=== PATIENT | female | born 1935 | race Caucasian/White ===

== ENCOUNTER 2018-12-09 12:14 | Inpatient (IN) | payer MEDICARE, MEDICAID ==
[2018-12-09] VITALS (7 sets, daily range): BP systolic 116–148; BP diastolic 60–70; PULSE 88–93; RESP 15–24; Ht 137.2 cm; Wt 68.0 kg
[~2018-12-09] VITALS: Ht 137.2 cm; Wt 68.0 kg
[~2018-12-09 12:14] MED LIST: ATEN50TA PO; ATOR20TA38 PO; BACTDS PO; DONE5TAB53 PO; MEMA5TAB PO; METF500T24 PO; TRAZ-111 PO; VALS160T20 PO
[2018-12-09] MEDS ORDERED: SOD CHLORIDE 0.9% 500 ML IV STA (12:45)
--- NOTE | 2018-12-09 13:09 | ERD ---
ER Documentation Chief Complaint Chief Complaint pt bib family with c/o not eating, dark stools, not herself HPI This is an 83-year-old female with a past medical history of hypertension, hyperlipidemia, diabetes, blindness, previous stroke with residual left-sided deficits, nonambulatory, lower extremity atrophy and contractures, significant dementia who is now presenting with 3 days of progressive abdominal discomfort, dark black soft stooling and a decreased appetite. The patient has not had any vomiting. The patient is chronically incontinent of urine and stool and wears a depends diaper. The family does not report any foul-smelling urine. History and physical is otherwise limited secondary to patient's dementia. ROS Limited secondary to patient's dementia. Medications Home Meds Reported Medications Docusate Sodium (Silace) 50 Mg/5 Ml Liquid, 10 ML PO DAILY PRN for PRN 12/09/18 Glipizide* (Glipizide*) 5 Mg Tablet, 5 MG PO AC BREAKFAST, TAB 12/09/18 Amlodipine Besylate* (Norvasc*) 5 Mg Tablet, 5 MG PO BID, TAB 12/09/18 Trazodone Hcl* (Trazodone Hcl*) 50 Mg Tablet, 50 MG PO Q6H, #30 TAB 12/09/18 Metformin Hcl* (Metformin Hcl*) 500 Mg Tablet, 500 MG PO WITH BREAKFAST, #30 TAB 12/09/18 Atenolol* (Atenolol*) 50 Mg Tablet, 50 MG PO DAILY, #30 TAB HOLD FOR SBP<100 12/09/18 Discontinued Reported Medications Valsartan* (Diovan*) 160 Mg Tablet, 160 MG PO DAILY, TAB 07/04/14 Atenolol* (Atenolol*) 50 Mg Tablet, 50 MG PO DAILY, TAB HOLD PER DR. TIWARI 07/04/14 Atorvastatin Calcium* (Atorvastatin Calcium*) 20 Mg Tablet, 20 MG PO HS, TAB 07/04/14 Donepezil* (Aricept*) 5 Mg Tablet, 5 MG PO DAILY, TAB 07/04/14 Metformin Hcl* (Metformin Hcl*) 500 Mg Tablet, 500 MG PO BID, TAB 07/04/14 Trazodone Hcl* (Trazodone Hcl*) 50 Mg Tablet, 50 MG PO DAILY PRN for SLEEP, TAB 07/04/14 Memantine* (Namenda*) 5 Mg Tablet, 5 MG PO DAILY, TAB 07/04/14 Discontinued Scripts Valsartan* (Diovan*) 160 Mg Tablet, 160 MG PO DAILY, #10 TAB Prov:GREER EVERETT 03/01/16 Sulfamethoxazole-Trimethoprim* (Bactrim* DS) 800-160 Mg Tab, 1 TAB PO BID for 10 Days, TAB Prov:SLAVA JACOBS MD 03/01/16 Allergies Allergies: Coded Allergies: Penicillins (Verified Allergy, Unknown, 12/09/18) PMhx/Soc History of Surgery: No Anesthesia Reaction: No Hx Neurological Disorder: Yes (DEMENTIA, CVA) Hx Respiratory Disorders: No Hx Cardiac Disorders: Yes (Hypertension, hyperlipidemia, diabetes) Hx Psychiatric Problems: No Hx Miscellaneous Medical Probl: Yes (Blindness) Hx Alcohol Use: No Hx Substance Use: No Hx Tobacco Use: No FmHx Family History: diabetes Physical Exam Vitals Vital Signs Date Temp Pulse Resp B/P (MAP) Pulse Ox O2 O2 Flow FiO2 Time Delivery Rate 12/09/18 96.7 95 18 113/57 100 Room Air 14:35 (75) 12/09/18 94 18 111/54 100 Room Air 13:43 (73) 12/09/18 97.3 64 20 138/63 84 12:18 (88) Physical Exam Const: No apparent distress, well-developed Head: Normocephalic, Atraumatic Eyes: Blindness ENT: Normal External Ears, Nose. Dry mucous membranes Neck: No meningismus. Resp: Clear to auscultation bilaterally, No wheezes, rales or rhonchi Cardio: Regular rate and rhythm. No murmurs, rubs or gallops Abd: Soft, non tender, non distended. Normal bowel sounds Rectal: Appraiser present. Nonbleeding hemorrhoids. Soft dark stool. Skin: No petechiae or rashes Back: No midline tenderness. No CVA tenderness Ext: No cyanosis, or edema. Lower extremity contractures Neur: Awake and alert. Confused but speaks clearly. Able to move all extremities. Psych: Agitated Result Diagram: 12/09/18 1256 12/09/18 1256 Results 24 hrs Laboratory Tests Test 12/09/18 12:45 12/09/18 12:56 Stool Occult Blood POSITIVE White Blood Count 10.9 10^3/ul Red Blood Count 2.35 10^6/ul Hemoglobin 6.8 g/dl Hematocrit 21.2 % Mean Corpuscular Volume 90.2 fl Mean Corpuscular Hemoglobin 28.9 pg Mean Corpuscular Hemoglobin Concent 32.1 g/dl Red Cell Distribution Width 13.0 % Platelet Count 272 10^3/UL Mean Platelet Volume 10.8 fl Immature Granulocytes % 0.500 % Neutrophils % 84.4 % Lymphocytes % 10.8 % Monocytes % 4.0 % Eosinophils % 0.1 % Basophils % 0.2 % Nucleated Red Blood Cells % 0.0 /100WBC Immature Granulocytes # 0.050 10^3/ul Neutrophils # 9.2 10^3/ul Lymphocytes # 1.2 10^3/ul Monocytes # 0.4 10^3/ul Eosinophils # 0.0 10^3/ul Basophils # 0.0 10^3/ul Nucleated Red Blood Cells # 0.0 10^3/ul Prothrombin Time 13.5 Sec Prothrombin Time Ratio 1.1 INR International Normalized Ratio 1.02 Activated Partial Thromboplast Time 29.3 Sec Sodium Level 148 mmol/L Potassium Level 3.6 mmol/L Chloride Level 112 mmol/L Carbon Dioxide Level 21 mmol/L Anion Gap 15 Blood Urea Nitrogen 82 mg/dl Creatinine 2.43 mg/dl Est Glomerular Filtrat Rate mL/min mL/min Glucose Level 263 mg/dl Calcium Level 9.1 mg/dl Total Bilirubin 0.1 mg/dl Direct Bilirubin 0.00 mg/dl Indirect Bilirubin 0.1 mg/dl Aspartate Amino Transf (AST/SGOT) 38 IU/L Alanine Aminotransferase (ALT/SGPT) 7 IU/L Alkaline Phosphatase 90 IU/L Troponin I 2.640 ng/ml Total Protein 7.3 g/dl Albumin 4.0 g/dl Globulin 3.30 g/dl Albumin/Globulin Ratio 1.21 Lipase 143 U/L Current Medications Medications Dose Sig/Salvatore Start Time Status Last (Trade) Ordered Route PRN Stop Time Admin Dose Reason Admin Sodium 500 ml @ Q1H STAT 12/09/18 DC 12/09/18 Chloride 500 mls/hr IV 12:45 13:17 12/09/18 13:44 Sodium 0 ml @ 0 Q0M ONCE 12/09/18 DC Chloride mls/hr IV 13:31 12/09/18 13:32 80 mg ONCE ONCE 12/09/18 DC 12/09/18 Pantoprazole IV 14:00 13:41 (Protonix 12/09/18 14:01 Iv) Ondansetron 4 mg ONCE STAT 12/09/18 DC 12/09/18 HCl (Zofran IV 13:34 13:40 Inj) 12/09/18 13:35 Ondansetron 4 mg ER BRIDGE 12/09/18 HCl (Zofran PRN IV 14:00 Inj) NAUSEA/VOMITI 12/10/18 13:59 NG 650 mg ER BRIDGE 12/09/18 Acetaminophen PRN PO 14:00 (Tylenol .MILD PAIN 12/10/18 13:59 Tab) 1-3 OR TEMP Procedures/MDM MDM The patient's presentation warrants further investigation. Previous medical records, if available, were reviewed. LABS The patient's laboratory testing was obtained and reviewed. No emergent treatment was required unless described below. CBC: No E/o systemic infection or thrombocytopenia. Significant normocytic anemia requiring transfusion. Chemistry: Hypernatremia. Elevated BUN and creatinine. Acute on chronic kidney disease evident. The elevated BUN could also be related to an upper GI bleed. Hyperglycemia without DKA. No E/o severe acidosis or alkalosis or liver disease PT/INR: No E/o significant coagulopathy Troponin: No E/o acute ischemia Urine: No E/o acute infection or hematuria FOBT: Positive EKG EKG read by me: Rate/Rhythm: Regular rate and rhythm, without clear P waves, likely accelerated junctional rhythm at 95 bpm Intervals: Normal QRS [place]: Normal Impression: ST depressions in V3 through V6 with biphasic T waves, concerning for an NSTEMI IMAGING Imaging and Radiology interpretation reviewed. CXR FINDINGS: The heart is normal in size. Thoracic aorta is calcified. There are mild increased interstitial changes. There are mild bibasilar atelectatic changes. The lungs are otherwise clear. There is no pleural effusion or pneumo thorax. IMPRESSION: Mild bibasilar atelectatic changes. Mild increased interstitial changes throughout the lungs, suspicious for mild pulmonary vascular congestion. Electronically viewed and signed by Marky Valdez MD on 12/09/2018 13:41 TREATMENT/DISPOSITION The patient presents for a GI bleed and failure to thrive. She has not been eating over the last several days. I do suspect that this is related to her abdominal discomfort. The patient's fecal occult blood test is positive. The patient is significantly anemic, which will require transfusion. The risks and benefits were discussed with the patient's son and the son consented to the procedure. The dispatch clerk, Dr. Thomas, was consulted to evaluate the patient. There is no evidence of viscus perforation. The patient does not have any evidence of peritonitis. The patient does not have clinical symptoms concerning for mesenteric ischemia or ischemic colitis. I have low suspicion for gallstones, cholecystitis or biliary colic. Gastritis versus GERD versus PUD could be the etiology of her dark tarry stools. The patient's lipase is normal. I have low suspicion for pancreatitis. The patient does not have any right lower quadrant tenderness, or periumbilical tenderness. I have low suspicion for appendicitis. The patient's urinalysis is unremarkable. I have decreased suspicion for cystitis. Diverticulosis could be a possible etiology. I do not suspect diverticulitis. The patient does not have gross hematuria. I have decreased suspicion for nephrolithiasis or renal colic. The patient does not have any palpable pulsatile mass or severe abdominal pain radiating to the back. I have low suspicion for aortic aneurysm, dissection or rupture. There is evidence of acute on chronic kidney disease, which is suspicious for possible dehydration. The patient's BUN is quite elevated, which could be suspi cious for an upper GI bleed as well. The patient's sodium and chloride are also quite elevated, which could also be related to hemoconcentration from dehydration. There is also evidence of cardiac ischemia on the EKG. There are ST depressions in the anterolateral leads. The patient's troponin is elevated. I am concerned about an NSTEMI. The edi programmer analyst, Dr. oBwman was consulted. I did not immediately give the patient aspirin or any anticoagulation due to her significant GI bleed. This could be related to demand ischemia due to significant anemia. Her cardiac status will hopefully improve with transfusion. CRITICAL CARE NOTE Time: 36 minutes excluding all billable procedures. Treatments/Evaluations: The patient was at risk of hemodynamic compromise. Timing of critical care involved close serial monitoring, evaluation of the patient's medical record including previous records & current laboratory/imaging studies, potential interventions for prevention of hemodynamic/ cardiopulmonary/ neurologic compromise, maintaining tight fluid balance, and any discussions with the family and/or consultants regarding the patient's status and prognosis. ADMISSION At this time, I feel that the patient requires admission for further evaluation and management. The patient will be admitted to Dr. Ramos in accordance with the patient's insurance. The patient was accepted to the ICU at 1430PM on 12/09/2018. Dr. Bowman was consulted to evaluated the patient's cardiac status. Dr. Thomas was consulted to evaluate the patient's GI bleed. Disclaimer: Inadvertent spelling and grammatical errors are likely due to EHR/dictation software use and do not reflect on the overall quality of patient care. Note that the electronic time recorded on this note does not necessarily reflect the actual time of the patient encounter. Departure Diagnosis: Primary Impression: GI bleed GI bleed type/associated pathology: unspecified gastrointestinal hemorrhage type Qualified Codes: K92.2 - Gastrointestinal hemorrhage, unspecified Additional Impressions: Poor appetite Failure to thrive Failure to thrive age range: in adult Qualified Codes: R62.7 - Adult failure to thrive Symptomatic anemia Normocytic anemia Hypernatremia Acute kidney injury superimposed on chronic kidney disease Hyperglycemia NSTEMI (non-ST elevated myocardial infarction) Demand ischemia Elevated troponin ST segment depression Condition: Critical FLORENTIN PATINO MD December 09, 2018 13:09
[2018-12-09] MEDS ORDERED: SOD CHLORIDE 0.9% 0 ML IV ONE (13:31)
[2018-12-09] MEDS ORDERED: ONDANSETRON 4 MG INJ IV STA (13:34)
[2018-12-09] MEDS ORDERED: ONDANSETRON 4 MG INJ IV PRN (14:00)
[2018-12-09] MEDS ORDERED: PANTOPRAZOLE 40 MG INJ IV ONE (14:00)
[2018-12-09] MEDS ORDERED: ACETAMINOPHEN 325 MG TAB PO PRN (14:00)
[2018-12-09] MEDS ORDERED: METF500T24 PO (14:34)
[2018-12-09] MEDS ORDERED: ATEN50TA PO (14:34)
[2018-12-09] MEDS ORDERED: GLIP5TAB13 PO (14:35)
[2018-12-09] MEDS ORDERED: TRAZ-111 PO (14:35)
[2018-12-09] MEDS ORDERED: AMLO5TAB4 PO (14:35)
[2018-12-09] MEDS ORDERED: DOCU50LI13 PO (14:36)
--- NOTE | 2018-12-09 15:22 | CONS ---
Assessment/Plan Assessment/Plan Hospital Course (Demo Recall) INPATIENT CONSULTATION REQUESTING PHYSICIAN: Dr. Ramos REASON FOR CONSULT: GI bleed, non-ST elevation myocardial infarction. HISTORY OF PRESENT ILLNESS: 83-year-old female with 1. Multi-infarct dementia prior CVAs. 2. History of traumatic subdural hematoma and subarachnoid hemorrhage 2013. 3. History of non-ST elevation myocardial infarction 2008 treated conservatively. 4. Hypertension. 5. Hyperlipidemia. 6. Type 2 diabetes. 7. Recurrent UTIs. Patient admitted with abdominal pain and GI bleed found to have an abnormal troponin. Cardiac consultation was called. Patient cannot give any real history but denies any chest pains or dyspnea. History obtained from electronic medical records. In 2008 had a mild troponin elevation and was found to have a normal left ventricle but a calcified mass on the mitral valve and aortic sclerosis and was treated conservatively at that time. RISK FACTORS age, hypertension, diabetes, hyperlipidemia, there is no gout smoking or family history available of premature coronary disease. PAST MEDICAL HISTORY: 1. As above. PAST SURGICAL HISTORY: No surgical history available from chart. MEDICATIONS: Please see emergency room note. ALLERGIES: Penicillin SOCIAL HISTORY: Patient with significant dementia, contractures lives with her family. FAMILY HISTORY: Family history not available. REVIEW OF SYSTEMS: Review of systems not obtainable patient not communicative. PHYSICAL EXAMINATION: Vital signs please see chart. Cachectic appearing contracted elderly female in no acute distress. HEENT; no JVD, no HJR, carotids 2 over 4+ without bruits. Chest: Clear to auscultation and percussion, no rales, wheezes or rhonchi. Difficult exam Cardiac: S4, S1, S2 with normal physiologic splitting, 2/6 early to mid peaking systolic ejection murmur, no rub click or diastolic murmur noted. Abdominal: Bowel sounds positive, soft nontender, no abdominal bruit noted, no hepatosplenomegaly. Extremities: No cyanosis, clubbing, or edema. Negative Homans sign or palpable cords. Pulses: 2/4 pulses diffusely no bruits noted. ADDITIONAL DATA: Hemoglobin 6.8 hematocrit 21.2 white count 10.9 normal platelets, normal electrolytes, BUN 82 creatinine 2.43, normal coagulation parameters, troponin2.64 Chest x-ray cardiomegaly, no heart failure. EKG reveals sinus rhythm at 95 left ventricular hypertrophy with secondary repolarization changes no acute ST elevation noted. ASSESSMENT: 1. Acute GI bleed with severe anemia. 2. Troponin elevation probably type II myocardial infarction from supply demand mismatch. 3. Hypertension. 4. Hyperlipidemia. 5. Multi-infarct dementia long-standing. 6. History of subarachnoid hemorrhage and subdural hematoma following a fall 2013. 7. Type 2 diabetes. 8. Prior history of non-ST elevation myocardial infarction 2009 conservative treatment back then. 9. Renal insufficiency. At this time patient probably has had a supply demand mismatch with troponin elevation with severe anemia in the setting of a GI bleed. Little to offer the patient at this point with severe anemia and GI bleed cannot use aspirin even or any anticoagulants. Recommend transfusion to hematocrit of over 27-30 with Lasix given every 2 units to prevent high output heart failure. Will recheck 2D echocardiogram and continue statin at present. CODE STATUS to be addressed by Dr. Ramos. PLAN: 1. Transfused hematocrit over 27 give Lasix 20 mg IV every 2 units prevent volume overload. 2. Continue conservative management from cardiac standpoint and significantly demented patient now with GI bleed little to offer except for continued statin therapy will use nitrates and beta-jany once patient's hematocrit stabilized to prevent any possible hypotension. 3. CODE STATUS per Dr. Ramos. IZABELLA MAGUIRE MD December 09, 2018 15:21
[2018-12-09] MEDS ORDERED: ACETAMINOPHEN 650 MG SUPP PR PRN (18:30)
[2018-12-09] MEDS: D5W-0.45 NACL + KCL 20 MEQ 1,000 ML IV SCH (18:46)
[2018-12-09] MEDS ORDERED: DEXTROSE 50% 50 ML SYRINGE IV PRN ×2 (19:00)
[2018-12-09] MEDS ORDERED: GLUCOSE GEL 15 GRAM TUBE BUCCAL PRN (19:00)
[2018-12-09] MEDS ORDERED: GLUCAGON 1 MG INJ IM PRN (19:00)
[2018-12-09] MEDS ORDERED: GLUCOSE GEL 15 GRAM TUBE PO PRN ×2 (19:00)
[2018-12-09] MEDS: INSULIN ASPART [NOVOLOG] 3 ML PEN SC SCH (20:56)
[2018-12-09] MEDS ORDERED: FUROSEMIDE 20 MG INJ IV ONE (22:00)
--- NOTE | 2018-12-09 22:59 | CONS ---
DATE OF ADMISSION: 12/09/2018 DATE OF CONSULTATION: HISTORY OF PRESENT ILLNESS: An 83-year-old female who was brought to the Emergency Room for abdomina l pain and GI bleeding. In the ER, she was found to have a low hemoglobin and high troponin level. GI consult was called in for the GI bleeding. No history could be obtained from the patient. As per the electronic medical record, she is known to have dementia and diabetes mellitus and hypertension and hyperlipidemia. She also has a history of CVA in the past. 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 PAST MEDICAL HISTORY: As described. MEDICATIONS: As per reconciliation list. ALLERGIES: ALLERGIC TO PENICILLIN. SOCIAL HISTORY: The patient is demented and ____ lives her family. REVIEW OF SYSTEMS: Unable to do it. PHYSICAL EXAMINATION VITAL SIGNS: Stable. GENERAL: Contracted. Not in distress. She is cachectic. CARDIOVASCULAR: No murmur, gallop or click. LUNGS: Clear. ABDOMEN: Benign. EXTREMITIES: No edema. CENTRAL NERVOUS SYSTEM: Does not communicate. LABORATORY DATA: The patient's hemoglobin was 6.8, hematocrit was just 21.2, WBC 10.9, platelet coun t was normal. BUN was elevated at 82, creatinine was 2.43. Troponin also was high at 2.6. INR was 1.1. Stool for occult blood was positive. IMPRESSION: 1. Upper gastrointestinal bleeding. 2. Diabetes mellitus. 3. Hypertension. 4. Dementia. 5. Cerebrovascular accident. 6. Severe anemia. 7. Elevated troponin. 8. ALLERGIC TO PENICILLIN. PLAN: At this point is to transfuse 2 units of packed cell RBC, keep the hemoglobin greater than 8. Once patient is stable and cleared by the harness rigger, we will proceed with EGD. In the interim, m onitor H and H and continue PPI. Dictated By: JACLYN ROQUE/EDWAR Conf#: [id number] DID#: [id number]
--- NOTE | 2018-12-09 23:15 | HP ---
DATE OF ADMISSION: 12/09/2018 CHIEF COMPLAINT: Decreased appetite and black stools for 3 days. HISTORY OF PRESENT ILLNESS: History is obtained from the patient's son who is a caregiver. The sophia ent is an 83-year-old female with a history of CVA, advanced dementia, diabetes, hypertensio n, chronic kidney disease, who generally is bedbound and nonambulatory, who was noted over the last 3 days have decreased appetite and black stools. The patient has limited communication, but did not c omplain of any pain. Stools are multiple, soft, black. She had been ill recently. Does not take an y blood thinners or anti-inflammatory medications. The patient's diabetes control is typically about 140 to 150 and denied any chest pain, shortness of breath, abdominal pain, fever, chills, or night s weats. PAST MEDICAL HISTORY: CVA with contractures. Patient bedbound, advanced dementia, felt to be multi- infarct, diabetes, hypertension, hyperlipidemia, chronic kidney disease, history of subarachnoid hemo rrhage, history of subdural hematoma, anemia, history of non-STEMI. MEDICATIONS: 1. Trazodone 50 mg q.6h. p.r.n. 2. Atenolol 50 mg daily. 3. Glipizide 2.5 mg daily. 4. Norvasc 5 mg b.i.d. ALLERGIES: PENICILLIN. SOCIAL HISTORY: Patient is a nonsmoker, nondrinker. FAMILY HISTORY: Not obtainable. REVIEW OF SYSTEMS: Not obtainable. PHYSICAL EXAMINATION: VITAL SIGNS: Temperature 97.8, pulse 89, blood pressure 135/64, pulse ox 97% on room air. GENERAL: This is a thin female, limited , does open her eyes to verbal stimuli, can follow simple commands. HEENT: Normocephalic, atraumatic. Sclerae anicteric. Oropharynx: Mucosa is dry, otherwise clear. NECK: Supple, no adenopathy, no bruits. LUNGS: Clear to auscultation. CARDIAC: Regular rate and rhythm. ABDOMEN: Bowel sounds are present. Abdomen is soft, nontender, nondistended. EXTREMITIES: Without cyanosis, clubbing, or edema. NEUROLOGIC: The patient with limited responsiveness, which is her baseline. The patient does move a ll 4 extremities, but has multiple contractures, possibly some slight weakness on the right lower ext remity which apparently is chronic. DATA: White count 10.9, hemoglobin 6.8, hematocrit of 21.2, platelets 272. Sodium 148, potassium 3. 6, chloride 112, bicarbonate 21, BUN 82, creatinine 2.43, glucose 263. Bilirubin 0.1, AST 35, ALT 7, albumin 4, lipase 143. Troponin 2.64. INR 1.02, PTT 29.3. Stool OB positive. EKG pending. Chest x-ray: Mild basilar atelectasis, mild increased interstitial markings, questionable mild pulmonary congestion. IMPRESSION: 1. Gastrointestinal bleed with melena, most likely upper gastrointestinal bleed. 2. Elevated troponin. 3. Hypertension. 4. Hyperlipidemia. 5. Diabetes. 6. Advanced dementia, status post cerebrovascular accident with residual. PLAN: Admit to the ICU. Cardiology consult. GI consult. Serial H and H. Transfuse to keep hemato crit 27 as per cardiology. Careful hydration. N.p.o. except meds. Monitor troponin. IV Protonix. Plan for a GI workup, when the patient is cleared from a cardiac standpoint, to have procedure. Ins ulin sliding scale. Will continue beta jany hold. Not a candidate for aspirin or any anticoagula nts ____ of NovoLog. Monitor labs. Dictated By: EFRAÍN VILLAREAL/EDWAR Conf#: [id number] DID#: [id number]
[2018-12-10] VITALS (23 sets, daily range): BP systolic 100–141; BP diastolic 46–70; PULSE 66–91; RESP 0–29
[2018-12-10] MEDS: INSULIN ASPART [NOVOLOG] 3 ML PEN SC SCH ×4 (00:07→18:05)
[2018-12-10] MEDS: morphine 2 MG INJ IV PRN (00:19)
[2018-12-10] MEDS ORDERED: ACCU-CHEK XX SCH (02:00)
[2018-12-10] MEDS: PANTOPRAZOLE 40 MG INJ IV SCH (05:59)
[2018-12-10] MEDS: D5W-0.45 NACL + KCL 20 MEQ 1,000 ML IV SCH (07:39)
[2018-12-10] MEDS: ATENOLOL 50 MG TAB PO SCH (09:17)
--- NOTE | 2018-12-10 12:04 | RADRPT ---
Echocardiogram Report Patient Name: Lazara FLEMINGtient ID: [id number] : 1935 (83y 2m)Study Date: 12/10/2018 8:37:06 AM Gender: FAccession #: [id number] [place]: [facility] [place] Location: Ref.Physician: IZABELLA MAGUIRE Height(Cm): 157 BSA: 1.72Weight(Kg): 67.6 Quality: Technically Difficult StudyAccount #: Procedures: Echocardiographic Report: Transthoracic echocardiogram examination. Indications: AL. Measurements: 2D/M Mode Doppler Measurement Value Normal Range Measurement Value Normal Range LA Volume 75.3 [ 22.0 - 52.0 ] ml AV Peak Paul 1.0 [ 100.0 - 170.0 ] cm/sec LA Volume Index 45 [ 16 - 34 ] ml/m2 AV Peak PG 4.0 [ 2.0 - 9.0 ] mmHg IVSd 2D 1.4 [ 0.6 - 0.9 ] cm AI Peak PG 41.0 mmHg AI Peak Paul 3.2 cm/sec LVOT Peak Paul 0.5 [ 70.0 - 110.0 ] cm/sec LVOT Peak PG 1.0 [ 2.0 - 6.0 ] mmHg MV E Peak Paul 1.9 [ 60.0 - 130.0 ] cm/sec MV A Peak Palu 0.8 [ 100.0 - 120.0 ] cm/sec MV E/A 2.5 [ 0.8 - 1.5 ] ratio MV PHT 50.0 [ 20.0 - 100.0 ] msec MV Decel Time 172 [ 104 - 258 ] msec MV Decel [place] 11 Lat E` Paul 0.1 [ 10.0 - 15.0 ] cm/sec Lateral E/E` 23.6 [ 1.0 - 2.0 ] ratio Med E` Paul 0.0 cm/sec MV E/A 2.5 [ 0.8 - 1.5 ] ratio MV PHT 50.0 [ 20.0 - 100.0 ] msec MVA PHT 4.4 [ 2.0 - 4.0 ] cm2 TR Peak Paul 4.1 [ 100.0 - 280.0 ] cm/sec TR Peak PG 68.0 mmHg PV Peak Paul 0.6 [ 40.0 - 80.0 ] cm/sec PV Peak PG 2.0 mmHg RVSP 83.0 [ 10.0 - 36.0 ] mmHg RA Pressure 15.0 mmHg Findings: Left Ventricle: Normal left ventricular cavity size. There is probably mild left ventricular systolic dysfunction although not all wall segments are seen clearly. Tissue Doppler/Mitral Doppler indices are consistent with restrictive physiology with markedly elevated left atrial pressure (Stage III-IV diastolic dysfunction). Mild concentric left ventricular hypertrophy. The left ventricular ejection fraction is visually estimated at 55 %. No left ventricular outflow tract gradient at rest. Normal LV chamber size with preserved contractility EF low normal at 55%.Technically difficult imaging pt refused parasternal images. Grade 3 diastolic dysfunction with restrictive pattern c/w elevated LA pressure. Right Ventricle: Normal right ventricular systolic function. Mild enlargement of right ventricle, basal 4C RV = 3.5 cm in RV focused view. Left Atrium: There is severe enlargement of left atrium ARLIN is 45 ml/m2. Right Atrium: The right atrium is normal in size and appearance. Atrial Septum: Normal atrial septum. Mitral Valve: Anterior mitral valve leaflet appear mildly thickened, there also appears to be mild chordal calcification. Posterior mitral valve leaflet appear mildly thickened. Severe mitral annular calcification. Severe mitral regurgitation. 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 Aortic Valve: Normal appearance and function of the aortic valve, seen only from apicals and subcostal images. Aortic cusps appear moderately calcified. Trileaflet aortic valve. Mild aortic regurgitation. Poorly visualized calcified probanly trileaflet AV with mild AI t1/5=345dgpm,no significant stenosis c/w Aortic Sclerosis. Tricuspid Valve: The estimated Peak RVSP is 75 mmHg. There is moderate to severe tricuspid regurgitation. Moderate to severe TR with severe pulmonary HTN.Peak Pressures estimated 75-80mmHg. Pulmonic Valve: Normal pulmonic valve appearance and function with no regurgitation, PV imaged from subcostal views. Pericardium: Normal pericardium with no significant pericardial effusion. Aorta: Normal aortic root. IVC: Dilated inferior vena cava with normal respiratory collapse. Dilated IVC with poor respiratory variation c/w elevated RA pressure. Pulmonary Artery: Normal pulmonary artery size. Conclusions: Normal left ventricular cavity size. There is probably mild left ventricular systolic dysfunction although not all wall segments are seen clearly. Tissue Doppler/Mitral Doppler indices are consistent with restrictive physiology with markedly elevated left atrial pressure (Stage III-IV diastolic dysfunction). Mild concentric left ventricular hypertrophy. The left ventricular ejection fraction is visually estimated at 55 %. No left ventricular outflow tract gradient at rest. Normal LV chamber size with preserved contractility EF low normal at 55%.Technically difficult imaging pt refused parasternal images. Grade 3 diastolic dysfunction with restrictive pattern c/w elevated LA pressure. e. There is severe enlargement of left atrium ARLIN is 45 ml/m2. Anterior mitral valve leaflet appear mildly thickened, there also appears to be mild chordal calcification. Posterior mitral valve leaflet appear mildly thickened. Severe mitral annular calcification. Severe mitral regurgitation. 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 Normal appearance and function of the aortic valve, seen only from apicals and subcostal images. Aortic cusps appear moderately calcified. Trileaflet aortic valve. Mild aortic regurgitation. Poorly visualized calcified probanly trileaflet AV with mild AI t1/1=[id number],no significant stenosis c/w Aortic Sclerosis. The estimated Peak RVSP is 75 mmHg. There is moderate to severe tricuspid regurgitation. Moderate to severe TR with severe pulmonary HTN.Peak Pressures estimated 75-80mmHg. Normal pericardium with no significant pericardial effusion. Dilated inferior vena cava with normal respiratory collapse. Dilated IVC with poor respiratory variation c/w elevated RA pressure. Technically difficult study. No Intracardiac Thrombus or masses seen. Electronically Signed By: Izabella Maguire 2018-12-10 12:03:20 PDT
--- NOTE | 2018-12-10 12:51 | PN ---
Date/Time of Note Date/Time of Note DATE: 12/10/18 TIME: 12:40 SUBJECTIVE: Patient awake without any complaints but limited communication. Patient's family present. Chart, medications and laboratory studies reviewed. Patient transfused 2 units of packed cells yesterday and received 1 unit of Lasix 20 mg IV. Review of systems Not obtainable patient not communicative. OBJECTIVE: Vital signs please see chart. HEENT; no JVD, no HJR, carotids 2 over 4+ without bruits. Chest: Clear to auscultation and percussion, no rales, wheezes or rhonchi. Cardiac: S4, S1, S2 with normal physiologic splitting, 2/6 early to mid peaking systolic ejection murmur, no rub click or diastolic murmur noted. Abdominal: Bowel sounds positive, soft nontender, no abdominal bruit noted, no hepatosplenomegaly. Extremities: No cyanosis, clubbing, or edema. Negative Homans sign or palpable cords. Pulses: 2/4 pulses diffusely no bruits noted. LABORATORY STUDIES; Hemoglobin this morning 8.2 hematocrit 25.2 white count 9.1 platelets 188, electrolytes normal bun 77 creatinine 2.27, total cholesterol 173, triglycerides 163, LDL 77, HDL 33, normal TSH, troponin over 19. Chest x-ray revealed cardiomegaly, calcified aortic knob, interstitial edema new from prior x-ray. EKG revealed sinus rhythm at 88 beats a minute nonspecific ST abnormality inferolaterally resolution of left ventricular hypertrophy. Telemetry sinus rhythm no significant ectopy 1 short run of accelerated idioventricular rhythm. 2D echocardiogram reviewed by myself revealed normal left ventricle chamber size wall thickness overall ejection fraction low normal at 55%, poorly visualized aortic valve sclerotic probably trileaflet with mild aortic regurgitation, marked mitral annular calcification with moderate to severe mitral regurgitation, moderate to severe tricuspid regurgitation with severe pulmonary hypertension pulmonary pressure 75 to 80 mmHg, no masses or pericardial effusion, moderate to significantly dilated left atrium. ASSESSMENT: 1. Acute GI bleed possibly upper. 2. Non-ST elevation myocardial infarction with markedly elevated troponin. 3. Hypertension. 4. Hyperlipidemia. 5. Type 2 diabetes. 6. Multi-infarct dementia prior CVAs. 7. History of subdural hematoma subarachnoid hemorrhage in 2013. 8. Recurrent UTIs. 9. Aortic regurgitation on echocardiogram. 10. Severe pulmonary hypertension possibly due to volume overload currently with acute diastolic heart failure. 11. Renal insufficiency At this time the patient has evidence of heart failure from volume overload from transfusion. May also have acute diastolic heart failure we will diurese with 40 IV of Lasix watching carefully to make sure no hypotension ensues. Cannot give aspirin nor any anticoagulation with recent GI bleed and patient clearly not a candidate for any aggressive interventions such as angiography. Discussed case with Dr. Ramos. PLAN: 1. Hematocrit being followed keep over 27 if possible. 2. IV Lasix 40 mg with potassium supplementation. 3. Follow EKG, troponins. 4. Restart statin agent. 5. Would wait for patient to stabilize prior to any anticipated endoscopy. IZABELLA MAGUIRE MD December 10, 2018 12:50
[2018-12-10] MEDS ORDERED: POTASSIUM CHLORIDE 100 ML IVPB ONE (13:00)
[2018-12-10] MEDS ORDERED: FUROSEMIDE 40 MG INJ IV ONE (13:00)
--- NOTE | 2018-12-10 13:26 | PN ---
Date/Time of Note Date/Time of Note DATE: 12/10/18 TIME: 13:17 Assessment/Plan VTE Prophylaxis Risk score (from Ns)>0 risk: 5 SCD applied (from [facility] [place]): Yes Pharmacological prophylaxis: NA/contraindicated Pharm contraindication: bleeding Lines/Catheters IV Catheter Type (from Nrs): Mid Line Urinary Cath still in place: No Assessment/Plan Assessment/Plan A: GIB probably upper, Hb improved after transfusion non STEMI volume overload ARF DM advanced dementia HTN hyperlipidemia P: cont current rx diurese as per cardiology, IVF held code status being discussed by family monitor H&H, labs cont ICU monitoring Result Diagram: 12/10/18 1212 12/10/18 0319 Results 24hrs Laboratory Tests Test 12/09/18 20:01 12/09/18 20:53 12/10/18 00:06 12/10/18 03:19 Bedside Glucose 261 H 259 H 242 H White Blood Count 9.1 Red Blood Count 2.83 #L Hemoglobin 8.2 #L Hematocrit 25.2 L Mean Corpuscular 89.0 Volume Mean Corpuscular 29.0 Hemoglobin Mean Corpuscular 32.5 Hemoglobin Concent Red Cell 13.9 Distribution Width Platelet Count 188 # Mean Platelet Volume 11.2 H Immature 0.300 Granulocytes % Neutrophils % 73.1 Lymphocytes % 16.7 Monocytes % 9.1 Eosinophils % 0.1 Basophils % 0.7 Nucleated Red Blood 0.0 Cells % Immature 0.030 Granulocytes # Neutrophils # 6.7 Lymphocytes # 1.5 Monocytes # 0.8 Eosinophils # 0.0 Basophils # 0.1 Nucleated Red Blood 0.0 Cells # Sodium Level 147 H Potassium Level 3.8 Chloride Level 116 H Carbon Dioxide Level 22 Anion Gap 9 # Blood Urea Nitrogen 77 H Creatinine 2.27 H Est Glomerular Filtrat Rate mL/min Glucose Level 203 Calcium Level 8.3 L Phosphorus Level 4.2 Magnesium Level 2.5 Total Bilirubin 0.3 Direct Bilirubin 0.00 Indirect Bilirubin 0.3 Aspartate Amino 79 H Transf (AST/SGOT) Alanine 14 Aminotransferase (AL T/SGPT) Alkaline Phosphatase 65 Troponin I 19.400 *H B-Type Natriuretic 66235 H Peptide Total Protein 5.8 #L Albumin 3.2 L Triglycerides Level 163 H Cholesterol Level 143 LDL Cholesterol, 77 Calculated HDL Cholesterol 33 Cholesterol/HDL 4.3 Ratio Lipase 123 Thyroid Stimulating 1.960 Hormone (TSH) Test 5/12/19 06:03 12/10/18 11:19 12/10/18 12:12 Bedside Glucose 212 228 H Hemoglobin 8.7 L Hematocrit 26.7 L Subjective 24 Hr Interval Summary Free Text/Dictation Cardiology and GI consults appreciated. Discussed with Dr. Bowman. Troponin increased more, some pulm edema, but otherwise stable for the moment. Had transfusion of 2u prbcs and Hb elevated and stable. 3 children at bedside discussed condition and answered all questions. Exam/Review of Systems Exam Vitals Vital Signs Date Temp Pulse Resp B/P (MAP) Pulse Ox O2 O2 Flow FiO2 Time Delivery Rate 12/10/18 83 7 132/56 96 Room Air 09:00 (81) 12/10/18 97.7 08:00 Intake and Output 12/09/18 12/09/18 12/10/18 1515:00 23:00 07:00 IntakeIntake Total 350 ml 327.5 ml 950 ml BalanceBalance 350 ml 327.5 ml 950 ml Exam gen- answers some questions, follows simple commands lungs- few basilar crackles heart- RRR abd- +BS, soft, nontender ext- no edema Results Results 24hrs Laboratory Tests Test 12/09/18 20:01 12/09/18 20:53 12/10/18 00:06 12/10/18 03:19 Bedside Glucose 261 H 259 H 242 H White Blood Count 9.1 Red Blood Count 2.83 #L Hemoglobin 8.2 #L Hematocrit 25.2 L Mean Corpuscular 89.0 Volume Mean Corpuscular 29.0 Hemoglobin Mean Corpuscular 32.5 Hemoglobin Concent Red Cell 13.9 Distribution Width Platelet Count 188 # Mean Platelet Volume 11.2 H Immature 0.300 Granulocytes % Neutrophils % 73.1 Lymphocytes % 16.7 Monocytes % 9.1 Eosinophils % 0.1 Basophils % 0.7 Nucleated Red Blood 0.0 Cells % Immature 0.030 Granulocytes # Neutrophils # 6.7 Lymphocytes # 1.5 Monocytes # 0.8 Eosinophils # 0.0 Basophils # 0.1 Nucleated Red Blood 0.0 Cells # Sodium Level 147 H Potassium Level 3.8 Chloride Level 116 H Carbon Dioxide Level 22 Anion Gap 9 # Blood Urea Nitrogen 77 H Creatinine 2.27 H Est Glomerular Filtrat Rate mL/min Glucose Level 203 Calcium Level 8.3 L Phosphorus Level 4.2 Magnesium Level 2.5 Total Bilirubin 0.3 Direct Bilirubin 0.00 Indirect Bilirubin 0.3 Aspartate Amino 79 H Transf (AST/SGOT) Alanine 14 Aminotransferase (AL T/SGPT) Alkaline Phosphatase 65 Troponin I 19.400 *H B-Type Natriuretic 90040 H Peptide Total Protein 5.8 #L Albumin 3.2 L Triglycerides Level 163 H Cholesterol Level 143 LDL Cholesterol, 77 Calculated HDL Cholesterol 33 Cholesterol/HDL 4.3 Ratio Lipase 123 Thyroid Stimulating 1.960 Hormone (TSH) Test 12/10/18 06:03 12/10/18 11:19 12/10/18 12:12 Bedside Glucose 212 228 H Hemoglobin 8.7 L Hematocrit 26.7 L Medications Medication Current Medications Potassium Chloride/Dextrose/ Sod Cl 1,000 ml @ 20 mls/hr Q24H IV Last administered on 12/10/18at 07:39; Admin Dose 75 MLS/HR; Start 12/09/18 at 18:45 Ondansetron HCl (Zofran Inj) 4 mg Q6H PRN IV NAUSEA AND/OR VOMITING; Start 12/09/18 at 18:30 Acetaminophen (Tylenol Supp) 650 mg Q4H PRN [place] PAIN LEVEL 1-3 OR FEVER; Start 12/09/18 at 18:30 Pantoprazole (Protonix Iv) 40 mg DAILY@06 IV ; Start 12/10/18 at 06:00 Atenolol (Tenormin) 50 mg DAILY PO Last administered on 12/10/18at 09:17; Admin Dose 50 MG; Start 12/10/18 at 09:00 Insulin Aspart (Novolog Insulin Pen) NOVOLOG *MILD* ALGORI... Q6 SC Last administered on 12/10/18at 11:30; Admin Dose 3 UNIT; Start 12/09/18 at 19:00 Miscellaneous Information 1 ea NOTE XX ; Start 12/09/18 at 19:00 Glucose (Glutose) 15 gm Q15M PRN PO DECREASED GLUCOSE; Start 12/09/18 at 19:00 Glucose (Glutose) 22.5 gm Q15M PRN PO DECREASED GLUCOSE; Start 12/09/18 at 19:00 Dextrose (D50w Syringe) 25 ml Q15M PRN IV DECREASED GLUCOSE; Start 12/09/18 at 19:00 Dextrose (D50w Syringe) 50 ml Q15M PRN IV DECREASED GLUCOSE; Start 12/09/18 at 19:00 Glucagon (Glucagen) 1 mg Q15M PRN IM DECREASED GLUCOSE; Start 12/09/18 at 19:00 Glucose (Glutose) 15 gm Q15M PRN BUCCAL DECREASED GLUCOSE; Start 12/09/18 at 19:00 Morphine Sulfate (morphine) 1 mg Q4H PRN IV SEVERE PAIN LEVEL 7-10 Last administered on 12/10/18at 00:19; Admin Dose 1 MG; Start 12/09/18 at 22:00 Potassium Chloride 100 ml @ 50 mls/hr ONCE ONCE IVPB Last administered on 12/10/18at 12:51; Admin Dose 50 MLS/HR; Start 12/10/18 at 13:00; Stop 12/10/18 at 14:59 Atorvastatin Calcium (Lipitor) 10 mg HS PO ; Start 12/10/18 at 21:00 EFRAÍN SOLOMON MD December 10, 2018 13:26
[2018-12-10] MEDS: ATORVASTATIN 10 MG TAB PO SCH (21:00)
--- NOTE | 2018-12-10 21:21 | CONS ---
Assessment/Plan Assessment/Plan Assessment/Plan (Daily) IMPRESSION: 1. Upper gastrointestinal bleeding. Hematocrit is 28 which is stable no further bleeding noted 2. Diabetes mellitus. 3. Hypertension. 4. Dementia. 5. Cerebrovascular accident. 6. Severe anemia. 7. Elevated troponin. 8. ALLERGIC TO PENICILLIN. Plan 9 non-ST myocardial infarction with elevated troponin 10. CHF 11. Pulmonary hypertension PLAN: At this point is to transfuse 2 units of packed cell RBC, keep the hemoglobin greater than 8. Once patient is stable and cleared by the fund controller, we will proceed with EGD. In the interim, monitor H and H and continue PPI. Consultation Date/Type/Reason Admit Date/Time December 09, 2018 at 14:38 Initial Consult Date Date/Time of Note DATE: 12/10/18 TIME: 21:20 24 HR Interval Summary Constitutional: no complaints Exam/Review of Systems Exam Vitals Vital Signs Date Temp Pulse Resp B/P (MAP) Pulse Ox O2 O2 Flow FiO2 Time Delivery Rate 12/10/18 67 24 122/62 98 Room Air 21:00 (82) 12/10/18 97.6 20:00 Intake and Output 12/09/18 12/09/18 12/10/18 1515:00 23:00 07:00 IntakeIntake Total 350 ml 327.5 ml 950 ml BalanceBalance 350 ml 327.5 ml 950 ml Constitutional: alert, oriented, well developed Psych: no complaints, nl mood/affect Head: normocephalic, atraumatic Eyes: nl conjunctiva, EOMI, nl lids, nl sclera, PERRL ENMT: nl external ears & nose, nl lips & teeth, nl nasal mucosa & septum Neck: supple, non-tender Respiratory: clear to auscultation, normal air movement Cardiovascular: regular rate and rhythm, nl pulses Gastrointestinal: soft, nl liver, spleen, non-tender Musculoskeletal: nl extremities to inspection, nl gait and stance Extremities: normal pulses Neurological: RN INTERVENTIONAL II-XII intact, nl mental status, nl speech, nl strength Skin: nl turgor; No rash or lesions Lymph: nl lymph nodes Results Result Diagram: 12/10/18 1814 12/10/18 0319 Results 24hrs Laboratory Tests Test 12/10/18 00:06 12/10/18 03:19 12/10/18 06:03 12/10/18 11:19 Bedside Glucose 242 H 212 228 H White Blood Count 9.1 Red Blood Count 2.83 #L Hemoglobin 8.2 #L Hematocrit 25.2 L Mean Corpuscular 89.0 Volume Mean Corpuscular 29.0 Hemoglobin Mean Corpuscular 32.5 Hemoglobin Concent Red Cell 13.9 Distribution Width Platelet Count 188 # Mean Platelet Volume 11.2 H Immature 0.300 Granulocytes % Neutrophils % 73.1 Lymphocytes % 16.7 Monocytes % 9.1 Eosinophils % 0.1 Basophils % 0.7 Nucleated Red Blood 0.0 Cells % Immature 0.030 Granulocytes # Neutrophils # 6.7 Lymphocytes # 1.5 Monocytes # 0.8 Eosinophils # 0.0 Basophils # 0.1 Nucleated Red Blood 0.0 Cells # Sodium Level 147 H Potassium Level 3.8 Chloride Level 116 H Carbon Dioxide Level 22 Anion Gap 9 # Blood Urea Nitrogen 77 H Creatinine 2.27 H Est Glomerular Filtrat Rate mL/min Glucose Level 203 Calcium Level 8.3 L Phosphorus Level 4.2 Magnesium Level 2.5 Total Bilirubin 0.3 Direct Bilirubin 0.00 Indirect Bilirubin 0.3 Aspartate Amino 79 H Transf (AST/SGOT) Alanine 14 Aminotransferase (AL T/SGPT) Alkaline Phosphatase 65 Troponin I 19.400 *H B-Type Natriuretic 03410 H Peptide Total Protein 5.8 #L Albumin 3.2 L Triglycerides Level 163 H Cholesterol Level 143 LDL Cholesterol, 77 Calculated HDL Cholesterol 33 Cholesterol/HDL 4.3 Ratio Lipase 123 Thyroid Stimulating 1.960 Hormone (TSH) Test 12/10/18 12:12 12/10/18 17:52 12/10/18 18:14 Hemoglobin 8.7 L 9.2 L Hematocrit 26.7 L 28.8 L Bedside Glucose 181 Medications Medication Current Medications Potassium Chloride/Dextrose/ Sod Cl 1,000 ml @ 20 mls/hr Q24H IV Last administered on 12/10/18at 07:39; Admin Dose 75 MLS/HR; Start 12/09/18 at 18:45 Ondansetron HCl (Zofran Inj) 4 mg Q6H PRN IV NAUSEA AND/OR VOMITING; Start 12/09/18 at 18:30 Acetaminophen (Tylenol Supp) 650 mg Q4H PRN [place] PAIN LEVEL 1-3 OR FEVER; Start 12/09/18 at 18:30 Pantoprazole (Protonix Iv) 40 mg DAILY@06 IV ; Start 12/10/18 at 06:00 Atenolol (Tenormin) 50 mg DAILY PO Last administered on 12/10/18at 09:17; Admin Dose 50 MG; Start 12/10/18 at 09:00 Insulin Aspart (Novolog Insulin Pen) NOVOLOG *MILD* ALGORI... Q6 SC Last administered on 12/10/18at 18:05; Admin Dose 2 UNIT; Start 12/09/18 at 19:00 Miscellaneous Information 1 ea NOTE XX ; Start 12/09/18 at 19:00 Glucose (Glutose) 15 gm Q15M PRN PO DECREASED GLUCOSE; Start 12/09/18 at 19:00 Glucose (Glutose) 22.5 gm Q15M PRN PO DECREASED GLUCOSE; Start 12/09/18 at 19:00 Dextrose (D50w Syringe) 25 ml Q15M PRN IV DECREASED GLUCOSE; Start 12/09/18 at 19:00 Dextrose (D50w Syringe) 50 ml Q15M PRN IV DECREASED GLUCOSE; Start 12/09/18 at 19:00 Glucagon (Glucagen) 1 mg Q15M PRN IM DECREASED GLUCOSE; Start 12/09/18 at 19:00 Glucose (Glutose) 15 gm Q15M PRN BUCCAL DECREASED GLUCOSE; Start 12/09/18 at 19:00 Morphine Sulfate (morphine) 1 mg Q4H PRN IV SEVERE PAIN LEVEL 7-10 Last administered on 12/10/18at 00:19; Admin Dose 1 MG; Start 12/09/18 at 22:00 Atorvastatin Calcium (Lipitor) 10 mg HS PO ; Start 12/10/18 at 21:00 JACLYN GUZMAN MD December 10, 2018 21:21
[2018-12-11] VITALS (24 sets, daily range): BP systolic 110–153; BP diastolic 48–67; PULSE 59–69; RESP 0–30
[2018-12-11] MEDS: INSULIN ASPART [NOVOLOG] 3 ML PEN SC SCH ×5 (00:06→21:02)
[2018-12-11] MEDS: PANTOPRAZOLE 40 MG INJ IV SCH ×3 (05:13→20:54)
--- NOTE | 2018-12-11 07:24 | CONS ---
Assessment/Plan Assessment/Plan Hospital Course (Demo Recall) 83 yo female with severe anemia Interval hx: hgb 8.2 this am. No bm overnight. No vomiting. Alert but confused and uncooperative. 1. Upper gastrointestinal bleeding. Hematocrit is 28 which is stable no further bleeding noted 2. Diabetes mellitus. 3. Hypertension. 4. Dementia. 5. Cerebrovascular accident. 6. Severe anemia. 7. Elevated troponin. 8. ALLERGIC TO PENICILLIN. 9. Non-ST myocardial infarction with elevated troponin 10. CHF 11. Pulmonary hypertension PLAN: PPI BID Per cardiology notes, stabilize pt prior to EGD NO anti coagulants. Monitor HH, replace for active bleeding or Hgb less than 7.4 Continue HH q 6 hours Pt examined and plan of care discussed with Dr. Thomas Consultation Date/Type/Reason Admit Date/Time December 09, 2018 at 14:38 Initial Consult Date Date/Time of Note DATE: 12/11/18 TIME: 07:14 Exam/Review of Systems Exam Vitals Vital Signs Date Temp Pulse Resp B/P (MAP) Pulse Ox O2 O2 Flow FiO2 Time Delivery Rate 12/11/18 63 28 111/55 100 Room Air 06:00 (73) 12/11/18 97.5 04:00 Intake and Output 12/10/18 12/10/18 12/11/18 1515:00 23:00 07:00 IntakeIntake Total 395 ml 160 ml 140 ml BalanceBalance 395 ml 160 ml 140 ml Constitutional: alert Psych: no complaints Head: normocephalic Eyes: PERRL Respiratory: clear to auscultation, normal air movement Cardiovascular: regular rate and rhythm Gastrointestinal: soft, non-tender Musculoskeletal: nl extremities to inspection Extremities: other (weak pulses bilateral upper and lower extremities) Neurological: confused Results Result Diagram: 12/11/18 0430 12/11/18 0430 Results 24hrs Laboratory Tests Test 12/10/18 11:19 12/10/18 12:12 12/10/18 17:52 12/10/18 18:14 Bedside Glucose 228 H 181 Hemoglobin 8.7 L 9.2 L Hematocrit 26.7 L 28.8 L Test 12/10/18 23:58 12/11/18 04:30 Bedside Glucose 185 White Blood Count 8.1 Red Blood Count 2.86 L Hemoglobin 8.2 L Hematocrit 25.7 L Mean Corpuscular 89.9 Volume Mean Corpuscular 28.7 L Hemoglobin Mean Corpuscular 31.9 L Hemoglobin Concent Red Cell 14.6 H Distribution Width Platelet Count 186 Mean Platelet Volume 11.4 H Immature 0.700 H Granulocytes % Neutrophils % 72.4 Lymphocytes % 19.1 Monocytes % 6.5 Eosinophils % 0.7 Basophils % 0.6 Nucleated Red Blood 0.9 H Cells % Immature 0.060 H Granulocytes # Neutrophils # 5.9 Lymphocytes # 1.6 Monocytes # 0.5 Eosinophils # 0.1 Basophils # 0.1 Nucleated Red Blood 0.1 H Cells # Sodium Level 147 H Potassium Level 4.6 Chloride Level 117 H Carbon Dioxide Level 22 Anion Gap 8 Blood Urea Nitrogen 78 H Creatinine 2.81 H Est Glomerular Filtrat Rate mL/min Glucose Level 136 # Calcium Level 8.6 Troponin I 17.900 *H Medications Medication Current Medications Potassium Chloride/Dextrose/ Sod Cl 1,000 ml @ 20 mls/hr Q24H IV Last administered on 12/10/18at 07:39; Admin Dose 75 MLS/HR; Start 12/09/18 at 18:45 Ondansetron HCl (Zofran Inj) 4 mg Q6H PRN IV NAUSEA AND/OR VOMITING; Start 12/09/18 at 18:30 Acetaminophen (Tylenol Supp) 650 mg Q4H PRN [place] PAIN LEVEL 1-3 OR FEVER; Start 12/09/18 at 18:30 Pantoprazole (Protonix Iv) 40 mg DAILY@06 IV ; Start 12/10/18 at 06:00 Atenolol (Tenormin) 50 mg DAILY PO Last administered on 12/10/18at 09:17; Admin Dose 50 MG; Start 12/10/18 at 09:00 Insulin Aspart (Novolog Insulin Pen) NOVOLOG *MILD* ALGORI... Q6 SC Last administered on 12/11/18at 00:06; Admin Dose 2 UNIT; Start 12/09/18 at 19:00 Miscellaneous Information 1 ea NOTE XX ; Start 12/09/18 at 19:00 Glucose (Glutose) 15 gm Q15M PRN PO DECREASED GLUCOSE; Start 12/09/18 at 19:00 Glucose (Glutose) 22.5 gm Q15M PRN PO DECREASED GLUCOSE; Start 12/09/18 at 19:00 Dextrose (D50w Syringe) 25 ml Q15M PRN IV DECREASED GLUCOSE; Start 12/09/18 at 19:00 Dextrose (D50w Syringe) 50 ml Q15M PRN IV DECREASED GLUCOSE; Start 12/09/18 at 19:00 Glucagon (Glucagen) 1 mg Q15M PRN IM DECREASED GLUCOSE; Start 12/09/18 at 19:00 Glucose (Glutose) 15 gm Q15M PRN BUCCAL DECREASED GLUCOSE; Start 12/09/18 at 19:00 Morphine Sulfate (morphine) 1 mg Q4H PRN IV SEVERE PAIN LEVEL 7-10 Last administered on 12/10/18at 00:19; Admin Dose 1 MG; Start 12/09/18 at 22:00 Atorvastatin Calcium (Lipitor) 10 mg HS PO ; Start 12/10/18 at 21:00 TAMEKA JULIO December 11, 2018 07:24
[2018-12-11] MEDS: ATENOLOL 50 MG TAB PO SCH (09:00)
[2018-12-11] MEDS: D5W-0.45 NACL + KCL 20 MEQ 1,000 ML IV SCH (09:15)
--- NOTE | 2018-12-11 09:20 | CONS ---
Assessment/Plan Assessment/Plan Hospital Course (Demo Recall) ASSESSMENT: 1. Acute GI bleed possibly upper - stable 2. Non-ST elevation myocardial infarction - type II likely from GIB + underlying CAD. not candidate for invasive options given recent gib, renal failure, and limited benefit in setting of overall medical conditions/non- functional status. 3. Hypertension. 4. Hyperlipidemia. 5. Type 2 diabetes. 6. Multi-infarct dementia prior CVAs. 7. History of subdural hematoma subarachnoid hemorrhage in 2013. 8. Aortic + mitral regurgitation on echocardiogram. 9. Severe pulmonary hypertension possibly due to volume overload currently with acute diastolic heart failure. 10. Renal insufficiency PLAN: 1. Patient is intermediate to high cardiac risk for low risk endoscopy procedure. overall lv fxn is preserved despite recent nstemi and she is hemodynamically stable. Given overall low risk of procedure, ok to proceed without further cardiac evaluation. 2. hold diuretics given elevated creatinine 3. cont statin 4. can add bb post procedure if bp remains stable 5. no antiplt medications given gib Consultation Date/Type/Reason Admit Date/Time December 09, 2018 at 14:38 Initial Consult Date Date/Time of Note DATE: 12/11/18 TIME: 09:12 24 HR Interval Summary Free Text/Dictation pt seen this am. history obtained from family and nursing at bedside. no events. no bm/bleeding noted. pt comfortable, no reported cp/difficulty breathing. bp stable. no events on tele. pt spitting out pills per nursing tele reviewed; NSR no events Constitutional: disoriented, other (unable to obtain given dementia ) Exam/Review of Systems Exam Vitals Vital Signs Date Temp Pulse Resp B/P (MAP) Pulse Ox O2 O2 Flow FiO2 Time Delivery Rate 12/11/18 98.2 61 19 127/57 99 Room Air 07:00 (80) Intake and Output 12/10/18 12/10/18 12/11/18 1515:00 23:00 07:00 IntakeIntake Total 395 ml 160 ml 140 ml BalanceBalance 395 ml 160 ml 140 ml Exam HEENT; no JVD, no HJR, carotids 2 over 4+ without bruits. Chest: Clear to auscultation and percussion, no rales, wheezes or rhonchi. Cardiac: S4, S1, S2 with normal physiologic splitting, 2/6 early to mid peaking systolic ejection murmur, no rub click or diastolic murmur noted. Abdominal: Bowel sounds positive, soft nontender, no abdominal bruit noted, no hepatosplenomegaly. Extremities: No cyanosis, clubbing, or edema. Pulses: 2/4 pulses diffusely no bruits noted. Neuro: contracted, not responding to questions Results Result Diagram: 12/11/18 0755 12/11/18 0430 Results 24hrs Laboratory Tests Test 12/10/18 11:19 12/10/18 12:12 12/10/18 17:52 12/10/18 18:14 Bedside Glucose 228 H 181 Hemoglobin 8.7 L 9.2 L Hematocrit 26.7 L 28.8 L Test 12/10/18 23:58 12/11/18 04:30 12/11/18 07:55 Bedside Glucose 185 White Blood Count 8.1 Red Blood Count 2.86 L Hemoglobin 8.2 L 8.4 L Hematocrit 25.7 L 26.7 L Mean Corpuscular 89.9 Volume Mean Corpuscular 28.7 L Hemoglobin Mean Corpuscular 31.9 L Hemoglobin Concent Red Cell 14.6 H Distribution Width Platelet Count 186 Mean Platelet Volume 11.4 H Immature 0.700 H Granulocytes % Neutrophils % 72.4 Lymphocytes % 19.1 Monocytes % 6.5 Eosinophils % 0.7 Basophils % 0.6 Nucleated Red Blood 0.9 H Cells % Immature 0.060 H Granulocytes # Neutrophils # 5.9 Lymphocytes # 1.6 Monocytes # 0.5 Eosinophils # 0.1 Basophils # 0.1 Nucleated Red Blood 0.1 H Cells # Sodium Level 147 H Potassium Level 4.6 Chloride Level 117 H Carbon Dioxide Level 22 Anion Gap 8 Blood Urea Nitrogen 78 H Creatinine 2.81 H Est Glomerular Filtrat Rate mL/min Glucose Level 136 # Calcium Level 8.6 Troponin I 17.900 *H Magnesium Level 2.3 Imaging Imaging cxr report reviewed Medications Medication Current Medications Potassium Chloride/Dextrose/ Sod Cl 1,000 ml @ 20 mls/hr Q24H IV Last administered on 12/10/18at 07:39; Admin Dose 75 MLS/HR; Start 12/09/18 at 18:45 Ondansetron HCl (Zofran Inj) 4 mg Q6H PRN IV NAUSEA AND/OR VOMITING; Start 12/09/18 at 18:30 Acetaminophen (Tylenol Supp) 650 mg Q4H PRN [place] PAIN LEVEL 1-3 OR FEVER; Start 12/09/18 at 18:30 Atenolol (Tenormin) 50 mg DAILY PO Last administered on 12/10/18at 09:17; Admin Dose 50 MG; Start 12/10/18 at 09:00 Insulin Aspart (Novolog Insulin Pen) NOVOLOG *MILD* ALGORI... Q6 SC Last administered on 12/11/18at 00:06; Admin Dose 2 UNIT; Start 12/09/18 at 19:00 Miscellaneous Information 1 ea NOTE XX ; Start 12/09/18 at 19:00 Glucose (Glutose) 15 gm Q15M PRN PO DECREASED GLUCOSE; Start 12/09/18 at 19:00 Glucose (Glutose) 22.5 gm Q15M PRN PO DECREASED GLUCOSE; Start 12/09/18 at 19:00 Dextrose (D50w Syringe) 25 ml Q15M PRN IV DECREASED GLUCOSE; Start 12/09/18 at 19:00 Dextrose (D50w Syringe) 50 ml Q15M PRN IV DECREASED GLUCOSE; Start 12/09/18 at 19:00 Glucagon (Glucagen) 1 mg Q15M PRN IM DECREASED GLUCOSE; Start 12/09/18 at 19:00 Glucose (Glutose) 15 gm Q15M PRN BUCCAL DECREASED GLUCOSE; Start 12/09/18 at 19:00 Morphine Sulfate (morphine) 1 mg Q4H PRN IV SEVERE PAIN LEVEL 7-10 Last administered on 12/10/18at 00:19; Admin Dose 1 MG; Start 12/09/18 at 22:00 Atorvastatin Calcium (Lipitor) 10 mg HS PO ; Start 12/10/18 at 21:00 Pantoprazole (Protonix Iv) 40 mg BID IV ; Start 12/11/18 at 09:00 PREM GALAN December 11, 2018 09:20
--- NOTE | 2018-12-11 10:52 | RADRPT ---
Vent Rate: 65 bpm RR Interval: 924 msec NE Interval: 179 msec QRS Duration: 96 msec QT Interval: 422 msec QTC Interval: 439 msec P-R-T [place]: 60 - 68 - -70 degrees Sinus rhythm...normal P axis, V-rate 50- 99 Probable LVH with secondary repol abnrm...multiple LVH criteria Electronically Signed By: Darryl Evans
--- NOTE | 2018-12-11 10:54 | RADRPT ---
Vent Rate: 84 bpm RR Interval: 712 msec AR Interval: 186 msec QRS Duration: 97 msec QT Interval: 439 msec QTC Interval: 520 msec P-R-T [place]: 66 - 71 - -71 degrees Sinus rhythm...normal P axis, V-rate 50- 99 Probable LVH with secondary repol abnrm...multiple LVH criteria ST depression, consider ischemia, diffuse lds...ST <-0.10mV, ant/lat/inf Prolonged QT interval...QTc >500mS Electronically Signed By: Darryl Evans
--- NOTE | 2018-12-11 11:36 | RADRPT ---
Vent Rate: 88 bpm RR Interval: 0 msec SC Interval: 162 msec QRS Duration: 88 msec QT Interval: 390 msec QTC Interval: 471 msec P-R-T [place]: 68 - 69 - -48 degrees Normal sinus rhythm ST & T wave abnormality, consider lateral ischemia Prolonged QT Abnormal ECG Electronically Signed By: Darryl Evans
--- NOTE | 2018-12-11 13:32 | PN ---
Date/Time of Note Date/Time of Note DATE: 12/11/18 TIME: 13:22 Assessment/Plan VTE [place] [facility] [place]: 7 [place] [facility] [place] Pharmacological prophylaxis: NA/contraindicated Pharm contraindication: bleeding Lines/Catheters [facility] Mid Line Urinary Cath still in place: No Assessment/Plan Assessment/Plan A: GIB s/p transfusions NSTEMI volume overload ARF DM advanced dementia HTN P: GI w/u pending renal consult cont current supportive care monitor labs Result Diagram: 12/11/18 0755 12/11/18 0430 Results 24hrs Laboratory Tests Test 12/10/18 17:52 12/10/18 18:14 12/10/18 23:58 12/11/18 04:30 Bedside Glucose 181 185 Hemoglobin 9.2 L 8.2 L Hematocrit 28.8 L 25.7 L White Blood Count 8.1 Red Blood Count 2.86 L Mean Corpuscular 89.9 Volume Mean Corpuscular 28.7 L Hemoglobin Mean Corpuscular 31.9 L Hemoglobin Concent Red Cell 14.6 H Distribution Width Platelet Count 186 Mean Platelet Volume 11.4 H Immature 0.700 H Granulocytes % Neutrophils % 72.4 Lymphocytes % 19.1 Monocytes % 6.5 Eosinophils % 0.7 Basophils % 0.6 Nucleated Red Blood 0.9 H Cells % Immature 0.060 H Granulocytes # Neutrophils # 5.9 Lymphocytes # 1.6 Monocytes # 0.5 Eosinophils # 0.1 Basophils # 0.1 Nucleated Red Blood 0.1 H Cells # Sodium Level 147 H Potassium Level 4.6 Chloride Level 117 H Carbon Dioxide Level 22 Anion Gap 8 Blood Urea Nitrogen 78 H Creatinine 2.81 H Est Glomerular Filtrat Rate mL/min Glucose Level 136 # Calcium Level 8.6 Troponin I 17.900 *H Test 12/11/18 07:55 12/11/18 11:57 Hemoglobin 8.4 L Hematocrit 26.7 L Magnesium Level 2.3 Bedside Glucose 180 Subjective 24 Hr Interval Summary Free Text/Dictation Pt doing about the same. No new events noted. No obvious bleeding per nursing, no recent bm. Exam/Review of Systems Exam Vitals Vital Signs Date Temp Pulse Resp B/P (MAP) Pulse Ox O2 O2 Flow FiO2 Time Delivery Rate 12/11/18 97.8 63 16 145/58 96 Room Air 12:00 (87) Intake and Output 12/10/18 12/10/18 12/11/18 1515:00 23:00 07:00 IntakeIntake Total 395 ml 160 ml 160 ml BalanceBalance 395 ml 160 ml 160 ml Exam gen- able to follow simple commands. lungs- few basilar crackles heart- RRR abd- +BS, soft, nontender ext- no edema Results Results 24hrs Laboratory Tests Test 12/10/18 17:52 12/10/18 18:14 12/10/18 23:58 12/11/18 04:30 Bedside Glucose 181 185 Hemoglobin 9.2 L 8.2 L Hematocrit 28.8 L 25.7 L White Blood Count 8.1 Red Blood Count 2.86 L Mean Corpuscular 89.9 Volume Mean Corpuscular 28.7 L Hemoglobin Mean Corpuscular 31.9 L Hemoglobin Concent Red Cell 14.6 H Distribution Width Platelet Count 186 Mean Platelet Volume 11.4 H Immature 0.700 H Granulocytes % Neutrophils % 72.4 Lymphocytes % 19.1 Monocytes % 6.5 Eosinophils % 0.7 Basophils % 0.6 Nucleated Red Blood 0.9 H Cells % Immature 0.060 H Granulocytes # Neutrophils # 5.9 Lymphocytes # 1.6 Monocytes # 0.5 Eosinophils # 0.1 Basophils # 0.1 Nucleated Red Blood 0.1 H Cells # Sodium Level 147 H Potassium Level 4.6 Chloride Level 117 H Carbon Dioxide Level 22 Anion Gap 8 Blood Urea Nitrogen 78 H Creatinine 2.81 H Est Glomerular Filtrat Rate mL/min Glucose Level 136 # Calcium Level 8.6 Troponin I 17.900 *H Test 12/11/18 07:55 12/11/18 11:57 Hemoglobin 8.4 L Hematocrit 26.7 L Magnesium Level 2.3 Bedside Glucose 180 Medications Medication Current Medications Potassium Chloride/Dextrose/ Sod Cl 1,000 ml @ 20 mls/hr Q24H IV Last administered on 12/11/18at 09:15; Admin Dose 20 MLS/HR; Start 12/09/18 at 18:45 Ondansetron HCl (Zofran Inj) 4 mg Q6H PRN IV NAUSEA AND/OR VOMITING; Start 12/09/18 at 18:30 Acetaminophen (Tylenol Supp) 650 mg Q4H PRN [place] PAIN LEVEL 1-3 OR FEVER; Start 12/09/18 at 18:30 Atenolol (Tenormin) 50 mg DAILY PO Last administered on 12/10/18at 09:17; Admin Dose 50 MG; Start 12/10/18 at 09:00 Insulin Aspart (Novolog Insulin Pen) NOVOLOG *MILD* ALGORI... Q6 SC Last administered on 12/11/18at 12:13; Admin Dose 1 UNIT; Start 12/09/18 at 19:00 Miscellaneous Information 1 ea NOTE XX ; Start 12/09/18 at 19:00 Glucose (Glutose) 15 gm Q15M PRN PO DECREASED GLUCOSE; Start 12/09/18 at 19:00 Glucose (Glutose) 22.5 gm Q15M PRN PO DECREASED GLUCOSE; Start 12/09/18 at 19:00 Dextrose (D50w Syringe) 25 ml Q15M PRN IV DECREASED GLUCOSE; Start 12/09/18 at 19:00 Dextrose (D50w Syringe) 50 ml Q15M PRN IV DECREASED GLUCOSE; Start 12/09/18 at 19:00 Glucagon (Glucagen) 1 mg Q15M PRN IM DECREASED GLUCOSE; Start 12/09/18 at 19:00 Glucose (Glutose) 15 gm Q15M PRN BUCCAL DECREASED GLUCOSE; Start 12/09/18 at 19:00 Morphine Sulfate (morphine) 1 mg Q4H PRN IV SEVERE PAIN LEVEL 7-10 Last administered on 12/10/18at 00:19; Admin Dose 1 MG; Start 12/09/18 at 22:00 Atorvastatin Calcium (Lipitor) 10 mg HS PO ; Start 12/10/18 at 21:00 Pantoprazole (Protonix Iv) 40 mg BID IV Last administered on 12/11/18at 09:11; Admin Dose 40 MG; Start 12/11/18 at 09:00 EFRAÍN SOLOMON MD December 11, 2018 13:32
--- NOTE | 2018-12-11 14:37 | CONS ---
DATE OF ADMISSION: 12/09/2018 DATE OF CONSULTATION: TYPE OF CONSULTATION: Renal. Thank you, Dr. Solomon, for asking me to participate in medical management of this patient. REASON FOR CONSULTATION: Chronic kidney disease. HISTORY OF PRESENT ILLNESS: This 83-year-old female was admitted on 12/09/2018 because of poor appet ite, black stools and some change in mental status. This 83-year-old female has a history of chronic kidney disease, although her serum creatinine has usually been around 2.0. She has a longstanding h istory of type 2 diabetes mellitus with several other sequelae of that disease. The patient is demen rick and unable to give much of a history. The patient's daughter is in the room and is able to speak to the patient. The patient is frail and really does not want to be examined, although after some e xplanation she allowed me to examine her. The patient apparently came in with a GI bleed and her hem oglobin was low. The patient is chronically incontinent of urine and stool and wears a diaper. The patient has had an elevated troponin level and is thought to have had a non-ST elevation [place]. PAST MEDICAL HISTORY: Remarkable for dementia, chronic kidney disease, hypertension, hyperlipidemia, CVA in the past, history of subarachnoid hemorrhage, history of subdural hematoma, anemia. MEDICATIONS: Include: 1. Pantoprazole 40 mg IV twice a day. 2. Atorvastatin 10 mg at bedtime. 3. Atenolol 50 mg daily. 4. Morphine for pain. 5. Sliding scale insulin. 6. Zofran. 7. Acetaminophen. ALLERGIES: PENICILLIN. SOCIAL HISTORY: She does not smoke, is a nondrinker. PHYSICAL EXAMINATION: GENERAL: At this time reveals an elderly, ill-appearing female in no apparent distress. She is lyin g on her side in a position. HEENT: Head is normocephalic. Nose and mouth are normal. NECK: Supple. LUNGS: Diminished breath sounds, poor inspiratory effort with a few rales at the bases. HEART: Regular rhythm. No murmurs, gallops or rubs. ABDOMEN: Soft, nontender. EXTREMITIES: No peripheral edema. She is in a position. NEUROLOGIC: Difficult to evaluate. LABORATORY TESTS: Done today, sodium 147, potassium 4.6, chloride 117, CO2 of 22, BUN 78, creatinine 2.81, glucose of 136. Troponin of 17.9. BNP of 45,200. Hemoglobin 8.2, hematocrit 25.7. Urinalys is was not done. We will try to collect the urine. IMPRESSION: 1. Acute renal failure superimposed on chronic kidney disease. The patient looks volume depleted on physical exam, although her chest x-ray does show some pulmonary vascular congestion and she does henry ve a high BNP. Apparently, her serum creatinine is higher than baseline which is around 2.0. I susp ect she has underlying diabetic nephropathy as she has had proteinuria on past admissions. It is dif ficult to collect the urine because of her frailty and inability to place a Aranda catheter. 2. Gastrointestinal bleeding. 3. Non-ST elevation myocardial infarction. 4. Dementia. 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 6. Previous cerebrovascular accident. PLAN: 1. Cautious IV fluids. 2. Continue insulin sliding scale. 3. Renal ultrasound. 4. Try to obtain a urinalysis and a urine protein creatinine ratio. 5. I will continue to follow the patient along with you. Dictated By: MELISSA LA MD ND/NTS Conf#: [id number] DID#: [id number] CC: EFRAÍN SOLOMON MD; JACLYN GUZMAN MD;*End*
[2018-12-11] MEDS: DEXTROSE 5%-0.45% NACL 1,000 ML IV SCH (15:48)
[2018-12-11] MEDS: ATORVASTATIN 10 MG TAB PO SCH (20:54)
[2018-12-12] VITALS (25 sets, daily range): BP systolic 130–168; BP diastolic 50–88; PULSE 54–66; RESP 7–26
[2018-12-12] MEDS ORDERED: PROPOFOL 200 MG INJ ONE (07:00)
[2018-12-12] MEDS ORDERED: LIDOCAINE 2% (SDV) 5 ML INJ ONE (07:00)
--- NOTE | 2018-12-12 07:08 | CONS ---
Assessment/Plan Assessment/Plan Hospital Course (Demo Recall) 83 yo female with severe anemia Interval hx: hgb 8.7 this am. No bm overnight. No vomiting. 1. Upper gastrointestinal bleeding. 2. Diabetes mellitus. 3. Hypertension. 4. Dementia. 5. Cerebrovascular accident. 6. Severe anemia. 7. Elevated troponin. 8. ALLERGIC TO PENICILLIN. 9. Non-ST myocardial infarction with elevated troponin likely due to blood loss 10. CHF 11. Pulmonary hypertension PLAN: PPI BID Per cardiology note: Pt is hemodynamically stable. Given overall low risk of procedure, ok to proceed without further cardiac evaluation. We will schedule EGD for today or tomorrow. Keep NPO. NO anti coagulants. Monitor HH, replace for active bleeding or Hgb less than 7.4 DC serial HH Pt examined and plan of care discussed with Dr. Thomas Consultation Date/Type/Reason Admit Date/Time December 09, 2018 at 14:38 Initial Consult Date Date/Time of Note DATE: 12/12/18 TIME: 07:03 24 HR Interval Summary Free Text/Dictation No signs of active GI bleeding. NO stools, no emesis. HH stable. Pt is hemodynamically stable. NPO. Exam/Review of Systems Exam Vitals Vital Signs Date Temp Pulse Resp B/P (MAP) Pulse Ox O2 O2 Flow FiO2 Time Delivery Rate 12/12/18 57 26 136/63 98 Room Air 06:00 (87) 12/12/18 97.9 04:00 Intake and Output 12/11/18 12/11/18 12/12/18 1414:59 22:59 06:59 IntakeIntake Total 120 ml 350 ml 300 ml OutputOutput Total 0 ml BalanceBalance 120 ml 350 ml 300 ml Constitutional: alert Head: normocephalic Eyes: PERRL Respiratory: normal air movement Cardiovascular: regular rate and rhythm (low 60s and high 50s) Gastrointestinal: soft, non-tender Musculoskeletal: nl extremities to inspection Extremities: other (weak pulses) Neurological: other (pt is alert but does not respond to my questions) Results Result Diagram: 12/12/18 0515 12/12/18 0514 Results 24hrs Laboratory Tests Test 12/11/18 07:55 12/11/18 11:57 12/11/18 18:54 12/11/18 19:13 Hemoglobin 8.4 L 8.2 L Hematocrit 26.7 L 25.6 L Magnesium Level 2.3 Bedside Glucose 180 190 Test 12/11/18 20:51 12/12/18 00:24 12/12/18 04:39 12/12/18 05:14 Bedside Glucose 166 Hemoglobin 8.8 L Hematocrit 27.4 L Lab Scanned BLOOD TRANSFUSIO Report N Sodium Level 147 H Potassium Level 4.6 Chloride Level 119 H Carbon Dioxide 18 L Level Anion Gap 10 Blood Urea 77 H Nitrogen Creatinine 2.80 H Est Glomerular Filtrat Rate mL/min Glucose Level 134 Calcium Level 8.6 Total Bilirubin 0.5 Direct Bilirubin 0.00 Indirect 0.5 Bilirubin Aspartate Amino 43 Transf (AST/SGOT) Alanine 18 Aminotransferase (ALT/SGPT) Alkaline 65 Phosphatase Total Protein 6.2 Albumin 3.3 Globulin 2.90 Albumin/Globulin 1.13 Ratio Test 12/12/18 05:15 White Blood Count 10.8 # Red Blood Count 2.96 L Hemoglobin 8.7 L Hematocrit 27.9 L Mean Corpuscular 94.3 Volume Mean Corpuscular 29.4 Hemoglobin Mean Corpuscular 31.2 L Hemoglobin Concen t Red Cell 14.5 Distribution Width Platelet Count 183 Mean Platelet 11.7 H Volume Immature 0.500 H Granulocytes % Neutrophils % 59.2 Lymphocytes % 30.4 Monocytes % 7.6 Eosinophils % 1.6 Basophils % 0.7 Nucleated Red 1.2 H Blood Cells % Immature 0.050 H Granulocytes # Neutrophils # 6.4 Lymphocytes # 3.3 H Monocytes # 0.8 Eosinophils # 0.2 Basophils # 0.1 Nucleated Red 0.1 H Blood Cells # Medications Medication Current Medications Ondansetron HCl (Zofran Inj) 4 mg Q6H PRN IV NAUSEA AND/OR VOMITING; Start 12/09/18 at 18:30 Acetaminophen (Tylenol Supp) 650 mg Q4H PRN [place] PAIN LEVEL 1-3 OR FEVER; Start 12/09/18 at 18:30 Atenolol (Tenormin) 50 mg DAILY PO Last administered on 12/10/18at 09:17; Admin Dose 50 MG; Start 12/10/18 at 09:00 Miscellaneous Information 1 ea NOTE XX ; Start 12/09/18 at 19:00 Glucose (Glutose) 15 gm Q15M PRN PO DECREASED GLUCOSE; Start 12/09/18 at 19:00 Glucose (Glutose) 22.5 gm Q15M PRN PO DECREASED GLUCOSE; Start 12/09/18 at 19:00 Dextrose (D50w Syringe) 25 ml Q15M PRN IV DECREASED GLUCOSE; Start 12/09/18 at 19:00 Dextrose (D50w Syringe) 50 ml Q15M PRN IV DECREASED GLUCOSE; Start 12/09/18 at 19:00 Glucagon (Glucagen) 1 mg Q15M PRN IM DECREASED GLUCOSE; Start 12/09/18 at 19:00 Glucose (Glutose) 15 gm Q15M PRN BUCCAL DECREASED GLUCOSE; Start 12/09/18 at 19:00 Morphine Sulfate (morphine) 1 mg Q4H PRN IV SEVERE PAIN LEVEL 7-10 Last administered on 12/10/18at 00:19; Admin Dose 1 MG; Start 12/09/18 at 22:00 Atorvastatin Calcium (Lipitor) 10 mg HS PO Last administered on 12/11/18at 20:54; Admin Dose 10 MG; Start 12/10/18 at 21:00 Pantoprazole (Protonix Iv) 40 mg BID IV Last administered on 12/11/18at 20:54; Admin Dose 40 MG; Start 12/11/18 at 09:00 Dextrose/Sodium Chloride 1,000 ml @ 50 mls/hr Q20H IV Last administered on 12/11/18at 15:48; Admin Dose 50 MLS/HR; Start 12/11/18 at 14:00 Insulin Aspart (Novolog Insulin Pen) NOVOLOG *MODERATE* ALGORITHM WITH MEALS BEDTIME SC Last administered on 12/11/18 21:02; Admin Dose 2 UNIT; Start 12/11/18 at 17:35 TAMEKA JLUIO December 12, 2018 07:08
--- NOTE | 2018-12-12 08:08 | CONS ---
Assessment/Plan Assessment/Plan Hospital Course (Demo Recall) 1. Acute renal failure superimposed on chronic kidney disease. She had a renal ultrasound yesterday which showed some increased echogenicity and cortical atrophy. This is consistent with chronic kidney disease. Her renal function today is about the same as yesterday. Unfortunately it is difficult to monitor her urine output. I spoke to the nurse about trying to place a Aranda catheter w hen the patient is being sedated for a UGD that is scheduled for today. 2. Gastrointestinal bleeding. Her hemoglobin and hematocrit have been stable. She does not seem to be actively bleeding. 3. Non-ST elevation myocardial infarction. 4. Dementia. 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 6. Previous cerebrovascular accident. Consultation Date/Type/Reason Admit Date/Time December 09, 2018 at 14:38 Initial Consult Date Type of Consult Nephrology Date/Time of Note DATE: 12/12/18 TIME: 08:02 24 HR Interval Summary Free Text/Dictation This patient is being seen in the intensive care unit. The patient is lethargic but does rouse to verbal stimuli but is unresponsive. Subjective hx not possible: pt non-verbal Exam/Review of Systems Exam Vitals Vital Signs Date Temp Pulse Resp B/P (MAP) Pulse Ox O2 O2 Flow FiO2 Time Delivery Rate 12/12/18 57 26 136/63 98 Room Air 06:00 (87) 12/12/18 97.9 04:00 Intake and Output 12/11/18 12/11/18 12/12/18 1515:00 23:00 07:00 IntakeIntake Total 100 ml 400 ml 250 ml OutputOutput Total 0 ml BalanceBalance 100 ml 400 ml 250 ml Exam She has some contractures of her lower extremities. Constitutional: non-verbal, frail Neck: supple, non-tender Respiratory: clear to auscultation, diminished breath sounds Cardiovascular: regular rate and rhythm Gastrointestinal: soft, non-tender Results Result Diagram: 12/12/18 0515 12/12/18 0514 Results 24hrs Laboratory Tests Test 12/11/18 11:57 12/11/18 18:54 12/11/18 19:13 12/11/18 20:51 Bedside Glucose 180 190 166 Hemoglobin 8.2 L Hematocrit 25.6 L Test 12/12/18 00:24 12/12/18 04:39 12/12/18 05:14 12/12/18 05:15 Hemoglobin 8.8 L 8.7 L Hematocrit 27.4 L 27.9 L Lab Scanned BLOOD TRANSFUSIO Report N Sodium Level 147 H Potassium Level 4.6 Chloride Level 119 H Carbon Dioxide 18 L Level Anion Gap 10 Blood Urea 77 H Nitrogen Creatinine 2.80 H Est Glomerular Filtrat Rate mL/min Glucose Level 134 Calcium Level 8.6 Total Bilirubin 0.5 Direct Bilirubin 0.00 Indirect 0.5 Bilirubin Aspartate Amino 43 Transf (AST/SGOT) Alanine 18 Aminotransferase (ALT/SGPT) Alkaline 65 Phosphatase Total Protein 6.2 Albumin 3.3 Globulin 2.90 Albumin/Globulin 1.13 Ratio White Blood Count 10.8 # Red Blood Count 2.96 L Mean Corpuscular 94.3 Volume Mean Corpuscular 29.4 Hemoglobin Mean Corpuscular 31.2 L Hemoglobin Concen t Red Cell 14.5 Distribution Width Platelet Count 183 Mean Platelet 11.7 H Volume Immature 0.500 H Granulocytes % Neutrophils % 59.2 Lymphocytes % 30.4 Monocytes % 7.6 Eosinophils % 1.6 Basophils % 0.7 Nucleated Red 1.2 H Blood Cells % Immature 0.050 H Granulocytes # Neutrophils # 6.4 Lymphocytes # 3.3 H Monocytes # 0.8 Eosinophils # 0.2 Basophils # 0.1 Nucleated Red 0.1 H Blood Cells # Medications Medication Current Medications Ondansetron HCl (Zofran Inj) 4 mg Q6H PRN IV NAUSEA AND/OR VOMITING; Start 12/09/18 at 18:30 Acetaminophen (Tylenol Supp) 650 mg Q4H PRN [place] PAIN LEVEL 1-3 OR FEVER; Start 12/09/18 at 18:30 Atenolol (Tenormin) 50 mg DAILY PO Last administered on 12/10/18at 09:17; Admin Dose 50 MG; Start 12/10/18 at 09:00 Miscellaneous Information 1 ea NOTE XX ; Start 12/09/18 at 19:00 Glucose (Glutose) 15 gm Q15M PRN PO DECREASED GLUCOSE; Start 12/09/18 at 19:00 Glucose (Glutose) 22.5 gm Q15M PRN PO DECREASED GLUCOSE; Start 12/09/18 at 19:00 Dextrose (D50w Syringe) 25 ml Q15M PRN IV DECREASED GLUCOSE; Start 12/09/18 at 19:00 Dextrose (D50w Syringe) 50 ml Q15M PRN IV DECREASED GLUCOSE; Start 12/09/18 at 19:00 Glucagon (Glucagen) 1 mg Q15M PRN IM DECREASED GLUCOSE; Start 12/09/18 at 19:00 Glucose (Glutose) 15 gm Q15M PRN BUCCAL DECREASED GLUCOSE; Start 12/09/18 at 19:00 Morphine Sulfate (morphine) 1 mg Q4H PRN IV SEVERE PAIN LEVEL 7-10 Last admini stered on 12/10/18at 00:19; Admin Dose 1 MG; Start 12/09/18 at 22:00 Atorvastatin Calcium (Lipitor) 10 mg HS PO Last administered on 12/11/18at 20:54; Admin Dose 10 MG; Start 12/10/18 at 21:00 Pantoprazole (Protonix Iv) 40 mg BID IV Last administered on 12/11/18at 20:54; Admin Dose 40 MG; Start 12/11/18 at 09:00 Dextrose/Sodium Chloride 1,000 ml @ 50 mls/hr Q20H IV Last administered on 12/11/18at 15:48; Admin Dose 50 MLS/HR; Start 12/11/18 at 14:00 Insulin Aspart (Novolog Insulin Pen) NOVOLOG *MODERATE* ALGORITHM WITH MEALS BEDTIME SC Last administered on 12/11/18 21:02; Admin Dose 2 UNIT; Start 12/11/18 at 17:35 MELISSA LA MD December 12, 2018 08:08
[2018-12-12] MEDS: ATENOLOL 50 MG TAB PO SCH (08:12)
[2018-12-12] MEDS: INSULIN ASPART [NOVOLOG] 3 ML PEN SC SCH ×4 (08:33→21:00)
[2018-12-12] MEDS: PANTOPRAZOLE 40 MG INJ IV SCH ×2 (10:38→20:57)
[2018-12-12] MEDS: DEXTROSE 5%-0.45% NACL 1,000 ML IV SCH (10:39)
--- NOTE | 2018-12-12 10:52 | PREAC ---
Date/Time of Note Date/Time of Note DATE: 12/12/18 TIME: 10:47 Anesthesia Eval and Record Evaluation Time Pre-Procedure Interview DATE: 12/12/18 TIME: 10:47 Age 83 Sex female NPO: 8 hrs Preoperative diagnosis GI Bleed Planned procedure EGD Past Medical History Past Medical History: Includes Cardio: HTN, Dyslipidemia, SC (presumed secondary to gi bleed, increased troponin, cleared by caridology for anesthesia), CAD Endo: Diabetes Pulm: Other (severe pulmonary hypertension) Neuro: CVA Renal: CKD Heme: Anemia Surgery & Anesthesia Issues No known issue Meds Anticoagulation: No Beta Valentin within 24 hr: Yes Reported Medications Docusate Sodium (Silace) 50 Mg/5 Ml Liquid, 10 ML PO DAILY PRN for PRN 12/09/18 Glipizide* (Glipizide*) 5 Mg Tablet, 5 MG PO AC BREAKFAST, TAB 12/09/18 Amlodipine Besylate* (Norvasc*) 5 Mg Tablet, 5 MG PO BID, TAB 12/09/18 Trazodone Hcl* (Trazodone Hcl*) 50 Mg Tablet, 50 MG PO Q6H, #30 TAB 12/09/18 Metformin Hcl* (Metformin Hcl*) 500 Mg Tablet, 500 MG PO WITH BREAKFAST, #30 TAB 12/09/18 Atenolol* (Atenolol*) 50 Mg Tablet, 50 MG PO DAILY, #30 TAB HOLD FOR SBP<100 12/09/18 Discontinued Reported Medications Valsartan* (Diovan*) 160 Mg Tablet, 160 MG PO DAILY, TAB 07/04/14 Atenolol* (Atenolol*) 50 Mg Tablet, 50 MG PO DAILY, TAB HOLD PER DR. TIWARI 07/04/14 Atorvastatin Calcium* (Atorvastatin Calcium*) 20 Mg Tablet, 20 MG PO HS, TAB 07/04/14 Donepezil* (Aricept*) 5 Mg Tablet, 5 MG PO DAILY, TAB 07/04/14 Metformin Hcl* (Metformin Hcl*) 500 Mg Tablet, 500 MG PO BID, TAB 07/04/14 Trazodone Hcl* (Trazodone Hcl*) 50 Mg Tablet, 50 MG PO DAILY PRN for SLEEP, TAB 07/04/14 Memantine* (Namenda*) 5 Mg Tablet, 5 MG PO DAILY, TAB 07/04/14 Discontinued Scripts Valsartan* (Diovan*) 160 Mg Tablet, 160 MG PO DAILY, #10 TAB Prov:GREER EVERETT DO 03/01/16 Sulfamethoxazole-Trimethoprim* (Bactrim* DS) 800-160 Mg Tab, 1 TAB PO BID for 10 Days, TAB Prov:SLAVA JACOBS MD 03/01/16 Current Medications Ondansetron HCl (Zofran Inj) 4 mg Q6H PRN IV NAUSEA AND/OR VOMITING; Start 12/09/18 at 18:30 Acetaminophen (Tylenol Supp) 650 mg Q4H PRN [place] PAIN LEVEL 1-3 OR FEVER; Start 12/09/18 at 18:30 Atenolol (Tenormin) 50 mg DAILY PO Last administered on 12/10/18at 09:17; Admin Dose 50 MG; Start 12/10/18 at 09:00 Miscellaneous Information 1 ea NOTE XX ; Start 12/09/18 at 19:00 Glucose (Glutose) 15 gm Q15M PRN PO DECREASED GLUCOSE; Start 12/09/18 at 19:00 Glucose (Glutose) 22.5 gm Q15M PRN PO DECREASED GLUCOSE; Start 12/09/18 at 19:00 Dextrose (D50w Syringe) 25 ml Q15M PRN IV DECREASED GLUCOSE; Start 12/09/18 at 19:00 Dextrose (D50w Syringe) 50 ml Q15M PRN IV DECREASED GLUCOSE; Start 12/09/18 at 19:00 Glucagon (Glucagen) 1 mg Q15M PRN IM DECREASED GLUCOSE; Start 12/09/18 at 19:00 Glucose (Glutose) 15 gm Q15M PRN BUCCAL DECREASED GLUCOSE; Start 12/09/18 at 19:00 Morphine Sulfate (morphine) 1 mg Q4H PRN IV SEVERE PAIN LEVEL 7-10 Last administered on 12/10/18at 00:19; Admin Dose 1 MG; Start 12/09/18 at 22:00 Atorvastatin Calcium (Lipitor) 10 mg HS PO Last administered on 12/11/18at 20:54; Admin Dose 10 MG; Start 12/10/18 at 21:00 Pantoprazole (Protonix Iv) 40 mg BID IV Last administered on 12/12/18at 10:38; Admin Dose 40 MG; Start 12/11/18 at 09:00 Dextrose/Sodium Chloride 1,000 ml @ 50 mls/hr Q20H IV Last administered on 12/12/18at 10:39; Admin Dose 50 MLS/HR; Start 12/11/18 at 14:00 Insulin Aspart (Novolog Insulin Pen) NOVOLOG *MODERATE* ALGORITHM WITH MEALS BEDTIME SC Last administered on 12/12/18at 08:33; Admin Dose 2 UNIT; Start 12/11/18 at 17:35 Meds reviewed: Yes Allergies Coded Allergies: Penicillins (Verified Allergy, Unknown, 12/09/18) Allergies Reviewed: Yes Labs/Studies Labs Reviewed: Reviewed by anesthesiologist Result Diagram: 12/12/18 0515 12/12/18 0514 Laboratory Tests 12/12/18 05:14 12/12/18 05:15 test: N/A Studies: ECG (SR, LVH), 2D Echo (Stage 3 diastolic dysfunction, RVSP 75, Severe TR 75, Severe MR) Pre-procedure Exam Last vitals Vital Signs Date Temp Pulse Resp B/P (MAP) Pulse Ox O2 O2 Flow FiO2 Time Delivery Rate 12/12/18 56 08:00 12/12/18 26 136/63 98 Room Air 06:00 (87) 12/12/18 97.9 04:00 Airway: Adequate mouth opening, Adequate thyromental dist Mallampati: Mallampati III Teeth: Abnormal (multiple missing and cracked) Lung: Abnormal (decreased) Heart: Abnormal (2/6 systolic murmur) ASA Physical Status ASA physical status: 4 Emergency: E Planned Anesthetic General/MAC: MAC Pre-operative Attestations Prior to commencing anesthesia and surgery, the patient was re-evaluated, there was verification of: *The patient's identity *The results of appropriate recent lab work and preoperative vital signs *The above evaluation not changing prior to induction *Anesthetic plan, risk benefits, alternative and complications discussed with patient/family; questions answered; patient/family understands, accepts and wishes to proceed. MARIBETH UNGER CRNA December 12, 2018 10:52
[2018-12-12] MEDS ORDERED: FENTAnyl 50 MCG/ML VIAL ONE (10:59)
--- NOTE | 2018-12-12 11:35 | PAC ---
Date/Time of Note Date/Time of Note DATE: 12/12/18 TIME: 11:35 Post-Anesthesia Notes Post-Anesthesia Note Last documented vital signs Vital Signs Date Temp Pulse Resp B/P (MAP) Pulse Ox O2 O2 Flow FiO2 Time Delivery Rate 12/12/18 56 08:00 12/12/18 26 136/63 98 Room Air 06:00 (87) 12/12/18 97.9 04:00 Activity: WNL Respiratory function: WNL Cardiovascular function: WNL Mental status: Baseline Pain reasonably controlled: Yes Hydration appropriate: Yes Nausea/Vomiting absent: Yes Toro Horton M.D. December 12, 2018 11:35
--- NOTE | 2018-12-12 13:51 | PN ---
Date/Time of Note Date/Time of Note DATE: 12/12/18 TIME: 13:41 Assessment/Plan VTE Prophylaxis Risk score (from [facility])>0 risk: 8 SCD applied (from [facility]): Yes Pharmacological prophylaxis: NA/contraindicated Pharm contraindication: bleeding Lines/Catheters IV C[facility]ter Type [facility]from [facility] Mid Line Urinary Cath still in place: No Assessment/Plan Assessment/Plan A: GIB nonSTEMI ARF advanced dementia DM P: trial feeding cont current rx careful hydration monitor labs Result Diagram: 12/12/18 0515 12/12/18 0514 Results 24hrs Laboratory Tests Test 12/11/18 18:54 12/11/18 19:13 12/11/18 20:51 12/12/18 00:24 Bedside Glucose 190 166 Hemoglobin 8.2 L 8.8 L Hematocrit 25.6 L 27.4 L Test 12/12/18 04:39 12/12/18 05:14 12/12/18 05:15 12/12/18 08:17 Lab Scanned BLOOD TRANSFUSIO Report N Sodium Level 147 H Potassium Level 4.6 Chloride Level 119 H Carbon Dioxide 18 L Level Anion Gap 10 Blood Urea 77 H Nitrogen Creatinine 2.80 H Est Glomerular Filtrat Rate mL/min Glucose Level 134 Calcium Level 8.6 Total Bilirubin 0.5 Direct Bilirubin 0.00 Indirect 0.5 Bilirubin Aspartate Amino 43 Transf (AST/SGOT) Alanine 18 Aminotransferase (ALT/SGPT) Alkaline 65 Phosphatase Total Protein 6.2 Albumin 3.3 Globulin 2.90 Albumin/Globulin 1.13 Ratio White Blood Count 10.8 # Red Blood Count 2.96 L Hemoglobin 8.7 L Hematocrit 27.9 L Mean Corpuscular 94.3 Volume Mean Corpuscular 29.4 Hemoglobin Mean Corpuscular 31.2 L Hemoglobin Concen t Red Cell 14.5 Distribution Width Platelet Count 183 Mean Platelet 11.7 H Volume Immature 0.500 H Granulocytes % Neutrophils % 59.2 Lymphocytes % 30.4 Monocytes % 7.6 Eosinophils % 1.6 Basophils % 0.7 Nucleated Red 1.2 H Blood Cells % Immature 0.050 H Granulocytes # Neutrophils # 6.4 Lymphocytes # 3.3 H Monocytes # 0.8 Eosinophils # 0.2 Basophils # 0.1 Nucleated Red 0.1 H Blood Cells # Bedside Glucose 170 Test 12/12/18 11:52 Bedside Glucose 188 Subjective 24 Hr Interval Summary Free Text/Dictation Renal consult appreciated. Pt had EGD this am. Clinically stable. Exam/Review of Systems Exam Vitals Vital Signs Date Temp Pulse Resp B/P (MAP) Pulse Ox O2 O2 Flow FiO2 Time Delivery Rate 12/12/18 63 14 145/63 96 Room Air 13:00 (90) 12/12/18 97.9 12:00 Intake and Output 12/11/18 12/11/18 12/12/18 1414:59 22:59 06:59 IntakeIntake Total 120 ml 350 ml 300 ml OutputOutput Total 0 ml BalanceBalance 120 ml 350 ml 300 ml Exam gen- responds to verbal stimuli, able to follow simple commands lungs- CTA heart- RRR abd- +BS, soft ext- no edema Results Results 24hrs Laboratory Tests Test 12/11/18 18:54 12/11/18 19:13 12/11/18 20:51 12/12/18 00:24 Bedside Glucose 190 166 Hemoglobin 8.2 L 8.8 L Hematocrit 25.6 L 27.4 L Test 12/12/18 04:39 12/12/18 05:14 12/12/18 05:15 12/12/18 08:17 Lab Scanned BLOOD TRANSFUSIO Report N Sodium Level 147 H Potassium Level 4.6 Chloride Level 119 H Carbon Dioxide 18 L Level Anion Gap 10 Blood Urea 77 H Nitrogen Creatinine 2.80 H Est Glomerular Filtrat Rate mL/min Glucose Level 134 Calcium Level 8.6 Total Bilirubin 0.5 Direct Bilirubin 0.00 Indirect 0.5 Bilirubin Aspartate Amino 43 Transf (AST/SGOT) Alanine 18 Aminotransferase (ALT/SGPT) Alkaline 65 Phosphatase Total Protein 6.2 Albumin 3.3 Globulin 2.90 Albumin/Globulin 1.13 Ratio White Blood Count 10.8 # Red Blood Count 2.96 L Hemoglobin 8.7 L Hematocrit 27.9 L Mean Corpuscular 94.3 Volume Mean Corpuscular 29.4 Hemoglobin Mean Corpuscular 31.2 L Hemoglobin Concen t Red Cell 14.5 Distribution Width Platelet Count 183 Mean Platelet 11.7 H Volume Immature 0.500 H Granulocytes % Neutrophils % 59.2 Lymphocytes % 30.4 Monocytes % 7.6 Eosinophils % 1.6 Basophils % 0.7 Nucleated Red 1.2 H Blood Cells % Immature 0.050 H Granulocytes # Neutrophils # 6.4 Lymphocytes # 3.3 H Monocytes # 0.8 Eosinophils # 0.2 Basophils # 0.1 Nucleated Red 0.1 H Blood Cells # Bedside Glucose 170 Test 12/12/18 11:52 Bedside Glucose 188 Medications Medication Current Medications Ondansetron HCl (Zofran Inj) 4 mg Q6H PRN IV NAUSEA AND/OR VOMITING; Start 12/09/18 at 18:30 Acetaminophen (Tylenol Supp) 650 mg Q4H PRN [place] PAIN LEVEL 1-3 OR FEVER; Start 12/09/18 at 18:30 Atenolol (Tenormin) 50 mg DAILY PO Last administered on 12/10/18at 09:17; Admin Dose 50 MG; Start 12/10/18 at 09:00 Miscellaneous Information 1 ea NOTE XX ; Start 12/09/18 at 19:00 Glucose (Glutose) 15 gm Q15M PRN PO DECREASED GLUCOSE; Start 12/09/18 at 19:00 Glucose (Glutose) 22.5 gm Q15M PRN PO DECREASED GLUCOSE; Start 12/09/18 at 19:00 Dextrose (D50w Syringe) 25 ml Q15M PRN IV DECREASED GLUCOSE; Start 12/09/18 at 19:00 Dextrose (D50w Syringe) 50 ml Q15M PRN IV DECREASED GLUCOSE; Start 12/09/18 at 19:00 Glucagon (Glucagen) 1 mg Q15M PRN IM DECREASED GLUCOSE; Start 12/09/18 at 19:00 Glucose (Glutose) 15 gm Q15M PRN BUCCAL DECREASED GLUCOSE; Start 12/09/18 at 19:00 Morphine Sulfate (morphine) 1 mg Q4H PRN IV SEVERE PAIN LEVEL 7-10 Last administered on 12/10/18at 00:19; Admin Dose 1 MG; Start 12/09/18 at 22:00 Atorvastatin Calcium (Lipitor) 10 mg HS PO Last administered on 12/11/18at 20:54; Admin Dose 10 MG; Start 12/10/18 at 21:00 Pantoprazole (Protonix Iv) 40 mg BID IV Last administered on 12/12/18at 10:38; Admin Dose 40 MG; Start 12/11/18 at 09:00 Dextrose/Sodium Chloride 1,000 ml @ 50 mls/hr Q20H IV Last administered on 12/12/18at 10:39; Admin Dose 50 MLS/HR; Start 12/11/18 at 14:00 Insulin Aspart (Novolog Insulin Pen) NOVOLOG *MODERATE* ALGORITHM WITH MEALS BEDTIME SC Last administered on 12/12/18at 12:03; Admin Dose 4 UNIT; Start 12/11/18 at 17:35 EFRAÍN SOLOMON MD December 12, 2018 13:51
[2018-12-12] MEDS ORDERED: NITROGLYCERIN 2% 1 GM OINT PKT TD PRN (19:00)
[2018-12-12] MEDS: METOPROLOL 5 MG INJ IV SCH (20:00)
[2018-12-12] MEDS: ATORVASTATIN 10 MG TAB PO SCH (20:56)
[2018-12-13] VITALS (21 sets, daily range): BP systolic 131–168; BP diastolic 39–109; PULSE 55–73; RESP 10–28
[2018-12-13] MEDS: DEXTROSE 5%-0.45% NACL 1,000 ML IV SCH (04:05)
[2018-12-13] MEDS: METOPROLOL 5 MG INJ IV SCH ×4 (06:21→17:38)
[2018-12-13] MEDS: PANTOPRAZOLE 40 MG INJ IV SCH ×2 (08:19→20:48)
[2018-12-13] MEDS: INSULIN ASPART [NOVOLOG] 3 ML PEN SC SCH ×4 (08:23→20:49)
--- NOTE | 2018-12-13 08:39 | PN ---
Date/Time of Note Date/Time of Note DATE: 12/13/18 TIME: 08:31 SUBJECTIVE: Patient awake without any complaints but limited communication. Patient's family present. Chart, medications and laboratory studies reviewed. Patient underwent endoscopy without any cardiac complications revealing gastritis and Rosibel-Cisse tear. Review of systems Not obtainable patient not communicative. OBJECTIVE: Vital signs please see chart. HEENT; no JVD, no HJR, carotids 2 over 4+ without bruits. Chest: Clear to auscultation and percussion, no rales, wheezes or rhonchi. Cardiac: S4, S1, S2 with normal physiologic splitting, 2/6 early to mid peaking systolic ejection murmur, 3/6 holosystolic murmur at the apex but no no rub click or diastolic murmur noted. Abdominal: Bowel sounds positive, soft nontender, no abdominal bruit noted, no hepatosplenomegaly. Extremities: No cyanosis, clubbing, or edema. Negative Homans sign or palpable cords. Pulses: 2/4 pulses diffusely no bruits noted. LABORATORY STUDIES; Hemoglobin this morning 8.7 hematocrit 27.7 white count 9.2 platelets 180, sodium 149 potassium 4.8 chloride 121 bicarbonate 19 BUN 69 creatinine 2.69 normal liver test. EKG from the 13th sinus rhythm at [address] abnormality diffusely. Telemetry sinus rhythm no ectopy. 2D echocardiogram reviewed by myself revealed normal left ventricle chamber size wall thickness overall ejection fraction low normal at 55%, poorly visualized aortic valve sclerotic probably trileaflet with mild aortic regurgitation, marked mitral annular calcification with moderate to severe mitral regurgitation, moderate to severe tricuspid regurgitation with severe pulmonary hypertension pulmonary pressure 75 to 80 mmHg, no masses or pericardial effusion, moderate to significantly dilated left atrium. ASSESSMENT: 1. Acute GI bleed secondary to gastritis and Rosibel-Cisse tear on endoscopy . 2. Non-ST elevation myocardial infarction with markedly elevated troponin. 3. Hypertension. 4. Hyperlipidemia. 5. Type 2 diabetes. 6. Multi-infarct dementia prior CVAs. 7. History of subdural hematoma subarachnoid hemorrhage in 2013. 8. Recurrent UTIs. 9. Aortic regurgitation on echocardiogram. Severe mitral regurgitation due to calcific valvular disease. 10. Severe pulmonary hypertension possibly due to volume overload currently with acute diastolic heart failure. 11. Renal insufficiency 12. Anemia secondary to #1. At this time the patient has evidence of heart failure from volume overload from transfusion. At this time patient not taking oral medications possibly due to aspiration swallow study pending change to IV beta-jany and Nitropaste. Would recommend diuresis if possible watching renal function carefully. Discussed case with Dr. Silva. When taking oral medications restart atenolol, change to oral nitrates, start aspirin when stable from GI standpoint and continue statin. Patient not a candidate for anticoagulation or even aspirin at this time with recent GI bleed and Rosibel-Cisse tear. PLAN: 1. Aggressive diuresis discussed with Dr. Silva who will regulate diuretics. 2. Nitropaste 1 inch q. 8 changed to oral Imdur when taking oral medication. Also continue IV low-dose metoprolol changed to atenolol when taking oral medications. 3. Restart statin when taking oral medications and restart aspirin 81 mg daily once stable from GI standpoint. 4. Will be available as needed for any further cardiac issues but patient not a candidate for aggressive cardiac testing or angiography. IZABELLA MAGUIRE MD December 13, 2018 08:39
--- NOTE | 2018-12-13 09:06 | CONS ---
Assessment/Plan Assessment/Plan Hospital Course (Demo Recall) 1. Acute renal failure superimposed on chronic kidney disease. She had a renal ultrasound which showed some increased echogenicity and cortical atrophy. This is consistent with chronic kidney disease. Her renal function today is about the same as yesterday. She has a Aranda catheter in now and her urine output has been low. Cardiology is concerned about her pulmonary congestion and high pulmonary artery pressures. I am going to start her on diuretics to see if we can improve her pulmonary status. 2. Gastrointestinal bleeding. Her hemoglobin and hematocrit have been stable. She does not seem to be actively bleeding now . She did have a EGD yesterday which showed gastritis and a Rosibel-Cisse tear that was not actively bleeding. 3. Non-ST elevation myocardial infarction. 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 6. Previous cerebrovascular accident. 7. Dysphagia and unable to swallow. He is being seen by the speech therapist. 8. Hypernatremia, will switch IV to D5W Consultation Date/Type/Reason Admit Date/Time December 09, 2018 at 14:38 Initial Consult Date Type of Consult Nephrology Date/Time of Note DATE: 12/13/18 TIME: 08:50 24 HR Interval Summary Free Text/Dictation Patient is being seen in the ICU. The patient is awake but confused. Her family is in the room with her. Each therapy is evaluating the patient. Constitutional: disoriented Exam/Review of Systems Exam Vitals Vital Signs Date Temp Pulse Resp B/P (MAP) Pulse Ox O2 O2 Flow FiO2 Time Delivery Rate 12/13/18 59 16 165/67 100 Room Air 06:00 (99) 12/13/18 98.1 04:00 Intake and Output 12/12/18 12/12/18 12/13/18 1414:59 22:59 06:59 IntakeIntake Total 400 ml 460 ml 400 ml OutputOutput Total 90 ml 145 ml 110 ml BalanceBalance 310 ml 315 ml 290 ml Exam Her legs have some contraction. Constitutional: alert Psych: confusion Respiratory: clear to auscultation, diminished breath sounds Cardiovascular: regular rate and rhythm Gastrointestinal: soft, non-tender Results Result Diagram: 12/13/18 0456 12/13/18 0456 Results 24hrs Laboratory Tests Test 12/12/18 11:52 5/14/19 12:00 12/12/18 17:22 12/12/18 20:59 Bedside Glucose 188 196 173 Urine Color LAILA Urine Clarity CLOUDY A Urine pH 7.0 Urine Specific 1.016 Era Urine Ketones TRACE A Urine Nitrite NEGATIVE Urine Bilirubin NEGATIVE Urine Urobilinogen NEGATIVE Urine Leukocyte 2+ H Esterase Urine Microscopic 13 H RBC Urine Microscopic 116 H WBC Urine Amorphous MODERATE Crystals Urine Bacteria MODERATE Urine Hemoglobin 1+ H Urine Random 71.50 Creatinine Urine 2.16 Protein/Creatinine Ratio Urine Glucose NEGATIVE Urine Total Protein 155.0 H Test 12/13/18 04:56 12/13/18 08:21 White Blood Count 9.2 Red Blood Count 2.99 L Hemoglobin 8.7 L Hematocrit 27.7 L Mean Corpuscular 92.6 Volume Mean Corpuscular 29.1 Hemoglobin Mean Corpuscular 31.4 L Hemoglobin Concent Red Cell 14.4 Distribution Width Platelet Count 180 Mean Platelet Volume 11.4 H Immature 0.500 H Granulocytes % Neutrophils % 71.0 Lymphocytes % 20.1 Monocytes % 6.7 Eosinophils % 1.3 Basophils % 0.4 Nucleated Red Blood 2.1 H Cells % Immature 0.050 H Granulocytes # Neutrophils # 6.5 Lymphocytes # 1.9 Monocytes # 0.6 Eosinophils # 0.1 Basophils # 0.0 Nucleated Red Blood 0.2 H Cells # Prothrombin Time 14.8 Prothrombin Time 1.2 Ratio INR International 1.15 Normalized Ratio Activated 31.3 Partial Thromboplast Time Sodium Level 149 H Potassium Level 4.8 Chloride Level 121 H Carbon Dioxide Level 19 L Anion Gap 9 Blood Urea Nitrogen 69 H Creatinine 2.69 H Est Glomerular Filtrat Rate mL/min Glucose Level 202 Calcium Level 8.6 Total Bilirubin 0.6 Direct Bilirubin 0.00 Indirect Bilirubin 0.6 Aspartate Amino 31 Transf (AST/SGOT) Alanine 14 Aminotransferase (AL T/SGPT) Alkaline Phosphatase 80 Total Protein 6.4 Albumin 3.2 L Globulin 3.20 Albumin/Globulin 1.00 Ratio Bedside Glucose 223 H Medications Medication Current Medications Ondansetron HCl (Zofran Inj) 4 mg Q6H PRN IV NAUSEA AND/OR VOMITING; Start 12/09/18 at 18:30 Acetaminophen (Tylenol Supp) 650 mg Q4H PRN [place] PAIN LEVEL 1-3 OR FEVER; Start 12/09/18 at 18:30 Atenolol (Tenormin) 50 mg DAILY PO Last administered on 12/10/18at 09:17; Admin Dose 50 MG; Start 12/10/18 at 09:00; Status Hold Miscellaneous Information 1 ea NOTE XX ; Start 12/09/18 at 19:00 Glucose (Glutose) 15 gm Q15M PRN PO DECREASED GLUCOSE; Start 12/09/18 at 19:00 Glucose (Glutose) 22.5 gm Q15M PRN PO DECREASED GLUCOSE; Start 12/09/18 at 19:00 Dextrose (D50w Syringe) 25 ml Q15M PRN IV DECREASED GLUCOSE; Start 12/09/18 at 19:00 Dextrose (D50w Syringe) 50 ml Q15M PRN IV DECREASED GLUCOSE; Start 12/09/18 at 19:00 Glucagon (Glucagen) 1 mg Q15M PRN IM DECREASED GLUCOSE; Start 12/09/18 at 19:00 Glucose (Glutose) 15 gm Q15M PRN BUCCAL DECREASED GLUCOSE; Start 12/09/18 at 19:00 Morphine Sulfate (morphine) 1 mg Q4H PRN IV SEVERE PAIN LEVEL 7-10 Last administered on 12/10/18at 00:19; Admin Dose 1 MG; Start 12/09/18 at 22:00 Atorvastatin Calcium (Lipitor) 10 mg HS PO Last administered on 12/11/18at 20:54; Admin Dose 10 MG; Start 12/10/18 at 21:00 Pantoprazole (Protonix Iv) 40 mg BID IV Last administered on 12/13/18at 08:19; Admin Dose 40 MG; Start 12/11/18 at 09:00 Dextrose/Sodium Chloride 1,000 ml @ 50 mls/hr Q20H IV Last administered on 12/13/18at 04:05; Admin Dose 50 MLS/HR; Start 12/11/18 at 14:00 Insulin Aspart (Novolog Insulin Pen) NOVOLOG *MODERATE* ALGORITHM WITH MEALS BEDTIME SC Last administered on 12/13/18at 08:23; Admin Dose 6 UNIT; Start 12/11/18 at 17:35 Metoprolol Tartrate (Lopressor) 2.5 mg Q6 IV Last administered on 12/13/18at 06:21; Admin Dose 2.5 MG; Start 12/12/18 at 20:00 Nitroglycerin (Nitroglycerin 2% Oint) 0.5 inch Q8 PRN TD SBP > 170; Start 12/12/18 at 19:00 MELISSA LA MD December 13, 2018 09:01
[2018-12-13] MEDS: DEXTROSE 5% 1,000 ML IV SCH ×2 (10:17→18:48)
[2018-12-13] MEDS: BUMETANIDE 1 MG INJ IV SCH ×2 (10:17→17:38)
--- NOTE | 2018-12-13 10:45 | PN ---
Date/Time of Note Date/Time of Note DATE: 12/13/18 TIME: 10:32 Assessment/Plan VTE Prophylaxis Risk score (from [facility])>0 risk: 6 SCD applied (from [facility]): Yes Pharmacological prophylaxis: NA/contraindicated Pharm contraindication: bleeding Lines/Catheters IV Catheter Type (from [facility]): Mid Line Urinary Cath still in place: Yes Reason Cath still needed: other (indicate) Assessment/Plan Assessment/Plan A: GIB NSTEMI acute renal failure dysphagia- failed swallowing study pyuria advanced dementia hx CVA with residual HTN P: cont npo speech therapy ?ng feeding, defer to GI cont current rx fluids/diuresis per renal bp control per cards- change to imdur, atenolol, start statin when taking oral. Start asa when okay with gi. monitor labs, urine cx Result Diagram: 12/13/18 0456 12/13/18 0456 Results 24hrs Laboratory Tests Test 12/12/18 11:52 12/12/18 12:00 12/12/18 17:22 12/12/18 20:59 Bedside Glucose 188 196 173 Urine Color LAILA Urine Clarity CLOUDY A Urine pH 7.0 Urine Specific 1.016 [place] Urine Ketones TRACE A Urine Nitrite NEGATIVE Urine Bilirubin NEGATIVE Urine Urobilinogen NEGATIVE Urine Leukocyte 2+ H Esterase Urine Microscopic 13 H RBC Urine Microscopic 116 H WBC Urine Amorphous MODERATE Crystals Urine Bacteria MODERATE Urine Hemoglobin 1+ H Urine Random 71.50 Creatinine Urine 2.16 Protein/Creatinine Ratio Urine Glucose NEGATIVE Urine Total Protein 155.0 H Test 12/13/18 04:52 12/13/18 04:56 12/13/18 08:21 Parathyroid Hormone 220.1 H White Blood Count 9.2 Red Blood Count 2.99 L Hemoglobin 8.7 L Hematocrit 27.7 L Mean Corpuscular 92.6 Volume Mean Corpuscular 29.1 Hemoglobin Mean Corpuscular 31.4 L Hemoglobin Concent Red Cell 14.4 Distribution Width Platelet Count 180 Mean Platelet Volume 11.4 H Immature 0.500 H Granulocytes % Neutrophils % 71.0 Lymphocytes % 20.1 Monocytes % 6.7 Eosinophils % 1.3 Basophils % 0.4 Nucleated Red Blood 2.1 H Cells % Immature 0.050 H Granulocytes # Neutrophils # 6.5 Lymphocytes # 1.9 Monocytes # 0.6 Eosinophils # 0.1 Basophils # 0.0 Nucleated Red Blood 0.2 H Cells # Prothrombin Time 14.8 Prothrombin Time 1.2 Ratio INR International 1.15 Normalized Ratio Activated 31.3 Partial Thromboplast Time Sodium Level 149 H Potassium Level 4.8 Chloride Level 121 H Carbon Dioxide Level 19 L Anion Gap 9 Blood Urea Nitrogen 69 H Creatinine 2.69 H Est Glomerular Filtrat Rate mL/min Glucose Level 202 Calcium Level 8.6 Total Bilirubin 0.6 Direct Bilirubin 0.00 Indirect Bilirubin 0.6 Aspartate Amino 31 Transf (AST/SGOT) Alanine 14 Aminotransferase (AL T/SGPT) Alkaline Phosphatase 80 Total Protein 6.4 Albumin 3.2 L Globulin 3.20 Albumin/Globulin 1.00 Ratio Bedside Glucose 223 H Subjective 24 Hr Interval Summary Free Text/Dictation Pt s/p egd yesterday showing MW tear and gastritis without active bleeding. Pt failed swallowing eval and switched to iv beta jany. Pt hemodynamically stable no evidence of bleeding. Exam/Review of Systems Exam Vitals Vital Signs Date Temp Pulse Resp B/P (MAP) Pulse Ox O2 O2 Flow FiO2 Time Delivery Rate 12/13/18 58 08:00 12/13/18 16 165/67 100 Room Air 06:00 (99) 12/13/18 98.1 04:00 Intake and Output 12/12/18 12/12/18 12/13/18 1515:00 23:00 07:00 IntakeIntake Total 460 ml 400 ml 350 ml OutputOutput Total 105 ml 145 ml 95 ml BalanceBalance 355 ml 255 ml 255 ml Exam gen- nad, responds to verbal stimuli, able to follow simple commands. lungs- CTA heart- RRR abd- +BS, soft. ext- no edema. Results Results 24hrs Laboratory Tests Test 12/12/18 11:52 12/12/18 12:00 12/12/18 17:22 12/12/18 20:59 Bedside Glucose 188 196 173 Urine Color LAILA Urine Clarity CLOUDY A Urine pH 7.0 Urine Specific 1.016 [place] Urine Ketones TRACE A Urine Nitrite NEGATIVE Urine Bilirubin NEGATIVE Urine Urobilinogen NEGATIVE Urine Leukocyte 2+ H Esterase Urine Microscopic 13 H RBC Urine Microscopic 116 H WBC Urine Amorphous MODERATE Crystals Urine Bacteria MODERATE Urine Hemoglobin 1+ H Urine Random 71.50 Creatinine Urine 2.16 Protein/Creatinine Ratio Urine Glucose NEGATIVE Urine Total Protein 155.0 H Test 12/13/18 04:52 12/13/18 04:56 12/13/18 08:21 Parathyroid Hormone 220.1 H White Blood Count 9.2 Red Blood Count 2.99 L Hemoglobin 8.7 L Hematocrit 27.7 L Mean Corpuscular 92.6 Volume Mean Corpuscular 29.1 Hemoglobin Mean Corpuscular 31.4 L Hemoglobin Concent Red Cell 14.4 Distribution Width Platelet Count 180 Mean Platelet Volume 11.4 H Immature 0.500 H Granulocytes % Neutrophils % 71.0 Lymphocytes % 20.1 Monocytes % 6.7 Eosinophils % 1.3 Basophils % 0.4 Nucleated Red Blood 2.1 H Cells % Immature 0.050 H Granulocytes # Neutrophils # 6.5 Lymphocytes # 1.9 Monocytes # 0.6 Eosinophils # 0.1 Basophils # 0.0 Nucleated Red Blood 0.2 H Cells # Prothrombin Time 14.8 Prothrombin Time 1.2 Ratio INR International 1.15 Normalized Ratio Activated 31.3 Partial Thromboplast Time Sodium Level 149 H Potassium Level 4.8 Chloride Level 121 H Carbon Dioxide Level 19 L Anion Gap 9 Blood Urea Nitrogen 69 H Creatinine 2.69 H Est Glomerular Filtrat Rate mL/min Glucose Level 202 Calcium Level 8.6 Total Bilirubin 0.6 Direct Bilirubin 0.00 Indirect Bilirubin 0.6 Aspartate Amino 31 Transf (AST/SGOT) Alanine 14 Aminotransferase (AL T/SGPT) Alkaline Phosphatase 80 Total Protein 6.4 Albumin 3.2 L Globulin 3.20 Albumin/Globulin 1.00 Ratio Bedside Glucose 223 H Medications Medication Current Medications Ondansetron HCl (Zofran Inj) 4 mg Q6H PRN IV NAUSEA AND/OR VOMITING; Start 12/09/18 at 18:30 Acetaminophen (Tylenol Supp) 650 mg Q4H PRN [place] PAIN LEVEL 1-3 OR FEVER; Start 12/09/18 at 18:30 Atenolol (Tenormin) 50 mg DAILY PO Last administered on 12/10/18at 09:17; Admin Dose 50 MG; Start 12/10/18 at 09:00; Status Hold Miscellaneous Information 1 ea NOTE XX ; Start 12/09/18 at 19:00 Glucose (Glutose) 15 gm Q15M PRN PO DECREASED GLUCOSE; Start 12/09/18 at 19:00 Glucose (Glutose) 22.5 gm Q15M PRN PO DECREASED GLUCOSE; Start 12/09/18 at 19:00 Dextrose (D50w Syringe) 25 ml Q15M PRN IV DECREASED GLUCOSE; Start 12/09/18 at 19:00 Dextrose (D50w Syringe) 50 ml Q15M PRN IV DECREASED GLUCOSE; Start 12/09/18 at 19:00 Glucagon (Glucagen) 1 mg Q15M PRN IM DECREASED GLUCOSE; Start 12/09/18 at 19:00 Glucose (Glutose) 15 gm Q15M PRN BUCCAL DECREASED GLUCOSE; Start 12/09/18 at 19:00 Morphine Sulfate (morphine) 1 mg Q4H PRN IV SEVERE PAIN LEVEL 7-10 Last administered on 12/10/18at 00:19; Admin Dose 1 MG; Start 12/09/18 at 22:00 Atorvastatin Calcium (Lipitor) 10 mg HS PO Last administered on 12/11/18at 20:54; Admin Dose 10 MG; Start 12/10/18 at 21:00 Pantoprazole (Protonix Iv) 40 mg BID IV Last administered on 12/13/18at 08:19; Admin Dose 40 MG; Start 12/11/18 at 09:00 Insulin Aspart (Novolog Insulin Pen) NOVOLOG *MODERATE* ALGORITHM WITH MEALS BEDTIME SC Last administered on 12/13/18at 08:23; Admin Dose 6 UNIT; Start 12/11/18 at 17:35 Metoprolol Tartrate (Lopressor) 2.5 mg Q6 IV Last administered on 12/13/18at 06:21; Admin Dose 2.5 MG; Start 12/12/18 at 20:00 Nitroglycerin (Nitroglycerin 2% Oint) 0.5 inch Q8 PRN TD SBP > 170; Start 12/12/18 at 19:00 Nitroglycerin (Nitroglycerin 2% Oint) 1 inch Q8 TD ; Start 12/13/18 at 14:00 Bumetanide (Bumex) 1 mg BID DIURETICS IV Last administered on 12/13/18at 10:17; Admin Dose 1 MG; Start 12/13/18 at 09:00 Dextrose 1,000 ml @ 50 mls/hr Q20H IV Last administered on 12/13/18at 10:17; Admin Dose 50 MLS/HR; Start 12/13/18 at 09:00 Insulin Glargine (Lantus) 10 units DAILY@0800 SC ; Start 12/13/18 at 11:30 EFRAÍN SOLOMON MD December 13, 2018 10:42
[2018-12-13] MEDS: INSULIN GLARGINE [LANTus] (100 UNITS/ML) SYG SC SCH (11:55)
[2018-12-13] MEDS: NITROGLYCERIN 2% 1 GM OINT PKT TD SCH ×2 (13:08→22:00)
[2018-12-13] MEDS: morphine 2 MG INJ IV PRN (15:32)
--- NOTE | 2018-12-13 17:18 | CONS ---
Assessment/Plan Assessment/Plan Assessment/Plan (Daily) Assessment/Plan Hospital Course (Demo Recall) 83 yo female with severe anemia Interval hx: hgb 8.7 this am. No bm overnight. No vomiting. 1. Upper gastrointestinal bleeding. 2. Diabetes mellitus. 3. Hypertension. 4. Dementia. 5. Cerebrovascular accident. 6. Severe anemia. 7. Elevated troponin. 8. ALLERGIC TO PENICILLIN. 9. Non-ST myocardial infarction with elevated troponin likely due to blood loss 10. CHF 11. Pulmonary hypertension 12. Dysphagia, patient failed swallow study PLAN: PPI BID Per cardiology note: Pt is hemodynamically stable. Given overall low risk of procedure, ok to proceed without further cardiac evaluation. We will schedule EGD for today or tomorrow. Keep NPO. NO anti coagulants. Monitor HH, replace for active bleeding or Hgb less than 7.4 DC serial HH Since patient failed a swallow study she will need alternate mode of feeding either through NG tube or G-tube. Staff could not pass the NG tube multiple attempts were made Daughter was in the room and after discussing with the rest of the family member see preferred G-tube and has agreed for the placement of G-tube. Consultation Date/Type/Reason Admit Date/Time December 09, 2018 at 14:38 Initial Consult Date Date/Time of Note DATE: 12/13/18 TIME: 17:16 24 HR Interval Summary Free Text/Dictation Patient failed a swallow study Multiple attempts were being made by the staff to pass the NG tube but failed No further GI bleeding Constitutional: no complaints Exam/Review of Systems Exam Vitals Vital Signs Date Temp Pulse Resp B/P (MAP) Pulse Ox O2 O2 Flow FiO2 Time Delivery Rate 12/13/18 73 16:00 12/13/18 19 147/53 99 Room Air 15:00 (84) 12/13/18 98.0 12:00 Intake and Output 12/12/18 12/12/18 12/13/18 1515:00 23:00 07:00 IntakeIntake Total 460 ml 400 ml 400 ml OutputOutput Total 105 ml 145 ml 105 ml BalanceBalance 355 ml 255 ml 295 ml Constitutional: frail Psych: confusion Eyes: nl conjunctiva, EOMI, nl lids, nl sclera, PERRL ENMT: nl external ears & nose, nl lips & teeth, nl nasal mucosa & septum Gastrointestinal: soft, nl liver, spleen, non-tender Extremities: normal pulses Results Result Diagram: 12/13/18 0456 12/13/18 0456 Results 24hrs Laboratory Tests Test 12/12/18 17:22 12/12/18 20:59 12/13/18 04:52 12/13/18 04:56 Bedside Glucose 196 173 Parathyroid Hormone 220.1 H White Blood Count 9.2 Red Blood Count 2.99 L Hemoglobin 8.7 L Hematocrit 27.7 L Mean Corpuscular 92.6 Volume Mean Corpuscular 29.1 Hemoglobin Mean Corpuscular 31.4 L Hemoglobin Concent Red Cell 14.4 Distribution Width Platelet Count 180 Mean Platelet Volume 11.4 H Immature 0.500 H Granulocytes % Neutrophils % 71.0 Lymphocytes % 20.1 Monocytes % 6.7 Eosinophils % 1.3 Basophils % 0.4 Nucleated Red Blood 2.1 H Cells % Immature 0.050 H Granulocytes # Neutrophils # 6.5 Lymphocytes # 1.9 Monocytes # 0.6 Eosinophils # 0.1 Basophils # 0.0 Nucleated Red Blood 0.2 H Cells # Prothrombin Time 14.8 Prothrombin Time 1.2 Ratio INR International 1.15 Normalized Ratio Activated 31.3 Partial Thromboplast Time Sodium Level 149 H Potassium Level 4.8 Chloride Level 121 H Carbon Dioxide Level 19 L Anion Gap 9 Blood Urea Nitrogen 69 H Creatinine 2.69 H Est Glomerular Filtrat Rate mL/min Glucose Level 202 Calcium Level 8.6 Total Bilirubin 0.6 Direct Bilirubin 0.00 Indirect Bilirubin 0.6 Aspartate Amino 31 Transf (AST/SGOT) Alanine 14 Aminotransferase (AL T/SGPT) Alkaline Phosphatase 80 Total Protein 6.4 Albumin 3.2 L Globulin 3.20 Albumin/Globulin 1.00 Ratio Test 12/13/18 08:21 12/13/18 11:00 12/13/18 11:53 Bedside Glucose 223 H 167 Urine Random 84.85 Creatinine Urine Random Sodium 22 L Medications Medication Current Medications Ondansetron HCl (Zofran Inj) 4 mg Q6H PRN IV NAUSEA AND/OR VOMITING; Start 06/19 at 18:30 Acetaminophen (Tylenol Supp) 650 mg Q4H PRN [place] PAIN LEVEL 1-3 OR FEVER; Start 12/09/18 at 18:30 Atenolol (Tenormin) 50 mg DAILY PO Last administered on 12/10/18at 09:17; Admin Dose 50 MG; Start 12/10/18 at 09:00; Status Hold Miscellaneous Information 1 ea NOTE XX ; Start 12/09/18 at 19:00 Glucose (Glutose) 15 gm Q15M PRN PO DECREASED GLUCOSE; Start 12/09/18 at 19:00 Glucose (Glutose) 22.5 gm Q15M PRN PO DECREASED GLUCOSE; Start 12/09/18 at 19:00 Dextrose (D50w Syringe) 25 ml Q15M PRN IV DECREASED GLUCOSE; Start 12/09/18 at 19:00 Dextrose (D50w Syringe) 50 ml Q15M PRN IV DECREASED GLUCOSE; Start 12/09/18 at 19:00 Glucagon (Glucagen) 1 mg Q15M PRN IM DECREASED GLUCOSE; Start 12/09/18 at 19:00 Glucose (Glutose) 15 gm Q15M PRN BUCCAL DECREASED GLUCOSE; Start 12/09/18 at 19:00 Morphine Sulfate (morphine) 1 mg Q4H PRN IV SEVERE PAIN LEVEL 7-10 Last administered on 12/13/18at 15:32; Admin Dose 1 MG; Start 12/09/18 at 22:00 Atorvastatin Calcium (Lipitor) 10 mg HS PO Last administered on 12/11/18at 20:54; Admin Dose 10 MG; Start 12/10/18 at 21:00 Pantoprazole (Protonix Iv) 40 mg BID IV Last administered on 12/13/18at 08:19; Admin Dose 40 MG; Start 12/11/18 at 09:00 Insulin Aspart (Novolog Insulin Pen) NOVOLOG *MODERATE* ALGORITHM WITH MEALS BEDTIME SC Last administered on 12/13/18at 11:55; Admin Dose 2 UNIT; Start 12/11/18 at 17:35 Metoprolol Tartrate (Lopressor) 2.5 mg Q6 IV Last administered on 12/13/18at 06:21; Admin Dose 2.5 MG; Start 12/12/18 at 20:00 Nitroglycerin (Nitroglycerin 2% Oint) 0.5 inch Q8 PRN TD SBP > 170; Start 12/12/18 at 19:00 Nitroglycerin (Nitroglycerin 2% Oint) 1 inch Q8 TD Last administered on 12/13/18at 13:08; Admin Dose 1 INCH; Start 12/13/18 at 14:00 Bumetanide (Bumex) 1 mg BID DIURETICS IV Last administered on 12/13/18at 10:17; Admin Dose 1 MG; Start 12/13/18 at 09:00 Dextrose 1,000 ml @ 50 mls/hr Q20H IV Last administered on 12/13/18 10:17; Admin Dose 50 MLS/HR; Start 12/13/18 at 09:00 Insulin Glargine (Lantus) 10 units DAILY@0800 SC Last administered on 12/13/18at 11:55; Admin Dose 10 UNITS; Start 12/13/18 at 11:30 JACLYN GUZMAN MD December 13, 2018 17:18
[2018-12-13] MEDS: ATORVASTATIN 10 MG TAB PO SCH (20:48)
[2018-12-14] VITALS (20 sets, daily range): BP systolic 125–161; BP diastolic 50–74; PULSE 48–62; RESP 9–28
[2018-12-14] MEDS: DEXTROSE 5% 1,000 ML IV SCH (05:47)
[2018-12-14] MEDS: morphine 2 MG INJ IV PRN (05:50)
[2018-12-14] MEDS: METOPROLOL 5 MG INJ IV SCH ×5 (05:51→22:20)
[2018-12-14] MEDS: NITROGLYCERIN 2% 1 GM OINT PKT TD SCH ×3 (05:52→22:21)
[2018-12-14] MEDS: BUMETANIDE 1 MG INJ IV SCH (05:52)
[2018-12-14] MEDS ORDERED: CIPRO 400 MG/200 ML D5W IVPB ONE (07:00)
[2018-12-14] MEDS: INSULIN GLARGINE [LANTus] (100 UNITS/ML) SYG SC SCH (08:00)
[2018-12-14] MEDS: INSULIN ASPART [NOVOLOG] 3 ML PEN SC SCH ×4 (08:00→21:00)
[2018-12-14] MEDS ORDERED: INSULIN GLARGINE [LANTus] (100 UNITS/ML) SYG SC SCH (08:00)
[2018-12-14] MEDS: PANTOPRAZOLE 40 MG INJ IV SCH ×2 (08:34→22:22)
--- NOTE | 2018-12-14 09:38 | CONS ---
Assessment/Plan Assessment/Plan Hospital Course (Demo Recall) 1. Acute renal failure superimposed on chronic kidney disease. She had a renal ultrasound which showed some increased echogenicity and cortical atrophy. This is consistent with chronic kidney disease. Her renal function today is about the same as yesterday. She has a Aranda catheter in now and her urine output has increased since starting her on IV Bumex . Her potassium is low and she will need potassium supplement. I will hold Bumex for now until serum potassium is back to normal. 2. Gastrointestinal bleeding. Her hemoglobin and hematocrit have been stable. She does not seem to be actively bleeding now . She did have a EGD yesterday which showed gastritis and a Rosibel-Cisse tear that was not actively bleeding. She is going to have a PEG placement today. 3. Non-ST elevation myocardial infarction. 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 6. Previous cerebrovascular accident. 7. Dysphagia and unable to swallow. He is being seen by the speech therapist. 8. Hypernatremia, will switch IV to D5W . Her serum sodium is correcting. Consultation Date/Type/Reason Admit Date/Time December 09, 2018 at 14:38 Initial Consult Date Type of Consult Nephrology Date/Time of Note DATE: 12/14/18 TIME: 09:34 24 HR Interval Summary Free Text/Dictation Patient is awake but she is nonverbal. She was transferred to the telemetry floor yesterday. Subjective hx not possible: pt non-verbal Exam/Review of Systems Exam Vitals Vital Signs Date Temp Pulse Resp B/P (MAP) Pulse Ox O2 O2 Flow FiO2 Time Delivery Rate 12/14/18 52 08:00 12/14/18 98.6 20 125/58 95 07:33 (80) 12/13/18 Room Air 17:00 Intake and Output 12/13/18 12/13/18 12/14/18 1515:00 23:00 07:00 IntakeIntake Total 400 ml 100 ml OutputOutput Total 415 ml 190 ml 1400 ml BalanceBalance -15 ml -90 ml -1400 ml Constitutional: alert, frail Psych: confusion Respiratory: clear to auscultation, diminished breath sounds Cardiovascular: regular rate and rhythm Gastrointestinal: soft, non-tender Musculoskeletal: nl extremities to inspection Results Result Diagram: 12/14/18 0508 12/14/18 0508 Results 24hrs Laboratory Tests Test 12/13/18 11:00 12/13/18 11:53 12/13/18 17:38 12/13/18 20:39 Urine Random 84.85 Creatinine Urine Random Sodium 22 L Bedside Glucose 167 155 86 Test 12/14/18 03:04 12/14/18 05:08 12/14/18 07:57 Bedside Glucose 98 103 White Blood Count 10.7 Red Blood Count 3.06 L Hemoglobin 9.0 L Hematocrit 27.9 L Mean Corpuscular 91.2 Volume Mean Corpuscular 29.4 Hemoglobin Mean Corpuscular 32.3 Hemoglobin Concent Red Cell 14.5 Distribution Width Platelet Count 181 Mean Platelet Volume 11.3 H Immature 0.500 H Granulocytes % Neutrophils % 67.8 Lymphocytes % 19.7 Monocytes % 7.9 Eosinophils % 3.6 Basophils % 0.5 Nucleated Red Blood 1.5 H Cells % Immature 0.050 H Granulocytes # Neutrophils # 7.2 Lymphocytes # 2.1 Monocytes # 0.8 Eosinophils # 0.4 Basophils # 0.1 Nucleated Red Blood 0.2 H Cells # Sodium Level 144 Potassium Level 3.2 L Chloride Level 116 H Carbon Dioxide Level 19 L Anion Gap 9 Blood Urea Nitrogen 61 H Creatinine 2.62 H Est Glomerular Filtrat Rate mL/min Glucose Level 88 Calcium Level 8.6 Phosphorus Level 3.4 Magnesium Level 2.2 Total Bilirubin 0.6 Direct Bilirubin 0.00 Indirect Bilirubin 0.6 Aspartate Amino 19 Transf (AST/SGOT) Alanine 20 Aminotransferase (AL T/SGPT) Alkaline Phosphatase 70 Troponin I 3.860 *H B-Type Natriuretic 67810 H Peptide Total Protein 5.7 L Albumin 3.0 L Globulin 2.70 Albumin/Globulin 1.11 Ratio Medications Medication Current Medications Ondansetron HCl (Zofran Inj) 4 mg Q6H PRN IV NAUSEA AND/OR VOMITING; Start 12/09/18 at 18:30 Acetaminophen (Tylenol Supp) 650 mg Q4H PRN [place] PAIN LEVEL 1-3 OR FEVER; Start 12/09/18 at 18:30 Atenolol (Tenormin) 50 mg DAILY PO Last administered on 12/10/18at 09:17; Admin Dose 50 MG; Start 12/10/18 at 09:00; Status Hold Miscellaneous Information 1 ea NOTE XX ; Start 12/09/18 at 19:00 Glucose (Glutose) 15 gm Q15M PRN PO DECREASED GLUCOSE; Start 12/09/18 at 19:00 Glucose (Glutose) 22.5 gm Q15M PRN PO DECREASED GLUCOSE; Start 12/09/18 at 19:00 Dextrose (D50w Syringe) 25 ml Q15M PRN IV DECREASED GLUCOSE; Start 12/09/18 at 19:00 Dextrose (D50w Syringe) 50 ml Q15M PRN IV DECREASED GLUCOSE; Start 12/09/18 at 19:00 Glucagon (Glucagen) 1 mg Q15M PRN IM DECREASED GLUCOSE; Start 12/09/18 at 19:00 Glucose (Glutose) 15 gm Q15M PRN BUCCAL DECREASED GLUCOSE; Start 12/09/18 at 19:00 Morphine Sulfate (morphine) 1 mg Q4H PRN IV SEVERE PAIN LEVEL 7-10 Last administered on 12/14/18 05:50; Admin Dose 1 MG; Start 12/09/18 at 22:00 Atorvastatin Calcium (Lipitor) 10 mg HS PO Last administered on 12/13/18at 20 :48; Admin Dose 10 MG; Start 12/10/18 at 21:00 Pantoprazole (Protonix Iv) 40 mg BID IV Last administered on 12/14/18 08:34; Admin Dose 40 MG; Start 12/11/18 at 09:00 Insulin Aspart (Novolog Insulin Pen) NOVOLOG *MODERATE* ALGORITHM WITH MEALS BEDTIME SC Last administered on 12/13/18at 17:45; Admin Dose 2 UNIT; Start 12/11/18 at 17:35 Metoprolol Tartrate (Lopressor) 2.5 mg Q6 IV Last administered on 12/14/18 05:51; Admin Dose 2.5 MG; Start 12/12/18 at 20:00 Nitroglycerin (Nitroglycerin 2% Oint) 0.5 inch Q8 PRN TD SBP > 170; Start 12/12/18 at 19:00 Nitroglycerin (Nitroglycerin 2% Oint) 1 inch Q8 TD Last administered on 12/14/18 05:52; Admin Dose 1 INCH; Start 12/13/18 at 14:00 Bumetanide (Bumex) 1 mg BID DIURETICS IV Last administered on 12/14/18 05:52; Admin Dose 1 MG; Start 12/13/18 at 09:00 Dextrose 1,000 ml @ 50 mls/hr Q20H IV Last administered on 12/14/18at 05:47; Admin Dose 50 MLS/HR; Start 12/13/18 at 09:00 Insulin Glargine (Lantus) 10 units DAILY@0800 SC Last administered on 12/13/18at 11:55; Admin Dose 10 UNITS; Start 12/13/18 at 11:30 MELISSA LA MD December 14, 2018 09:38
[2018-12-14] MEDS: POTASSIUM CHLORIDE 100 ML IVPB SCH ×2 (10:46→16:42)
--- NOTE | 2018-12-14 12:06 | PREAC ---
Date/Time of Note Date/Time of Note DATE: 12/14/18 TIME: 12:05 Anesthesia Eval and Record Evaluation Time Pre-Procedure Interview DATE: 12/14/18 TIME: 12:05 Age 83 Sex female NPO: 8 hrs Preoperative diagnosis dyspagia Planned procedure peg Past Medical History Past Medical History: Includes Cardio: HTN, Dyslipidemia, NM, CAD Endo: Diabetes Neuro: CVA Renal: CKD Heme: Anemia Surgery & Anesthesia Issues No known issue Meds Anticoagulation: No Beta Valentin within 24 hr: No Reason Beta Valentin not given: Pt. not on B-Valentin Reported Medications Docusate Sodium (Silace) 50 Mg/5 Ml Liquid, 10 ML PO DAILY PRN for PRN 12/09/18 Glipizide* (Glipizide*) 5 Mg Tablet, 5 MG PO AC BREAKFAST, TAB 12/09/18 Amlodipine Besylate* (Norvasc*) 5 Mg Tablet, 5 MG PO BID, TAB 12/09/18 Trazodone Hcl* (Trazodone Hcl*) 50 Mg Tablet, 50 MG PO Q6H, #30 TAB 12/09/18 Metformin Hcl* (Metformin Hcl*) 500 Mg Tablet, 500 MG PO WITH BREAKFAST, #30 TAB 12/09/18 Atenolol* (Atenolol*) 50 Mg Tablet, 50 MG PO DAILY, #30 TAB HOLD FOR SBP<100 12/09/18 Discontinued Reported Medications Valsartan* (Diovan*) 160 Mg Tablet, 160 MG PO DAILY, TAB 07/04/14 Atenolol* (Atenolol*) 50 Mg Tablet, 50 MG PO DAILY, TAB HOLD PER DR. TIWARI 07/04/14 Atorvastatin Calcium* (Atorvastatin Calcium*) 20 Mg Tablet, 20 MG PO HS, TAB 07/04/14 Donepezil* (Aricept*) 5 Mg Tablet, 5 MG PO DAILY, TAB 07/04/14 Metformin Hcl* (Metformin Hcl*) 500 Mg Tablet, 500 MG PO BID, TAB 07/04/14 Trazodone Hcl* (Trazodone Hcl*) 50 Mg Tablet, 50 MG PO DAILY PRN for SLEEP, TAB 07/04/14 Memantine* (Namenda*) 5 Mg Tablet, 5 MG PO DAILY, TAB 07/04/14 Discontinued Scripts Valsartan* (Diovan*) 160 Mg Tablet, 160 MG PO DAILY, #10 TAB Prov:GREER EVERETT DO 03/01/16 Sulfamethoxazole-Trimethoprim* (Bactrim* DS) 800-160 Mg Tab, 1 TAB PO BID for 10 Days, TAB Prov:SLAVA JACOBS MD 03/01/16 Current Medications Ondansetron HCl (Zofran Inj) 4 mg Q6H PRN IV NAUSEA AND/OR VOMITING; Start 12/09/18 at 18:30 Acetaminophen (Tylenol Supp) 650 mg Q4H PRN [place] PAIN LEVEL 1-3 OR FEVER; Start 12/09/18 at 18:30 Atenolol (Tenormin) 50 mg DAILY PO Last administered on 12/10/18at 09:17; Admin Dose 50 MG; Start 12/10/18 at 09:00; Status Hold Miscellaneous Information 1 ea NOTE XX ; Start 12/09/18 at 19:00 Glucose (Glutose) 15 gm Q15M PRN PO DECREASED GLUCOSE; Start 12/09/18 at 19:00 Glucose (Glutose) 22.5 gm Q15M PRN PO DECREASED GLUCOSE; Start 12/09/18 at 19:00 Dextrose (D50w Syringe) 25 ml Q15M PRN IV DECREASED GLUCOSE; Start 12/09/18 at 19:00 Dextrose (D50w Syringe) 50 ml Q15M PRN IV DECREASED GLUCOSE; Start 12/09/18 at 19:00 Glucagon (Glucagen) 1 mg Q15M PRN IM DECREASED GLUCOSE; Start 12/09/18 at 19:00 Glucose (Glutose) 15 gm Q15M PRN BUCCAL DECREASED GLUCOSE; Start 12/09/18 at 19:00 Morphine Sulfate (morphine) 1 mg Q4H PRN IV SEVERE PAIN LEVEL 7-10 Last administered on 12/14/18at 05:50; Admin Dose 1 MG; Start 12/09/18 at 22:00 Atorvastatin Calcium (Lipitor) 10 mg HS PO Last administered on 12/13/18at 20:48; Admin Dose 10 MG; Start 12/10/18 at 21:00 Pantoprazole (Protonix Iv) 40 mg BID IV Last administered on 12/14/18at 08:34; Admin Dose 40 MG; Start 12/11/18 at 09:00 Insulin Aspart (Novolog Insulin Pen) NOVOLOG *MODERATE* ALGORITHM WITH MEALS BEDTIME SC Last administered on 12/13/18at 17:45; Admin Dose 2 UNIT; Start 12/11/18 at 17:35 Metoprolol Tartrate (Lopressor) 2.5 mg Q6 IV Last administered on 12/14/18at 05:51; Admin Dose 2.5 MG; Start 12/12/18 at 20:00 Nitroglycerin (Nitroglycerin 2% Oint) 0.5 inch Q8 PRN TD SBP > 170; Start 12/12/18 at 19:00 Nitroglycerin (Nitroglycerin 2% Oint) 1 inch Q8 TD Last administered on 12/14/18at 05:52; Admin Dose 1 INCH; Start 12/13/18 at 14:00 Dextrose 1,000 ml @ 50 mls/hr Q20H IV Last administered on 12/14/18at 05:47; Admin Dose 50 MLS/HR; Start 12/13/18 at 09:00 Insulin Glargine (Lantus) 10 units DAILY@0800 SC Last administered on 12/13/18at 11:55; Admin Dose 10 UNITS; Start 12/13/18 at 11:30 Potassium Chloride 100 ml @ 25 mls/hr Q2H IVPB Last administered on 12/14/18at 10:46; Admin Dose 25 MLS/HR; Start 12/14/18 at 10:00; Stop 12/14/18 at 13:59 Meds reviewed: Yes Allergies Coded Allergies: Penicillins (Verified Allergy, Unknown, 12/09/18) Allergies Reviewed: Yes Labs/Studies Labs Reviewed: Reviewed by anesthesiologist Result Diagram: 12/14/18 0508 12/14/18 0508 Laboratory Tests 12/14/18 05:08 test: N/A Pre-procedure Exam Last vitals Vital Signs Date Temp Pulse Resp B/P (MAP) Pulse Ox O2 O2 Flow FiO2 Time Delivery Rate 12/14/18 52 08:00 12/14/18 98.6 20 125/58 95 07:33 (80) 12/13/18 Room Air 17:00 Airway: Adequate mouth opening, Adequate thyromental dist Mallampati: Mallampati III Teeth: Normal Lung: Normal Heart: Normal ASA Physical Status ASA physical status: 4 Emergency: None Pre-operative Attestations Prior to commencing anesthesia and surgery, the patient was re-evaluated, there was verification of: *The patient's identity *The results of appropriate recent lab work and preoperative vital signs *The above evaluation not changing prior to induction *Anesthetic plan, risk benefits, alternative and complications discussed with patient/family; questions answered; patient/family understands, accepts and wishes to proceed. JAY GONZALEZ DO December 14, 2018 12:06
[2018-12-14] MEDS ORDERED: MIDAZOLAM 1 MG/ML 2 ML INJ ONE (12:08)
[2018-12-14] MEDS ORDERED: LIDOCAINE 2% (SDV) 5 ML INJ ONE (12:08)
[2018-12-14] MEDS ORDERED: FENTAnyl 50 MCG/ML VIAL ONE (12:08)
[2018-12-14] MEDS ORDERED: ESMOLOL 10 ML ONE (12:09)
[2018-12-14] MEDS ORDERED: ETOMIDATE 20 MG INJ ONE (12:09)
[2018-12-14] MEDS ORDERED: PHENYLephrine (100 MCG/ML) 10ML SYG ONE (12:09)
--- NOTE | 2018-12-14 12:46 | PAC ---
Date/Time of Note Date/Time of Note DATE: 12/14/18 TIME: 12:45 Post-Anesthesia Notes Post-Anesthesia Note Last documented vital signs Vital Signs Date Temp Pulse Resp B/P (MAP) Pulse Ox O2 O2 Flow FiO2 Time Delivery Rate 12/14/18 98 55 18 155/62 92 08:00 12/14/18 98.6 20 125/58 95 07:33 (80) 12/13/18 Room Air 17:00 Activity: WNL Respiratory function: WNL Cardiovascular function: WNL Mental status: Baseline Pain reasonably controlled: Yes Hydration appropriate: Yes Nausea/Vomiting absent: Yes JAY GONZALEZ DO December 14, 2018 12:46
--- NOTE | 2018-12-14 16:59 | PN ---
Date/Time of Note Date/Time of Note DATE: 12/14/18 TIME: 16:53 Assessment/Plan VTE Prophylaxis Risk score (from Ns)>0 risk: 5 [place] [facility] [place] Pharmacological prophylaxis: NA/contraindicated Pharm contraindication: bleeding Lines/Catheters IV [facility] Mid Line Urinary Cath still in place: Yes Reason Cath still needed: other (indicate) Assessment/Plan Assessment/Plan A: ARF NSTEMI UTI GIB- MW tear advance dementia dysphagia - s/p G-tube placement CVA with residual HTN P: fluid, electrolyte management per renal G-tube feeding per GI rocephin cont other rx monitor labs Result Diagram: 12/14/18 0508 12/14/18 0508 Results 24hrs Laboratory Tests Test 12/13/18 17:38 12/13/18 20:39 12/14/18 03:04 12/14/18 05:08 Bedside Glucose 155 86 98 White Blood Count 10.7 Red Blood Count 3.06 L Hemoglobin 9.0 L Hematocrit 27.9 L Mean Corpuscular 91.2 Volume Mean Corpuscular 29.4 Hemoglobin Mean Corpuscular 32.3 Hemoglobin Concent Red Cell 14.5 Distribution Width Platelet Count 181 Mean Platelet Volume 11.3 H Immature 0.500 H Granulocytes % Neutrophils % 67.8 Lymphocytes % 19.7 Monocytes % 7.9 Eosinophils % 3.6 Basophils % 0.5 Nucleated Red Blood 1.5 H Cells % Immature 0.050 H Granulocytes # Neutrophils # 7.2 Lymphocytes # 2.1 Monocytes # 0.8 Eosinophils # 0.4 Basophils # 0.1 Nucleated Red Blood 0.2 H Cells # Sodium Level 144 Potassium Level 3.2 L Chloride Level 116 H Carbon Dioxide Level 19 L Anion Gap 9 Blood Urea Nitrogen 61 H Creatinine 2.62 H Est Glomerular Filtrat Rate mL/min Glucose Level 88 Calcium Level 8.6 Phosphorus Level 3.4 Magnesium Level 2.2 Total Bilirubin 0.6 Direct Bilirubin 0.00 Indirect Bilirubin 0.6 Aspartate Amino 19 Transf (AST/SGOT) Alanine 20 Aminotransferase (AL T/SGPT) Alkaline Phosphatase 70 Troponin I 3.860 *H B-Type Natriuretic 98104 H Peptide Total Protein 5.7 L Albumin 3.0 L Globulin 2.70 Albumin/Globulin 1.11 Ratio Test 12/14/18 07:57 12/14/18 11:41 Bedside Glucose 103 103 Subjective 24 Hr Interval Summary Free Text/Dictation Pt transferred to tele. Family at bedside. Difficulty placing NG after multiple attempts, family requested G-tube placement. Spoke with Dr. Thomas. G-tube placed today. Exam/Review of Systems Exam Vitals Vital Signs Date Temp Pulse Resp B/P (MAP) Pulse Ox O2 O2 Flow FiO2 Time Delivery Rate 12/14/18 98.5 54 20 138/61 100 15:17 (86) 12/14/18 Room Air 13:19 12/14/18 8.0 12:49 Intake and Output 12/13/18 12/13/18 12/14/18 1515:00 23:00 07:00 IntakeIntake Total 400 ml 100 ml OutputOutput Total 415 ml 190 ml 1400 ml BalanceBalance -15 ml -90 ml -1400 ml Exam gen- nad, nontoxic HEENT- anicteric lungs- CTA heart- RRR abd- +BS, soft ext- no edema Results Results 24hrs Laboratory Tests Test 12/13/18 17:38 12/13/18 20:39 12/14/18 03:04 12/14/18 05:08 Bedside Glucose 155 86 98 White Blood Count 10.7 Red Blood Count 3.06 L Hemoglobin 9.0 L Hematocrit 27.9 L Mean Corpuscular 91.2 Volume Mean Corpuscular 29.4 Hemoglobin Mean Corpuscular 32.3 Hemoglobin Concent Red Cell 14.5 Distribution Width Platelet Count 181 Mean Platelet Volume 11.3 H Immature 0.500 H Granulocytes % Neutrophils % 67.8 Lymphocytes % 19.7 Monocytes % 7.9 Eosinophils % 3.6 Basophils % 0.5 Nucleated Red Blood 1.5 H Cells % Immature 0.050 H Granulocytes # Neutrophils # 7.2 Lymphocytes # 2.1 Monocytes # 0.8 Eosinophils # 0.4 Basophils # 0.1 Nucleated Red Blood 0.2 H Cells # Sodium Level 144 Potassium Level 3.2 L Chloride Level 116 H Carbon Dioxide Level 19 L Anion Gap 9 Blood Urea Nitrogen 61 H Creatinine 2.62 H Est Glomerular Filtrat Rate mL/min Glucose Level 88 Calcium Level 8.6 Phosphorus Level 3.4 Magnesium Level 2.2 Total Bilirubin 0.6 Direct Bilirubin 0.00 Indirect Bilirubin 0.6 Aspartate Amino 19 Transf (AST/SGOT) Alanine 20 Aminotransferase (AL T/SGPT) Alkaline Phosphatase 70 Troponin I 3.860 *H B-Type Natriuretic 26999 H Peptide Total Protein 5.7 L Albumin 3.0 L Globulin 2.70 Albumin/Globulin 1.11 Ratio Test 12/14/18 07:57 12/14/18 11:41 Bedside Glucose 103 103 Medications Medication Current Medications Ondansetron HCl (Zofran Inj) 4 mg Q6H PRN IV NAUSEA AND/OR VOMITING; Start 11/29 08/19 at 18:30 Acetaminophen (Tylenol Supp) 650 mg Q4H PRN [place] PAIN LEVEL 1-3 OR FEVER; Start 12/09/18 at 18:30 Atenolol (Tenormin) 50 mg DAILY PO Last administered on 12/10/18at 09:17; Admin Dose 50 MG; Start 12/10/18 at 09:00; Status Hold Miscellaneous Information 1 ea NOTE XX ; Start 12/09/18 at 19:00 Glucose (Glutose) 15 gm Q15M PRN PO DECREASED GLUCOSE; Start 12/09/18 at 19:00 Glucose (Glutose) 22.5 gm Q15M PRN PO DECREASED GLUCOSE; Start 12/09/18 at 19:00 Dextrose (D50w Syringe) 25 ml Q15M PRN IV DECREASED GLUCOSE; Start 12/09/18 at 19:00 Dextrose (D50w Syringe) 50 ml Q15M PRN IV DECREASED GLUCOSE; Start 12/09/18 at 19:00 Glucagon (Glucagen) 1 mg Q15M PRN IM DECREASED GLUCOSE; Start 12/09/18 at 19:00 Glucose (Glutose) 15 gm Q15M PRN BUCCAL DECREASED GLUCOSE; Start 12/09/18 at 1 9:00 Morphine Sulfate (morphine) 1 mg Q4H PRN IV SEVERE PAIN LEVEL 7-10 Last administered on 12/14/18at 05:50; Admin Dose 1 MG; Start 12/09/18 at 22:00 Atorvastatin Calcium (Lipitor) 10 mg HS PO Last administered on 12/13/18at 20:48; Admin Dose 10 MG; Start 12/10/18 at 21:00 Pantoprazole (Protonix Iv) 40 mg BID IV Last administered on 12/14/18at 08:34; Admin Dose 40 MG; Start 12/11/18 at 09:00 Insulin Aspart (Novolog Insulin Pen) NOVOLOG *MODERATE* ALGORITHM WITH MEALS BEDTIME SC Last administered on 12/13/18at 17:45; Admin Dose 2 UNIT; Start 12/11/18 at 17:35 Metoprolol Tartrate (Lopressor) 2.5 mg Q6 IV Last administered on 12/14/18at 05:51; Admin Dose 2.5 MG; Start 12/12/18 at 20:00 Nitroglycerin (Nitroglycerin 2% Oint) 0.5 inch Q8 PRN TD SBP > 170; Start 12/12/18 at 19:00 Nitroglycerin (Nitroglycerin 2% Oint) 1 inch Q8 TD Last administered on 12/14/18at 13:52; Admin Dose 1 INCH; Start 12/13/18 at 14:00 Dextrose 1,000 ml @ 50 mls/hr Q20H IV Last administered on 12/14/18at 05:47; A dmin Dose 50 MLS/HR; Start 12/13/18 at 09:00 Insulin Glargine (Lantus) 10 units DAILY@0800 SC Last administered on 12/13/18at 11:55; Admin Dose 10 UNITS; Start 12/13/18 at 11:30 EFRAÍN SOLOMON MD December 14, 2018 16:59
[2018-12-14] MEDS: CEFTRIAXONE 1 GM/50 ML (PMX) 50 ML IVPB SCH (17:49)
[2018-12-14] MEDS: ATORVASTATIN 10 MG TAB PO SCH (22:19)
[2018-12-15] VITALS (12 sets, daily range): BP systolic 127–155; BP diastolic 60–78; PULSE 55–69; RESP 19–21
[2018-12-15] MEDS: DEXTROSE 5% 1,000 ML IV SCH (01:00)
[2018-12-15] MEDS: METOPROLOL 5 MG INJ IV SCH (06:04)
[2018-12-15] MEDS: NITROGLYCERIN 2% 1 GM OINT PKT TD SCH ×3 (06:04→21:05)
[2018-12-15] MEDS: PANTOPRAZOLE 40 MG INJ IV SCH ×2 (08:50→21:04)
[2018-12-15] MEDS: INSULIN ASPART [NOVOLOG] 3 ML PEN SC SCH ×2 (08:53→12:00)
[2018-12-15] MEDS: INSULIN GLARGINE [LANTus] (100 UNITS/ML) SYG SC SCH (08:54)
--- NOTE | 2018-12-15 09:12 | PN ---
Date/Time of Note Date/Time of Note DATE: 12/15/18 TIME: 09:07 SUBJECTIVE: Patient awake without any complaints but limited communication. Patient's family present. Chart, medications and laboratory studies reviewed. Patient underwent feeding gastrostomy yesterday without any cardiac complications. Review of systems Not obtainable patient not communicative. OBJECTIVE: Vital signs please see chart. HEENT; no JVD, no HJR, carotids 2 over 4+ without bruits. Chest: Clear to auscultation and percussion, no rales, wheezes or rhonchi. Cardiac: S4, S1, S2 with normal physiologic splitting, 2/6 early to mid peaking systolic ejection murmur, 3/6 holosystolic murmur at the apex but no no rub click or diastolic murmur noted. Abdominal: Bowel sounds positive, soft nontender, no abdominal bruit noted, no hepatosplenomegaly. Extremities: No cyanosis, clubbing, or edema. Negative Homans sign or palpable cords. Pulses: 2/4 pulses diffusely no bruits noted. LABORATORY STUDIES; Hemoglobin this morning 8.5, hematocrit 26.6, white count 11.7, platelets 157, sodium corrected to 141, potassium corrected to 3.7, bun 56 creatinine 2.69 bicarbonate 21. Chest x-ray from the 16[facility] decreased heart failure calcified aortic knob calcified mitral annulus cardiomegaly. Telemetry sinus rhythm 50s to 70s no ectopy. ASSESSMENT: 1. Acute GI bleed secondary to gastritis and Rosibel-Cisse tear on endoscopy . 2. Non-ST elevation myocardial infarction with markedly elevated troponin. 3. Hypertension. 4. Hyperlipidemia. 5. Type 2 diabetes. 6. Multi-infarct dementia prior CVAs. 7. History of subdural hematoma subarachnoid hemorrhage in 2013. 8. Recurrent UTIs. 9. Aortic regurgitation on echocardiogram. Severe mitral regurgitation due to calcific valvular disease. 10. Severe pulmonary hypertension possibly due to volume overload currently with acute diastolic heart failure. 11. Renal insufficiency 12. Anemia secondary to #1. 13. Status post feeding gastrostomy yesterday. At this time the patient has evidence of continued heart failure from anemia, and probable diastolic heart failure and renal insufficiency and valvular disease. Now that feeding gastrostomy in place impeding patient getting fed will start metoprolol tartrate 25 mg twice daily easier with gastrostomy tube and discontinue IV Lopressor. Continue Nitropaste since easier with gastrostomy in place. Restart aspirin when stable from GI standpoint. As mentioned multiple times in prior notes patient not a candidate for more aggressive cardiac testing. Continue statin therapy LDL less than 70 goal. We will be available as needed for any further cardiac issues. PLAN: 1. Aggressive diuresis to be continued now that the sodium and potassium corrected. 2. Metoprolol tartrate started 25 mg twice daily with parameters with gastrostomy in place discontinue IV Lopressor. 3. Continue Nitropaste for blood pressure and anti-ischemic benefit. Easier than oral nitrates down gastrostomy. 4. Restart aspirin when stable from GI standpoint. 5. Restart statin LDL goal less than 70. 6. Patient not a candidate for aggressive cardiac testing with significant dementia and multiple organ dysfunction especially renal insufficiency. We will be available as needed for any further cardiac issues. IZABELLA MAGUIRE MD December 15, 2018 09:12
[2018-12-15] MEDS: METOPROLOL 25 MG TAB GTB SCH ×3 (09:30→21:04)
[2018-12-15] MEDS: POTASSIUM CHLORIDE 20 MEQ POWDER FOR ORAL SOLN GTB SCH (12:09)
[2018-12-15] MEDS: BUMETANIDE 1 MG INJ IV SCH (12:10)
--- NOTE | 2018-12-15 12:22 | CONS ---
Assessment/Plan Assessment/Plan Assessment/Plan (Daily) ospital Course (Demo Recall) 83 yo female with severe anemia Interval hx: hgb 8.7 this am. No bm overnight. No vomiting. 1. Upper gastrointestinal bleeding. 2. Diabetes mellitus. 3. Hypertension. 4. Dementia. 5. Cerebrovascular accident. 6. Severe anemia. 7. Elevated troponin. 8. ALLERGIC TO PENICILLIN. 9. Non-ST myocardial infarction with elevated troponin likely due to blood loss 10. CHF 11. Pulmonary hypertension 12. Dysphagia, patient failed swallow study 13. Status post a PEG PLAN: PPI BID Per cardiology note: Pt is hemodynamically stable. Given overall low risk of procedure, ok to proceed without further cardiac evaluation. We will schedule EGD for today or tomorrow. Keep NPO. NO anti coagulants. Monitor HH, replace for active bleeding or Hgb less than 7.4 Increase feedings slowly until the goal is achieved Consultation Date/Type/Reason Admit Date/Time December 09, 2018 at 14:38 Initial Consult Date Date/Time of Note DATE: 12/15/18 TIME: 12:21 24 HR Interval Summary Constitutional: no complaints, improved Exam/Review of Systems Exam Vitals Vital Signs Date Temp Pulse Resp B/P (MAP) Pulse Ox O2 O2 Flow FiO2 Time Delivery Rate 12/15/18 98.1 61 20 134/63 96 Room Air 10:56 (86) 12/14/18 8.0 12:49 Intake and Output 12/14/18 12/14/18 12/15/18 1515:00 23:00 07:00 IntakeIntake Total 100 ml 50 ml 500 ml OutputOutput Total 900 ml BalanceBalance 100 ml 50 ml -400 ml Constitutional: alert, oriented, well developed Psych: no complaints, nl mood/affect Head: normocephalic, atraumatic Eyes: nl conjunctiva, EOMI, nl lids, nl sclera, PERRL ENMT: nl external ears & nose, nl lips & teeth, nl nasal mucosa & septum Neck: supple, non-tender Respiratory: clear to auscultation, normal air movement Cardiovascular: regular rate and rhythm, nl pulses Gastrointestinal: soft, nl liver, spleen, non-tender Musculoskeletal: nl extremities to inspection, nl gait and stance Extremities: normal pulses Neurological: FIELD IDENTIFICATION SPECIALIST II-XII intact, nl mental status, nl speech, nl strength Skin: nl turgor; No rash or lesions Lymph: nl lymph nodes Results Result Diagram: 12/15/18 0510 12/15/18 0510 Results 24hrs Laboratory Tests Test 12/14/18 17:54 12/14/18 20:40 12/15/18 05:10 12/15/18 08:46 Bedside Glucose 92 109 274 H White Blood Count 11.7 H Red Blood Count 2.91 L Hemoglobin 8.5 L Hematocrit 26.6 L Mean Corpuscular 91.4 Volume Mean Corpuscular 29.2 Hemoglobin Mean Corpuscular 32.0 Hemoglobin Concent Red Cell 14.3 Distribution Width Platelet Count 157 Mean Platelet Volume 11.5 H Immature 0.700 H Granulocytes % Neutrophils % 78.1 H Lymphocytes % 13.5 L Monocytes % 6.0 Eosinophils % 1.4 Basophils % 0.3 Nucleated Red Blood 0.7 H Cells % Immature 0.080 H Granulocytes # Neutrophils # 9.2 H Lymphocytes # 1.6 Monocytes # 0.7 Eosinophils # 0.2 Basophils # 0.0 Nucleated Red Blood 0.1 H Cells # Sodium Level 141 Potassium Level 3.7 Chloride Level 113 H Carbon Dioxide Level 21 Anion Gap 7 Blood Urea Nitrogen 56 H Creatinine 2.69 H Est Glomerular Filtrat Rate mL/min Glucose Level 207 # Calcium Level 8.1 L Total Bilirubin 0.5 Direct Bilirubin 0.00 Indirect Bilirubin 0.5 Aspartate Amino 15 Transf (AST/SGOT) Alanine 16 Aminotransferase (AL T/SGPT) Alkaline Phosphatase 71 Total Protein 5.5 L Albumin 2.7 L Globulin 2.80 Albumin/Globulin 0.96 Ratio Medications Medication Current Medications Ondansetron HCl (Zofran Inj) 4 mg Q6H PRN IV NAUSEA AND/OR VOMITING; Start 12/09/18 at 18:30 Acetaminophen (Tylenol Supp) 650 mg Q4H PRN [place] PAIN LEVEL 1-3 OR FEVER; Start 12/09/18 at 18:30 Miscellaneous Information 1 ea NOTE XX ; Start 12/09/18 at 19:00 Glucose (Glutose) 15 gm Q15M PRN PO DECREASED GLUCOSE; Start 12/09/18 at 19:00 Glucose (Glutose) 22.5 gm Q15M PRN PO DECREASED GLUCOSE; Start 12/09/18 at 19:00 Dextrose (D50w Syringe) 25 ml Q15M PRN IV DECREASED GLUCOSE; Start 12/09/18 at 19:00 Dextrose (D50w Syringe) 50 ml Q15M PRN IV DECREASED GLUCOSE; Start 12/09/18 at 19:00 Glucagon (Glucagen) 1 mg Q15M PRN IM DECREASED GLUCOSE; Start 12/09/18 at 19:00 Glucose (Glutose) 15 gm Q15M PRN BUCCAL DECREASED GLUCOSE; Start 12/09/18 at 19:00 Morphine Sulfate (morphine) 1 mg Q4H PRN IV SEVERE PAIN LEVEL 7-10 Last administered on 12/14/18at 05:50; Admin Dose 1 MG; Start 12/09/18 at 22:00 Atorvastatin Calcium (Lipitor) 10 mg HS PO Last administered on 12/14/18at 22:19; Admin Dose 10 MG; Start 12/10/18 at 21:00 Pantoprazole (Protonix Iv) 40 mg BID IV Last administered on 12/15/18at 08:50; Admin Dose 40 MG; Start 12/11/18 at 09:00 Insulin Aspart (Novolog Insulin Pen) NOVOLOG *MODERATE* ALGORITHM WITH MEALS BEDTIME SC Last administered on 12/15/18at 08:53; Admin Dose 8 UNIT; Start 12/11/18 at 17:35 Nitroglycerin (Nitroglycerin 2% Oint) 0.5 inch Q8 PRN TD SBP > 170; Start 12/12/18 at 19:00 Nitroglycerin (Nitroglycerin 2% Oint) 1 inch Q8 TD Last administered on 12/15/18at 06:04; Admin Dose 1 INCH; Start 12/13/18 at 14:00 Insulin Glargine (Lantus) 10 units DAILY@0800 SC Last administered on 12/15/18at 08:54; Admin Dose 10 UNITS; Start 12/13/18 at 11:30 Ceftriaxone Sodium 50 ml @ 100 mls/hr Q24H IVPB Last administered on 12/14/18at 17:49; Admin Dose 100 MLS/HR; Start 12/14/18 at 17:00 Metoprolol Tartrate (Lopressor) 25 mg BID GTB ; Start 12/15/18 at 09:30 Potassium Chloride (Potassium Chloride Pwd/Soln) 20 meq DAILY GTB Last administered on 12/15/18at 12:09; Admin Dose 20 MEQ; Start 12/15/18 at 10:00 Bumetanide (Bumex) 1 mg DAILY IV Last administered on 12/15/18at 12:10; Admin Dose 1 MG; Start 12/15/18 at 10:00 JACLYN GUZMAN MD December 15, 2018 12:22
--- NOTE | 2018-12-15 12:43 | RADRPT ---
Vent Rate: 54 bpm RR Interval: 1104 msec [place] Interval: 160 msec QRS Duration: 105 msec QT Interval: 461 msec QTC Interval: 439 msec P-R-T [place]: 63 - 60 - -71 degrees Sinus rhythm...normal P axis, V-rate 50- 99 Probable LVH with secondary repol abnrm...multiple LVH criteria ST depression, consider ischemia, diffuse lds...ST <-0.10mV, ant/lat/inf Electronically Signed By: Darryl Evans
--- NOTE | 2018-12-15 13:31 | PN ---
Date/Time of Note Date/Time of Note DATE: 12/15/18 TIME: 13:25 Assessment/Plan VTE Prophylaxis Risk score (from Ns)>0 risk: 10 SCD applied (from [facility] [place]): Yes Pharmacological prophylaxis: NA/contraindicated Pharm contraindication: bleeding Lines/Catheters IV Catheter Type [facility]from [facility]): Saline Lock Urinary Cath still in place: Yes Reason Cath still needed: other (indicate) Assessment/Plan Assessment/Plan A: acute on chronic kidney failure NSTEMI GIB- MW tear, gastritis on egd UTI dysphagia- s/p gtube advanced dementia hx cva with residual DM HTN P: cont current rx fluid, electrolyte management per renal cont tube feedings cont abx monitor labs Result Diagram: 12/15/18 0510 12/15/18 0510 Results 24hrs Laboratory Tests Test 12/14/18 17:54 12/14/18 20:40 12/15/18 05:10 12/15/18 08:46 Bedside Glucose 92 109 274 H White Blood Count 11.7 H Red Blood Count 2.91 L Hemoglobin 8.5 L Hematocrit 26.6 L Mean Corpuscular 91.4 Volume Mean Corpuscular 29.2 Hemoglobin Mean Corpuscular 32.0 Hemoglobin Concent Red Cell 14.3 Distribution Width Platelet Count 157 Mean Platelet Volume 11.5 H Immature 0.700 H Granulocytes % Neutrophils % 78.1 H Lymphocytes % 13.5 L Monocytes % 6.0 Eosinophils % 1.4 Basophils % 0.3 Nucleated Red Blood 0.7 H Cells % Immature 0.080 H Granulocytes # Neutrophils # 9.2 H Lymphocytes # 1.6 Monocytes # 0.7 Eosinophils # 0.2 Basophils # 0.0 Nucleated Red Blood 0.1 H Cells # Sodium Level 141 Potassium Level 3.7 Chloride Level 113 H Carbon Dioxide Level 21 Anion Gap 7 Blood Urea Nitrogen 56 H Creatinine 2.69 H Est Glomerular Filtrat Rate mL/min Glucose Level 207 # Calcium Level 8.1 L Total Bilirubin 0.5 Direct Bilirubin 0.00 Indirect Bilirubin 0.5 Aspartate Amino 15 Transf (AST/SGOT) Alanine 16 Aminotransferase (AL T/SGPT) Alkaline Phosphatase 71 Total Protein 5.5 L Albumin 2.7 L Globulin 2.80 Albumin/Globulin 0.96 Ratio Test 12/15/18 12:08 Bedside Glucose 119 Subjective 24 Hr Interval Summary Free Text/Dictation Family at bedside. Pt improving slowly. No new events. Receiving Gtube fee dings. Exam/Review of Systems Exam Vitals Vital Signs Date Temp Pulse Resp B/P (MAP) Pulse Ox O2 O2 Flow FiO2 Time Delivery Rate 12/15/18 60 13:11 12/15/18 Room Air 12:27 12/15/18 98.1 20 134/63 96 10:56 (86) 12/14/18 8.0 12:49 Intake and Output 12/14/18 12/14/18 12/15/18 1515:00 23:00 07:00 IntakeIntake Total 100 ml 50 ml 500 ml OutputOutput Total 900 ml BalanceBalance 100 ml 50 ml -400 ml Exam gen- nad, nontoxic, follows simple commands lungs- cta heart- RRR abd- +BS, soft ext- no edema Results Results 24hrs Laboratory Tests Test 12/14/18 17:54 12/14/18 20:40 12/15/18 05:10 12/15/18 08:46 Bedside Glucose 92 109 274 H White Blood Count 11.7 H Red Blood Count 2.91 L Hemoglobin 8.5 L Hematocrit 26.6 L Mean Corpuscular 91.4 Volume Mean Corpuscular 29.2 Hemoglobin Mean Corpuscular 32.0 Hemoglobin Concent Red Cell 14.3 Distribution Width Platelet Count 157 Mean Platelet Volume 11.5 H Immature 0.700 H Granulocytes % Neutrophils % 78.1 H Lymphocytes % 13.5 L Monocytes % 6.0 Eosinophils % 1.4 Basophils % 0.3 Nucleated Red Blood 0.7 H Cells % Immature 0.080 H Granulocytes # Neutrophils # 9.2 H Lymphocytes # 1.6 Monocytes # 0.7 Eosinophils # 0.2 Basophils # 0.0 Nucleated Red Blood 0.1 H Cells # Sodium Level 141 Potassium Level 3.7 Chloride Level 113 H Carbon Dioxide Level 21 Anion Gap 7 Blood Urea Nitrogen 56 H Creatinine 2.69 H Est Glomerular Filtrat Rate mL/min Glucose Level 207 # Calcium Level 8.1 L Total Bilirubin 0.5 Direct Bilirubin 0.00 Indirect Bilirubin 0.5 Aspartate Amino 15 Transf (AST/SGOT) Alanine 16 Aminotransferase (AL T/SGPT) Alkaline Phosphatase 71 Total Protein 5.5 L Albumin 2.7 L Globulin 2.80 Albumin/Globulin 0.96 Ratio Test 12/15/18 12:08 Bedside Glucose 119 Medications Medication Current Medications Ondansetron HCl (Zofran Inj) 4 mg Q6H PRN IV NAUSEA AND/OR VOMITING; Start 12/09/18 at 18:30 Acetaminophen (Tylenol Supp) 650 mg Q4H PRN [place] PAIN LEVEL 1-3 OR FEVER; Start 12/09/18 at 18:30 Miscellaneous Information 1 ea NOTE XX ; Start 12/09/18 at 19:00 Glucose (Glutose) 15 gm Q15M PRN PO DECREASED GLUCOSE; Start 12/09/18 at 19:00 Glucose (Glutose) 22.5 gm Q15M PRN PO DECREASED GLUCOSE; Start 12/09/18 at 19:00 Dextrose (D50w Syringe) 25 ml Q15M PRN IV DECREASED GLUCOSE; Start 12/09/18 at 19:00 Dextrose (D50w Syringe) 50 ml Q15M PRN IV DECREASED GLUCOSE; Start 12/09/18 at 19:00 Glucagon (Glucagen) 1 mg Q15M PRN IM DECREASED GLUCOSE; Start 12/09/18 at 19:00 Glucose (Glutose) 15 gm Q15M PRN BUCCAL DECREASED GLUCOSE; Start 12/09/18 at 19:00 Morphine Sulfate (morphine) 1 mg Q4H PRN IV SEVERE PAIN LEVEL 7-10 Last administered on 12/14/18at 05:50; Admin Dose 1 MG; Start 12/09/18 at 22:00 Atorvastatin Calcium (Lipitor) 10 mg HS PO Last administered on 12/14/18at 22:19; Admin Dose 10 MG; Start 12/10/18 at 21:00 Pantoprazole (Protonix Iv) 40 mg BID IV Last administered on 12/15/18at 08:50; Admin Dose 40 MG; Start 12/11/18 at 09:00 Nitroglycerin (Nitroglycerin 2% Oint) 0.5 inch Q8 PRN TD SBP > 170; Start 12/12/18 at 19:00 Nitroglycerin (Nitroglycerin 2% Oint) 1 inch Q8 TD Last administered on 12/15/18at 06:04; Admin Dose 1 INCH; Start 12/13/18 at 14:00 Insulin Glargine (Lantus) 10 units DAILY@0800 SC Last administered on 12/15/18at 08:54; Admin Dose 10 UNITS; Start 12/13/18 at 11:30 Ceftriaxone Sodium 50 ml @ 100 mls/hr Q24H IVPB Last administered on 12/14/18at 17:49; Admin Dose 100 MLS/HR; Start 12/14/18 at 17:00 Metoprolol Tartrate (Lopressor) 25 mg BID GTB ; Start 12/15/18 at 09:30 Potassium Chloride (Potassium Chloride Pwd/Soln) 20 meq DAILY GTB Last administered on 12/15/18at 12:09; Admin Dose 20 MEQ; Start 12/15/18 at 10:00 Bumetanide (Bumex) 1 mg DAILY IV Last administered on 12/15/18at 12:10; Admin Dose 1 MG; Start 12/15/18 at 10:00 Insulin Aspart (Novolog Insulin Pen) (Adult SC Insulin - Moder... Q6 SC ; Start 12/15/18 at 18:00 EFRAÍN SOLOMON MD December 15, 2018 13:31
[2018-12-15] MEDS: CEFTRIAXONE 1 GM/50 ML (PMX) 50 ML IVPB SCH (17:09)
[2018-12-15] MEDS: Insulin NOVOLOG SS MODERATE Algorithm(NPO/TPN/ENTERAL FEEDS) SC SCH (17:11)
[2018-12-15] MEDS ORDERED: INSULIN ASPART [NOVOLOG] 3 ML PEN SC SCH (18:00)
--- NOTE | 2018-12-15 20:05 | CONS ---
Assessment/Plan Assessment/Plan Hospital Course (Demo Recall) 1. Acute renal failure superimposed on chronic kidney disease. She had a renal ultrasound which showed some increased echogenicity and cortical atrophy. This is consistent with chronic kidney disease. Her renal function today is about the same . She may be at a new baseline serum creatinine. 2. Gastrointestinal bleeding. Her hemoglobin and hematocrit have been stable. She does not seem to be actively bleeding now . She did have a EGD which showed gastritis and a Rosibel-Cisse tear that was not actively bleeding. She has a PEG in place today. She is on Epogen for her anemia. 3. Non-ST elevation myocardial infarction. 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 6. Previous cerebrovascular accident. 7. Dysphagia and unable to swallow. She now has a PEG in place. 8. CHF and high pulmonary artery pressures. She is back on maintenance IV Bum ex with potassium supplements. Consultation Date/Type/Reason Admit Date/Time December 09, 2018 at 14:38 Initial Consult Date Type of Consult Nephrology Date/Time of Note DATE: 12/15/18 TIME: 19:59 24 HR Interval Summary Free Text/Dictation She is being seen in nephrologic follow-up. Patient is lying on her side. She is awake but not talking. 1 of her family members is in the room with her. Subjective hx not possible: pt non-verbal Exam/Review of Systems Exam Vitals Vital Signs Date Temp Pulse Resp B/P (MAP) Pulse Ox O2 O2 Flow FiO2 Time Delivery Rate 12/15/18 98.1 66 20 142/65 96 19:35 (90) 12/15/18 Room Air 15:58 12/14/18 8.0 12:49 Intake and Output 12/14/18 12/14/18 12/15/18 1515:00 23:00 07:00 IntakeIntake Total 100 ml 50 ml 500 ml OutputOutput Total 900 ml BalanceBalance 100 ml 50 ml -400 ml Exam She has some lower extremity contractures. Constitutional: non-verbal Psych: confusion Respiratory: clear to auscultation Cardiovascular: regular rate and rhythm Gastrointestinal: soft, non-tender Musculoskeletal: muscle weakness Neurological: lethargic Results Result Diagram: 12/15/18 0510 12/15/18 0510 Results 24hrs Laboratory Tests Test 12/14/18 20:40 12/15/18 05:10 12/15/18 08:46 12/15/18 12:08 Bedside Glucose 109 274 H 119 White Blood Count 11.7 H Red Blood Count 2.91 L Hemoglobin 8.5 L Hematocrit 26.6 L Mean Corpuscular 91.4 Volume Mean Corpuscular 29.2 Hemoglobin Mean Corpuscular 32.0 Hemoglobin Concent Red Cell 14.3 Distribution Width Platelet Count 157 Mean Platelet Volume 11.5 H Immature 0.700 H Granulocytes % Neutrophils % 78.1 H Lymphocytes % 13.5 L Monocytes % 6.0 Eosinophils % 1.4 Basophils % 0.3 Nucleated Red Blood 0.7 H Cells % Immature 0.080 H Granulocytes # Neutrophils # 9.2 H Lymphocytes # 1.6 Monocytes # 0.7 Eosinophils # 0.2 Basophils # 0.0 Nucleated Red Blood 0.1 H Cells # Sodium Level 141 Potassium Level 3.7 Chloride Level 113 H Carbon Dioxide Level 21 Anion Gap 7 Blood Urea Nitrogen 56 H Creatinine 2.69 H Est Glomerular Filtrat Rate mL/min Glucose Level 207 # Calcium Level 8.1 L Total Bilirubin 0.5 Direct Bilirubin 0.00 Indirect Bilirubin 0.5 Aspartate Amino 15 Transf (AST/SGOT) Alanine 16 Aminotransferase (AL T/SGPT) Alkaline Phosphatase 71 Total Protein 5.5 L Albumin 2.7 L Globulin 2.80 Albumin/Globulin 0.96 Ratio Test 12/15/18 17:10 Bedside Glucose 138 Medications Medication Current Medications Ondansetron HCl (Zofran Inj) 4 mg Q6H PRN IV NAUSEA AND/OR VOMITING; Start 12/09/18 at 18:30 Acetaminophen (Tylenol Supp) 650 mg Q4H PRN [place] PAIN LEVEL 1-3 OR FEVER; Start 12/09/18 at 18:30 Miscellaneous Information 1 ea NOTE XX ; Start 12/09/18 at 19:00 Glucose (Glutose) 15 gm Q15M PRN PO DECREASED GLUCOSE; Start 12/09/18 at 19:00 Glucose (Glutose) 22.5 gm Q15M PRN PO DECREASED GLUCOSE; Start 12/09/18 at 19:00 Dextrose (D50w Syringe) 25 ml Q15M PRN IV DECREASED GLUCOSE; Start 12/09/18 at 19:00 Dextrose (D50w Syringe) 50 ml Q15M PRN IV DECREASED GLUCOSE; Start 12/09/18 at 19:00 Glucagon (Glucagen) 1 mg Q15M PRN IM DECREASED GLUCOSE; Start 12/09/18 at 19:00 Glucose (Glutose) 15 gm Q15M PRN BUCCAL DECREASED GLUCOSE; Start 12/09/18 at 19:00 Morphine Sulfate (morphine) 1 mg Q4H PRN IV SEVERE PAIN LEVEL 7-10 Last administered on 12/14/18at 05:50; Admin Dose 1 MG; Start 12/09/18 at 22:00 Atorvastatin Calcium (Lipitor) 10 mg HS PO Last administered on 12/14/18at 22:19; Admin Dose 10 MG; Start 12/10/18 at 21:00 Pantoprazole (Protonix Iv) 40 mg BID IV Last administered on 12/15/18at 08:50; Admin Dose 40 MG; Start 12/11/18 at 09:00 Nitroglycerin (Nitroglycerin 2% Oint) 0.5 inch Q8 PRN TD SBP > 170; Start 12/12/18 at 19:00 Nitroglycerin (Nitroglycerin 2% Oint) 1 inch Q8 TD Last administered on 12/15/18at 14:43; Admin Dose 1 INCH; Start 12/13/18 at 14:00 Insulin Glargine (Lantus) 10 units DAILY@0800 SC Last administered on 12/15/18at 08:54; Admin Dose 10 UNITS; Start 12/13/18 at 11:30 Ceftriaxone Sodium 50 ml @ 100 mls/hr Q24H IVPB Last administered on 12/15/18at 17:09; Admin Dose 100 MLS/HR; Start 12/14/18 at 17:00 Metoprolol Tartrate (Lopressor) 25 mg BID GTB ; Start 12/15/18 at 09:30 Potassium Chloride (Potassium Chloride Pwd/Soln) 20 meq DAILY GTB Last administered on 12/15/18at 12:09; Admin Dose 20 MEQ; Start 12/15/18 at 10:00 Bumetanide (Bumex) 1 mg DAILY IV Last administered on 12/15/18at 12:10; Admin Dose 1 MG; Start 12/15/18 at 10:00 Insulin Aspart (Novolog Insulin Pen) (Adult SC Insulin - Moder... Q6 SC ; Start 12/15/18 at 18:00 MELISSA LA MD December 15, 2018 20:05
[2018-12-15] MEDS: ATORVASTATIN 10 MG TAB PO SCH (21:04)
[2018-12-16] VITALS (9 sets, daily range): BP systolic 139–169; BP diastolic 60–74; PULSE 59–65; RESP 20–24
[2018-12-16] MEDS: Insulin NOVOLOG SS MODERATE Algorithm(NPO/TPN/ENTERAL FEEDS) SC SCH ×4 (00:28→17:51)
[2018-12-16] MEDS: EPOETIN ALFA-EPBX (ESRD) 10,000 UNIT/ML VIAL SC SCH (02:21)
[2018-12-16] MEDS: LORAZEPAM 0.5 MG TAB PO PRN (05:54)
[2018-12-16] MEDS: NITROGLYCERIN 2% 1 GM OINT PKT TD SCH ×3 (06:32→21:17)
--- NOTE | 2018-12-16 08:26 | CONS ---
Assessment/Plan Assessment/Plan Assessment/Plan (Daily) Assessment/Plan (Daily) ospital Course (Demo Recall) 83 yo female with severe anemia Interval hx: hgb 8.7 this am. No bm overnight. No vomiting. 1. Upper gastrointestinal bleeding. From Rosibel-Cisse tear and superficial ulcer in the stomach 2. Diabetes mellitus. 3. Hypertension. 4. Dementia. 5. Cerebrovascular accident. 6. Severe anemia. 7. Elevated troponin. 8. ALLERGIC TO PENICILLIN. 9. Non-ST myocardial infarction with elevated troponin likely due to blood loss 10. CHF 11. Pulmonary hypertension 12. Dysphagia, patient failed swallow study, status post PEG 13. Status post a PEG 14. Renal failure PLAN: PPI BID NO anti coagulants. Monitor HH, replace for active bleeding or Hgb less than 7.4 Increase feedings slowly until the goal is achieved Optimize blood sugar Consultation Date/Type/Reason Admit Date/Time December 09, 2018 at 14:38 Initial Consult Date Date/Time of Note DATE: 12/16/18 TIME: 08:23 24 HR Interval Summary Subjective hx not possible: pt non-verbal Constitutional: no complaints, improved Exam/Review of Systems Exam Vitals Vital Signs Date Temp Pulse Resp B/P (MAP) Pulse Ox O2 O2 Flow FiO2 Time Delivery Rate 12/16/18 99.2 65 20 158/68 99 Room Air 08:01 (98) 12/14/18 8.0 12:49 Intake and Output 12/15/18 12/15/18 12/16/18 1515:00 23:00 07:00 IntakeIntake Total 510 ml 400 ml 680 ml OutputOutput Total 150 ml 600 ml 2200 ml BalanceBalance 360 ml -200 ml -1520 ml Constitutional: non-verbal Psych: confusion ENMT: nl external ears & nose, nl lips & teeth, nl nasal mucosa & septum Neck: supple Extremities: normal pulses Neurological: confused Results Result Diagram: 12/16/18 0557 12/16/18 0557 Results 24hrs Laboratory Tests Test 12/15/18 08:46 12/15/18 12:08 12/15/18 17:10 12/16/18 00:22 Bedside Glucose 274 H 119 138 166 Test 12/16/18 05:56 12/16/18 05:57 12/16/18 07:39 Bedside Glucose 177 151 White Blood Count 10.0 Red Blood Count 2.86 L Hemoglobin 8.2 L Hematocrit 25.5 L Mean Corpuscular 89.2 Volume Mean Corpuscular 28.7 L Hemoglobin Mean Corpuscular 32.2 Hemoglobin Concent Red Cell 14.3 Distribution Width Platelet Count 155 Mean Platelet Volume 11.6 H Immature 0.700 H Granulocytes % Neutrophils % 74.8 Lymphocytes % 14.7 L Monocytes % 6.9 Eosinophils % 2.6 Basophils % 0.3 Nucleated Red Blood 0.3 H Cells % Immature 0.070 H Granulocytes # Neutrophils # 7.5 Lymphocytes # 1.5 Monocytes # 0.7 Eosinophils # 0.3 Basophils # 0.0 Nucleated Red Blood 0.0 Cells # Sodium Level 139 Potassium Level 3.9 Chloride Level 111 H Carbon Dioxide Level 22 Anion Gap 6 Blood Urea Nitrogen 58 H Creatinine 2.72 H Est Glomerular Filtrat Rate mL/min Glucose Level 171 Calcium Level 7.7 L Total Bilirubin 0.3 Direct Bilirubin 0.00 Indirect Bilirubin 0.3 Aspartate Amino 16 Transf (AST/SGOT) Alanine 15 Aminotransferase (AL T/SGPT) Alkaline Phosphatase 89 Total Protein 5.5 L Albumin 2.7 L Globulin 2.80 Albumin/Globulin 0.96 Ratio Medications Medication Current Medications Ondansetron HCl (Zofran Inj) 4 mg Q6H PRN IV NAUSEA AND/OR VOMITING; Start 12/09/18 at 18:30 Acetaminophen (Tylenol Supp) 650 mg Q4H PRN [place] PAIN LEVEL 1-3 OR FEVER; Start 12/09/18 at 18:30 Miscellaneous Information 1 ea NOTE XX ; Start 12/09/18 at 19:00 Glucose (Glutose) 15 gm Q15M PRN PO DECREASED GLUCOSE; Start 12/09/18 at 19:00 Glucose (Glutose) 22.5 gm Q15M PRN PO DECREASED GLUCOSE; Start 12/09/18 at 19:00 Dextrose (D50w Syringe) 25 ml Q15M PRN IV DECREASED GLUCOSE; Start 12/09/18 at 19:00 Dextrose (D50w Syringe) 50 ml Q15M PRN IV DECREASED GLUCOSE; Start 12/09/18 at 19:00 Glucagon (Glucagen) 1 mg Q15M PRN IM DECREASED GLUCOSE; Start 12/09/18 at 19:00 Glucose (Glutose) 15 gm Q15M PRN BUCCAL DECREASED GLUCOSE; Start 12/09/18 at 19:00 Morphine Sulfate (morphine) 1 mg Q4H PRN IV SEVERE PAIN LEVEL 7-10 Last administered on 12/14/18 05:50; Admin Dose 1 MG; Start 12/09/18 at 22:00 Atorvastatin Calcium (Lipitor) 10 mg HS PO Last administered on 12/15/18 21:04; Admin Dose 10 MG; Start 12/10/18 at 21:00 Pantoprazole (Protonix Iv) 40 mg BID IV Last administered on 12/15/18 21:04; Admin Dose 40 MG; Start 12/11/18 at 09:00 Nitroglycerin (Nitroglycerin 2% Oint) 0.5 inch Q8 PRN TD SBP > 170; Start 12/12/18 at 19:00 Nitroglycerin (Nitroglycerin 2% Oint) 1 inch Q8 TD Last administered on 12/16/18 06:32; Admin Dose 1 INCH; Start 12/13/18 at 14:00 Insulin Glargine (Lantus) 10 units DAILY@0800 SC Last administered on 12/15/18 08:54; Admin Dose 10 UNITS; Start 12/13/18 at 11:30 Ceftriaxone Sodium 50 ml @ 100 mls/hr Q24H IVPB Last administered on 12/15/18 17:09; Admin Dose 100 MLS/HR; Start 12/14/18 at 17:00 Metoprolol Tartrate (Lopressor) 25 mg BID GTB Last administered on 12/15/18 21:04; Admin Dose 25 MG; Start 12/15/18 at 09:30 Potassium Chloride (Potassium Chloride Pwd/Soln) 20 meq DAILY GTB Last administered on 12/15/18 12:09; Admin Dose 20 MEQ; Start 12/15/18 at 10:00 Bumetanide (Bumex) 1 mg DAILY IV Last administered on 12/15/18 12:10; Admin Dose 1 MG; Start 12/15/18 at 10:00 Insulin Aspart (Novolog Insulin Pen) (Adult SC Insulin - Moder... Q6 SC Last administered on 12/16/18 06:33; Admin Dose 2 UNIT; Start 12/15/18 at 18:00 Epoetin Josias-epbx (Retacrit (Esrd)) 10,000 unit MoWeFr@1700 SC Last administered on 12/16/18at 02:21; Admin Dose 10,000 UNIT; Start 12/16/18 at 01:45 Donepezil HCl (Aricept) 5 mg DAILY PO ; Start 12/16/18 at 09:00 Lorazepam (Ativan) 0.5 mg Q12 PRN PO ANXIETY Last administered on 12/16/18at 05:54; Admin Dose 0.5 MG; Start 12/16/18 at 06:00 JACLYN GUZMAN MD December 16, 2018 08:25
[2018-12-16] MEDS: POTASSIUM CHLORIDE 20 MEQ POWDER FOR ORAL SOLN GTB SCH (08:52)
[2018-12-16] MEDS: PANTOPRAZOLE 40 MG INJ IV SCH ×2 (08:52→21:17)
[2018-12-16] MEDS: DONEPEZIL 5 MG TAB PO SCH (08:52)
[2018-12-16] MEDS: METOPROLOL 25 MG TAB GTB SCH ×2 (08:53→21:17)
[2018-12-16] MEDS: BUMETANIDE 1 MG INJ IV SCH (08:53)
[2018-12-16] MEDS: INSULIN GLARGINE [LANTus] (100 UNITS/ML) SYG SC SCH (09:08)
--- NOTE | 2018-12-16 11:35 | PN ---
Date/Time of Note Date/Time of Note DATE: 12/16/18 TIME: 11:29 Assessment/Plan VTE Prophylaxis Risk score (from Ns)>0 risk: 10 SCD applied (from [facility]): Yes Pharmacological prophylaxis: NA/contraindicated Pharm contraindication: bleeding Lines/Catheters IV Catheter Type (from [facility]): Mid Line Urinary Cath still in place: Yes Reason Cath still needed: other (indicate) Assessment/Plan Assessment/Plan A: acute on chronic kidney failure GIB NSTEMI dysphagia - s/p PEG advanced dementia with agitation hx cva with residual UTI DM HTN P: cont current rx diuresis, fluid management per renal cont abx monitor labs Result Diagram: 12/16/18 0557 12/16/18 0557 Results 24hrs Laboratory Tests Test 12/15/18 12:08 12/15/18 17:10 12/16/18 00:22 12/16/18 05:56 Bedside Glucose 119 138 166 177 Test 12/16/18 05:57 12/16/18 07:39 White Blood Count 10.0 Red Blood Count 2.86 L Hemoglobin 8.2 L Hematocrit 25.5 L Mean Corpuscular 89.2 Volume Mean Corpuscular 28.7 L Hemoglobin Mean Corpuscular 32.2 Hemoglobin Concent Red Cell 14.3 Distribution Width Platelet Count 155 Mean Platelet Volume 11.6 H Immature 0.700 H Granulocytes % Neutrophils % 74.8 Lymphocytes % 14.7 L Monocytes % 6.9 Eosinophils % 2.6 Basophils % 0.3 Nucleated Red Blood 0.3 H Cells % Immature 0.070 H Granulocytes # Neutrophils # 7.5 Lymphocytes # 1.5 Monocytes # 0.7 Eosinophils # 0.3 Basophils # 0.0 Nucleated Red Blood 0.0 Cells # Sodium Level 139 Potassium Level 3.9 Chloride Level 111 H Carbon Dioxide Level 22 Anion Gap 6 Blood Urea Nitrogen 58 H Creatinine 2.72 H Est Glomerular Filtrat Rate mL/min Glucose Level 171 Calcium Level 7.7 L Total Bilirubin 0.3 Direct Bilirubin 0.00 Indirect Bilirubin 0.3 Aspartate Amino 16 Transf (AST/SGOT) Alanine 15 Aminotransferase (AL T/SGPT) Alkaline Phosphatase 89 Total Protein 5.5 L Albumin 2.7 L Globulin 2.80 Albumin/Globulin 0.96 Ratio Bedside Glucose 151 Subjective 24 Hr Interval Summary Free Text/Dictation Pt's son at bedside. Pt had some agitation this am given ativan via gtube, resumed aricept. Son thinks mother better overall. Exam/Review of Systems Exam Vitals Vital Signs Date Temp Pulse Resp B/P (MAP) Pulse Ox O2 O2 Flow FiO2 Time Delivery Rate 12/16/18 99.2 65 20 158/68 99 Room Air 08:01 (98) 12/14/18 8.0 12:49 Intake and Output 12/15/18 12/15/18 12/16/18 1515:00 23:00 07:00 IntakeIntake Total 510 ml 400 ml 680 ml OutputOutput Total 150 ml 600 ml 2200 ml BalanceBalance 360 ml -200 ml -1520 ml Exam gen- nad, nontoxic, follows simple commands. lungs- CTA heart- RRR abd- +BS, soft ext- no edema Results Results 24hrs Laboratory Tests Test 12/15/18 12:08 12/15/18 17:10 12/16/18 00:22 12/16/18 05:56 Bedside Glucose 119 138 166 177 Test 12/16/18 05:57 12/16/18 07:39 White Blood Count 10.0 Red Blood Count 2.86 L Hemoglobin 8.2 L Hematocrit 25.5 L Mean Corpuscular 89.2 Volume Mean Corpuscular 28.7 L Hemoglobin Mean Corpuscular 32.2 Hemoglobin Concent Red Cell 14.3 Distribution Width Platelet Count 155 Mean Platelet Volume 11.6 H Immature 0.700 H Granulocytes % Neutrophils % 74.8 Lymphocytes % 14.7 L Monocytes % 6.9 Eosinophils % 2.6 Basophils % 0.3 Nucleated Red Blood 0.3 H Cells % Immature 0.070 H Granulocytes # Neutrophils # 7.5 Lymphocytes # 1.5 Monocytes # 0.7 Eosinophils # 0.3 Basophils # 0.0 Nucleated Red Blood 0.0 Cells # Sodium Level 139 Potassium Level 3.9 Chloride Level 111 H Carbon Dioxide Level 22 Anion Gap 6 Blood Urea Nitrogen 58 H Creatinine 2.72 H Est Glomerular Filtrat Rate mL/min Glucose Level 171 Calcium Level 7.7 L Total Bilirubin 0.3 Direct Bilirubin 0.00 Indirect Bilirubin 0.3 Aspartate Amino 16 Transf (AST/SGOT) Alanine 15 Aminotransferase (AL T/SGPT) Alkaline Phosphatase 89 Total Protein 5.5 L Albumin 2.7 L Globulin 2.80 Albumin/Globulin 0.96 Ratio Bedside Glucose 151 Medications Medication Current Medications Ondansetron HCl (Zofran Inj) 4 mg Q6H PRN IV NAUSEA AND/OR VOMITING; Start 12/09/18 at 18:30 Acetaminophen (Tylenol Supp) 650 mg Q4H PRN [place] PAIN LEVEL 1-3 OR FEVER; Start 12/09/18 at 18:30 Miscellaneous Information 1 ea NOTE XX ; Start 12/09/18 at 19:00 Glucose (Glutose) 15 gm Q15M PRN PO DECREASED GLUCOSE; Start 12/09/18 at 19:00 Glucose (Glutose) 22.5 gm Q15M PRN PO DECREASED GLUCOSE; Start 12/09/18 at 19:00 Dextrose (D50w Syringe) 25 ml Q15M PRN IV DECREASED GLUCOSE; Start 12/09/18 at 19:00 Dextrose (D50w Syringe) 50 ml Q15M PRN IV DECREASED GLUCOSE; Start 12/09/18 at 19:00 Glucagon (Glucagen) 1 mg Q15M PRN IM DECREASED GLUCOSE; Start 12/09/18 at 19:00 Glucose (Glutose) 15 gm Q15M PRN BUCCAL DECREASED GLUCOSE; Start 12/09/18 at 19:00 Morphine Sulfate (morphine) 1 mg Q4H PRN IV SEVERE PAIN LEVEL 7-10 Last administered on 12/14/18at 05:50; Admin Dose 1 MG; Start 12/09/18 at 22:00 Atorvastatin Calcium (Lipitor) 10 mg HS PO Last administered on 12/15/18at 21:04; Admin Dose 10 MG; Start 12/10/18 at 21:00 Pantoprazole (Protonix Iv) 40 mg BID IV Last administered on 12/16/18at 08:52; Admin Dose 40 MG; Start 12/11/18 at 09:00 Nitroglycerin (Nitroglycerin 2% Oint) 0.5 inch Q8 PRN TD SBP > 170; Start 12/12/18 at 19:00 Nitroglycerin (Nitroglycerin 2% Oint) 1 inch Q8 TD Last administered on 12/16/18at 06:32; Admin Dose 1 INCH; Start 12/13/18 at 14:00 Insulin Glargine (Lantus) 10 units DAILY@0800 SC Last administered on 12/16/18at 09:08; Admin Dose 10 UNITS; Start 5/15/19 at 11:30 Ceftriaxone Sodium 50 ml @ 100 mls/hr Q24H IVPB Last administered on 12/15/18 17:09; Admin Dose 100 MLS/HR; Start 12/14/18 at 17:00 Metoprolol Tartrate (Lopressor) 25 mg BID GTB Last administered on 12/16/18 08:53; Admin Dose 25 MG; Start 12/15/18 at 09:30 Potassium Chloride (Potassium Chloride Pwd/Soln) 20 meq DAILY GTB Last administered on 12/16/18 08:52; Admin Dose 20 MEQ; Start 12/15/18 at 10:00 Bumetanide (Bumex) 1 mg DAILY IV Last administered on 12/16/18 08:53; Admin Dose 1 MG; Start 12/15/18 at 10:00 Insulin Aspart (Novolog Insulin Pen) (Adult SC Insulin - Moder... Q6 SC Last administered on 12/16/18 06:33; Admin Dose 2 UNIT; Start 12/15/18 at 18:00 Epoetin Josias-epbx (Retacrit (Esrd)) 10,000 unit MoWeFr@1700 SC Last administered on 12/16/18 02:21; Admin Dose 10,000 UNIT; Start 12/16/18 at 01:45 Donepezil HCl (Aricept) 5 mg DAILY PO Last administered on 12/16/18 08:52; Admin Dose 5 MG; Start 12/16/18 at 09:00 Lorazepam (Ativan) 0.5 mg Q12 PRN PO ANXIETY Last administered on 12/16/18 05:54; Admin Dose 0.5 MG; Start 12/16/18 at 06:00 EFRAÍN SOLOMON MD December 16, 2018 11:34
--- NOTE | 2018-12-16 16:26 | CONS ---
Assessment/Plan Assessment/Plan Assessment/Plan (Daily) 1. Acute renal failure superimposed on chronic kidney disease. renal ultrasound with increased echogenicity and cortical atrophy. This is consistent with chronic kidney disease. Her renal function remains stable. she appears euvolemic and will dc diureticst. She may be at a new baseline serum c reatinine. 2. Gastrointestinal bleeding. hb stable. on epogen. s/p peg. She did have a EGD which showed gastritis and a Rosibel-Cisse tear. 3. 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 6. Previous cerebrovascular accident. 7. Dysphagia and unable to swallow. She now has a PEG in place. 8. CHF and high pulmonary artery pressure: hold diuretic. appears dry Consultation Date/Type/Reason Admit Date/Time December 09, 2018 at 14:38 Initial Consult Date Date/Time of Note DATE: 12/16/18 TIME: 16:22 24 HR Interval Summary Free Text/Dictation comfortable. no complaints. family at bedside Exam/Review of Systems Exam Vitals Vital Signs Date Temp Pulse Resp B/P (MAP) Pulse Ox O2 O2 Flow FiO2 Time Delivery Rate 12/16/18 60 16:01 12/16/18 98.4 22 169/74 98 Room Air 15:37 (105) 12/14/18 8.0 12:49 Intake and Output 12/15/18 12/15/18 12/16/18 1515:00 23:00 07:00 IntakeIntake Total 510 ml 400 ml 680 ml OutputOutput Total 150 ml 600 ml 2200 ml BalanceBalance 360 ml -200 ml -1520 ml Constitutional: frail Psych: no complaints Eyes: nl conjunctiva Neck: supple, non-tender Respiratory: diminished breath sounds Cardiovascular: regular rate and rhythm, edema Gastrointestinal: soft Results Result Diagram: 12/16/18 0557 12/16/18 0557 Results 24hrs Laboratory Tests Test 12/15/18 17:10 12/16/18 00:22 12/16/18 05:56 12/16/18 05:57 Bedside Glucose 138 166 177 White Blood Count 10.0 Red Blood Count 2.86 L Hemoglobin 8.2 L Hematocrit 25.5 L Mean Corpuscular 89.2 Volume Mean Corpuscular 28.7 L Hemoglobin Mean Corpuscular 32.2 Hemoglobin Concent Red Cell 14.3 Distribution Width Platelet Count 155 Mean Platelet Volume 11.6 H Immature 0.700 H Granulocytes % Neutrophils % 74.8 Lymphocytes % 14.7 L Monocytes % 6.9 Eosinophils % 2.6 Basophils % 0.3 Nucleated Red Blood 0.3 H Cells % Immature 0.070 H Granulocytes # Neutrophils # 7.5 Lymphocytes # 1.5 Monocytes # 0.7 Eosinophils # 0.3 Basophils # 0.0 Nucleated Red Blood 0.0 Cells # Sodium Level 139 Potassium Level 3.9 Chloride Level 111 H Carbon Dioxide Level 22 Anion Gap 6 Blood Urea Nitrogen 58 H Creatinine 2.72 H Est Glomerular Filtrat Rate mL/min Glucose Level 171 Calcium Level 7.7 L Total Bilirubin 0.3 Direct Bilirubin 0.00 Indirect Bilirubin 0.3 Aspartate Amino 16 Transf (AST/SGOT) Alanine 15 Aminotransferase (AL T/SGPT) Alkaline Phosphatase 89 Total Protein 5.5 L Albumin 2.7 L Globulin 2.80 Albumin/Globulin 0.96 Ratio Test 12/16/18 07:39 12/16/18 12:36 Bedside Glucose 151 155 Medications Medication Current Medications Ondansetron HCl (Zofran Inj) 4 mg Q6H PRN IV NAUSEA AND/OR VOMITING; Start 12/09/18 at 18:30 Acetaminophen (Tylenol Supp) 650 mg Q4H PRN [place] PAIN LEVEL 1-3 OR FEVER; Start 12/09/18 at 18:30 Miscellaneous Information 1 ea NOTE XX ; Start 12/09/18 at 19:00 Glucose (Glutose) 15 gm Q15M PRN PO DECREASED GLUCOSE; Start 12/09/18 at 19:00 Glucose (Glutose) 22.5 gm Q15M PRN PO DECREASED GLUCOSE; Start 12/09/18 at 19:00 Dextrose (D50w Syringe) 25 ml Q15M PRN IV DECREASED GLUCOSE; Start 12/09/18 at 19:00 Dextrose (D50w Syringe) 50 ml Q15M PRN IV DECREASED GLUCOSE; Start 12/09/18 at 19:00 Glucagon (Glucagen) 1 mg Q15M PRN IM DECREASED GLUCOSE; Start 12/09/18 at 19:00 Glucose (Glutose) 15 gm Q15M PRN BUCCAL DECREASED GLUCOSE; Start 12/09/18 at 19:00 Morphine Sulfate (morphine) 1 mg Q4H PRN IV SEVERE PAIN LEVEL 7-10 Last administered on 12/14/18 05:50; Admin Dose 1 MG; Start 12/09/18 at 22:00 Atorvastatin Calcium (Lipitor) 10 mg HS PO Last administered on 12/15/18 21:04; Admin Dose 10 MG; Start 12/10/18 at 21:00 Pantoprazole (Protonix Iv) 40 mg BID IV Last administered on 12/16/18 08:52; Admin Dose 40 MG; Start 12/11/18 at 09:00 Nitroglycerin (Nitroglycerin 2% Oint) 0.5 inch Q8 PRN TD SBP > 170; Start 12/12/18 at 19:00 Nitroglycerin (Nitroglycerin 2% Oint) 1 inch Q8 TD Last administered on 12/16/18 14:10; Admin Dose 1 INCH; Start 12/13/18 at 14:00 Insulin Glargine (Lantus) 10 units DAILY@0800 SC Last administered on 12/16/18 09:08; Admin Dose 10 UNITS; Start 12/13/18 at 11:30 Ceftriaxone Sodium 50 ml @ 100 mls/hr Q24H IVPB Last administered on 12/15/18 17:09; Admin Dose 100 MLS/HR; Start 12/14/18 at 17:00 Metoprolol Tartrate (Lopressor) 25 mg BID GTB Last administered on 12/16/18 08:53; Admin Dose 25 MG; Start 12/15/18 at 09:30 Potassium Chloride (Potassium Chloride Pwd/Soln) 20 meq DAILY GTB Last administered on 12/16/18 08:52; Admin Dose 20 MEQ; Start 12/15/18 at 10:00 Bumetanide (Bumex) 1 mg DAILY IV Last administered on 12/16/18 08:53; Admin Dose 1 MG; Start 12/15/18 at 10:00 Insulin Aspart (Novolog Insulin Pen) (Adult SC Insulin - Moder... Q6 SC Last administered on 12/16/18 12:49; Admin Dose 2 UNIT; Start 12/15/18 at 18:00 Epoetin Josias-epbx (Retacrit (Esrd)) 10,000 unit MoWeFr@1700 SC Last administered on 12/16/18 02:21; Admin Dose 10,000 UNIT; Start 12/16/18 at 01:45 Donepezil HCl (Aricept) 5 mg DAILY PO Last administered on 12/16/18at 08:52; Admin Dose 5 MG; Start 12/16/18 at 09:00 Lorazepam (Ativan) 0.5 mg Q12 PRN PO ANXIETY Last administered on 12/16/18at 05:54; Admin Dose 0.5 MG; Start 12/16/18 at 06:00 MARIZA SANCHEZ MD December 16, 2018 16:26
[2018-12-16] MEDS: CEFTRIAXONE 1 GM/50 ML (PMX) 50 ML IVPB SCH (17:36)
[2018-12-16] MEDS: ATORVASTATIN 10 MG TAB PO SCH (21:17)
[2018-12-17] VITALS (9 sets, daily range): BP systolic 132–159; BP diastolic 55–70; PULSE 57–67; RESP 19–20
[2018-12-17] MEDS: Insulin NOVOLOG SS MODERATE Algorithm(NPO/TPN/ENTERAL FEEDS) SC SCH ×4 (00:12→17:15)
[2018-12-17] MEDS: LORAZEPAM 0.5 MG TAB PO PRN (04:14)
[2018-12-17] MEDS: morphine 2 MG INJ IV PRN (04:14)
[2018-12-17] MEDS: NITROGLYCERIN 2% 1 GM OINT PKT TD SCH ×3 (06:22→21:28)
[2018-12-17] MEDS: METOPROLOL 25 MG TAB GTB SCH ×2 (08:41→21:27)
[2018-12-17] MEDS: PANTOPRAZOLE 40 MG INJ IV SCH ×2 (08:41→21:27)
[2018-12-17] MEDS: DONEPEZIL 5 MG TAB PO SCH (08:41)
[2018-12-17] MEDS: INSULIN GLARGINE [LANTus] (100 UNITS/ML) SYG SC SCH (08:52)
--- NOTE | 2018-12-17 09:50 | PN ---
Date/Time of Note Date/Time of Note DATE: 12/17/18 TIME: 09:45 Assessment/Plan VTE Prophylaxis Risk score (from [facility])>0 risk: 10 SCD applied (from [facility]): Yes Pharmacological prophylaxis: NA/contraindicated Pharm contraindication: bleeding Lines/Catheters IV Catheter Type (from [facility] Mid Line Urinary Cath still in place: Yes Reason Cath still needed: other (indicate) Assessment/Plan Assessment/Plan A: acute on chronic RF GIB NSTEMI UTI dysphagia s/p Gtube advanced dementia DM hx cva with residual HTN P: cont current rx cont abx d/c planning in process Result Diagram: 12/17/18 0502 12/17/18 0502 Results 24hrs Laboratory Tests Test 12/16/18 12:36 12/16/18 17:39 12/16/18 23:55 12/17/18 05:02 Bedside Glucose 155 147 151 White Blood Count 10.2 Red Blood Count 3.16 L Hemoglobin 9.1 L Hematocrit 28.5 L Mean Corpuscular 90.2 Volume Mean Corpuscular 28.8 L Hemoglobin Mean Corpuscular 31.9 L Hemoglobin Concent Red Cell 14.3 Distribution Width Platelet Count 187 # Mean Platelet Volume 11.5 H Immature 0.600 H Granulocytes % Neutrophils % 68.8 Lymphocytes % 18.2 Monocytes % 7.9 Eosinophils % 4.0 Basophils % 0.5 Nucleated Red Blood 0.0 Cells % Immature 0.060 H Granulocytes # Neutrophils # 7.0 Lymphocytes # 1.9 Monocytes # 0.8 Eosinophils # 0.4 Basophils # 0.1 Nucleated Red Blood 0.0 Cells # Sodium Level 140 Potassium Level 4.3 Chloride Level 107 Carbon Dioxide Level 26 Anion Gap 7 Blood Urea Nitrogen 67 H Creatinine 2.74 H Est Glomerular Filtrat Rate mL/min Glucose Level 139 Calcium Level 8.0 L Phosphorus Level 3.2 Iron Level 14 L Total Iron Binding 242 Capacity Percent Iron 6 L Saturation Ferritin 28.8 Total Bilirubin 0.3 Direct Bilirubin 0.00 Indirect Bilirubin 0.3 Aspartate Amino 16 Transf (AST/SGOT) Alanine 12 L Aminotransferase (AL T/SGPT) Alkaline Phosphatase 113 Total Protein 6.1 Albumin 3.1 L Globulin 3.00 Albumin/Globulin 1.03 Ratio Test 12/17/18 06:18 12/17/18 08:40 Bedside Glucose 158 123 Subjective 24 Hr Interval Summary Free Text/Dictation Pt stable. Son at bedside, no new issues. D/c planning in process, family considering snf placement when ready for d/c, case management working on verification of coverage. Exam/Review of Systems Exam Vitals Vital Signs Date Temp Pulse Resp B/P (MAP) Pulse Ox O2 O2 Flow FiO2 Time Delivery Rate 12/17/18 60 08:01 12/17/18 98.6 20 132/61 100 Room Air 07:36 (84) 12/14/18 8.0 12:49 Intake and Output 12/16/18 12/16/18 12/17/18 1515:00 23:00 07:00 IntakeIntake Total 730 ml 680 ml OutputOutput Total 1200 ml 600 ml BalanceBalance -470 ml 80 ml Exam gen- nad, nontoxic lungs- CTA heart- RRR abd- +BS, soft ext- no edema Results Results 24hrs Laboratory Tests Test 12/16/18 12:36 12/16/18 17:39 12/16/18 23:55 12/17/18 05:02 Bedside Glucose 155 147 151 White Blood Count 10.2 Red Blood Count 3.16 L Hemoglobin 9.1 L Hematocrit 28.5 L Mean Corpuscular 90.2 Volume Mean Corpuscular 28.8 L Hemoglobin Mean Corpuscular 31.9 L Hemoglobin Concent Red Cell 14.3 Distribution Width Platelet Count 187 # Mean Platelet Volume 11.5 H Immature 0.600 H Granulocytes % Neutrophils % 68.8 Lymphocytes % 18.2 Monocytes % 7.9 Eosinophils % 4.0 Basophils % 0.5 Nucleated Red Blood 0.0 Cells % Immature 0.060 H Granulocytes # Neutrophils # 7.0 Lymphocytes # 1.9 Monocytes # 0.8 Eosinophils # 0.4 Basophils # 0.1 Nucleated Red Blood 0.0 Cells # Sodium Level 140 Potassium Level 4.3 Chloride Level 107 Carbon Dioxide Level 26 Anion Gap 7 Blood Urea Nitrogen 67 H Creatinine 2.74 H Est Glomerular Filtrat Rate mL/min Glucose Level 139 Calcium Level 8.0 L Phosphorus Level 3.2 Iron Level 14 L Total Iron Binding 242 Capacity Percent Iron 6 L Saturation Ferritin 28.8 Total Bilirubin 0.3 Direct Bilirubin 0.00 Indirect Bilirubin 0.3 Aspartate Amino 16 Transf (AST/SGOT) Alanine 12 L Aminotransferase (AL T/SGPT) Alkaline Phosphatase 113 Total Protein 6.1 Albumin 3.1 L Globulin 3.00 Albumin/Globulin 1.03 Ratio Test 12/17/18 06:18 12/17/18 08:40 Bedside Glucose 158 123 Medications Medication Current Medications Ondansetron HCl (Zofran Inj) 4 mg Q6H PRN IV NAUSEA AND/OR VOMITING; Start 12/09/18 at 18:30 Acetaminophen (Tylenol Supp) 650 mg Q4H PRN [place] PAIN LEVEL 1-3 OR FEVER; Start 12/09/18 at 18:30 Miscellaneous Information 1 ea NOTE XX ; Start 12/09/18 at 19:00 Glucose (Glutose) 15 gm Q15M PRN PO DECREASED GLUCOSE; Start 12/09/18 at 19:00 Glucose (Glutose) 22.5 gm Q15M PRN PO DECREASED GLUCOSE; Start 12/09/18 at 19:00 Dextrose (D50w Syringe) 25 ml Q15M PRN IV DECREASED GLUCOSE; Start 12/09/18 at 19:00 Dextrose (D50w Syringe) 50 ml Q15M PRN IV DECREASED GLUCOSE; Start 12/09/18 at 19:00 Glucagon (Glucagen) 1 mg Q15M PRN IM DECREASED GLUCOSE; Start 12/09/18 at 19:00 Glucose (Glutose) 15 gm Q15M PRN BUCCAL DECREASED GLUCOSE; Start 12/09/18 at 19:00 Morphine Sulfate (morphine) 1 mg Q4H PRN IV SEVERE PAIN LEVEL 7-10 Last administered on 12/17/18at 04:14; Admin Dose 1 MG; Start 12/09/18 at 22:00 Atorvastatin Calcium (Lipitor) 10 mg HS PO Last administered on 12/16/18at 21:17; Admin Dose 10 MG; Start 12/10/18 at 21:00 Pantoprazole (Protonix Iv) 40 mg BID IV Last administered on 12/17/18at 08:41; A dmin Dose 40 MG; Start 12/11/18 at 09:00 Nitroglycerin (Nitroglycerin 2% Oint) 0.5 inch Q8 PRN TD SBP > 170; Start 12/12/18 at 19:00 Nitroglycerin (Nitroglycerin 2% Oint) 1 inch Q8 TD Last administered on 12/17/18at 06:22; Admin Dose 1 INCH; Start 12/13/18 at 14:00 Insulin Glargine (Lantus) 10 units DAILY@0800 SC Last administered on 12/17/18 08:52; Admin Dose 10 UNITS; Start 12/13/18 at 11:30 Ceftriaxone Sodium 50 ml @ 100 mls/hr Q24H IVPB Last administered on 12/16/18 17:36; Admin Dose 100 MLS/HR; Start 12/14/18 at 17:00 Metoprolol Tartrate (Lopressor) 25 mg BID GTB Last administered on 12/17/18 08:41; Admin Dose 25 MG; Start 12/15/18 at 09:30 Insulin Aspart (Novolog Insulin Pen) (Adult SC Insulin - Moder... Q6 SC Last administered on 12/17/18 06:37; Admin Dose 2 UNIT; Start 12/15/18 at 18:00 Epoetin Josias-epbx (Retacrit (Esrd)) 10,000 unit MoWeFr@1700 SC Last administered on 12/16/18 02:21; Admin Dose 10,000 UNIT; Start 12/16/18 at 01:45 Donepezil HCl (Aricept) 5 mg DAILY PO Last administered on 12/17/18 08:41; Admin Dose 5 MG; Start 12/16/18 at 09:00 Lorazepam (Ativan) 0.5 mg Q12 PRN PO ANXIETY Last administered on 12/17/18 04:14; Admin Dose 0.5 MG; Start 12/16/18 at 06:00 EFRAÍN SOLOMON MD December 17, 2018 09:50
--- NOTE | 2018-12-17 12:17 | CONS ---
Assessment/Plan Assessment/Plan Hospital Course (Demo Recall) 83 yo female with GI bleeding 1. Upper gastrointestinal bleeding. From Rosibel-Cisse tear and superficial ulcer in the stomach 2. Diabetes mellitus. 3. Hypertension. 4. Dementia. 5. Cerebrovascular accident. 6. Severe anemia. 7. Elevated troponin. 8. ALLERGIC TO PENICILLIN. 9. Non-ST myocardial infarction with elevated troponin likely due to blood loss 10. CHF 11. Pulmonary hypertension 12. Dysphagia, patient failed swallow study, status post PEG 13. Status post a PEG 14. Renal failure PLAN: PPI BID NO anti coagulants. Monitor HH, replace for active bleeding or Hgb less than 7.4 Increase feedings slowly until the goal is achieved Optimize blood sugar Pt examined and plan of care discussed with Dr. Thomas Consultation Date/Type/Reason Admit Date/Time December 09, 2018 at 14:38 Initial Consult Date Date/Time of Note DATE: 12/17/18 TIME: 12:15 Exam/Review of Systems Exam Vitals Vital Signs Date Temp Pulse Resp B/P (MAP) Pulse Ox O2 O2 Flow FiO2 Time Delivery Rate 12/17/18 97.4 64 20 140/55 99 Room Air 11:24 (83) 12/14/18 8.0 12:49 Intake and Output 12/16/18 12/16/18 12/17/18 1515:00 23:00 07:00 IntakeIntake Total 730 ml 680 ml OutputOutput Total 1200 ml 600 ml BalanceBalance -470 ml 80 ml Results Result Diagram: 12/17/18 0502 12/17/18 0502 Results 24hrs Laboratory Tests Test 12/16/18 12:36 12/16/18 17:39 12/16/18 23:55 12/17/18 05:02 Bedside Glucose 155 147 151 White Blood Count 10.2 Red Blood Count 3.16 L Hemoglobin 9.1 L Hematocrit 28.5 L Mean Corpuscular 90.2 Volume Mean Corpuscular 28.8 L Hemoglobin Mean Corpuscular 31.9 L Hemoglobin Concent Red Cell 14.3 Distribution Width Platelet Count 187 # Mean Platelet Volume 11.5 H Immature 0.600 H Granulocytes % Neutrophils % 68.8 Lymphocytes % 18.2 Monocytes % 7.9 Eosinophils % 4.0 Basophils % 0.5 Nucleated Red Blood 0.0 Cells % Immature 0.060 H Granulocytes # Neutrophils # 7.0 Lymphocytes # 1.9 Monocytes # 0.8 Eosinophils # 0.4 Basophils # 0.1 Nucleated Red Blood 0.0 Cells # Sodium Level 140 Potassium Level 4.3 Chloride Level 107 Carbon Dioxide Level 26 Anion Gap 7 Blood Urea Nitrogen 67 H Creatinine 2.74 H Est Glomerular Filtrat Rate mL/min Glucose Level 139 Calcium Level 8.0 L Phosphorus Level 3.2 Iron Level 14 L Total Iron Binding 242 Capacity Percent Iron 6 L Saturation Ferritin 28.8 Total Bilirubin 0.3 Direct Bilirubin 0.00 Indirect Bilirubin 0.3 Aspartate Amino 16 Transf (AST/SGOT) Alanine 12 L Aminotransferase (AL T/SGPT) Alkaline Phosphatase 113 Total Protein 6.1 Albumin 3.1 L Globulin 3.00 Albumin/Globulin 1.03 Ratio Test 12/17/18 06:18 12/17/18 08:40 12/17/18 11:44 Bedside Glucose 158 123 125 Medications Medication Current Medications Ondansetron HCl (Zofran Inj) 4 mg Q6H PRN IV NAUSEA AND/OR VOMITING; Start 12/09/18 at 18:30 Acetaminophen (Tylenol Supp) 650 mg Q4H PRN [place] PAIN LEVEL 1-3 OR FEVER; Start 12/09/18 at 18:30 Miscellaneous Information 1 ea NOTE XX ; Start 12/09/18 at 19:00 Glucose (Glutose) 15 gm Q15M PRN PO DECREASED GLUCOSE; Start 12/09/18 at 19:00 Glucose (Glutose) 22.5 gm Q15M PRN PO DECREASED GLUCOSE; Start 12/09/18 at 19:00 Dextrose (D50w Syringe) 25 ml Q15M PRN IV DECREASED GLUCOSE; Start 12/09/18 at 19:00 Dextrose (D50w Syringe) 50 ml Q15M PRN IV DECREASED GLUCOSE; Start 12/09/18 at 19:00 Glucagon (Glucagen) 1 mg Q15M PRN IM DECREASED GLUCOSE; Start 12/09/18 at 19:00 Glucose (Glutose) 15 gm Q15M PRN BUCCAL DECREASED GLUCOSE; Start 12/09/18 at 19:00 Morphine Sulfate (morphine) 1 mg Q4H PRN IV SEVERE PAIN LEVEL 7-10 Last administered on 12/17/18at 04:14; Admin Dose 1 MG; Start 12/09/18 at 22:00 Atorvastatin Calcium (Lipitor) 10 mg HS PO Last administered on 12/16/18 21:17; Admin Dose 10 MG; Start 12/10/18 at 21:00 Pantoprazole (Protonix Iv) 40 mg BID IV Last administered on 12/17/18 08:41; Admin Dose 40 MG; Start 12/11/18 at 09:00 Nitroglycerin (Nitroglycerin 2% Oint) 0.5 inch Q8 PRN TD SBP > 170; Start 12/12/18 at 19:00 Nitroglycerin (Nitroglycerin 2% Oint) 1 inch Q8 TD Last administered on 12/17/18 06:22; Admin Dose 1 INCH; Start 12/13/18 at 14:00 Insulin Glargine (Lantus) 10 units DAILY@0800 SC Last administered on 12/17/18 08:52; Admin Dose 10 UNITS; Start 12/13/18 at 11:30 Metoprolol Tartrate (Lopressor) 25 mg BID GTB Last administered on 12/17/18 08:41; Admin Dose 25 MG; Start 12/15/18 at 09:30 Insulin Aspart (Novolog Insulin Pen) (Adult SC Insulin - Moder... Q6 SC Last administered on 12/17/18 06:37; Admin Dose 2 UNIT; Start 12/15/18 at 18:00 Epoetin Josias-epbx (Retacrit (Esrd)) 10,000 unit MoWeFr@1700 SC Last administered on 12/16/18 02:21; Admin Dose 10,000 UNIT; Start 12/16/18 at 01:45 Donepezil HCl (Aricept) 5 mg DAILY PO Last administered on 12/17/18 08:41; Admin Dose 5 MG; Start 12/16/18 at 09:00 Lorazepam (Ativan) 0.5 mg Q12 PRN PO ANXIETY Last administered on 12/17/18 04:14; Admin Dose 0.5 MG; Start 12/16/18 at 06:00 Ciprofloxacin (Cipro) 250 mg BID@18 GTB ; Start 12/17/18 at 18:00; Stop 12/22/18 at 17:59 JACLYN THOMAS MD December 17, 2018 12:17
--- NOTE | 2018-12-17 13:48 | CONS ---
Assessment/Plan Assessment/Plan Hospital Course (Demo Recall) 83 yo female with severe anemia Interval hx: Tolerating tube feeds. No signs of gi bleeding 1. Upper gastrointestinal bleeding. From Rosibel-Cisse tear and superficial ulcer in the stomach 2. Diabetes mellitus. 3. Hypertension. 4. Dementia. 5. Cerebrovascular accident. 6. Severe anemia. 7. Elevated troponin. 8. ALLERGIC TO PENICILLIN. 9. Non-ST myocardial infarction with elevated troponin likely due to blood loss 10. CHF 11. Pulmonary hypertension 12. Dysphagia, patient failed swallow study, status post PEG 13. Status post a PEG 14. Renal failure PLAN: Continue with tube feeds, monitor residuals PPI BID Optimize blood sugar Pt examined and plan of care discussed with Dr. Thomas Consultation Date/Type/Reason Admit Date/Time December 09, 2018 at 14:38 Initial Consult Date Date/Time of Note DATE: 12/17/18 TIME: 13:46 Exam/Review of Systems Exam Vitals Vital Signs Date Temp Pulse Resp B/P (MAP) Pulse Ox O2 O2 Flow FiO2 Time Delivery Rate 12/17/18 58 12:01 12/17/18 97.4 20 140/55 99 Room Air 11:24 (83) 12/14/18 8.0 12:49 Intake and Output 12/16/18 12/16/18 12/17/18 1515:00 23:00 07:00 IntakeIntake Total 730 ml 680 ml OutputOutput Total 1200 ml 600 ml BalanceBalance -470 ml 80 ml Results Result Diagram: 12/17/18 0502 12/17/18 0502 Results 24hrs Laboratory Tests Test 12/16/18 17:39 12/16/18 23:55 12/17/18 05:02 12/17/18 06:18 Bedside Glucose 147 151 158 White Blood Count 10.2 Red Blood Count 3.16 L Hemoglobin 9.1 L Hematocrit 28.5 L Mean Corpuscular 90.2 Volume Mean Corpuscular 28.8 L Hemoglobin Mean Corpuscular 31.9 L Hemoglobin Concent Red Cell 14.3 Distribution Width Platelet Count 187 # Mean Platelet Volume 11.5 H Immature 0.600 H Granulocytes % Neutrophils % 68.8 Lymphocytes % 18.2 Monocytes % 7.9 Eosinophils % 4.0 Basophils % 0.5 Nucleated Red Blood 0.0 Cells % Immature 0.060 H Granulocytes # Neutrophils # 7.0 Lymphocytes # 1.9 Monocytes # 0.8 Eosinophils # 0.4 Basophils # 0.1 Nucleated Red Blood 0.0 Cells # Sodium Level 140 Potassium Level 4.3 Chloride Level 107 Carbon Dioxide Level 26 Anion Gap 7 Blood Urea Nitrogen 67 H Creatinine 2.74 H Est Glomerular Filtrat Rate mL/min Glucose Level 139 Calcium Level 8.0 L Phosphorus Level 3.2 Iron Level 14 L Total Iron Binding 242 Capacity Percent Iron 6 L Saturation Ferritin 28.8 Total Bilirubin 0.3 Direct Bilirubin 0.00 Indirect Bilirubin 0.3 Aspartate Amino 16 Transf (AST/SGOT) Alanine 12 L Aminotransferase (AL T/SGPT) Alkaline Phosphatase 113 Total Protein 6.1 Albumin 3.1 L Globulin 3.00 Albumin/Globulin 1.03 Ratio Test 12/17/18 08:40 12/17/18 11:44 Bedside Glucose 123 125 Medications Medication Current Medications Ondansetron HCl (Zofran Inj) 4 mg Q6H PRN IV NAUSEA AND/OR VOMITING; Start 12/09/18 at 18:30 Acetaminophen (Tylenol Supp) 650 mg Q4H PRN [place] PAIN LEVEL 1-3 OR FEVER; Start 12/09/18 at 18:30 Miscellaneous Information 1 ea NOTE XX ; Start 12/09/18 at 19:00 Glucose (Glutose) 15 gm Q15M PRN PO DECREASED GLUCOSE; Start 12/09/18 at 19:00 Glucose (Glutose) 22.5 gm Q15M PRN PO DECREASED GLUCOSE; Start 12/09/18 at 19:00 Dextrose (D50w Syringe) 25 ml Q15M PRN IV DECREASED GLUCOSE; Start 12/09/18 at 19:00 Dextrose (D50w Syringe) 50 ml Q15M PRN IV DECREASED GLUCOSE; Start 12/09/18 at 19:00 Glucagon (Glucagen) 1 mg Q15M PRN IM DECREASED GLUCOSE; Start 12/09/18 at 19:00 Glucose (Glutose) 15 gm Q15M PRN BUCCAL DECREASED GLUCOSE; Start 12/09/18 at 19:00 Morphine Sulfate (morphine) 1 mg Q4H PRN IV SEVERE PAIN LEVEL 7-10 Last administered on 12/17/18at 04:14; Admin Dose 1 MG; Start 12/09/18 at 22:00 Atorvastatin Calcium (Lipitor) 10 mg HS PO Last administered on 12/16/18at 21:17; Admin Dose 10 MG; Start 12/10/18 at 21:00 Pantoprazole (Protonix Iv) 40 mg BID IV Last administered on 12/17/18 08:41; Admin Dose 40 MG; Start 12/11/18 at 09:00 Nitroglycerin (Nitroglycerin 2% Oint) 0.5 inch Q8 PRN TD SBP > 170; Start 12/12/18 at 19:00 Nitroglycerin (Nitroglycerin 2% Oint) 1 inch Q8 TD Last administered on 12/17/18 06:22; Admin Dose 1 INCH; Start 12/13/18 at 14:00 Insulin Glargine (Lantus) 10 units DAILY@0800 SC Last administered on 12/17/18 08:52; Admin Dose 10 UNITS; Start 12/13/18 at 11:30 Metoprolol Tartrate (Lopressor) 25 mg BID GTB Last administered on 12/17/18 08:41; Admin Dose 25 MG; Start 12/15/18 at 09:30 Insulin Aspart (Novolog Insulin Pen) (Adult SC Insulin - Moder... Q6 SC Last administered on 12/17/18 06:37; Admin Dose 2 UNIT; Start 12/15/18 at 18:00 Epoetin Josias-epbx (Retacrit (Esrd)) 10,000 unit MoWeFr@1700 SC Last administered on 12/16/18 02:21; Admin Dose 10,000 UNIT; Start 12/16/18 at 01:45 Donepezil HCl (Aricept) 5 mg DAILY PO Last administered on 12/17/18 08:41; Admin Dose 5 MG; Start 12/16/18 at 09:00 Lorazepam (Ativan) 0.5 mg Q12 PRN PO ANXIETY Last administered on 12/17/18 04:14; Admin Dose 0.5 MG; Start 12/16/18 at 06:00 Ciprofloxacin (Cipro) 250 mg BID@18 GTB ; Start 12/17/18 at 18:00; Stop 12/22/18 at 17:59 TAMEKA JULIO December 17, 2018 13:48
--- NOTE | 2018-12-17 16:41 | CONS ---
Assessment/Plan Assessment/Plan Assessment/Plan (Daily) 1. Acute renal failure superimposed on chronic kidney disease. renal ultrasound with increased echogenicity and cortical atrophy. This is consistent with chronic kidney disease. Her renal function remains stable. she appears euvolemic and off diuretics She may be at a new baseline serum creatinine. 2. Gastrointestinal bleeding. hb stable. on epogen. s/p peg. She did have a EGD which showed gastritis and a Rosibel-Cisse tear. 3. 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 6. Previous cerebrovascular accident. 7. Dysphagia and unable to swallow. She now has a PEG in place. 8. CHF and high pulmonary artery pressure: hold diuretic. appears dry Consultation Date/Type/Reason Admit Date/Time December 09, 2018 at 14:38 Initial Consult Date Date/Time of Note DATE: 12/17/18 TIME: 16:39 24 HR Interval Summary Free Text/Dictation comfortable. poorly responsive. family at bedside. no recent issues Exam/Review of Systems Exam Vitals Vital Signs Date Temp Pulse Resp B/P (MAP) Pulse Ox O2 O2 Flow FiO2 Time Delivery Rate 12/17/18 62 16:01 12/17/18 98.2 20 159/62 98 Room Air 15:27 (94) 12/14/18 8.0 12:49 Intake and Output 12/16/18 12/16/18 12/17/18 1515:00 23:00 07:00 IntakeIntake Total 730 ml 680 ml OutputOutput Total 1200 ml 600 ml BalanceBalance -470 ml 80 ml Constitutional: frail Head: normocephalic Eyes: nl conjunctiva Neck: supple Respiratory: clear to auscultation, diminished breath sounds Cardiovascular: regular rate and rhythm, edema Gastrointestinal: soft Results Result Diagram: 12/17/18 0502 12/17/18 0502 Results 24hrs Laboratory Tests Test 12/16/18 17:39 12/16/18 23:55 12/17/18 05:02 12/17/18 06:18 Bedside Glucose 147 151 158 White Blood Count 10.2 Red Blood Count 3.16 L Hemoglobin 9.1 L Hematocrit 28.5 L Mean Corpuscular 90.2 Volume Mean Corpuscular 28.8 L Hemoglobin Mean Corpuscular 31.9 L Hemoglobin Concent Red Cell 14.3 Distribution Width Platelet Count 187 # Mean Platelet Volume 11.5 H Immature 0.600 H Granulocytes % Neutrophils % 68.8 Lymphocytes % 18.2 Monocytes % 7.9 Eosinophils % 4.0 Basophils % 0.5 Nucleated Red Blood 0.0 Cells % Immature 0.060 H Granulocytes # Neutrophils # 7.0 Lymphocytes # 1.9 Monocytes # 0.8 Eosinophils # 0.4 Basophils # 0.1 Nucleated Red Blood 0.0 Cells # Sodium Level 140 Potassium Level 4.3 Chloride Level 107 Carbon Dioxide Level 26 Anion Gap 7 Blood Urea Nitrogen 67 H Creatinine 2.74 H Est Glomerular Filtrat Rate mL/min Glucose Level 139 Calcium Level 8.0 L Phosphorus Level 3.2 Iron Level 14 L Total Iron Binding 242 Capacity Percent Iron 6 L Saturation Ferritin 28.8 Total Bilirubin 0.3 Direct Bilirubin 0.00 Indirect Bilirubin 0.3 Aspartate Amino 16 Transf (AST/SGOT) Alanine 12 L Aminotransferase (AL T/SGPT) Alkaline Phosphatase 113 Total Protein 6.1 Albumin 3.1 L Globulin 3.00 Albumin/Globulin 1.03 Ratio Test 12/17/18 08:40 12/17/18 11:44 Bedside Glucose 123 125 Medications Medication Current Medications Ondansetron HCl (Zofran Inj) 4 mg Q6H PRN IV NAUSEA AND/OR VOMITING; Start 12/09/18 at 18:30 Acetaminophen (Tylenol Supp) 650 mg Q4H PRN [place] PAIN LEVEL 1-3 OR FEVER; Start 12/09/18 at 18:30 Miscellaneous Information 1 ea NOTE XX ; Start 12/09/18 at 19:00 Glucose (Glutose) 15 gm Q15M PRN PO DECREASED GLUCOSE; Start 12/09/18 at 19:00 Glucose (Glutose) 22.5 gm Q15M PRN PO DECREASED GLUCOSE; Start 12/09/18 at 19:00 Dextrose (D50w Syringe) 25 ml Q15M PRN IV DECREASED GLUCOSE; Start 12/09/18 at 19:00 Dextrose (D50w Syringe) 50 ml Q15M PRN IV DECREASED GLUCOSE; Start 12/09/18 at 19:00 Glucagon (Glucagen) 1 mg Q15M PRN IM DECREASED GLUCOSE; Start 12/09/18 at 19:00 Glucose (Glutose) 15 gm Q15M PRN BUCCAL DECREASED GLUCOSE; Start 12/09/18 at 19:00 Morphine Sulfate (morphine) 1 mg Q4H PRN IV SEVERE PAIN LEVEL 7-10 Last administered on 12/17/18 04:14; Admin Dose 1 MG; Start 12/09/18 at 22:00 Atorvastatin Calcium (Lipitor) 10 mg HS PO Last administered on 12/16/18 21:17; Admin Dose 10 MG; Start 12/10/18 at 21:00 Pantoprazole (Protonix Iv) 40 mg BID IV Last administered on 12/17/18 08:41; Admin Dose 40 MG; Start 12/11/18 at 09:00 Nitroglycerin (Nitroglycerin 2% Oint) 0.5 inch Q8 PRN TD SBP > 170; Start 12/12/18 at 19:00 Nitroglycerin (Nitroglycerin 2% Oint) 1 inch Q8 TD Last administered on 12/17/18 14:23; Admin Dose 1 INCH; Start 12/13/18 at 14:00 Insulin Glargine (Lantus) 10 units DAILY@0800 SC Last administered on 12/17/18 08:52; Admin Dose 10 UNITS; Start 12/13/18 at 11:30 Metoprolol Tartrate (Lopressor) 25 mg BID GTB Last administered on 12/17/18 08:41; Admin Dose 25 MG; Start 12/15/18 at 09:30 Insulin Aspart (Novolog Insulin Pen) (Adult SC Insulin - Moder... Q6 SC Last administered on 12/17/18 06:37; Admin Dose 2 UNIT; Start 12/15/18 at 18:00 Epoetin Josias-epbx (Retacrit (Esrd)) 10,000 unit MoWeFr@1700 SC Last administered on 12/16/18 02:21; Admin Dose 10,000 UNIT; Start 12/16/18 at 01:45 Donepezil HCl (Aricept) 5 mg DAILY PO Last administered on 12/17/18 08:41; Admin Dose 5 MG; Start 12/16/18 at 09:00 Lorazepam (Ativan) 0.5 mg Q12 PRN PO ANXIETY Last administered on 12/17/18 04:14; Admin Dose 0.5 MG; Start 12/16/18 at 06:00 Ciprofloxacin (Cipro) 250 mg BID@18 GTB ; Start 12/17/18 at 18:00; Stop 12/22/18 at 17:59 MARIZA SANCHEZ MD December 17, 2018 16:41
[2018-12-17] MEDS: CIPROFLOXACIN 250 MG TAB GTB SCH (17:41)
[2018-12-17] MEDS: ATORVASTATIN 10 MG TAB PO SCH (21:27)
[2018-12-18] VITALS (10 sets, daily range): BP systolic 93–163; BP diastolic 52–63; PULSE 59–84; RESP 19–20
[2018-12-18] MEDS: NITROGLYCERIN 2% 1 GM OINT PKT TD SCH ×3 (05:04→21:57)
[2018-12-18] MEDS: CIPROFLOXACIN 250 MG TAB GTB SCH ×2 (05:04→17:25)
[2018-12-18] MEDS: Insulin NOVOLOG SS MODERATE Algorithm(NPO/TPN/ENTERAL FEEDS) SC SCH ×4 (05:05→17:31)
[2018-12-18] MEDS: INSULIN GLARGINE [LANTus] (100 UNITS/ML) SYG SC SCH (07:58)
--- NOTE | 2018-12-18 08:58 | CONS ---
Assessment/Plan Assessment/Plan Hospital Course (Demo Recall) 83 yo female with severe anemia Interval hx: Tolerating tube feeds. No signs of gi bleeding. No N/V. No bm noted since 12/12 1. Upper gastrointestinal bleeding. -Rosibel-Cisse tear and superficial ulcer in the stomach 2. Diabetes mellitus. 3. Hypertension. 4. Dementia. 5. Cerebrovascular accident. 6. Severe anemia. 7. Elevated troponin. 8. ALLERGIC TO PENICILLIN. 9. Non-ST myocardial infarction with elevated troponin likely due to blood loss 10. CHF 11. Pulmonary hypertension 12. Dysphagia, patient failed swallow study, status post PEG 13. Status post a PEG 14. Renal failure 15. Rosibel Cisse tear -prn anti emetics. No nausea noted. PLAN: docusate and miralax dulcolax 10mg x 1 PRN anti emetics Continue with tube feeds, monitor residuals PPI BID Optimize blood sugar Pt examined and plan of care discussed with Dr. Thomas Consultation Date/Type/Reason Admit Date/Time December 09, 2018 at 14:38 Initial Consult Date Date/Time of Note DATE: 12/18/18 TIME: 08:53 Exam/Review of Systems Exam Vitals Vital Signs Date Temp Pulse Resp B/P (MAP) Pulse Ox O2 O2 Flow FiO2 Time Delivery Rate 12/18/18 65 08:01 12/18/18 98.0 20 163/60 99 Room Air 07:26 (94) 12/14/18 8.0 12:49 Intake and Output 12/17/18 12/17/18 12/18/18 1515:00 23:00 07:00 IntakeIntake Total 640 ml 600 ml OutputOutput Total 600 ml 300 ml BalanceBalance 40 ml 300 ml Results Result Diagram: 12/18/18 0510 12/18/18 0510 Results 24hrs Laboratory Tests Test 12/17/18 11:44 12/17/18 17:14 12/18/18 01:14 12/18/18 05:03 Bedside Glucose 125 132 122 109 Test 12/18/18 05:10 12/18/18 07:56 White Blood Count 8.7 Red Blood Count 2.99 L Hemoglobin 8.6 L Hematocrit 27.0 L Mean Corpuscular 90.3 Volume Mean Corpuscular 28.8 L Hemoglobin Mean Corpuscular 31.9 L Hemoglobin Concent Red Cell 14.1 Distribution Width Platelet Count 171 Mean Platelet Volume 11.4 H Immature 0.500 H Granulocytes % Neutrophils % 59.2 Lymphocytes % 25.2 Monocytes % 8.9 Eosinophils % 5.5 Basophils % 0.7 Nucleated Red Blood 0.0 Cells % Immature 0.040 H Granulocytes # Neutrophils # 5.2 Lymphocytes # 2.2 Monocytes # 0.8 Eosinophils # 0.5 Basophils # 0.1 Nucleated Red Blood 0.0 Cells # Sodium Level 141 Potassium Level 4.6 Chloride Level 106 Carbon Dioxide Level 27 Anion Gap 8 Blood Urea Nitrogen 70 H Creatinine 2.55 H Est Glomerular Filtrat Rate mL/min Glucose Level 90 # Calcium Level 8.0 L Phosphorus Level 3.2 Magnesium Level 2.1 Total Bilirubin 0.3 Direct Bilirubin 0.00 Indirect Bilirubin 0.3 Aspartate Amino 15 Transf (AST/SGOT) Alanine 16 Aminotransferase (AL T/SGPT) Alkaline Phosphatase 100 Total Protein 6.2 Albumin 2.9 L Globulin 3.30 H Albumin/Globulin 0.87 Ratio Bedside Glucose 133 Medications Medication Current Medications Ondansetron HCl (Zofran Inj) 4 mg Q6H PRN IV NAUSEA AND/OR VOMITING; Start 12/09/18 at 18:30 Acetaminophen (Tylenol Supp) 650 mg Q4H PRN [place] PAIN LEVEL 1-3 OR FEVER; Start 12/09/18 at 18:30 Miscellaneous Information 1 ea NOTE XX ; Start 12/09/18 at 19:00 Glucose (Glutose) 15 gm Q15M PRN PO DECREASED GLUCOSE; Start 12/09/18 at 19:00 Glucose (Glutose) 22.5 gm Q15M PRN PO DECREASED GLUCOSE; Start 12/09/18 at 19:00 Dextrose (D50w Syringe) 25 ml Q15M PRN IV DECREASED GLUCOSE; Start 12/09/18 at 19:00 Dextrose (D50w Syringe) 50 ml Q15M PRN IV DECREASED GLUCOSE; Start 12/09/18 at 19:00 Glucagon (Glucagen) 1 mg Q15M PRN IM DECREASED GLUCOSE; Start 12/09/18 at 19:00 Glucose (Glutose) 15 gm Q15M PRN BUCCAL DECREASED GLUCOSE; Start 12/09/18 at 19:00 Morphine Sulfate (morphine) 1 mg Q4H PRN IV SEVERE PAIN LEVEL 7-10 Last administered on 12/17/18at 04:14; Admin Dose 1 MG; Start 12/09/18 at 22:00 Atorvastatin Calcium (Lipitor) 10 mg HS PO Last administered on 12/17/18 21:27; Admin Dose 10 MG; Start 12/10/18 at 21:00 Pantoprazole (Protonix Iv) 40 mg BID IV Last administered on 12/17/18 21:27; Admin Dose 40 MG; Start 12/11/18 at 09:00 Nitroglycerin (Nitroglycerin 2% Oint) 0.5 inch Q8 PRN TD SBP > 170; Start 12/12/18 at 19:00 Nitroglycerin (Nitroglycerin 2% Oint) 1 inch Q8 TD Last administered on 12/18/18 05:04; Admin Dose 1 INCH; Start 12/13/18 at 14:00 Insulin Glargine (Lantus) 10 units DAILY@0800 SC Last administered on 12/18/18 07:58; Admin Dose 10 UNITS; Start 12/13/18 at 11:30 Metoprolol Tartrate (Lopressor) 25 mg BID GTB Last administered on 12/17/18 21:27; Admin Dose 25 MG; Start 12/15/18 at 09:30 Insulin Aspart (Novolog Insulin Pen) (Adult SC Insulin - Moder... Q6 SC Last administered on 12/17/18 06:37; Admin Dose 2 UNIT; Start 12/15/18 at 18:00 Epoetin Josias-epbx (Retacrit (Esrd)) 10,000 unit MoWeFr@1700 SC Last administered on 12/16/18 02:21; Admin Dose 10,000 UNIT; Start 12/16/18 at 01:45 Donepezil HCl (Aricept) 5 mg DAILY PO Last administered on 12/17/18 08:41; Admin Dose 5 MG; Start 12/16/18 at 09:00 Lorazepam (Ativan) 0.5 mg Q12 PRN PO ANXIETY Last administered on 12/17/18 04:14; Admin Dose 0.5 MG; Start 12/16/18 at 06:00 Ciprofloxacin (Cipro) 250 mg BID@,18 GTB Last administered on 12/18/18 05:04; Admin Dose 250 MG; Start 12/17/18 at 18:00; Stop 5/24/19 at 17:59 TAMEKA JULIO December 18, 2018 08:57
[2018-12-18] MEDS ORDERED: BISACODYL (EC) 5 MG TAB PO ONE (09:00)
[2018-12-18] MEDS ORDERED: DOCUSATE SODIUM 100 MG CAP PO SCH (09:00)
[2018-12-18] MEDS: PANTOPRAZOLE 40 MG INJ IV SCH ×2 (09:09→21:57)
[2018-12-18] MEDS: DONEPEZIL 5 MG TAB PO SCH (09:10)
[2018-12-18] MEDS: METOPROLOL 25 MG TAB GTB SCH ×2 (09:10→21:57)
[2018-12-18] MEDS: POLYETHYLENE GLYCOL 17 GM PACKET GTB SCH (10:15)
[2018-12-18] MEDS ORDERED: BISACODYL 10 MG SUPP PR ONE (10:30)
[2018-12-18] MEDS: DOCUSATE SODIUM 10 MG/ML (10ML CUP) GTB SCH ×2 (11:42→21:57)
[2018-12-18] MEDS: ONDANSETRON 4 MG INJ IV PRN (12:11)
--- NOTE | 2018-12-18 14:02 | CONS ---
Assessment/Plan Assessment/Plan Hospital Course (Demo Recall) 1. Acute renal failure superimposed on chronic kidney disease. She had a renal ultrasound which showed some increased echogenicity and cortical atrophy. This is consistent with chronic kidney disease. Her renal function today is about the same . She may be at a new baseline serum creatinine. 2. Gastrointestinal bleeding. Her hemoglobin and hematocrit have been stable. She does not seem to be actively bleeding now . She did have a EGD which showed gastritis and a Rosibel-Cisse tear that was not actively bleeding. She has a PEG in place today. She is on Epogen for her anemia. 3. Non-ST elevation myocardial infarction. 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 6. Previous cerebrovascular accident. 7. Dysphagia and unable to swallow. She now has a PEG in place. 8. CHF and high pulmonary artery pressures. She seems euvolemic at this time and is off diuretics. I will sign off her case at this time and will see again on request. Consultation Date/Type/Reason Admit Date/Time December 09, 2018 at 14:38 Initial Consult Date Type of Consult Nephrology Date/Time of Note DATE: 12/18/18 TIME: 14:00 24 HR Interval Summary Free Text/Dictation This patient is being seen in nephrologic follow-up. She seems more awake today. When I asked her how she is doing in [place] she says well. Constitutional: no complaints Exam/Review of Systems Exam Vitals Vital Signs Date Temp Pulse Resp B/P (MAP) Pulse Ox O2 O2 Flow FiO2 Time Delivery Rate 12/18/18 84 12:01 12/18/18 98.0 20 156/63 96 Room Air 11:10 (94) 12/14/18 8.0 12:49 Intake and Output 12/17/18 12/17/18 12/18/18 1515:00 23:00 07:00 IntakeIntake Total 640 ml 600 ml OutputOutput Total 600 ml 300 ml BalanceBalance 40 ml 300 ml Exam She has some contractures of her lower extremities. Constitutional: alert, frail Respiratory: clear to auscultation, normal air movement Cardiovascular: regular rate and rhythm Gastrointestinal: soft, non-tender Musculoskeletal: nl extremities to inspection Results Result Diagram: 12/18/18 0510 12/18/18 0510 Results 24hrs Laboratory Tests Test 12/17/18 17:14 12/18/18 01:14 12/18/18 05:03 12/18/18 05:10 Bedside Glucose 132 122 109 White Blood Count 8.7 Red Blood Count 2.99 L Hemoglobin 8.6 L Hematocrit 27.0 L Mean Corpuscular 90.3 Volume Mean Corpuscular 28.8 L Hemoglobin Mean Corpuscular 31.9 L Hemoglobin Concent Red Cell 14.1 Distribution Width Platelet Count 171 Mean Platelet Volume 11.4 H Immature 0.500 H Granulocytes % Neutrophils % 59.2 Lymphocytes % 25.2 Monocytes % 8.9 Eosinophils % 5.5 Basophils % 0.7 Nucleated Red Blood 0.0 Cells % Immature 0.040 H Granulocytes # Neutrophils # 5.2 Lymphocytes # 2.2 Monocytes # 0.8 Eosinophils # 0.5 Basophils # 0.1 Nucleated Red Blood 0.0 Cells # Sodium Level 141 Potassium Level 4.6 Chloride Level 106 Carbon Dioxide Level 27 Anion Gap 8 Blood Urea Nitrogen 70 H Creatinine 2.55 H Est Glomerular Filtrat Rate mL/min Glucose Level 90 # Calcium Level 8.0 L Phosphorus Level 3.2 Magnesium Level 2.1 Total Bilirubin 0.3 Direct Bilirubin 0.00 Indirect Bilirubin 0.3 Aspartate Amino 15 Transf (AST/SGOT) Alanine 16 Aminotransferase (AL T/SGPT) Alkaline Phosphatase 100 Total Protein 6.2 Albumin 2.9 L Globulin 3.30 H Albumin/Globulin 0.87 Ratio Test 12/18/18 07:56 12/18/18 11:41 Bedside Glucose 133 120 Medications Medication Current Medications Ondansetron HCl (Zofran Inj) 4 mg Q6H PRN IV NAUSEA AND/OR VOMITING Last administered on 12/18/18at 12:11; Admin Dose 4 MG; Start 12/09/18 at 18:30 Acetaminophen (Tylenol Supp) 650 mg Q4H PRN [place] PAIN LEVEL 1-3 OR FEVER; Start 12/09/18 at 18:30 Miscellaneous Information 1 ea NOTE XX ; Start 12/09/18 at 19:00 Glucose (Glutose) 15 gm Q15M PRN PO DECREASED GLUCOSE; Start 12/09/18 at 19:00 Glucose (Glutose) 22.5 gm Q15M PRN PO DECREASED GLUCOSE; Start 12/09/18 at 19:00 Dextrose (D50w Syringe) 25 ml Q15M PRN IV DECREASED GLUCOSE; Start 12/09/18 at 19:00 Dextrose (D50w Syringe) 50 ml Q15M PRN IV DECREASED GLUCOSE; Start 12/09/18 at 19:00 Glucagon (Glucagen) 1 mg Q15M PRN IM DECREASED GLUCOSE; Start 12/09/18 at 19:00 Glucose (Glutose) 15 gm Q15M PRN BUCCAL DECREASED GLUCOSE; Start 12/09/18 at 19:00 Morphine Sulfate (morphine) 1 mg Q4H PRN IV SEVERE PAIN LEVEL 7-10 Last administered on 12/17/18at 04:14; Admin Dose 1 MG; Start 12/09/18 at 22:00 Atorvastatin Calcium (Lipitor) 10 mg HS PO Last administered on 12/17/18 21:27; Admin Dose 10 MG; Start 12/10/18 at 21:00 Pantoprazole (Protonix Iv) 40 mg BID IV Last administered on 12/18/18 09:09; Admin Dose 40 MG; Start 12/11/18 at 09:00 Nitroglycerin (Nitroglycerin 2% Oint) 0.5 inch Q8 PRN TD SBP > 170; Start 12/12/18 at 19:00 Nitroglycerin (Nitroglycerin 2% Oint) 1 inch Q8 TD Last administered on 12/18/18at 05:04; Admin Dose 1 INCH; Start 12/13/18 at 14:00 Insulin Glargine (Lantus) 10 units DAILY@0800 SC Last administered on 12/18/18at 07:58; Admin Dose 10 UNITS; Start 12/13/18 at 11:30 Metoprolol Tartrate (Lopressor) 25 mg BID GTB Last administered on 12/18/18at 09:10; Admin Dose 25 MG; Start 12/15/18 at 09:30 Insulin Aspart (Novolog Insulin Pen) (Adult SC Insulin - Moder... Q6 SC Last administered on 12/17/18at 06:37; Admin Dose 2 UNIT; Start 12/15/18 at 18:00 Epoetin Josias-epbx (Retacrit (Esrd)) 10,000 unit MoWeFr@1700 SC Last administered on 12/16/18at 02:21; Admin Dose 10,000 UNIT; Start 12/16/18 at 01:45 Donepezil HCl (Aricept) 5 mg DAILY PO Last administered on 12/18/18 09:10; Admin Dose 5 MG; Start 12/16/18 at 09:00 Lorazepam (Ativan) 0.5 mg Q12 PRN PO ANXIETY Last administered on 12/17/18 04:14; Admin Dose 0.5 MG; Start 12/16/18 at 06:00 Ciprofloxacin (Cipro) 250 mg BID@18 GTB Last administered on 12/18/18 05:04; Admin Dose 250 MG; Start 12/17/18 at 18:00; Stop 12/22/18 at 17:59 Polyethylene Glycol (Miralax) 17 gm DAILY GTB Last administered on 12/18/18at 10:15; Admin Dose 17 GM; Start 12/18/18 at 09:00 Docusate Sodium (Colace Liquid Cup) 100 mg BID GTB Last administered on 12/18/18at 11:42; Admin Dose 100 MG; Start 12/18/18 at 10:30 Metoclopramide HCl (Reglan) 5 mg Q8 IV ; Start 12/18/18 at 14:00 MELISSA LA MD December 18, 2018 14:02
[2018-12-18] MEDS: METOCLOPRAMIDE 10 MG INJ IV SCH ×2 (14:47→21:57)
--- NOTE | 2018-12-18 14:52 | PN ---
DATE: 12/18/2018 Detailed prior history and events during his hospitalization was reviewed with Dr. Solomon and case was discussed with patient's family and the patient was examined. SUBJECTIVE: The patient is lethargic, has been quite nauseous and vomiting this morning despite Zofr an. No hematemesis. OBJECTIVE: VITAL SIGNS: Temperature 98.0, blood pressure 156/63, O2 saturation 96% on room air. HEENT: JVD is not increased. CHEST: Clear anteriorly. HEART: S1, S2 with no definite gallops. ABDOMEN: Soft, nontender. No hepatosplenomegaly. EXTREMITIES: No edema. Wasting of the lower extremities evident. LABORATORY DATA: WBC 8.7, hematocrit 27.0, platelet count 171,000. Sodium 141, potassium 4.6, BUN 7 0, creatinine 2.55. Glucose is in normal glycemic range. IMPRESSION: 1. Upper gastrointestinal bleeding with anemia, Rosibel-Cisse tear and stomach gastric ulcer. 2. Dysphagia, status post PEG placement. 3. Diabetes mellitus type 2, well controlled. 4. Hypertension. 5. Advanced dementia. 6. Status post prior cerebrovascular accident. 7. Non-ST elevation myocardial infarction and congestive heart failure. PLAN: Continue to monitor for GI bleed. Transfuse accordingly. GI recommendations per Dr. Martha candelario nd follow recommendations of Dr. Silva. Monitor for sepsis. Dictated By: NATALI TIWARI MD SR/NTS Conf#: [id number] DID#: [id number] CC: JACLYN GUZMAN MD; EFRAÍN SOLOMON MD;*EndCC*
[2018-12-18] MEDS ORDERED: EPOETIN ALFA-EPBX (ESRD) 10,000 UNIT/ML VIAL SC SCH (17:00)
[2018-12-18] MEDS: EPOETIN ALFA-EPBX (ESRD) 10,000 UNIT/ML VIAL SC SCH (17:26)
[2018-12-18] MEDS: ATORVASTATIN 10 MG TAB PO SCH (21:57)
[2018-12-19] VITALS (10 sets, daily range): BP systolic 121–154; BP diastolic 58–67; PULSE 60–69; RESP 18–22
[2018-12-19] MEDS: METOCLOPRAMIDE 10 MG INJ IV SCH ×3 (05:40→21:02)
[2018-12-19] MEDS: CIPROFLOXACIN 250 MG TAB GTB SCH ×2 (05:40→18:31)
[2018-12-19] MEDS: NITROGLYCERIN 2% 1 GM OINT PKT TD SCH ×3 (05:41→21:03)
[2018-12-19] MEDS: Insulin NOVOLOG SS MODERATE Algorithm(NPO/TPN/ENTERAL FEEDS) SC SCH ×4 (05:51→18:52)
--- NOTE | 2018-12-19 08:37 | CONS ---
Assessment/Plan Assessment/Plan Hospital Course (Demo Recall) 83 yo female with severe anemia 1. Upper gastrointestinal bleeding. -Rosibel-Cisse tear and superficial ulcer in the stomach 2. Diabetes mellitus. 3. Hypertension. 4. Dementia. 5. Cerebrovascular accident. 6. Severe anemia. 7. Elevated troponin. 8. ALLERGIC TO PENICILLIN. 9. Non-ST myocardial infarction with elevated troponin likely due to blood loss 10. CHF 11. Pulmonary hypertension 12. Dysphagia, patient failed swallow study, status post PEG 13. Status post a PEG 14. Renal failure 15. Rosibel Cisse tear -prn anti emetics. No nausea noted. PLAN: Aspiration precautions Continue low dose reglan Monitor residuals q 4 hours, hold for residuals greater than 60. Continue bowel regimen PRN anti emetics. to prevent re bleed of Rosibel Cisse tear. Continue with tube feeds, monitor residuals PPI BID Optimize blood sugar Pt examined and plan of care discussed with Dr. Thomas Consultation Date/Type/Reason Admit Date/Time December 09, 2018 at 14:38 Initial Consult Date Date/Time of Note DATE: 12/19/18 TIME: 08:33 24 HR Interval Summary Free Text/Dictation Yesterday pt had high residuals. Tube feeds held. Low dose regaln started. KUB unremarkable. Today pt denies nausea or abd pain. Abd is soft. Residuals subsided and tube feeds restarted and at goal. Pt had bm yesterday. Pt continues to have slow down trend of HH Exam/Review of Systems Exam Vitals Vital Signs Date Temp Pulse Resp B/P (MAP) Pulse Ox O2 O2 Flow FiO2 Time Delivery Rate 12/19/18 97.8 66 22 122/58 96 07:43 (79) 12/18/18 Room Air 15:29 Intake and Output 12/18/18 12/18/18 12/19/18 1515:00 23:00 07:00 IntakeIntake Total 380 ml 520 ml OutputOutput Total 300 ml 200 ml BalanceBalance 80 ml 320 ml Constitutional: alert Psych: no complaints Head: normocephalic Eyes: nl sclera, PERRL ENMT: mucosa pink and moist Respiratory: normal air movement Gastrointestinal: soft, non-tender Results Result Diagram: 12/19/18 0529 12/19/18 0529 Results 24hrs Laboratory Tests Test 12/18/18 11:41 12/18/18 17:24 12/19/18 00:28 12/19/18 05:29 Bedside Glucose 120 97 96 White Blood Count 6.9 # Red Blood Count 2.88 L Hemoglobin 8.3 L Hematocrit 25.9 L Mean Corpuscular 89.9 Volume Mean Corpuscular 28.8 L Hemoglobin Mean Corpuscular 32.0 Hemoglobin Concent Red Cell 14.0 Distribution Width Platelet Count 169 Mean Platelet Volume 11.5 H Immature 0.400 Granulocytes % Neutrophils % 59.5 Lymphocytes % 22.7 Monocytes % 12.6 H Eosinophils % 3.8 Basophils % 1.0 Nucleated Red Blood 0.0 Cells % Immature 0.030 Granulocytes # Neutrophils # 4.1 Lymphocytes # 1.6 Monocytes # 0.9 Eosinophils # 0.3 Basophils # 0.1 Nucleated Red Blood 0.0 Cells # Sodium Level 139 Potassium Level 4.3 Chloride Level 104 Carbon Dioxide Level 27 Anion Gap 8 Blood Urea Nitrogen 71 H Creatinine 2.60 H Est Glomerular Filtrat Rate mL/min Glucose Level 86 Calcium Level 8.1 L Magnesium Level 2.3 Test 12/19/18 05:50 Bedside Glucose 102 Medications Medication Current Medications Ondansetron HCl (Zofran Inj) 4 mg Q6H PRN IV NAUSEA AND/OR VOMITING Last administered on 12/18/18at 12:11; Admin Dose 4 MG; Start 12/09/18 at 18:30 Acetaminophen (Tylenol Supp) 650 mg Q4H PRN [place] PAIN LEVEL 1-3 OR FEVER; Start 12/09/18 at 18:30 Miscellaneous Information 1 ea NOTE XX ; Start 12/09/18 at 19:00 Glucose (Glutose) 15 gm Q15M PRN PO DECREASED GLUCOSE; Start 12/09/18 at 19:00 Glucose (Glutose) 22.5 gm Q15M PRN PO DECREASED GLUCOSE; Start 12/09/18 at 19:00 Dextrose (D50w Syringe) 25 ml Q15M PRN IV DECREASED GLUCOSE; Start 12/09/18 at 19:00 Dextrose (D50w Syringe) 50 ml Q15M PRN IV DECREASED GLUCOSE; Start 12/09/18 at 19:00 Glucagon (Glucagen) 1 mg Q15M PRN IM DECREASED GLUCOSE; Start 12/09/18 at 19:00 Glucose (Glutose) 15 gm Q15M PRN BUCCAL DECREASED GLUCOSE; Start 12/09/18 at 19:00 Morphine Sulfate (morphine) 1 mg Q4H PRN IV SEVERE PAIN LEVEL 7-10 Last administered on 12/17/18 04:14; Admin Dose 1 MG; Start 12/09/18 at 22:00 Atorvastatin Calcium (Lipitor) 10 mg HS PO Last administered on 12/18/18 21:57; Admin Dose 10 MG; Start 12/10/18 at 21:00 Pantoprazole (Protonix Iv) 40 mg BID IV Last administered on 12/18/18 21:57; Admin Dose 40 MG; Start 12/11/18 at 09:00 Nitroglycerin (Nitroglycerin 2% Oint) 0.5 inch Q8 PRN TD SBP > 170; Start 12/12/18 at 19:00 Nitroglycerin (Nitroglycerin 2% Oint) 1 inch Q8 TD Last administered on 12/19/18 05:41; Admin Dose 1 INCH; Start 12/13/18 at 14:00 Insulin Glargine (Lantus) 10 units DAILY@0800 SC Last administered on 12/18/18 07:58; Admin Dose 10 UNITS; Start 12/13/18 at 11:30 Metoprolol Tartrate (Lopressor) 25 mg BID GTB Last administered on 12/18/18 21:57; Admin Dose 25 MG; Start 12/15/18 at 09:30 Insulin Aspart (Novolog Insulin Pen) (Adult SC Insulin - Moder... Q6 SC Last administered on 12/17/18 06:37; Admin Dose 2 UNIT; Start 12/15/18 at 18:00 Epoetin Josias-epbx (Retacrit (Esrd)) 10,000 unit MoWeFr@1700 SC Last administered on 12/18/18 17:26; Admin Dose 10,000 UNIT; Start 12/16/18 at 01:45 Donepezil HCl (Aricept) 5 mg DAILY PO Last administered on 12/18/18 09:10; Admin Dose 5 MG; Start 12/16/18 at 09:00 Lorazepam (Ativan) 0.5 mg Q12 PRN PO ANXIETY Last administered on 12/17/18 04:14; Admin Dose 0.5 MG; Start 12/16/18 at 06:00 Ciprofloxacin (Cipro) 250 mg BID@18 GTB Last administered on 12/19/18 05:40; Admin Dose 250 MG; Start 12/17/18 at 18:00; Stop 12/22/18 at 17:59 Polyethylene Glycol (Miralax) 17 gm DAILY GTB Last administered on 12/18/18at 10:15; Admin Dose 17 GM; Start 12/18/18 at 09:00 Docusate Sodium (Colace Liquid Cup) 100 mg BID GTB Last administered on 12/18/18at 21:57; Admin Dose 100 MG; Start 12/18/18 at 10:30 Metoclopramide HCl (Reglan) 5 mg Q8 IV Last administered on 12/19/18 05:40; Admin Dose 5 MG; Start 12/18/18 at 14:00 TAMEKA JULIO December 19, 2018 08:37
[2018-12-19] MEDS: DONEPEZIL 5 MG TAB PO SCH (09:35)
[2018-12-19] MEDS: PANTOPRAZOLE 40 MG INJ IV SCH ×2 (09:35→21:03)
[2018-12-19] MEDS: METOPROLOL 25 MG TAB GTB SCH ×2 (09:35→21:03)
[2018-12-19] MEDS: POLYETHYLENE GLYCOL 17 GM PACKET GTB SCH (09:36)
[2018-12-19] MEDS: DOCUSATE SODIUM 10 MG/ML (10ML CUP) GTB SCH ×2 (09:36→21:01)
[2018-12-19] MEDS: INSULIN GLARGINE [LANTus] (100 UNITS/ML) SYG SC SCH (10:37)
--- NOTE | 2018-12-19 14:08 | PN ---
DATE: 12/19/2018 SUBJECTIVE: The patient is lethargic, comfortable. OBJECTIVE: VITAL SIGNS: Temperature 97.6, blood pressure 153/65, heart rate 68 per minute and regular. HEENT: Head is normocephalic. Mild pallor without cyanosis. LUNGS: Clinically clear. HEART: S1, S2 with definite gallops. ABDOMEN: Soft, nontender. No hepatosplenomegaly. EXTREMITIES: No edema. LABORATORY DATA: WBC 6.9, hematocrit 24.9, platelets 169,000. Sodium 139, potassium 4.3, BUN 71, cr eatinine 2.6. Glucoses are within the normal range. DIAGNOSTIC DATA: KUB showed gastrostomy tube in the left upper quadrant, nonobstructive bowel gas pa ttern. IMPRESSION: 1. Upper gastrointestinal bleeding with anemia, status post Rosibel-Cisse tear and stomach gastric u lcer. 2. Dysphagia, status post PEG placement. 3. Status post prior cerebrovascular accident with multi-infarct dementia. 4. Non-ST elevation myocardial infarction with congestive heart failure. 5. Chronic renal failure, acute on chronic. PLAN: We will closely monitor for signs of further bleeding. Recheck CBC in a.m. and renal function . Dictated By: NATALI TIWARI MD SR/NTS Conf#: [id number] DID#: [id number] CC: JACLYN GUZMAN MD; EFRAÍN SOLOMON MD;*EndCC*
[2018-12-19] MEDS: ATORVASTATIN 10 MG TAB PO SCH (21:03)
[2018-12-20] VITALS (10 sets, daily range): BP systolic 138–170; BP diastolic 64–79; PULSE 64–71; RESP 19–22
[2018-12-20] MEDS: METOCLOPRAMIDE 10 MG INJ IV SCH ×3 (05:34→20:55)
[2018-12-20] MEDS: NITROGLYCERIN 2% 1 GM OINT PKT TD SCH ×3 (05:37→20:55)
[2018-12-20] MEDS: Insulin NOVOLOG SS MODERATE Algorithm(NPO/TPN/ENTERAL FEEDS) SC SCH ×4 (05:45→17:40)
[2018-12-20] MEDS: CIPROFLOXACIN 250 MG TAB GTB SCH ×2 (06:02→17:36)
[2018-12-20] MEDS: INSULIN GLARGINE [LANTus] (100 UNITS/ML) SYG SC SCH (08:00)
[2018-12-20] MEDS: METOPROLOL 25 MG TAB GTB SCH ×2 (08:53→20:45)
[2018-12-20] MEDS: DONEPEZIL 5 MG TAB PO SCH (08:53)
[2018-12-20] MEDS: DOCUSATE SODIUM 10 MG/ML (10ML CUP) GTB SCH ×2 (08:53→20:44)
[2018-12-20] MEDS: POLYETHYLENE GLYCOL 17 GM PACKET GTB SCH (08:53)
[2018-12-20] MEDS: PANTOPRAZOLE 40 MG INJ IV SCH ×3 (09:00→20:44)
[2018-12-20] MEDS: ONDANSETRON 4 MG INJ IV PRN (09:09)
[2018-12-20] MEDS: EPOETIN ALFA-EPBX (ESRD) 10,000 UNIT/ML VIAL SC SCH (17:40)
--- NOTE | 2018-12-20 18:08 | PN ---
DATE: 12/20/2018 SUBJECTIVE: The patient is very lethargic. OBJECTIVE: VITAL SIGNS: Temperature 97.6, blood pressure 138/64, O2 sats 96% on room air. CHEST: Decreased breath sounds at bases. HEART: S1, S2 heard with no definite gallops. EXTREMITIES: No edema. LABORATORY DATA: WBC count 8.8, hematocrit 26.6. Sodium 140, potassium 4.3, BUN 67, creatinine 2.43 . Magnesium 2.3. IMPRESSION: 1. Status post upper gastrointestinal bleeding with anemia, Rosibel-Cisse tear and gastric ulcer. 2. Dysphagia, status post PEG placement. 3. Non-ST elevation myocardial infarction with congestive heart failure. 4. Status post cerebrovascular accident with multi-infarct dementia. 5. Chronic renal failure, acute on chronic. PLAN: I discussed with the patient's daughter regarding the need for patient to be placed in a conva lescent home and the patient's daughter, Alida, agrees. We will initiate discharge planning. Rec heck labs in a.m. Also per discussion with the patient's daughter, she would request that no heroic measures be done in the event of cardiac or respiratory arrest. We will order the same. Dictated By: NATALI TIWARI MD SR/NTS Conf#: [id number] DID#: [id number] CC: EFRAÍN SOLOMON MD; JACLYN GUZMAN MD;*[facility]*
[2018-12-20] MEDS: ATORVASTATIN 10 MG TAB PO SCH (20:46)
[2018-12-21] VITALS (10 sets, daily range): BP systolic 129–159; BP diastolic 56–78; PULSE 57–79; RESP 16–19
[2018-12-21] MEDS: METOCLOPRAMIDE 10 MG INJ IV SCH ×3 (05:19→21:02)
[2018-12-21] MEDS: NITROGLYCERIN 2% 1 GM OINT PKT TD SCH ×3 (05:19→21:03)
[2018-12-21] MEDS: CIPROFLOXACIN 250 MG TAB GTB SCH ×2 (05:19→17:41)
[2018-12-21] MEDS: Insulin NOVOLOG SS MODERATE Algorithm(NPO/TPN/ENTERAL FEEDS) SC SCH ×4 (05:32→17:37)
[2018-12-21] MEDS: DONEPEZIL 5 MG TAB PO SCH (08:20)
[2018-12-21] MEDS: DOCUSATE SODIUM 10 MG/ML (10ML CUP) GTB SCH ×2 (08:20→21:01)
[2018-12-21] MEDS: PANTOPRAZOLE 40 MG INJ IV SCH ×2 (08:20→21:01)
[2018-12-21] MEDS: METOPROLOL 25 MG TAB GTB SCH ×2 (08:21→21:03)
[2018-12-21] MEDS: POLYETHYLENE GLYCOL 17 GM PACKET GTB SCH (08:21)
[2018-12-21] MEDS: INSULIN GLARGINE [LANTus] (100 UNITS/ML) SYG SC SCH (08:31)
--- NOTE | 2018-12-21 12:07 | CONS ---
Assessment/Plan Assessment/Plan Hospital Course (Demo Recall) 83 yo female with GI bleeding 1. Upper gastrointestinal bleeding. From Rosibel-Cisse tear and superficial ulcer in the stomach 2. Diabetes mellitus. 3. Hypertension. 4. Dementia. 5. Cerebrovascular accident. 6. Severe anemia. 7. Elevated troponin. 8. ALLERGIC TO PENICILLIN. 9. Non-ST myocardial infarction with elevated troponin likely due to blood loss 10. CHF 11. Pulmonary hypertension 12. Dysphagia, patient failed swallow study, status post PEG 13. Status post a PEG 14. Renal failure PLAN: PPI BID NO anti coagulants. Monitor HH, replace for active bleeding or Hgb less than 7.4 Increase feedings slowly until the goal is achieved Optimize blood sugar Pt examined and plan of care discussed with Dr. Thomas Assessment/Plan (Daily) Hospital Course (Demo Recall) 83 yo female with severe anemia 1. Upper gastrointestinal bleeding. -Rosibel-Cisse tear and superficial ulcer in the stomach 2. Diabetes mellitus. 3. Hypertension. 4. Dementia. 5. Cerebrovascular accident. 6. Severe anemia. 7. Elevated troponin. 8. ALLERGIC TO PENICILLIN. 9. Non-ST myocardial infarction with elevated troponin likely due to blood loss 10. CHF 11. Pulmonary hypertension 12. Dysphagia, patient failed swallow study, status post PEG 13. Status post a PEG 14. Renal failure 15. Rosibel Cisse tear -prn anti emetics. No nausea noted. PLAN: Aspiration precautions Continue low dose reglan Monitor residuals q 4 hours, hold for residuals greater than 60. Continue bowel regimen PRN anti emetics. to prevent re bleed of Rosibel Cisse tear. Continue with tube feeds, monitor residuals PPI BID Optimize blood sugar Consultation Date/Type/Reason Admit Date/Time December 09, 2018 at 14:38 Initial Consult Date Date/Time of Note DATE: 12/21/18 TIME: 12:06 24 HR Interval Summary Free Text/Dictation Complains of knee pain Constitutional: no complaints, improved Exam/Review of Systems Exam Vitals Vital Signs Date Temp Pulse Resp B/P (MAP) Pulse Ox O2 O2 Flow FiO2 Time Delivery Rate 12/21/18 98.6 79 18 133/69 97 11:33 (90) 12/21/18 Room Air 00:00 Intake and Output 12/20/18 12/20/18 12/21/18 1515:00 23:00 07:00 IntakeIntake Total 780 ml OutputOutput Total 980 ml 1100 ml BalanceBalance -980 ml -320 ml Constitutional: non-verbal, frail ENMT: nl external ears & nose, nl lips & teeth, nl nasal mucosa & septum Respiratory: clear to auscultation, normal air movement Extremities: normal pulses Results Result Diagram: 12/21/18 0530 12/21/18 0530 Results 24hrs Laboratory Tests Test 12/20/18 12:35 12/20/18 17:32 12/20/18 23:13 12/21/18 05:29 Bedside Glucose 119 122 130 127 Test 12/21/18 05:30 12/21/18 08:19 White Blood Count 7.6 Red Blood Count 2.92 L Hemoglobin 8.4 L Hematocrit 26.5 L Mean Corpuscular 90.8 Volume Mean Corpuscular 28.8 L Hemoglobin Mean Corpuscular 31.7 L Hemoglobin Concent Red Cell 14.2 Distribution Width Platelet Count 167 Mean Platelet Volume 11.3 H Immature 0.500 H Granulocytes % Neutrophils % 66.2 Lymphocytes % 19.7 Monocytes % 9.2 Eosinophils % 3.6 Basophils % 0.8 Nucleated Red Blood 0.0 Cells % Immature 0.040 H Granulocytes # Neutrophils # 5.0 Lymphocytes # 1.5 Monocytes # 0.7 Eosinophils # 0.3 Basophils # 0.1 Nucleated Red Blood 0.0 Cells # Sodium Level 140 Potassium Level 4.6 Chloride Level 104 Carbon Dioxide Level 29 Anion Gap 7 Blood Urea Nitrogen 71 H Creatinine 2.45 H Est Glomerular Filtrat Rate mL/min Glucose Level 118 Calcium Level 8.0 L Bedside Glucose 138 Medications Medication Current Medications Ondansetron HCl (Zofran Inj) 4 mg Q6H PRN IV NAUSEA AND/OR VOMITING Last administered on 12/20/18at 09:09; Admin Dose 4 MG; Start 12/09/18 at 18:30 Acetaminophen (Tylenol Supp) 650 mg Q4H PRN IN PAIN LEVEL 1-3 OR FEVER; Start 12/09/18 at 18:30 Miscellaneous Information 1 ea NOTE XX ; Start 12/09/18 at 19:00 Glucose (Glutose) 15 gm Q15M PRN PO DECREASED GLUCOSE; Start 12/09/18 at 19:00 Glucose (Glutose) 22.5 gm Q15M PRN PO DECREASED GLUCOSE; Start 12/09/18 at 19:00 Dextrose (D50w Syringe) 25 ml Q15M PRN IV DECREASED GLUCOSE; Start 12/09/18 at 19:00 Dextrose (D50w Syringe) 50 ml Q15M PRN IV DECREASED GLUCOSE; Start 12/09/18 at 19:00 Glucagon (Glucagen) 1 mg Q15M PRN IM DECREASED GLUCOSE; Start 12/09/18 at 19:00 Glucose (Glutose) 15 gm Q15M PRN BUCCAL DECREASED GLUCOSE; Start 12/09/18 at 19:00 Morphine Sulfate (morphine) 1 mg Q4H PRN IV SEVERE PAIN LEVEL 7-10 Last administered on 12/17/18 04:14; Admin Dose 1 MG; Start 12/09/18 at 22:00 Atorvastatin Calcium (Lipitor) 10 mg HS PO Last administered on 12/20/18at 20:46; Admin Dose 10 MG; Start 12/10/18 at 21:00 Pantoprazole (Protonix Iv) 40 mg BID IV Last administered on 12/21/18 08:20; Admin Dose 40 MG; Start 12/11/18 at 09:00 Nitroglycerin (Nitroglycerin 2% Oint) 0.5 inch Q8 PRN TD SBP > 170; Start 12/12/18 at 19:00 Nitroglycerin (Nitroglycerin 2% Oint) 1 inch Q8 TD Last administered on 12/21/18 05:19; Admin Dose 1 INCH; Start 12/13/18 at 14:00 Insulin Glargine (Lantus) 10 units DAILY@0800 SC Last administered on 12/21/18at 08:31; Admin Dose 10 UNITS; Start 12/13/18 at 11:30 Metoprolol Tartrate (Lopressor) 25 mg BID GTB Last administered on 12/21/18 08:21; Admin Dose 25 MG; Start 12/15/18 at 09:30 Insulin Aspart (Novolog Insulin Pen) (Adult SC Insulin - Moder... Q6 SC Last administered on 12/19/18at 18:52; Admin Dose 2 UNIT; Start 12/15/18 at 18:00 Epoetin Josias-epbx (Retacrit (Esrd)) 10,000 unit MoWeFr@1700 SC Last administered on 12/20/18at 17:40; Admin Dose 10,000 UNIT; Start 12/16/18 at 01:45 Donepezil HCl (Aricept) 5 mg DAILY PO Last administered on 12/21/18 08:20; Admin Dose 5 MG; Start 12/16/18 at 09:00 Lorazepam (Ativan) 0.5 mg Q12 PRN PO ANXIETY Last administered on 12/17/18 04:14; Admin Dose 0.5 MG; Start 12/16/18 at 06:00 Ciprofloxacin (Cipro) 250 mg BID@18 GTB Last administered on 12/21/18 05:19; Admin Dose 250 MG; Start 12/17/18 at 18:00; Stop 12/22/18 at 17:59 Polyethylene Glycol (Miralax) 17 gm DAILY GTB Last administered on 12/21/18 08:21; Admin Dose 17 GM; Start 12/18/18 at 09:00 Docusate Sodium (Colace Liquid Cup) 100 mg BID GTB Last administered on 12/21/18 08:20; Admin Dose 100 MG; Start 12/18/18 at 10:30 Metoclopramide HCl (Reglan) 5 mg Q8 IV Last administered on 12/21/18 05:19; Admin Dose 5 MG; Start 12/18/18 at 14:00 JACLYN THOMAS MD December 21, 2018 12:07
--- NOTE | 2018-12-21 12:24 | CONS ---
DATE OF ADMISSION: 12/09/2018 DATE OF CONSULTATION: 12/20/2018 The patient was seen by me with her daughter by the side of the patient, complaining of knee pain. T he patient's knee was tender upon touching. She is otherwise nonverbal. No bleeding noted. Able to tolerate feeding as per the daughter. OBJECTIVE: VITAL SIGNS: Stable. ABDOMEN: Benign. LUNGS: Clear. EXTREMITIES: No edema. Left extremity was contracted and there was tenderness in the left knee, but no swelling was seen. No erythema identified. IMPRESSION: 1. Upper gastrointestinal bleeding which is stable and resolved. It was from Rosibel-Cisse tear. 2. Diabetes mellitus. 3. Hypertension. 4. Dementia. 5. Cerebrovascular accident. 6. Elevated troponin. 7. Anemia, which is stable. 8. Status post PEG, tolerating feeding. 9. Gastroparesis, resolved. 10. Left knee pain. PLAN: To continue present care. Will monitor for GI bleeding and also for high residual. If the le ft knee pain persists, then may need an x-ray of the knee. Dictated By: JACLYN ROQUE/NTS Conf#: [id number] DID#: [id number] CC: EFRAÍN SOLOMON MD; NATALI TIWARI MD;*[facility]*
--- NOTE | 2018-12-21 17:43 | PN ---
DATE: 12/21/2018 SUBJECTIVE: The patient is lethargic. PHYSICAL EXAMINATION: VITAL SIGNS: Temperature 98.6, blood pressure 133/69. GENERAL: The patient tolerated the G-tube feedings well. LUNGS: Clinically clear. HEART: S1, S2 with no definite gallops. EXTREMITIES: No edema. LABORATORY DATA: WBC count 7.6, hematocrit 26.5. Potassium 4.6, BUN 71, creatinine 2.45. IMPRESSION: 1. Non-ST elevation myocardial infarction with congestive heart failure, improved. 2. Status post upper gastrointestinal bleeding with anemia, status post Rosibel-Cisse tear and gastr ic ulcer. 3. Dysphagia, status post PEG placement. 4. Status post multiple cerebrovascular accidents multi-infarct dementia. 5. Chronic renal failure, acute on chronic. PLAN: We will monitor the patient for any further bleeding. Discharge planning was initiated for pl acement to convalescent home. Apparently, the patient's family wanted to go home. We will discuss w ith the patient's family that it would not be a good idea given patient's need for nursing home ca re and tube feedings. Dictated By: NATALI TIWARI MD SR/NTS Conf#: [id number] DID#: [id number] CC: JACLYN GUZMAN MD; EFRAÍN SOLOMON MD;*End*
[2018-12-21] MEDS: ATORVASTATIN 10 MG TAB PO SCH (21:02)
[2018-12-22] VITALS (8 sets, daily range): BP systolic 129–139; BP diastolic 57–64; PULSE 60–78; RESP 17–18
[2018-12-22] MEDS: Insulin NOVOLOG SS MODERATE Algorithm(NPO/TPN/ENTERAL FEEDS) SC SCH ×4 (05:35→18:00)
[2018-12-22] MEDS: CIPROFLOXACIN 250 MG TAB GTB SCH (05:36)
[2018-12-22] MEDS: METOCLOPRAMIDE 10 MG INJ IV SCH (05:36)
[2018-12-22] MEDS: NITROGLYCERIN 2% 1 GM OINT PKT TD SCH ×3 (05:37→21:48)
[2018-12-22] MEDS: INSULIN GLARGINE [LANTus] (100 UNITS/ML) SYG SC SCH (07:50)
[2018-12-22] MEDS: DONEPEZIL 5 MG TAB PO SCH (08:57)
[2018-12-22] MEDS: DOCUSATE SODIUM 10 MG/ML (10ML CUP) GTB SCH ×2 (08:57→21:48)
[2018-12-22] MEDS: POLYETHYLENE GLYCOL 17 GM PACKET GTB SCH (08:57)
[2018-12-22] MEDS: METOPROLOL 25 MG TAB GTB SCH ×2 (08:58→21:48)
[2018-12-22] MEDS ORDERED: DONE5TAB53 PO (08:58)
--- NOTE | 2018-12-22 15:01 | CONS ---
Assessment/Plan Assessment/Plan Hospital Course (Demo Recall) 83 yo female with GI bleeding 1. Upper gastrointestinal bleeding. From Rosibel-Cisse tear and superficial ulcer in the stomach 2. Diabetes mellitus. 3. Hypertension. 4. Dementia. 5. Cerebrovascular accident. 6. Severe anemia. 7. Elevated troponin. 8. ALLERGIC TO PENICILLIN. 9. Non-ST myocardial infarction with elevated troponin likely due to blood loss 10. CHF 11. Pulmonary hypertension 12. Dysphagia, patient failed swallow study, status post PEG 13. Status post a PEG 14. Renal failure PLAN: PPI BID NO anti coagulants. Monitor HH, replace for active bleeding or Hgb less than 7.4 Increase feedings slowly until the goal is achieved Optimize blood sugar Pt examined and plan of care discussed with Dr. Thomas Assessment/Plan (Daily) IMPRESSION: 1. Upper gastrointestinal bleeding which is stable and resolved. It was from Rosibel-Cisse tear. 2. Diabetes mellitus. 3. Hypertension. 4. Dementia. 5. Cerebrovascular accident. 6. Elevated troponin. 7. Anemia, which is stable. 8. Status post PEG, tolerating feeding. 9. Gastroparesis, resolved. 10. Left knee pain. Plan Continue present care Patient is stable from GI point Consultation Date/Type/Reason Admit Date/Time December 09, 2018 at 14:38 Initial Consult Date Date/Time of Note DATE: 12/22/18 TIME: 14:59 24 HR Interval Summary Free Text/Dictation As per the daughter no complaint only issues left knee tenderness Subjective hx not possible: pt non-verbal Constitutional: no complaints Exam/Review of Systems Exam Vitals Vital Signs Date Temp Pulse Resp B/P (MAP) Pulse Ox O2 O2 Flow FiO2 Time Delivery Rate 12/22/18 64 12:04 12/22/18 98.0 18 129/62 98 12:00 (84) 12/21/18 Room Air 00:00 Intake and Output 12/21/18 12/21/18 12/22/18 1515:00 23:00 07:00 IntakeIntake Total 780 ml 880 ml OutputOutput Total 780 ml 400 ml BalanceBalance 0 ml 480 ml Constitutional: non-verbal Cardiovascular: No regular rate and rhythm, No nl pulses, No bruits, No diastolic murmur, No edema, No gallop, No irregular rhythm, No jugular venous distention (JVD), No murmurs/extra sounds, No rub, No systolic murmur, No S3, No S4, No other Extremities: normal pulses Results Result Diagram: 12/22/18 0544 12/22/18 0544 Results 24hrs Laboratory Tests Test 12/21/18 17:37 12/21/18 23:55 12/22/18 05:20 12/22/18 05:44 Bedside Glucose 119 116 136 White Blood Count 7.8 Red Blood Count 2.90 L Hemoglobin 8.1 L Hematocrit 26.0 L Mean Corpuscular 89.7 Volume Mean Corpuscular 27.9 L Hemoglobin Mean Corpuscular 31.2 L Hemoglobin Concent Red Cell 14.0 Distribution Width Platelet Count 215 # Mean Platelet Volume 11.1 H Immature 0.600 H Granulocytes % Neutrophils % 67.4 Lymphocytes % 17.9 Monocytes % 8.6 Eosinophils % 4.6 Basophils % 0.9 Nucleated Red Blood 0.3 H Cells % Immature 0.050 H Granulocytes # Neutrophils # 5.2 Lymphocytes # 1.4 Monocytes # 0.7 Eosinophils # 0.4 Basophils # 0.1 Nucleated Red Blood 0.0 Cells # Sodium Level 139 Potassium Level 4.2 Chloride Level 104 Carbon Dioxide Level 31 Anion Gap 4 L Blood Urea Nitrogen 69 H Creatinine 2.27 H Est Glomerular Filtrat Rate mL/min Glucose Level 120 Calcium Level 7.8 L Test 12/22/18 07:46 12/22/18 11:37 Bedside Glucose 148 134 Medications Medication Current Medications Miscellaneous Information 1 ea NOTE XX ; Start 12/09/18 at 19:00 Glucose (Glutose) 15 gm Q15M PRN PO DECREASED GLUCOSE; Start 12/09/18 at 19:00 Glucose (Glutose) 22.5 gm Q15M PRN PO DECREASED GLUCOSE; Start 12/09/18 at 19:00 Dextrose (D50w Syringe) 25 ml Q15M PRN IV DECREASED GLUCOSE; Start 12/09/18 at 19:00 Dextrose (D50w Syringe) 50 ml Q15M PRN IV DECREASED GLUCOSE; Start 12/09/18 at 19:00 Glucagon (Glucagen) 1 mg Q15M PRN IM DECREASED GLUCOSE; Start 12/09/18 at 19:00 Glucose (Glutose) 15 gm Q15M PRN BUCCAL DECREASED GLUCOSE; Start 12/09/18 at 19:00 Atorvastatin Calcium (Lipitor) 10 mg HS PO Last administered on 12/21/18 21:02; Admin Dose 10 MG; Start 12/10/18 at 21:00 Nitroglycerin (Nitroglycerin 2% Oint) 1 inch Q8 TD Last administered on 05:37; Admin Dose 1 INCH; Start 12/13/18 at 14:00 Insulin Glargine (Lantus) 10 units DAILY@0800 SC Last administered on 12/22/18 07:50; Admin Dose 10 UNITS; Start 12/13/18 at 11:30 Metoprolol Tartrate (Lopressor) 25 mg BID GTB Last administered on 12/22/18 08:58; Admin Dose 25 MG; Start 12/15/18 at 09:30 Insulin Aspart (Novolog Insulin Pen) (Adult SC Insulin - Moder... Q6 SC Last administered on 12/19/18 18:52; Admin Dose 2 UNIT; Start 12/15/18 at 18:00 Epoetin Josias-epbx (Retacrit (Esrd)) 10,000 unit MoWeFr@1700 SC Last administered on 12/20/18 17:40; Admin Dose 10,000 UNIT; Start 12/16/18 at 01:45 Donepezil HCl (Aricept) 5 mg DAILY PO Last administered on 12/22/18 08:57; Admin Dose 5 MG; Start 12/16/18 at 09:00 Lorazepam (Ativan) 0.5 mg Q12 PRN PO ANXIETY Last administered on 12/17/18 04:14; Admin Dose 0.5 MG; Start 12/16/18 at 06:00 Ciprofloxacin (Cipro) 250 mg BID@18 GTB Last administered on 12/22/18 05:36; Admin Dose 250 MG; Start 12/17/18 at 18:00; Stop 12/22/18 at 17:59 Polyethylene Glycol (Miralax) 17 gm DAILY GTB Last administered on 12/22/18 08:57; Admin Dose 17 GM; Start 12/18/18 at 09:00 Docusate Sodium (Colace Liquid Cup) 100 mg BID GTB Last administered on 12/22/18 08:57; Admin Dose 100 MG; Start 12/18/18 at 10:30 JACLYN THOMAS MD December 22, 2018 15:01
[2018-12-22] MEDS: LORAZEPAM 0.5 MG TAB PO PRN (17:13)
[2018-12-22] MEDS: EPOETIN ALFA-EPBX (ESRD) 10,000 UNIT/ML VIAL SC SCH (17:55)
[2018-12-22] MEDS ORDERED: LORAZEPAM 1 MG TAB GTB ONE (18:00)
[2018-12-22] MEDS: ATORVASTATIN 10 MG TAB PO SCH (21:48)
--- NOTE | 2018-12-22 22:34 | DS ---
DATE OF ADMISSION: 12/09/2018 DATE OF DISCHARGE: 12/22/2018 FINAL DIAGNOSES: 1. Non-ST elevation myocardial infarction with congestive heart failure, improved. 2. Status post upper gastrointestinal bleeding with anemia, status post Rosibel-Cisse tear and gastr ic ulcer. 3. Neurogenic dysphagia, status post percutaneous endoscopic gastrostomy placement. 4. Status post multiple cerebrovascular accident with multi-infarct dementia. 5. Chronic renal failure, acute on chronic. HOSPITAL COURSE: The patient is an 83-year-old lady with a history of prior cerebrovascular accident s, advanced dementia, diabetes mellitus type 2, chronic renal failure, presenting with tarry stools a nd the patient was admitted to the ICU and the patient was begun on gentle hydration. The patient al so had been seen by Dr. Bowman and there was evidence of non-ST elevation myocardial infarction wit h congestive heart failure and she improved gradually with diuretics and the patient was seen by Dr. Thomas from GI standpoint and patient had evidence of a Rosibel-Cisse tear and gastric ulcer. She henry d significant neurogenic dysphagia and percutaneous endoscopic gastrostomy tube placed. The patient gradually improved and in view of the need for continued longterm care. The patient was trans ferred to the convalescent home in much improved condition. Dictated By: NATALI TIWARI MD SR/NTS Conf#: [id number] DID#: [id number] CC: EFRAÍN SOLOMON MD; JACLYN THOMAS MD;*End*
[2018-12-23] VITALS: BP 148/66; PULSE 52; PULSE 57; RESP 17
[2018-12-23 04:00] VITALS: BP 142/65; PULSE 56; PULSE 58; RESP 18
[2018-12-23] MEDS: NITROGLYCERIN 2% 1 GM OINT PKT TD SCH (05:31)
[2018-12-23] MEDS: Insulin NOVOLOG SS MODERATE Algorithm(NPO/TPN/ENTERAL FEEDS) SC SCH ×3 (05:31→11:52)
[2018-12-23 07:35] VITALS: BP 143/63; PULSE 57; RESP 19
[2018-12-23 08:08] VITALS: PULSE 57
[2018-12-23] MEDS: METOPROLOL 25 MG TAB GTB SCH (08:57)
[2018-12-23] MEDS: POLYETHYLENE GLYCOL 17 GM PACKET GTB SCH (08:57)
[2018-12-23] MEDS: DONEPEZIL 5 MG TAB PO SCH (08:57)
[2018-12-23] MEDS: DOCUSATE SODIUM 10 MG/ML (10ML CUP) GTB SCH (08:57)
[2018-12-23] MEDS: INSULIN GLARGINE [LANTus] (100 UNITS/ML) SYG SC SCH (09:05)
[2018-12-23 11:57] VITALS: BP 152/68; PULSE 61; RESP 18
[2018-12-23 12:03] VITALS: PULSE 63
--- NOTE | 2018-12-23 12:49 | PN ---
DATE: 12/23/2018 SUBJECTIVE: The patient was supposed to be discharged yesterday and her blood pressure went up requi ring several doses of clonidine and Ativan and discharge was held and today patient is awake, respons rashi. VITAL SIGNS: Temperature 97.6, blood pressure 142/63, O2 sats 98%. CHEST: Clinically clear. EXTREMITIES: No edema. PLAN: The patient will be discharged today to the convalescent home. I have discussed the patient's further care with Dr. Marsh who will be following the patient at the convalescent home. Discussed with the patient's son Julito at bedside regarding further care. If her dysphagia improves, may consi heather discontinuing the G-tube. Follow up labs in 1 week. Dictated By: NATALI TIWARI MD SR/NTS Conf#: [id number] DID#: [id number] CC: EFRAÍN SOLOMON MD; JACLYN GUZMAN MD;*EndCC*
== END 2018-12-23 12:34 | DRG 368 ==
LOC: E/R 12:14 → ICU 14:38 → EDBEDREQSVC 15:23 → ICU 18:19 → 6WM 12-13 18:06
PROVIDERS: ADMIT Internal Medicine; ATTEND Internal Medicine
PROC: 30233N1 Transfusion of Nonautologous Red Blood Cells into Peripheral Vein, Percutaneous Approach (ICD-10-PCS; 2018-12-09)
PROC: 0DB68ZX Excision of Stomach, Via Natural or Artificial Opening Endoscopic, Diagnostic (ICD-10-PCS; 2018-12-12)
PROC: 0DH63UZ Insertion of Feeding Device into Stomach, Percutaneous Approach (ICD-10-PCS; principal; 2018-12-14 12:00)
DX: K22.6 Gastro-esophageal laceration-hemorrhage syndrome (principal); I21.A1 Myocardial infarction type 2; I50.31 Acute diastolic (congestive) heart failure; I69.054 Hemiplegia and hemiparesis following nontraumatic subarachnoid hemorrhage affecting left non-dominant side; D62 Acute posthemorrhagic anemia; N17.9 Acute kidney failure, unspecified; I13.0 Hypertensive heart and chronic kidney disease with heart failure and stage 1 through stage 4 chronic kidney disease, or unspecified chronic kidney disease; R64 Cachexia; E87.0 Hyperosmolality and hypernatremia; N39.0 Urinary tract infection, site not specified; E44.0 Moderate protein-calorie malnutrition; I69.919 Unspecified symptoms and signs involving cognitive functions following unspecified cerebrovascular disease; F01.50 Vascular dementia, unspecified severity, without behavioral disturbance, psychotic disturbance, mood disturbance, and anxiety; E78.5 Hyperlipidemia, unspecified; E11.22 Type 2 diabetes mellitus with diabetic chronic kidney disease; E11.21 Type 2 diabetes mellitus with diabetic nephropathy; E87.70 Fluid overload, unspecified; E11.43 Type 2 diabetes mellitus with diabetic autonomic (poly)neuropathy; E11.39 Type 2 diabetes mellitus with other diabetic ophthalmic complication; H54.7 Unspecified visual loss; I35.1 Nonrheumatic aortic (valve) insufficiency; I27.20 Pulmonary hypertension, unspecified; I34.0 Nonrheumatic mitral (valve) insufficiency; I25.10 Atherosclerotic heart disease of native coronary artery without angina pectoris; I69.098 Other sequelae following nontraumatic subarachnoid hemorrhage; K29.01 Acute gastritis with bleeding; K31.84 Gastroparesis; M24.50 Contracture, unspecified joint; M25.562 Pain in left knee; N18.9 Chronic kidney disease, unspecified; R32 Unspecified urinary incontinence; R13.19 Other dysphagia; R62.7 Adult failure to thrive; Z66 Do not resuscitate; I25.2 Old myocardial infarction; Z87.440 Personal history of urinary (tract) infections; Z68.36 Body mass index [BMI] 36.0-36.9, adult; Z88.0 Allergy status to penicillin; Z79.84 Long term (current) use of oral hypoglycemic drugs
CPT/HCPCS: 36430; 71045; 74018; 76775; 80048; 80053; 80061; 80076; 81001; 81003; 82270; 82570; 82728; 82962; 83036; 83540; 83690; 83735; 83880; 83970; 84100; 84155; 84300; 84443; 84484; 85014; 85018; 85025; 85610; 85730; 86850; 86900; 86901; 86920; 87081; 87086; 88305; 92526; 92610; 93005; 93306; 96374; 96375; C9113; J0696; J0744; J1815; J1940; J2250; J2270; J2370; J2405; J2765; J3010; J3480; J7040; J7042; J7070; P9016; Q5105

== ENCOUNTER 2019-01-10 17:36 | Inpatient (IN) | payer MEDICARE, OTHER, MEDICAID ==
[~2019-01-10] VITALS: Ht 160 cm; Wt 50.0 kg
[~2019-01-10 17:36] MED LIST changes: +AMLO5TAB4 PO; -ATOR20TA38 PO; -BACTDS PO; +DOCU50LI13 PO; +GLIP5TAB13 PO; -MEMA5TAB PO; -METF500T24 PO; -VALS160T20 PO
--- NOTE | 2019-01-10 17:54 | ERD ---
ER Documentation Chief Complaint Chief Complaint Generalized weakness HPI The patient is a 83-year-old female, presenting to the ER from a half-way because of generalized weakness. She is unable to provide a history, the history is obtained from medical record Past medical history: Diabetes mellitus, hypertension, history of CVA, CAD, history of gastric ulcer and Rosibel-Cisse tear, dysphagia, dementia, chronic kidney disease Past surgical history: G-tube Medications Home Meds Active Scripts Donepezil* (Aricept*) 5 Mg Tablet, 5 MG PO DAILY for 30 Days, #30 TAB Prov:NATALI TIWARI MD 12/22/18 Reported Medications Metformin Hcl* (Metformin Hcl*) 500 Mg Tablet, 500 MG PO WITH BREAKFAST, #30 TAB 01/10/19 Docusate Sodium (Silace) 50 Mg/5 Ml Liquid, 10 ML PO DAILY PRN for PRN 12/09/18 Glipizide* (Glipizide*) 5 Mg Tablet, 5 MG PO AC BREAKFAST, TAB 12/09/18 Amlodipine Besylate* (Norvasc*) 5 Mg Tablet, 5 MG PO BID, TAB 12/09/18 Trazodone Hcl* (Trazodone Hcl*) 50 Mg Tablet, 50 MG PO Q6H, #30 TAB 12/09/18 Atenolol* (Atenolol*) 50 Mg Tablet, 50 MG PO DAILY, #30 TAB HOLD FOR SBP<100 12/09/18 Allergies Allergies: Coded Allergies: Penicillins (Unverified Allergy, Unknown, 01/10/19) PMhx/Soc History of Surgery: No Anesthesia Reaction: No Hx Neurological Disorder: No Hx Respiratory Disorders: No Hx Cardiac Disorders: Yes (stroke (4-5 yrs), heart attack ) Hx Psychiatric Problems: Yes (dementia ) Hx Miscellaneous Medical Probl: No Hx Alcohol Use: No Hx Substance Use: No Hx Tobacco Use: No Physical Exam Vitals Vital Signs Date Temp Pulse Resp B/P (MAP) Pulse Ox O2 O2 Flow FiO2 Time Delivery Rate 01/10/19 71 20 153/56 99 Room Air 19:54 (88) 01/10/19 72 16 147/46 95 Room Air 18:30 (79) 01/10/19 98.5 73 16 147/46 96 18:01 (79) Physical Exam Const: No acute distress.Dehydrated Head: Atraumatic. Eyes: Normal Conjunctiva. ENT: Normal External Ears, Nose and Mouth. Neck: Full range of motion. No meningismus. Resp: Clear to auscultation bilaterally. Cardio: Regular rate and rhythm. Abd: Soft, non distended, normal bowel sounds, non tender.Gtube Skin: No petechiae or rashes. Back: No midline or flank tenderness. Ext: No cyanosis, or edema. Neur: Awake. Limited exam due to her condition Psych: Unable to perform due to her condition Result Diagram: 01/10/19175401/10/191754 Results 24 hrs Laboratory Tests Test 01/10/19 17:54 01/10/19 17:55 01/10/19 18:00 01/10/19 19:15 Bedside Glucose 245 mg/dL White Blood Count 14.0 10^3/ul Red Blood Count 3.00 10^6/ul Hemoglobin 8.2 g/dl Hematocrit 28.2 % Mean Corpuscular 94.0 fl Volume Mean Corpuscular 27.3 pg Hemoglobin Mean Corpuscular 29.1 g/dl Hemoglobin Concen t Red Cell 16.0 % Distribution Width Platelet Count 270 10^3/UL Mean Platelet 12.5 fl Volume Immature 2.500 % Granulocytes % Neutrophils % 82.8 % Lymphocytes % 10.3 % Monocytes % 3.6 % Eosinophils % 0.3 % Basophils % 0.5 % Nucleated Red 1.5 /100WBC Blood Cells % Immature 0.350 10^3/ul Granulocytes # Neutrophils # 11.6 10^3/ul Lymphocytes # 1.4 10^3/ul Monocytes # 0.5 10^3/ul Eosinophils # 0.0 10^3/ul Basophils # 0.1 10^3/ul Nucleated Red 0.2 10^3/ul Blood Cells # Prothrombin Time 15.3 Sec Prothrombin Time 1.2 Ratio INR International 1.20 Normalized Ratio Activated 26.5 Sec Partial Thrombopl ast Time Sodium Level 164 mmol/L Potassium Level 3.8 mmol/L Chloride Level 129 mmol/L Carbon Dioxide 22 mmol/L Level Anion Gap 13 Blood Urea 108 mg/dl Nitrogen Creatinine 2.70 mg/dl Est Glomerular mL/min Filtrat Rate mL/min Glucose Level 233 mg/dl Calcium Level 8.7 mg/dl Total Bilirubin 0.4 mg/dl Direct Bilirubin 0.00 mg/dl Indirect 0.4 mg/dl Bilirubin Aspartate Amino 29 IU/L Transf (AST/SGOT) Alanine 25 IU/L Aminotransferase (ALT/SGPT) Alkaline 154 IU/L Phosphatase Troponin I 0.125 ng/ml Total Protein 6.8 g/dl Albumin 3.4 g/dl Globulin 3.40 g/dl Albumin/Globulin 1.00 Ratio Urine Color YELLOW Urine Clarity CLEAR Urine pH 6.0 Urine Specific 1.018 [place] Urine Ketones NEGATIVE mg/dL Urine Nitrite NEGATIVE mg/dL Urine Bilirubin NEGATIVE mg/dL Urine NEGATIVE mg/dL Urobilinogen Urine Leukocyte NEGATIVE Susie/ul Esterase Urine Microscopic 0 /HPF RBC Urine Microscopic 1 /HPF WBC Urine Hemoglobin NEGATIVE mg/dL Urine Glucose 1+ mg/dL Urine Total 2+ mg/dl Protein POC Venous 2.0 mmol/L Lactate Test 01/10/19 19:55 Lactic Acid Level 2.3 mmol/L Current Medications Medications Dose Sig/Salvatore Start Time Status Last (Trade) Ordered Route PRN Stop Time Admin Dose Reason Admin 50 ml @ ONCE STAT 01/10/19 DC 01/10/19 Meropenem/Sod 100 mls/hr IVPB 19:45 20:30 ium Chloride 01/10/19 20:14 Vancomycin 250 ml @ ONCE ONCE 01/10/19 DC 01/10/19 HCl 125 mls/hr IVPB 20:00 21:04 01/10/19 21:59 Aspirin 162 mg ONCE ONCE 01/10/19 DC 01/10/19 (Aspirin) GTB 20:00 20:32 01/10/19 20:13 Procedures/[place] [id number] Radiology Main Line: [phone] DIAGNOSTIC IMAGING REPORT Patient: KYM FLEMING : 1935 Age: 83 Sex: F MR #: [id number] DOS: 01/10/19 7377 Ordering MD: SLAVA AJCOBS MD Location: E/R Room/Bed: PROCEDURE: XR chest. CLINICAL INDICATION: Sepsis TECHNIQUE: Portable AP view of the chest was obtained. COMPARISON: 04/28/2015 FINDINGS: The patient is rotated. Lung volumes are small. Heart is mildly enlarged. Aortic arch is atherosclerotic. There is no pneumothorax or pleural effusion. There are bilateral predominantly central interstitial infiltrates. IMPRESSION: 1. Bilateral predominantly central interstitial infiltrates, mild pulmonary e elliot or pneumonia. 2. Mild cardiomegaly and aortic atherosclerosis. RPTAT:HAJM Physician Pa Date Time Electronically viewed and signed by Zhang Taylor Physician on 01/10/2019 18:59 RM/ CC: SLAVA JACOBS MD [id number] EKG: Read by emergency physician Rate/Rhythm: Accelerated Junctional rhythm 73 beats/min QRS, ST, T-waves: No ST elevation, no T inversion, RWA, inferior anterior lateral ST and T abnormality Impression: Abnormal EKG MEDICAL MAKING DECISION: The patient is a 83-year-old female, presenting with acute severe sepsis, acute bilateral pneumonia, acute hypovolemic hyponatremia, acute on chronic kidney disease, acute troponin elevation. She was treated with meropenem IV, vancomycin IV and 500 mL of normal saline, not 30 ml/kg IV because of her chronic kidney disease, aspirin 160 mg via G-tube for her troponin elevation, concerning for acute ACS The differential diagnoses considered include but are not limited to pneumonia, aspiration, UTI, pyelonephritis, ACS, non-STEMI MDM: Patient's infectious symptoms have not stabilized and the patient is at risk of rapid decompensation. The patient will be admitted for careful hydration, antibiotic therapy, and infectious source control. SEVERE SEPSIS CRITERIA: Infectious source: pna End organ damage indicated by: [Lactate > 2.0 mmol/L SEPSIS MANAGEMENT Time of recognition of severe sepsis: 7:45pm 3 HOUR BUNDLE Blood cultures x 2 before broad-spectrum antibiotics: [Yes] 30 ml/kg NS bolus [not Completed b/c of CKD, only received 500ml NS] Initial lactate []2 Repeat lactate Pending SEPTIC SHOCK ASSESSMENT: [No] lactic acid > 4.0 [No] Persistent hypotension (SBP < 90 or 40 mmHg drop, MAP < 65) despite 30 mL/kg IV fluid bolus CRITICAL CARE Critical care time [35] minutes Emergent fluid management while maintaining close respiratory support. Provision of immediate and broad-spectrum antibiotic therapy. Simultaneous assessment for possible sources in order to direct targeted therapy. Consi deration for invasive and chemical support to prevent cardiopulmonary collapse. Critical care time is independent of procedures performed. Departure Diagnosis: Primary Impression: Severe sepsis Additional Impressions: PNA (pneumonia) Hypernatremia Acute on chronic kidney failure Elevated troponin Anemia Condition: Stable Comments I discussed the findings with the patient. I discussed the patient with Dr. Lucretia Silva at 8:05 PM, who was made aware of the lab, the treatment, the patient condition. The patient is admitted to Tel Disclaimer: Inadvertent spelling and grammatical errors are likely due to EHR/dictation software use and do not reflect on the overall quality of patient care. Also, please note that the electronic time recorded on this note does not necessarily reflect the actual time of the patient encounter. SLAVA JACOBS MD Jan 10, 2019 17:54
[2019-01-10] MEDS ORDERED: MEROPENEM 500MG/50 ML (PMX) 50 ML IVPB STA (19:45)
[2019-01-10] MEDS ORDERED: VANCOMYCIN 1 GM (PMX) 250 ML IVPB ONE (20:00)
[2019-01-10] MEDS ORDERED: ASPIRIN 81 MG TAB GTB ONE (20:00)
[2019-01-10] MEDS ORDERED: SOD CHLORIDE 0.9% 250 ML IV ONE (20:30)
[2019-01-10] MEDS ORDERED: SOD CHLORIDE 0.9% 500 ML IV ONE (21:00)
[2019-01-10] MEDS ORDERED: METF500T24 PO (22:16)
--- NOTE | 2019-01-11 11:23 | HP ---
DATE OF ADMISSION: 01/10/2019 CHIEF COMPLAINT AND HISTORY OF PRESENT ILLNESS: The patient is an 83-year-old lady brought in from [facility] home with chief complaints of generalized weakness and altered mental status. The patien t was evaluated in the Emergency Room and was admitted. The patient is essentially unable to provide any cogent history at this time. The patient has advanced multi-infarct dementia, diabetes mellitus type 2, hypertension, chronic kidney disease, essentially has been bed bound and nonambulatory, was discharged to the convalescent home under the care of Dr. Marsh about 3 weeks ago. The patient was last hospitalized for upper GI bleed and at that time was also found to have severe dysphagia, had a gastrostomy tube placed. The patient has had prior CVAs with contractures and she also had a non-ST elevation myocardial infarction recently. REVIEW OF SYSTEMS: Unable to obtain from the patient at this time. SOCIAL HISTORY: The patient is lethargic, does respond to commands, gets agitated periodically. MEDICATIONS: 1. Aricept 5 mg daily. 2. Glipizide 5 mg p.o. daily. 3. Trazodone 50 mg q.6h. p.r.n. 4. Atenolol 50 mg daily. 5. Amlodipine 50 mg p.o. daily. PHYSICAL EXAMINATION: GENERAL: The patient is an average-built female who is lethargic but does respond to commands with p eriods of agitation. VITAL SIGNS: Temperature 98.2, blood pressure 148/66, O2 sats 96% on room air. HEENT: Head normocephalic. No signs of meningismus. Tongue coated, dry. NECK: Supple. No thyromegaly, bruits, or lymphadenopathy. CHEST: Reveals decreased breath sounds at bases. HEART: S1, S2 heard. No definite gallops. ABDOMEN: Soft, nontender. Bowel sounds are active. No hepatosplenomegaly. EXTREMITIES: No edema. SKIN: Reveals no petechia, no rashes. Homans sign is negative. LABORATORY DATA: WBC count 14.0, hematocrit 28.2, platelet count 270,000. Sodium 164, BUN 108, crea tinine 2.70, glucose 233. Troponin 0.12. Urine shows 1+ glucose, negative for leukocyte esterase. Chest x-ray shows bilateral infiltrates. IMPRESSION: The patient likely has: 1. Bilateral pneumonia with delirium. 2. Hypernatremia. 3. Acute on chronic renal failure. 4. Diabetes mellitus type 2. 5. Multi-infarct dementia. PLAN: Gentle hydration. Observe for sepsis. Empiric antibiotic therapy. Recheck labs in a.m. incl uding the troponin. The patient is not a candidate for any aggressive cardiac intervention. Will di scuss with the patient's family regarding her condition. Dictated By: NATALI TIWARI MD, SR/EDWAR Conf#: [id number] DID#: [id number]
[2019-01-11] MEDS: SOD CHLORIDE 0.45% 1,000 ML IV SCH (16:18)
[2019-01-11] MEDS ORDERED: VANCOMYCIN IV PER PHARMACY XX SCH (17:00)
[2019-01-11] MEDS: MEROPENEM 500MG/50 ML (PMX) 50 ML IVPB SCH (18:23)
[2019-01-11 20:00] VITALS: BP 159/70; PULSE 66; PULSE 72; RESP 19
[2019-01-11 20:39] VITALS: Ht 160 cm; Wt 50.0 kg
[2019-01-11] MEDS ORDERED: DEXTROSE 50% 50 ML SYRINGE IV PRN ×2 (21:00)
[2019-01-11] MEDS ORDERED: GLUCOSE GEL 15 GRAM TUBE BUCCAL PRN (21:00)
[2019-01-11] MEDS: INSULIN ASPART [NOVOLOG] 3 ML PEN SC SCH (21:00)
[2019-01-11] MEDS ORDERED: GLUCOSE GEL 15 GRAM TUBE PO PRN ×2 (21:00)
[2019-01-11] MEDS ORDERED: GLUCAGON 1 MG INJ IM PRN (21:00)
[2019-01-11 23:54] VITALS: BP 160/72; PULSE 76; RESP 18
[2019-01-12] VITALS (13 sets, daily range): BP systolic 158–181; BP diastolic 62–77; PULSE 72–80; RESP 16–20
[2019-01-12] MEDS: INSULIN ASPART [NOVOLOG] 3 ML PEN SC SCH ×6 (00:44→20:43)
[2019-01-12] MEDS: SOD CHLORIDE 0.45% 1,000 ML IV SCH ×2 (00:52→11:46)
--- NOTE | 2019-01-12 06:47 | CONS ---
Assessment/Plan Assessment/Plan Hospital Course (Demo Recall) 1) weakness and AMS by report pt seems more calm this a.m. responds to speaking in romanian and followed directions 2) pulmonary infiltrates CHF vs pneumonia pt is on vanco/merrem, await procalcitonin but pt is not coughing and no fever or hypothermia WBC has quickly improved too 3) CRI with acute component this has already improved 4) hypernatremia w/up per primary but no sign of UTI or significant hyperglycemia no report of V or D pt on hydration with 1/2NS Consultation Date/Type/Reason Admit Date/Time Jan 10, 2019 at 20:06 Date of Consultation: Jan 12, 2019 Type of Consult ID Date/Time of Note DATE: 01/12/19 TIME: 06:36 Hx of Present Illness pt admitted due to weakness asking in romanian she currently denies N, V, D, cough, RAYA, pain anyplace she follows simple directions in romanian nurse reports at times combative but no cough and was able to rest Past Medical History DM, HTN, CVA, CRI, gastric ulcer, MW tear Home Meds Active Scripts Donepezil* (Aricept*) 5 Mg Tablet, 5 MG PO DAILY for 30 Days, #30 TAB Prov:NATALI TIWARI MD 12/22/18 Reported Medications Metformin Hcl* (Metformin Hcl*) 500 Mg Tablet, 500 MG PO WITH BREAKFAST, #30 TAB 01/10/19 Docusate Sodium (Silace) 50 Mg/5 Ml Liquid, 10 ML PO DAILY PRN for PRN 12/09/18 Glipizide* (Glipizide*) 5 Mg Tablet, 5 MG PO AC BREAKFAST, TAB 12/09/18 Amlodipine Besylate* (Norvasc*) 5 Mg Tablet, 5 MG PO BID, TAB 12/09/18 Trazodone Hcl* (Trazodone Hcl*) 50 Mg Tablet, 50 MG PO Q6H, #30 TAB 12/09/18 Atenolol* (Atenolol*) 50 Mg Tablet, 50 MG PO DAILY, #30 TAB HOLD FOR SBP<100 12/09/18 Medications Current Medications Sodium Chloride 1,000 ml @ 100 mls/hr Q10H IV Last administered on 01/12/19at 00:52; Admin Dose 100 MLS/HR; Start 01/11/19 at 15:30 Vancomycin HCl (Vanco Iv Per Pharmacy) VANCOMYCIN PER PHARMACY PER PROTOCOL XX ; Start 01/11/19 at 17:00 Meropenem/Sodium Chloride 50 ml @ 100 mls/hr Q12 IVPB Last administered on 01/11/19at 18:23; Admin Dose 100 MLS/HR; Start 01/11/19 at 17:30 Insulin Aspart (Novolog Insulin Pen) NOVOLOG *MILD* ALGORI... Q4 SC Last administered on 01/12/19at 05:34; Admin Dose 2 UNIT; Start 01/11/19 at 21:00 Miscellaneous Information 1 ea NOTE XX ; Start 01/11/19 at 21:00 Glucose (Glutose) 15 gm Q15M PRN PO DECREASED GLUCOSE; Start 01/11/19 at 21:00 Glucose (Glutose) 22.5 gm Q15M PRN PO DECREASED GLUCOSE; Start 01/11/19 at 21:00 Dextrose (D50w Syringe) 25 ml Q15M PRN IV DECREASED GLUCOSE; Start 01/11/19 at 21:00 Dextrose (D50w Syringe) 50 ml Q15M PRN IV DECREASED GLUCOSE; Start 01/11/19 at 21:00 Glucagon (Glucagen) 1 mg Q15M PRN IM DECREASED GLUCOSE; Start 01/11/19 at 21:00 Glucose (Glutose) 15 gm Q15M PRN BUCCAL DECREASED GLUCOSE; Start 01/11/19 at 21:00 Allergies: Coded Allergies: Penicillins (Unverified Allergy, Unknown, 01/10/19) Past Surgical History g-tube Social History Smoking Status: Unknown if ever smoked Exam/Review of Systems Exam Vitals Vital Signs Date Temp Pulse Resp B/P (MAP) Pulse Ox O2 O2 Flow FiO2 Time Delivery Rate 01/12/19 78 04:00 01/12/19 98.2 19 158/62 92 03:45 (94) 01/11/19 Room Air 18:19 Constitutional: alert Eyes: nl sclera ENMT: mucosa pink and moist Respiratory: clear to auscultation Cardiovascular: regular rate and rhythm Gastrointestinal: soft, non-tender Extremities: other (wasting to legs but no edema) Results Result Diagram: 01/12/19 0510 01/12/19 0510 Results 24hrs Laboratory Tests Test 01/11/19 09:02 01/11/19 16:54 01/12/19 00:35 01/12/19 05:09 Bedside Glucose 128 165 200 195 Random Vancomycin 10.4 Level Test 01/12/19 05:10 White Blood Count 11.1 #H Red Blood Count 2.88 L Hemoglobin 7.7 L Hematocrit 26.5 L Mean Corpuscular 92.0 Volume Mean Corpuscular 26.7 L Hemoglobin Mean Corpuscular 29.1 L Hemoglobin Concent Red Cell 16.2 H Distribution Width Platelet Count 253 Mean Platelet Volume 12.7 H Immature 1.900 H Granulocytes % Neutrophils % 81.6 H Lymphocytes % 10.5 L Monocytes % 3.9 Eosinophils % 1.6 Basophils % 0.5 Nucleated Red Blood 1.7 H Cells % Immature 0.210 H Granulocytes # Neutrophils # 9.1 H Lymphocytes # 1.2 Monocytes # 0.4 Eosinophils # 0.2 Basophils # 0.1 Nucleated Red Blood 0.2 H Cells # Sodium Level 163 *H Potassium Level 3.6 Chloride Level 131 H Carbon Dioxide Level 24 Anion Gap 8 Blood Urea Nitrogen 103 H Creatinine 2.22 H Est Glomerular Filtrat Rate mL/min Glucose Level 186 Lactic Acid Level 1.7 Calcium Level 8.5 Troponin I 0.082 Medications Medication Current Medications Sodium Chloride 1,000 ml @ 100 mls/hr Q10H IV Last administered on 01/12/19at 00:52; Admin Dose 100 MLS/HR; Start 01/11/19 at 15:30 Vancomycin HCl (Vanco Iv Per Pharmacy) VANCOMYCIN PER PHARMACY PER PROTOCOL XX ; Start 01/11/19 at 17:00 Meropenem/Sodium Chloride 50 ml @ 100 mls/hr Q12 IVPB Last administered on 01/11/19at 18:23; Admin Dose 100 MLS/HR; Start 01/11/19 at 17:30 Insulin Aspart (Novolog Insulin Pen) NOVOLOG *MILD* ALGORI... Q4 SC Last administered on 01/12/19at 05:34; Admin Dose 2 UNIT; Start 01/11/19 at 21:00 Miscellaneous Information 1 ea NOTE XX ; Start 01/11/19 at 21:00 Glucose (Glutose) 15 gm Q15M PRN PO DECREASED GLUCOSE; Start 01/11/19 at 21:00 Glucose (Glutose) 22.5 gm Q15M PRN PO DECREASED GLUCOSE; Start 01/11/19 at 21:00 Dextrose (D50w Syringe) 25 ml Q15M PRN IV DECREASED GLUCOSE; Start 01/11/19 at 21:00 Dextrose (D50w Syringe) 50 ml Q15M PRN IV DECREASED GLUCOSE; Start 01/11/19 at 21:00 Glucagon (Glucagen) 1 mg Q15M PRN IM DECREASED GLUCOSE; Start 01/11/19 at 21:00 Glucose (Glutose) 15 gm Q15M PRN BUCCAL DECREASED GLUCOSE; Start 01/11/19 at 21:00 TANVI ALBA MD Jan 12, 2019 06:47
[2019-01-12] MEDS: BALSAM PERU/CASTOR OIL 60 GM TUBE TOP SCH ×2 (08:49→20:25)
[2019-01-12] MEDS: MEROPENEM 500MG/50 ML (PMX) 50 ML IVPB SCH ×2 (08:52→20:17)
[2019-01-12] MEDS ORDERED: VANCOMYCIN 750 MG (PMX) 250 ML IVPB SCH (13:00)
[2019-01-13] VITALS (10 sets, daily range): BP systolic 124–186; BP diastolic 58–79; PULSE 66–75; RESP 20–22
[2019-01-13] MEDS: INSULIN ASPART [NOVOLOG] 3 ML PEN SC SCH ×6 (01:40→21:48)
--- NOTE | 2019-01-13 04:09 | PN ---
DATE: 01/12/2019 SUBJECTIVE: The patient is presently lethargic. PHYSICAL EXAMINATION: VITAL SIGNS: Temperature 98.0, blood pressure 160/70, O2 saturation 98% on 2 liters nasal cannula. HEENT: JVD is not increased. CHEST: Revealed decreased breath sounds at bases. HEART: S1, S2 with no definite gallops. ABDOMEN: Soft. EXTREMITIES: Wasting of the lower extremities. Mercedez sign is negative. Dr. Glover' ID consultation greatly appreciated. LABORATORY DATA: WBC 11.1, hematocrit 26.5, glucose levels normal glycemic range. BNP 65,500. Bloo d cultures no growth in 24 hours. IMPRESSION: 1. Bilateral pneumonia with component of congestive heart failure. 2. Diabetes mellitus type 2, well controlled. 3. Severe hyponatremia. 4. Acute on chronic renal failure. 5. Multi-infarct dementia. PLAN: We will continue IV antibiotics. Decrease IV fluids. Recheck labs in a.m. Consider small do se of diuretics if needed. Dictated By: NATALI TIWARI MD, SR/EDWAR Conf#: [id number] DID#: [id number]
--- NOTE | 2019-01-13 06:14 | CONS ---
Assessment/Plan Assessment/Plan Hospital Course (Demo Recall) 1) weakness and AMS by report pt seems more calm this a.m. responds to speaking in malaysian and followed directions 2) pulmonary infiltrates CHF vs pneumonia pt is on vanco/merrem, await procalcitonin but pt is not coughing and no fever or hypothermia WBC has quickly improved too 01/13 - initial procalcitonin was neg, if repeat today is neg to d/c antibiotics CXR shows improvement 3) CRI with acute component this has already improved 4) hypernatremia w/up per primary but no sign of UTI or significant hyperglycemia no report of V or D pt on hydration with 1/2NS Consultation Date/Type/Reason Admit Date/Time Jan 10, 2019 at 20:06 Initial Consult Date 01/12/19 Type of Consult ID Date/Time of Note DATE: 01/13/19 TIME: 06:12 24 HR Interval Summary Free Text/Dictation soft stools no V breathing is stable Exam/Review of Systems Exam Vitals Vital Signs Date Temp Pulse Resp B/P (MAP) Pulse Ox O2 O2 Flow FiO2 Time Delivery Rate 01/13/19 97.6 71 20 158/70 96 04:00 (99) 01/12/19 Nasal 15:01 Cannula Intake and Output 01/12/19 01/12/19 01/13/19 1515:00 23:00 07:00 IntakeIntake Total 300 ml 1980 ml BalanceBalance 300 ml 1980 ml Constitutional: alert Respiratory: clear to auscultation Cardiovascular: regular rate and rhythm Gastrointestinal: soft, non-tender Results Result Diagram: 01/12/19 0510 01/12/19 0510 Results 24hrs Laboratory Tests Test 01/12/19 08:28 01/12/19 11:47 01/12/19 17:35 01/12/19 20:21 Bedside Glucose 204 138 197 215 Test 01/13/19 01:29 01/13/19 05:22 01/13/19 05:25 Bedside Glucose 192 207 White Blood Count Pending Red Blood Count Pending Hemoglobin Pending Hematocrit Pending Mean Corpuscular Pending Volume Mean Corpuscular Pending Hemoglobin Mean Corpuscular Pending Hemoglobin Concent Red Cell Pending Distribution Width Platelet Count Pending Mean Platelet Volume Pending Medications Medication Current Medications Sodium Chloride 1,000 ml @ 40 mls/hr Q24H IV Last administered on 01/12/19at 11:46; Admin Dose 100 MLS/HR; Start 01/11/19 at 15:30 Vancomycin HCl (Vanco Iv Per Pharmacy) VANCOMYCIN PER PHARMACY PER PROTOCOL XX ; Start 01/11/19 at 17:00 Meropenem/Sodium Chloride 50 ml @ 100 mls/hr Q12 IVPB Last administered on 01/12/19at 20:17; Admin Dose 100 MLS/HR; Start 01/11/19 at 17:30 Insulin Aspart (Novolog Insulin Pen) NOVOLOG *MILD* ALGORI... Q4 SC Last administered on 01/13/19at 05:58; Admin Dose 2 UNIT; Start 01/11/19 at 21:00 Miscellaneous Information 1 ea NOTE XX ; Start 01/11/19 at 21:00 Glucose (Glutose) 15 gm Q15M PRN PO DECREASED GLUCOSE; Start 01/11/19 at 21:00 Glucose (Glutose) 22.5 gm Q15M PRN PO DECREASED GLUCOSE; Start 01/11/19 at 21:00 Dextrose (D50w Syringe) 25 ml Q15M PRN IV DECREASED GLUCOSE; Start 01/11/19 at 21:00 Dextrose (D50w Syringe) 50 ml Q15M PRN IV DECREASED GLUCOSE; Start 01/11/19 at 21:00 Glucagon (Glucagen) 1 mg Q15M PRN IM DECREASED GLUCOSE; Start 01/11/19 at 21:00 Glucose (Glutose) 15 gm Q15M PRN BUCCAL DECREASED GLUCOSE; Start 01/11/19 at 21:00 TANVI ALBA MD Jan 13, 2019 06:14
[2019-01-13] MEDS: SOD CHLORIDE 0.45% 1,000 ML IV SCH (08:30)
[2019-01-13] MEDS: MEROPENEM 500MG/50 ML (PMX) 50 ML IVPB SCH (08:30)
[2019-01-13] MEDS: BALSAM PERU/CASTOR OIL 60 GM TUBE TOP SCH ×2 (12:56→20:01)
--- NOTE | 2019-01-13 17:21 | CONS ---
Assessment/Plan Assessment/Plan Hospital Course (Demo Recall) The patient is an 83-year-old lady brought in from convalescent home with chief complaints of generalized weakness and altered mental status. The patient herself is not able to give any history so most of the information were obtained from reviewing her medical records. She does have advanced multi-infarct dementia, diabetes mellitus type 2, hypertension, chronic kidney disease and dysphagia she is status post gastrostomy tube placement. She also has had cerebrovascular accident with contractures and non-ST elevation myocardial infarction. Attempts by the nursing staff to insert the Aranda catheter on a couple of occasions were not successful therefore a urological consultation was requested. I did check the patient and as I was about to insert the Aranda catheter for her I noticed that her bed sheath are all soaked and the urine that she voided was clear. I did a bladder scan on her and the bladder scan showed 15 to 80 mL postvoid residual. Therefore there is no urinary retention. She may need more hydration. I did communicate these findings to Dr. Sutton and at the present she does not need to have a Aranda catheter. Should she have a problem in the future I will be happy to come back and insert a catheter for her. Consultation Date/Type/Reason Admit Date/Time Jan 10, 2019 at 20:06 Date of Consultation: Jan 13, 2019 Type of Consult Urology Reason for Consultation Possible urinary retention and difficulty by the nursing staff to insert the Fo teena catheter Requesting Provider: NATALI SUTTON MD Date/Time of Note DATE: 01/13/19 TIME: 17:13 Hx of Present Illness The patient is an 83-year-old lady brought in from convalescent home with chief complaints of generalized weakness and altered mental status. The patient herself is not able to give any history so most of the information were obtained from reviewing her medical records. She does have advanced multi-infarct dementia, diabetes mellitus type 2, hypertension, chronic kidney disease and dysphagia she is status post gastrostomy tube placement. She also has had cerebrovascular accident with contractures and non-ST elevation myocardial infarction. Attempts by the nursing staff to insert the Aranda catheter on a couple of occasions were not successful therefore a urological consultation was requested. Subjective hx not possible: pt non-verbal Past Medical History Medical History: other (As per history of present illness) Home Meds Active Scripts Donepezil* (Aricept*) 5 Mg Tablet, 5 MG PO DAILY for 30 Days, #30 TAB Prov:NATALI SUTTON MD 12/22/18 Reported Medications Metformin Hcl* (Metformin Hcl*) 500 Mg Tablet, 500 MG PO WITH BREAKFAST, #30 TAB 01/10/19 Docusate Sodium (Silace) 50 Mg/5 Ml Liquid, 10 ML PO DAILY PRN for PRN 12/09/18 Glipizide* (Glipizide*) 5 Mg Tablet, 5 MG PO AC BREAKFAST, TAB 12/09/18 Amlodipine Besylate* (Norvasc*) 5 Mg Tablet, 5 MG PO BID, TAB 12/09/18 Trazodone Hcl* (Trazodone Hcl*) 50 Mg Tablet, 50 MG PO Q6H, #30 TAB 12/09/18 Atenolol* (Atenolol*) 50 Mg Tablet, 50 MG PO DAILY, #30 TAB HOLD FOR SBP<100 12/09/18 Medications Current Medications Sodium Chloride 1,000 ml @ 40 mls/hr Q24H IV Last administered on 01/13/19at 08:30; Admin Dose 40 MLS/HR; Start 01/11/19 at 15:30 Insulin Aspart (Novolog Insulin Pen) NOVOLOG *MILD* ALGORI... Q4 SC Last administered on 01/13/19at 14:21; Admin Dose 1 UNIT; Start 01/11/19 at 21:00 Miscellaneous Information 1 ea NOTE XX ; Start 01/11/19 at 21:00 Glucose (Glutose) 15 gm Q15M PRN PO DECREASED GLUCOSE; Start 01/11/19 at 21:00 Glucose (Glutose) 22.5 gm Q15M PRN PO DECREASED GLUCOSE; Start 01/11/19 at 21:00 Dextrose (D50w Syringe) 25 ml Q15M PRN IV DECREASED GLUCOSE; Start 01/11/19 at 21:00 Dextrose (D50w Syringe) 50 ml Q15M PRN IV DECREASED GLUCOSE; Start 01/11/19 at 21:00 Glucagon (Glucagen) 1 mg Q15M PRN IM DECREASED GLUCOSE; Start 01/11/19 at 21:00 Glucose (Glutose) 15 gm Q15M PRN BUCCAL DECREASED GLUCOSE; Start 01/11/19 at 21:00 Clonidine (Catapres) 0.1 mg Q4H PRN PO ELEVATED BLOOD PRESSURE Last administered on 01/13/19at 08:31; Admin Dose 0.1 MG; Start 01/13/19 at 08:30 Allergies: Coded Allergies: Penicillins (Unverified Allergy, Unknown, 01/10/19) Past Surgical History Past Surgical Hx: other (As per history of present illness) Social History Smoking Status: Unknown if ever smoked Exam/Review of Systems Exam Vitals Vital Signs Date Temp Pulse Resp B/P (MAP) Pulse Ox O2 O2 Flow FiO2 Time Delivery Rate 01/13/19 98.0 66 22 145/65 93 Room Air 16:14 (91) Intake and Output 01/12/19 01/12/19 01/13/19 1515:00 23:00 07:00 IntakeIntake Total 300 ml 1980 ml 880 ml BalanceBalance 300 ml 1980 ml 880 ml Exam The patient is awake. She does have lower extremities contractures. As I tried to position her to insert the Aranda catheter I noticed that her bed sheets are very soaked with yellow clear urine therefore I went ahead and did a bladder scan on her and that showed 15 to 80 mL and that indicates that she has no urinary retention. Results Result Diagram: 01/13/19 0501/13/19 05 Results 24hrs Laboratory Tests Test 01/12/19 17:35 01/12/19 20:21 01/13/19 01:29 01/13/19 05:22 Bedside Glucose 197 215 192 White Blood Count 9.8 Red Blood Count 2.61 L Hemoglobin 7.0 L Hematocrit 23.8 L Mean Corpuscular 91.2 Volume Mean Corpuscular 26.8 L Hemoglobin Mean Corpuscular 29.4 L Hemoglobin Concent Red Cell 16.5 H Distribution Width Platelet Count 239 Mean Platelet Volume 13.3 H Immature 2.200 H Granulocytes % Neutrophils % 71.0 Lymphocytes % 18.8 Monocytes % 4.8 Eosinophils % 2.6 Basophils % 0.6 Nucleated Red Blood 2.3 H Cells % Immature 0.220 H Granulocytes # Neutrophils # 7.0 Lymphocytes # 1.8 Monocytes # 0.5 Eosinophils # 0.3 Basophils # 0.1 Nucleated Red Blood 0.2 H Cells # Sodium Level 159 H Potassium Level 3.9 Chloride Level 129 H Carbon Dioxide Level 22 Anion Gap 8 Blood Urea Nitrogen 99 H Creatinine 2.03 H Est Glomerular Filtrat Rate mL/min Glucose Level 185 Calcium Level 8.2 L Total Bilirubin 0.4 Direct Bilirubin 0.00 Indirect Bilirubin 0.4 Aspartate Amino 33 Transf (AST/SGOT) Alanine 25 Aminotransferase (AL T/SGPT) Alkaline Phosphatase 130 H Total Protein 5.8 L Albumin 2.7 L Globulin 3.10 Albumin/Globulin 0.87 Ratio Procalcitonin 0.13 H Test 01/13/19 05:25 01/13/19 08:38 01/13/19 12:57 Bedside Glucose 207 186 148 Medications Medication Current Medications Sodium Chloride 1,000 ml @ 40 mls/hr Q24H IV Last administered on 01/13/19at 08:30; Admin Dose 40 MLS/HR; Start 01/11/19 at 15:30 Insulin Aspart (Novolog Insulin Pen) NOVOLOG *MILD* ALGORI... Q4 SC Last administered on 01/13/19at 14:21; Admin Dose 1 UNIT; Start 01/11/19 at 21:00 Miscellaneous Information 1 ea NOTE XX ; Start 01/11/19 at 21:00 Glucose (Glutose) 15 gm Q15M PRN PO DECREASED GLUCOSE; Start 01/11/19 at 21:00 Glucose (Glutose) 22.5 gm Q15M PRN PO DECREASED GLUCOSE; Start 01/11/19 at 21:00 Dextrose (D50w Syringe) 25 ml Q15M PRN IV DECREASED GLUCOSE; Start 01/11/19 at 21:00 Dextrose (D50w Syringe) 50 ml Q15M PRN IV DECREASED GLUCOSE; Start 01/11/19 at 21:00 Glucagon (Glucagen) 1 mg Q15M PRN IM DECREASED GLUCOSE; Start 01/11/19 at 21:00 Glucose (Glutose) 15 gm Q15M PRN BUCCAL DECREASED GLUCOSE; Start 01/11/19 at 21:00 Clonidine (Catapres) 0.1 mg Q4H PRN PO ELEVATED BLOOD PRESSURE Last administered on 01/13/19at 08:31; Admin Dose 0.1 MG; Start 01/13/19 at 08:30 LENA KRUSE MD Jan 13, 2019 17:21
[2019-01-14] VITALS (12 sets, daily range): BP systolic 155–163; BP diastolic 63–79; PULSE 66–77; RESP 18–20
[2019-01-14] MEDS: INSULIN ASPART [NOVOLOG] 3 ML PEN SC SCH ×5 (01:35→18:13)
[2019-01-14] MEDS: BALSAM PERU/CASTOR OIL 60 GM TUBE TOP SCH ×2 (09:43→21:05)
[2019-01-14] MEDS: SOD CHLORIDE 0.45% 1,000 ML IV SCH (09:45)
--- NOTE | 2019-01-14 14:52 | CONS ---
Consult Date/Type/Reason Admit Date/Time Jan 10, 2019 at 20:06 Initial Consult Date 01/13/19 Type of Consultation: Urology Reason for Consultation Difficulty inserting a Aranda catheter by the nursing staff and question of oliguria Requesting Provider: NATALI SUTTON MD Date/Time of Note DATE: 01/14/19 TIME: 14:49 Subjective Patient is resting comfortable in bed Objective Vitals Vital Signs Date Temp Pulse Resp B/P (MAP) Pulse Ox O2 O2 Flow FiO2 Time Delivery Rate 01/14/19 72 12:01 01/14/19 98.2 20 163/72 94 Room Air 11:08 (102) Intake and Output 01/13/19 01/13/19 01/14/19 1515:00 23:00 07:00 IntakeIntake Total 780 ml 1260 ml BalanceBalance 780 ml 1260 ml Exam She is incontinent. The bladder is not distended. Results/Medications Result Diagram: 01/14/19 0514 01/14/19 0514 Results 24 hrs Laboratory Tests Test 01/13/19 18:42 01/13/19 21:37 01/14/19 01:28 01/14/19 05:01 Bedside Glucose 219 235 H 213 251 H Test 01/14/19 05:14 01/14/19 09:42 01/14/19 13:28 White Blood Count 11.4 H Red Blood Count 3.39 #L Hemoglobin 9.2 #L Hematocrit 30.8 #L Mean Corpuscular 90.9 Volume Mean Corpuscular 27.1 L Hemoglobin Mean Corpuscular 29.9 L Hemoglobin Concent Red Cell 17.2 H Distribution Width Platelet Count 235 Mean Platelet Volume 13.2 H Immature 3.100 H Granulocytes % Neutrophils % 71.2 Lymphocytes % 18.4 Monocytes % 5.0 Eosinophils % 1.5 Basophils % 0.8 Nucleated Red Blood 3.2 H Cells % Immature 0.350 H Granulocytes # Neutrophils # 8.1 H Lymphocytes # 2.1 Monocytes # 0.6 Eosinophils # 0.2 Basophils # 0.1 Nucleated Red Blood 0.4 H Cells # Sodium Level 158 H Potassium Level 4.5 Chloride Level 128 H Carbon Dioxide Level 21 Anion Gap 9 Blood Urea Nitrogen 99 H Creatinine 1.94 H Est Glomerular Filtrat Rate mL/min Glucose Level 239 H Calcium Level 8.0 L Magnesium Level 2.8 H Bedside Glucose 168 192 Home Meds Active Scripts Donepezil* (Aricept*) 5 Mg Tablet, 5 MG PO DAILY for 30 Days, #30 TAB Prov:NATALI SUTTON MD 12/22/18 Reported Medications Metformin Hcl* (Metformin Hcl*) 500 Mg Tablet, 500 MG PO WITH BREAKFAST, #30 TAB 01/10/19 Docusate Sodium (Silace) 50 Mg/5 Ml Liquid, 10 ML PO DAILY PRN for PRN 12/09/18 Glipizide* (Glipizide*) 5 Mg Tablet, 5 MG PO AC BREAKFAST, TAB 12/09/18 Amlodipine Besylate* (Norvasc*) 5 Mg Tablet, 5 MG PO BID, TAB 12/09/18 Trazodone Hcl* (Trazodone Hcl*) 50 Mg Tablet, 50 MG PO Q6H, #30 TAB 12/09/18 Atenolol* (Atenolol*) 50 Mg Tablet, 50 MG PO DAILY, #30 TAB HOLD FOR SBP<100 12/09/18 Medications Current Medications Sodium Chloride 1,000 ml @ 40 mls/hr Q24H IV Last administered on 01/14/19at 09:45; Admin Dose 40 MLS/HR; Start 01/11/19 at 15:30 Insulin Aspart (Novolog Insulin Pen) NOVOLOG *MILD* ALGORI... Q4 SC Last adm inistered on 01/14/19at 13:53; Admin Dose 2 UNIT; Start 01/11/19 at 21:00 Miscellaneous Information 1 ea NOTE XX ; Start 01/11/19 at 21:00 Glucose (Glutose) 15 gm Q15M PRN PO DECREASED GLUCOSE; Start 01/11/19 at 21:00 Glucose (Glutose) 22.5 gm Q15M PRN PO DECREASED GLUCOSE; Start 01/11/19 at 21:00 Dextrose (D50w Syringe) 25 ml Q15M PRN IV DECREASED GLUCOSE; Start 01/11/19 at 21:00 Dextrose (D50w Syringe) 50 ml Q15M PRN IV DECREASED GLUCOSE; Start 01/11/19 at 21:00 Glucagon (Glucagen) 1 mg Q15M PRN IM DECREASED GLUCOSE; Start 01/11/19 at 21:00 Glucose (Glutose) 15 gm Q15M PRN BUCCAL DECREASED GLUCOSE; Start 01/11/19 at 21:00 Clonidine (Catapres) 0.1 mg Q4H PRN PO ELEVATED BLOOD PRESSURE Last administered on 01/13/19at 08:31; Admin Dose 0.1 MG; Start 01/13/19 at 08:30 Assessment/Plan Hospital Course (Demo Recall) The patient is an 83-year-old lady brought in from convalescent home with chief complaints of generalized weakness and altered mental status. The patient herself is not able to give any history so most of the information were obtained from reviewing her medical records. She does have advanced multi-infarct dementia, diabetes mellitus type 2, hypertension, chronic kidney disease and dysphagia she is status post gastrostomy tube placement. She also has had cerebrovascular accident with contractures and non-ST elevation myocardial in farction. Attempts by the nursing staff to insert the Aranda catheter on a couple of occasions were not successful therefore a urological consultation was requested. I did check the patient and as I was about to insert the Aranda catheter for her I noticed that her bed sheath are all soaked and the urine that she voided was clear. I did a bladder scan on her and the bladder scan showed 15 to 80 mL postvoid residual. Therefore there is no urinary retention. She may need more hydration. I did communicate these findings to Dr. Sutton and at the present she does not need to have a Aranda catheter. Patient continues to urinate in the towels and the urine is clear. Her bladder is not distended. I will see her again if needed LENA KRUSE MD Jan 14, 2019 14:52
--- NOTE | 2019-01-14 18:46 | PN ---
DATE: 01/14/2019 SUBJECTIVE: The patient is lethargic, has had periods of agitation. Apparently, patient was wheezin g earlier, vomited x1. OBJECTIVE: VITAL SIGNS: Temperature 97.6, blood pressure 150/72, O2 sat 98% on room air. CHEST EXAM: Occasional wheezes. HEART: S1, S2 heard, no definite gallops. EXTREMITIES: No edema. LABORATORY DATA: Glucose of 239 this morning, 168, and 192, magnesium 2.8, sodium 158. Dr. Oconnell's urology consultation greatly appreciated. The patient was having difficulty voiding, b ut presently she continues to void well. Bladder is not distended. Blood cultures negative so far. Urine culture negative. IMPRESSION: The patient presented with clinical picture consistent with bilateral pneumonia, but cli nically appears to be improving. She did receive vancomycin and Merrem in the emergency room. Prese ntly off antibiotics. We will repeat chest x-ray in a.m. and follow recommendations per Dr. Glover. R [facility] labs in a.m. Dictated By: NATALI TIWARI MD, SR/EDWAR Conf#: [id number] DID#: [id number]
[2019-01-14] MEDS ORDERED: ALBUTEROL/IPRATROPIUM (NEB) 3 ML AMP HHN STA (23:49)
[2019-01-15] VITALS (11 sets, daily range): BP systolic 142–180; BP diastolic 63–83; PULSE 68–79; RESP 16–22
[2019-01-15] MEDS ORDERED: FUROSEMIDE 40 MG INJ IV ONE
[2019-01-15] MEDS ORDERED: ALBUTEROL/IPRATROPIUM (NEB) 3 ML AMP HHN PRN
[2019-01-15] MEDS: hydrALAzine 20 MG INJ IV PRN ×3 (00:14→09:16)
[2019-01-15] MEDS: traZODone 50 MG TAB GTB PRN (00:14)
[2019-01-15] MEDS: ONDANSETRON 4 MG INJ IV PRN ×2 (00:14→05:05)
[2019-01-15] MEDS: INSULIN ASPART [NOVOLOG] 3 ML PEN SC SCH ×4 (05:27→17:27)
--- NOTE | 2019-01-15 06:59 | CONS ---
Assessment/Plan Assessment/Plan Hospital Course (Demo Recall) 1) weakness and AMS by report pt seems more calm this a.m. responds to speaking in tristanian and followed directions 2) pulmonary infiltrates CHF vs pneumonia pt is on vanco/merrem, await procalcitonin but pt is not coughing and no fever or hypothermia WBC has quickly improved too 01/13 - initial procalcitonin was neg, if repeat today is neg to d/c antibiotics CXR shows improvement 01/15 - vomiting noted with some coughing CXR late last night shows general haziness to R lung to repeat procalcitonin this a.m., WBC is minimally elevated if procalcitonin is elevated to start vanco/merrem again 3) CRI with acute component this has already improved 4) hypernatremia w/up per primary but no sign of UTI or significant hyperglycemia no report of V or D pt on hydration with 1/2NS Consultation Date/Type/Reason Admit Date/Time Jan 10, 2019 at 20:06 Initial Consult Date 01/12/19 Type of Consult ID Requesting Provider: NATALI TIWARI MD Date/Time of Note DATE: 01/15/19 TIME: 06:56 24 HR Interval Summary Free Text/Dictation spoke to caregiver in room pt vomited several times during the day and at night pt now has a cough no D Exam/Review of Systems Exam Vitals Vital Signs Date Temp Pulse Resp B/P (MAP) Pulse Ox O2 O2 Flow FiO2 Time Delivery Rate 01/15/19 76 04:00 01/15/19 22 96 21 00:16 01/15/19 97.9 180/83 00:00 (115) 01/14/19 Room Air 15:03 Intake and Output 01/14/19 01/14/19 01/15/19 1515:00 23:00 07:00 IntakeIntake Total 1050 ml 425 ml BalanceBalance 1050 ml 425 ml Constitutional: non-verbal ENMT: mucosa pink and moist Respiratory: other (bibasilar rales) Cardiovascular: regular rate and rhythm Gastrointestinal: soft Results Result Diagram: 01/15/19 0529 01/14/19 0514 Results 24hrs Laboratory Tests Test 01/14/19 09:42 01/14/19 13:28 01/14/19 18:07 01/14/19 23:37 Bedside Glucose 168 192 210 278 H Test 01/15/19 05:10 01/15/19 05:29 Bedside Glucose 178 White Blood Count 12.1 H Red Blood Count 3.22 L Hemoglobin 8.9 L Hematocrit 29.2 L Mean Corpuscular 90.7 Volume Mean Corpuscular 27.6 L Hemoglobin Mean Corpuscular 30.5 L Hemoglobin Concent Red Cell 17.2 H Distribution Width Platelet Count 218 Mean Platelet Volume 13.5 H Immature 4.200 H Granulocytes % Neutrophils % 78.8 H Lymphocytes % 10.5 L Monocytes % 5.3 Eosinophils % 0.5 Basophils % 0.7 Nucleated Red Blood 4.1 H Cells % Immature 0.510 H Granulocytes # Neutrophils # 9.5 H Lymphocytes # 1.3 Monocytes # 0.6 Eosinophils # 0.1 Basophils # 0.1 Nucleated Red Blood 0.5 H Cells # Medications Medication Current Medications Miscellaneous Information 1 ea NOTE XX ; Start 01/11/19 at 21:00 Glucose (Glutose) 15 gm Q15M PRN PO DECREASED GLUCOSE; Start 01/11/19 at 21:00 Glucose (Glutose) 22.5 gm Q15M PRN PO DECREASED GLUCOSE; Start 01/11/19 at 21:00 Dextrose (D50w Syringe) 25 ml Q15M PRN IV DECREASED GLUCOSE; Start 01/11/19 at 21:00 Dextrose (D50w Syringe) 50 ml Q15M PRN IV DECREASED GLUCOSE; Start 01/11/19 at 21:00 Glucagon (Glucagen) 1 mg Q15M PRN IM DECREASED GLUCOSE; Start 01/11/19 at 21:00 Glucose (Glutose) 15 gm Q15M PRN BUCCAL DECREASED GLUCOSE; Start 01/11/19 at 21:00 Clonidine (Catapres) 0.1 mg Q4H PRN PO ELEVATED BLOOD PRESSURE Last administered on 01/13/19at 08:31; Admin Dose 0.1 MG; Start 01/13/19 at 08:30 Insulin Aspart (Novolog Insulin Pen) NOVOLOG *MILD* ALGORI... Q6 SC Last administered on 01/15/19at 05:27; Admin Dose 1 UNIT; Start 01/14/19 at 18:00 Ondansetron HCl (Zofran Inj) 4 mg Q4H PRN IV NAUSEA AND/OR VOMITING Last administered on 01/15/19at 05:05; Admin Dose 4 MG; Start 01/14/19 at 23:30 Hydralazine HCl (Apresoline) 5 mg Q4H PRN IV ELEVATED BLOOD PRESSURE Last administered on 01/15/19at 05:05; Admin Dose 5 MG; Start 01/15/19 at 00:00 Albuterol/ Ipratropium (Duoneb) 3 ml Q4HWA RESP THERAPY HHN ; Start 01/15/19 at 09:00 Albuterol/ Ipratropium (Duoneb) 3 ml Q4H RESP THERAPY PRN HHN SHORTNESS OF BREATH; Start 01/15/19 at 00:00 Trazodone HCl (Desyrel) 50 mg Q4H PRN GTB AGITATION/ANXIETY Last administered on 01/15/19at 00:14; Admin Dose 50 MG; Start 01/15/19 at 00:00 Vancomycin HCl 250 ml @ 125 mls/hr ONCE ONCE IVPB ; Start 01/15/19 at 07:00; Stop 01/15/19 at 08:59 Vancomycin HCl (Vanco Iv Per Pharmacy) 1 ea PER PROTOCOL XX ; Start 01/15/19 at 07:00; Status UNV Cefepime HCl 50 ml @ 100 mls/hr DAILY IVPB ; Start 01/15/19 at 09:00 TANVI ALBA MD Jan 15, 2019 06:59
[2019-01-15] MEDS ORDERED: VANCOMYCIN IV PER PHARMACY XX SCH (07:00)
[2019-01-15] MEDS ORDERED: VANCOMYCIN 1 GM (PMX) 250 ML IVPB ONE (07:00)
--- NOTE | 2019-01-15 07:18 | PN ---
DATE: 01/13/2019 SUBJECTIVE: The patient is lethargic. Shortness of breath slightly improved. VITAL SIGNS: Temperature 97.6, blood pressure 124/58, O2 saturation 98% on room air. HEENT: Moderate pallor, without cyanosis. CHEST: Few rhonchi at the bases. HEART: S1, S2 with no definite gallops. EXTREMITIES: No edema. LABORATORY DATA: WBC count 9.8, hematocrit 23.8, hemoglobin is 7, sodium 159, potassium 3.1, BUN 99, creatinine 2.03. Glucose 207, 186, 148 today. Procalcitonin 0.13. IMPRESSION: 1. Bilateral pneumonia with limit of congestive heart failure. 2. Severe hypernatremia. 3. Diabetes type 2, well controlled. 4. [id number] renal failure. 5. Severe anemia, rule out underlying gastrointestinal bleed. RECOMMENDATIONS: We will get stool for OB, type and cross for 1 unit of packed cells, transfuse, con tinue gentle hydration. Recheck labs in a.m. Dictated By: NATALI TIWARI MD SR/NTS Conf#: [id number] DID#: [id number] CC: NATALI TIWARI MD;*EndCC*
[2019-01-15] MEDS: ALBUTEROL/IPRATROPIUM (NEB) 3 ML AMP HHN SCH ×4 (08:58→21:20)
--- NOTE | 2019-01-15 09:05 | PN ---
DATE: 01/15/2019 SUBJECTIVE: The patient vomited last night and was coughing with some wheezing. PHYSICAL EXAMINATION: VITAL SIGNS: Temperature 98.3, blood pressure 172/73, O2 sats 98% on room air. CHEST: Revealed few wheezes. HEART: S1, S2 heard, no definite gallops. ABDOMEN: Soft, bowel sounds hypoactive. EXTREMITIES: No edema. LABORATORY DATA: WBC count is 12.1, hematocrit 29.2. Sodium 159, potassium 4.1, BUN 99, creatinine 2.04. 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 The patient did have several BMs since then . IMPRESSION: 1. Aspiration pneumonia with an element of congestive heart failure. 2. Severe hypernatremia. 3. Diabetes mellitus type 2. 4. Acute on chronic renal failure and anemia. PLAN: We will continue bronchodilators and her lab with other treatment, IV antibiotics, pulmonary t oilet and follow recommendations per Dr. Glover. We will request GI followup with Dr. Tohmas if necess vivian, we will restart tube feedings now. Dictated By: NATALI ITWARI MD SR/NTS Conf#: [id number] DID#: [id number] CC: NATALI TIWARI MD;*EndCC*
[2019-01-15] MEDS: BALSAM PERU/CASTOR OIL 60 GM TUBE TOP SCH ×2 (09:10→20:37)
[2019-01-15] MEDS: CEFEPIME 1GM/50 ML (PMX) 50 ML IVPB SCH (11:19)
[2019-01-16] VITALS (14 sets, daily range): BP systolic 137–175; BP diastolic 62–95; PULSE 69–98; RESP 16–20
[2019-01-16] MEDS: INSULIN ASPART [NOVOLOG] 3 ML PEN SC SCH ×4 (01:34→17:16)
--- NOTE | 2019-01-16 06:43 | CONS ---
Assessment/Plan Assessment/Plan Hospital Course (Demo Recall) 1) weakness and AMS by report pt seems more calm this a.m. responds to speaking in indonesian and followed directions 2) pulmonary infiltrates CHF vs pneumonia pt is on vanco/merrem, await procalcitonin but pt is not coughing and no fever or hypothermia WBC has quickly improved too 01/13 - initial procalcitonin was neg, if repeat today is neg to d/c antibiotics CXR shows improvement 01/15 - vomiting noted with some coughing CXR late last night shows general haziness to R lung to repeat procalcitonin this a.m., WBC is minimally elevated if procalcitonin is elevated to start vanco/merrem again 01/16 - procalcitonin was neg (neg is less than 0.2-0.25) repeat this a.m. and if still neg to d/c antibiotics no wheezing this a.m. 3) CRI with acute component this has already improved 4) hypernatremia w/up per primary but no sign of UTI or significant hyperglycemia no report of V or D pt on hydration with 1/2NS Consultation Date/Type/Reason Admit Date/Time Jan 10, 2019 at 20:06 Initial Consult Date 01/12/19 Type of Consult ID Requesting Provider: NATALI TIWARI MD Date/Time of Note DATE: 01/16/19 TIME: 06:41 24 HR Interval Summary Free Text/Dictation pt off O2 minimal cough no more vomiting since yesterday a.m. no diarrhea tolerating TF Exam/Review of Systems Exam Vitals Vital Signs Date Temp Pulse Resp B/P (MAP) Pulse Ox O2 O2 Flow FiO2 Time Delivery Rate 01/16/19 72 04:00 01/16/19 98.3 16 159/72 98 03:13 (101) 01/16/19 21 01:27 01/15/19 Room Air 15:31 Intake and Output 01/15/19 01/15/19 01/16/19 1515:00 23:00 07:00 IntakeIntake Total 300 ml 390 ml 680 ml BalanceBalance 300 ml 390 ml 680 ml Constitutional: alert ENMT: mucosa pink and moist Respiratory: clear to auscultation, other (some decreased BS on R) Cardiovascular: regular rate and rhythm Results Result Diagram: 01/16/1952801/15/19528 Results 24hrs Laboratory Tests Test 01/15/19 11:41 01/15/19 17:22 01/16/19 01:16 01/16/19 05:29 Bedside Glucose 203 154 230 H White Blood Count 9.6 # Red Blood Count 3.16 L Hemoglobin 8.6 L Hematocrit 29.3 L Mean Corpuscular 92.7 Volume Mean Corpuscular 27.2 L Hemoglobin Mean Corpuscular 29.4 L Hemoglobin Concent Red Cell 18.2 H Distribution Width Platelet Count 197 Mean Platelet Volume 13.5 H Immature 3.300 H Granulocytes % Neutrophils % 75.8 Lymphocytes % 12.5 L Monocytes % 6.2 Eosinophils % 1.4 Basophils % 0.8 Nucleated Red Blood 3.4 H Cells % Immature 0.320 H Granulocytes # Neutrophils # 7.3 Lymphocytes # 1.2 Monocytes # 0.6 Eosinophils # 0.1 Basophils # 0.1 Nucleated Red Blood 0.3 H Cells # Medications Medication Current Medications Miscellaneous Information 1 ea NOTE XX ; Start 01/11/19 at 21:00 Glucose (Glutose) 15 gm Q15M PRN PO DECREASED GLUCOSE; Start 01/11/19 at 21:00 Glucose (Glutose) 22.5 gm Q15M PRN PO DECREASED GLUCOSE; Start 01/11/19 at 21:00 Dextrose (D50w Syringe) 25 ml Q15M PRN IV DECREASED GLUCOSE; Start 01/11/19 at 21:00 Dextrose (D50w Syringe) 50 ml Q15M PRN IV DECREASED GLUCOSE; Start 01/11/19 at 21:00 Glucagon (Glucagen) 1 mg Q15M PRN IM DECREASED GLUCOSE; Start 01/11/19 at 21:00 Glucose (Glutose) 15 gm Q15M PRN BUCCAL DECREASED GLUCOSE; Start 01/11/19 at 21:00 Clonidine (Catapres) 0.1 mg Q4H PRN PO ELEVATED BLOOD PRESSURE Last administered on 01/15/19at 13:12; Admin Dose 0.1 MG; Start 01/13/19 at 08:30 Insulin Aspart (Novolog Insulin Pen) NOVOLOG *MILD* ALGORI... Q6 SC Last administered on 01/16/19at 01:34; Admin Dose 3 UNIT; Start 01/14/19 at 18:00 Ondansetron HCl (Zofran Inj) 4 mg Q4H PRN IV NAUSEA AND/OR VOMITING Last administered on 01/15/19 05:05; Admin Dose 4 MG; Start 01/14/19 at 23:30 Hydralazine HCl (Apresoline) 5 mg Q4H PRN IV ELEVATED BLOOD PRESSURE Last administered on 01/15/19 09:16; Admin Dose 5 MG; Start 01/15/19 at 00:00 Albuterol/ Ipratropium (Duoneb) 3 ml Q4HWA RESP THERAPY HHN Last administered on 01/15/19 21:20; Admin Dose 3 ML; Start 01/15/19 at 09:00 Albuterol/ Ipratropium (Duoneb) 3 ml Q4H RESP THERAPY PRN HHN SHORTNESS OF BREATH Last administered on 01/16/19 01:27; Admin Dose 3 ML; Start 01/15/19 at 00:00 Trazodone HCl (Desyrel) 50 mg Q4H PRN GTB AGITATION/ANXIETY Last administered on 01/15/19 00:14; Admin Dose 50 MG; Start 01/15/19 at 00:00 Vancomycin HCl (Vanco Iv Per Pharmacy) 1 ea PER PROTOCOL XX ; Start 01/15/19 at 07:00 Cefepime HCl 50 ml @ 100 mls/hr DAILY IVPB Last administered on 01/15/19 11:19; Admin Dose 100 MLS/HR; Start 01/15/19 at 09:00 Vancomycin/Sodium Chloride 250 ml @ 125 mls/hr Q48H IVPB ; Start 01/17/19 at 08:00 TANVI ALBA MD Jan 16, 2019 06:43
[2019-01-16] MEDS: ALBUTEROL/IPRATROPIUM (NEB) 3 ML AMP HHN SCH ×4 (09:06→20:30)
[2019-01-16] MEDS: CEFEPIME 1GM/50 ML (PMX) 50 ML IVPB SCH (09:32)
[2019-01-16] MEDS: BALSAM PERU/CASTOR OIL 60 GM TUBE TOP SCH ×2 (09:36→21:30)
[2019-01-16] MEDS: ASCORBIC ACID 500 MG TAB GTB SCH (15:25)
[2019-01-16] MEDS: MULTIVITAMINS THERAPEUTIC TAB GTB SCH (15:27)
--- NOTE | 2019-01-16 22:25 | PN ---
DATE: 01/16/2019 SUBJECTIVE: Patient has been agitated intermittently, some cough. PHYSICAL EXAM: VITAL SIGNS: Temperature 98.3, blood pressure 145/68, O2 sats 100% on room air. CHEST: Reveals decreased breath sounds at the bases. HEART: S1, S2 heard, no definite gallops. EXTREMITIES: No edema, mild erythema on the medial aspect of the right heel. LABORATORY DATA: Sodium 157, potassium 4.3, BUN 99, creatinine 2.28, glucose 225. WBC count 9.6, he matocrit 29.3. IMPRESSION: 1. Probable aspiration pneumonia. 2. Severe hyponatremia, improving. 3. Diabetes type 2. 4. Acute on chronic renal failure. PLAN: We will continue bronchodilators and IV antibiotics. Followup chest x-ray in 2 days. Heel pr otectors. Apply moisturizer to the heels. Also, ordered an abdominal binder to prevent patient from pulling G-tube. Dictated By: NATALI TIWARI MD SR/NTS Conf#: [id number] DID#: [id number] CC: NATALI TIWARI MD;*EndCC*
[2019-01-17] VITALS (17 sets, daily range): BP systolic 158–191; BP diastolic 69–86; PULSE 69–83; RESP 17–20
[2019-01-17] MEDS: INSULIN ASPART [NOVOLOG] 3 ML PEN SC SCH ×5 (00:28→23:17)
[2019-01-17] MEDS: hydrALAzine 20 MG INJ IV PRN ×3 (04:41→19:55)
--- NOTE | 2019-01-17 06:38 | CONS ---
Assessment/Plan Assessment/Plan Hospital Course (Demo Recall) 1) weakness and AMS by report pt seems more calm this a.m. responds to speaking in russian and followed directions 2) pulmonary infiltrates CHF vs pneumonia pt is on vanco/merrem, await procalcitonin but pt is not coughing and no fever or hypothermia WBC has quickly improved too 01/13 - initial procalcitonin was neg, if repeat today is neg to d/c antibiotics CXR shows improvement 01/15 - vomiting noted with some coughing CXR late last night shows general haziness to R lung to repeat procalcitonin this a.m., WBC is minimally elevated if procalcitonin is elevated to start vanco/merrem again 01/16 - procalcitonin was neg (neg is less than 0.2-0.25) repeat this a.m. and if still neg to d/c antibiotics no wheezing this a.m. 01/17 - neg procalcitonin again, d/c antibiotics no wheezing appreciated, unlikely pt has pneumonia 3) CRI with acute component this has already improved 4) hypernatremia w/up per primary but no sign of UTI or significant hyperglycemia no report of V or D pt on hydration with 1/2NS Consultation Date/Type/Reason Admit Date/Time Jan 10, 2019 at 20:06 Initial Consult Date 01/12/19 Type of Consult ID Requesting Provider: NATALI TIWARI MD Date/Time of Note DATE: 01/17/19 TIME: 06:36 24 HR Interval Summary Free Text/Dictation pt has TF held due to high residuals (nurse says residuals are brownish) no BM since 01/15 no coughing according to the nurse no V Exam/Review of Systems Exam Vitals Vital Signs Date Temp Pulse Resp B/P (MAP) Pulse Ox O2 O2 Flow FiO2 Time Delivery Rate 01/17/19 77 167/72 05:00 (103) 01/17/19 98.5 20 97 04:25 01/16/19 21 20:30 01/16/19 Room Air 17:11 Intake and Output 01/16/19 01/16/19 01/17/19 1515:00 23:00 07:00 IntakeIntake Total 50 ml 840 ml OutputOutput Total 250 ml BalanceBalance 50 ml 590 ml Constitutional: alert Respiratory: clear to auscultation Cardiovascular: regular rate and rhythm Gastrointestinal: soft, non-tender Results Result Diagram: 01/16/19 0529 01/16/19 0529 Results 24hrs Laboratory Tests Test 01/16/19 06:43 01/16/19 11:51 01/16/19 17:01 01/17/19 00:18 Bedside Glucose 225 H 162 166 257 H Test 01/17/19 06:02 Bedside Glucose 180 Medications Medication Current Medications Miscellaneous Information 1 ea NOTE XX ; Start 01/11/19 at 21:00 Glucose (Glutose) 15 gm Q15M PRN PO DECREASED GLUCOSE; Start 01/11/19 at 21:00 Glucose (Glutose) 22.5 gm Q15M PRN PO DECREASED GLUCOSE; Start 01/11/19 at 21:00 Dextrose (D50w Syringe) 25 ml Q15M PRN IV DECREASED GLUCOSE; Start 01/11/19 at 21:00 Dextrose (D50w Syringe) 50 ml Q15M PRN IV DECREASED GLUCOSE; Start 01/11/19 at 21:00 Glucagon (Glucagen) 1 mg Q15M PRN IM DECREASED GLUCOSE; Start 01/11/19 at 21:00 Glucose (Glutose) 15 gm Q15M PRN BUCCAL DECREASED GLUCOSE; Start 01/11/19 at 21:00 Clonidine (Catapres) 0.1 mg Q4H PRN PO ELEVATED BLOOD PRESSURE Last administered on 01/16/19at 15:26; Admin Dose 0.1 MG; Start 01/13/19 at 08:30 Insulin Aspart (Novolog Insulin Pen) NOVOLOG *MILD* ALGORI... Q6 SC Last administered on 01/17/19at 06:05; Admin Dose 1 UNIT; Start 01/14/19 at 18:00 Ondansetron HCl (Zofran Inj) 4 mg Q4H PRN IV NAUSEA AND/OR VOMITING Last administered on 01/15/19at 05:05; Admin Dose 4 MG; Start 01/14/19 at 23:30 Hydralazine HCl (Apresoline) 5 mg Q4H PRN IV ELEVATED BLOOD PRESSURE Last a dministered on 01/17/19at 04:41; Admin Dose 5 MG; Start 01/15/19 at 00:00 Albuterol/ Ipratropium (Duoneb) 3 ml Q4HWA RESP THERAPY HHN Last administered on 01/16/19 20:30; Admin Dose 3 ML; Start 01/15/19 at 09:00 Albuterol/ Ipratropium (Duoneb) 3 ml Q4H RESP THERAPY PRN HHN SHORTNESS OF BREATH Last administered on 01/16/19 01:27; Admin Dose 3 ML; Start 01/15/19 at 00:00 Trazodone HCl (Desyrel) 50 mg Q4H PRN GTB AGITATION/ANXIETY Last administered on 01/15/19 00:14; Admin Dose 50 MG; Start 01/15/19 at 00:00 Ascorbic Acid (Vitamin C) 500 mg DAILY GTB Last administered on 01/16/19 15:25; Admin Dose 500 MG; Start 01/16/19 at 14:30 Multivitamins Therapeutic (Theragran) 1 tab DAILY GTB Last administered on 01/16/19 15:27; Admin Dose 1 TAB; Start 01/16/19 at 14:30 TANVI ALBA MD Jan 17, 2019 06:38
[2019-01-17] MEDS ORDERED: VANCOMYCIN 750 MG (PMX) 250 ML IVPB SCH (08:00)
[2019-01-17] MEDS: MULTIVITAMINS THERAPEUTIC TAB GTB SCH (08:46)
[2019-01-17] MEDS: ASCORBIC ACID 500 MG TAB GTB SCH (08:46)
[2019-01-17] MEDS: ALBUTEROL/IPRATROPIUM (NEB) 3 ML AMP HHN SCH ×4 (09:00→21:25)
[2019-01-17] MEDS: BALSAM PERU/CASTOR OIL 60 GM TUBE TOP SCH ×2 (09:15→20:16)
[2019-01-17] MEDS: METOCLOPRAMIDE 10 MG INJ IV SCH ×2 (18:01→23:14)
--- NOTE | 2019-01-17 23:56 | PN ---
DATE: 01/17/2019 SUBJECTIVE: The patient was intermittently agitated, had a large gastric residual, dark brown liquid from gastric aspirate was obtained. OBJECTIVE: VITAL SIGNS: Temperature 98.1, blood pressure 163/71, O2 saturation 96% on room air. CHEST: Reveals few rhonchi at the bases. HEART: S1, S2 heard. No murmur, rub or gallops. ABDOMEN: Soft. No organomegaly. EXTREMITIES: No edema. Moderate wasting of the lower extremities noted. LABORATORY DATA: From this morning, WBC count 9.6. Chest x-ray shows bilateral bibasilar atelectasi s, small pleural effusions. Glucose 118, reported this morning. IMPRESSION: 1. Probable aspiration pneumonia with element of congestive heart failure. 2. Severe hyponatremia, improving. 3. Diabetes mellitus, type 2. 4. Acute on chronic renal failure. 5. Diabetic gastroparesis with possible upper gastrointestinal bleed. PLAN: We will hold tube feedings for now. Request a GI consultation with Dr. Thomas. Wound care or ders ____. Dictated By: NATALI TIWARI MD, SR/EDWAR Conf#: [id number] DID#: [id number]
[2019-01-18] VITALS (18 sets, daily range): BP systolic 125–188; BP diastolic 56–78; PULSE 71–107; RESP 17–22
[2019-01-18] MEDS: hydrALAzine 20 MG INJ IV PRN ×2 (00:48→08:43)
[2019-01-18] MEDS: METOCLOPRAMIDE 10 MG INJ IV SCH ×4 (06:06→22:29)
[2019-01-18] MEDS: LANSOPRAZOLE 30 MG CAP GTB SCH (06:06)
[2019-01-18] MEDS: INSULIN ASPART [NOVOLOG] 3 ML PEN SC SCH ×4 (06:21→20:38)
--- NOTE | 2019-01-18 08:27 | CONS ---
DATE OF ADMISSION: 01/10/2019 DATE OF CONSULTATION: HISTORY OF PRESENT ILLNESS: The patient is an 83-year-old female who was admitted for generalized we akness and altered level of mental status. The patient was referred to the ER. He was admitted with a diagnosis of bilateral pneumonia. GI consult was called in because of high gastric residuals and there was a coffee-ground colored material in the aspirate. No information could be obtained from th e patient. All the information was gathered by reviewing the chart and discussing with the staff al se. REVIEW OF SYSTEMS: Unable to do it. SOCIAL HISTORY: She is a resident of group home. MEDICATIONS: All reviewed. 1. Glipizide 2. Atenolol. 3. Amlodipine. 4. Aricept. 5. Insulin. 6. Clonidine. PHYSICAL EXAMINATION: GENERAL: Thin built, nourished, not in distress. VITAL SIGNS: Stable. CARDIOVASCULAR: No murmur, gallop or click. LUNGS: Air entry diminished at both bases. ABDOMEN: Soft. G-tube is in place. I looked at the G-tube aspirate; very minimal light bruno-colore d aspirate. EXTREMITIES: No edema. CENTRAL NERVOUS SYSTEM: The patient is confused. LABORATORY DATA: WBC which was 11.1 dropped down to 9.6, hematocrit is 29, which is stable. BUN is 99, creatinine is 2.28. Coagulation is 1.2, gastric occult blood was reported negative. IMPRESSION: 1. Gastroparesis. 2. Diabetes mellitus. 3. Dementia. 4. Dysphagia, status post G-tube placement. 5. Pneumonia. PLAN: To start the patient on Protonix and Reglan. Unfortunately Protonix is not available, so will give Prevacid through the G-tube and will monitor H and H and gastric residual closely. Dictated By: JACLYN ROQUE/NTS Conf#: [id number] DID#: [id number] CC: NATALI TIWARI MD;*EndCC*
[2019-01-18] MEDS: MULTIVITAMINS THERAPEUTIC TAB GTB SCH (08:43)
[2019-01-18] MEDS: ASCORBIC ACID 500 MG TAB GTB SCH (08:43)
[2019-01-18] MEDS: BALSAM PERU/CASTOR OIL 60 GM TUBE TOP SCH ×2 (08:44→20:36)
[2019-01-18] MEDS: ALBUTEROL/IPRATROPIUM (NEB) 3 ML AMP HHN SCH ×4 (09:19→20:50)
--- NOTE | 2019-01-18 18:15 | CONS ---
Assessment/Plan Assessment/Plan Assessment/Plan (Daily) IMPRESSION: 1. Gastroparesis. Resolved patient is on Reglan 2. Diabetes mellitus. 3. Dementia. 4. Dysphagia, status post G-tube placement. 5. Pneumonia. Plan Continue PPI and Reglan Consultation Date/Type/Reason Admit Date/Time Jan 10, 2019 at 20:06 Initial Consult Date 01/13/19 Requesting Provider: NATALI TIWARI MD Date/Time of Note DATE: 01/18/19 TIME: 18:15 24 HR Interval Summary Free Text/Dictation No emesis no GI bleeding Constitutional: improved Exam/Review of Systems Exam Vitals Vital Signs Date Temp Pulse Resp B/P (MAP) Pulse Ox O2 O2 Flow FiO2 Time Delivery Rate 01/18/19 96 17:52 01/18/19 18 92 21 17:31 01/18/19 98.5 145/71 Room Air 16:13 (95) 01/17/19 6.0 13:33 Intake and Output 01/17/19 01/17/19 01/18/19 1515:00 23:00 07:00 IntakeIntake Total 640 ml BalanceBalance 640 ml Constitutional: alert, oriented, well developed Psych: no complaints, nl mood/affect Head: normocephalic, atraumatic Eyes: nl conjunctiva, EOMI, nl lids, nl sclera, PERRL ENMT: nl external ears & nose, nl lips & teeth, nl nasal mucosa & septum Neck: supple, non-tender Respiratory: clear to auscultation, normal air movement Cardiovascular: regular rate and rhythm, nl pulses Gastrointestinal: soft, nl liver, spleen, non-tender Musculoskeletal: nl extremities to inspection, nl gait and stance Extremities: normal pulses Neurological: LEAD PRINTER II-XII intact, nl mental status, nl speech, nl strength Skin: nl turgor; No rash or lesions Lymph: nl lymph nodes Results Result Diagram: 01/18/1915 01/18/1915 Results 24hrs Laboratory Tests Test 01/17/19 23:15 01/18/19 05:15 01/18/19 06:04 01/18/19 07:03 Bedside Glucose 134 238 H White Blood Count 8.0 Red Blood Count 3.06 L Hemoglobin 8.5 L Hematocrit 29.4 L Mean Corpuscular 96.1 Volume Mean Corpuscular 27.8 L Hemoglobin Mean Corpuscular 28.9 L Hemoglobin Concen t Red Cell 19.8 H Distribution Width Platelet Count 156 # Mean Platelet 13.2 H Volume Immature 2.900 H Granulocytes % Neutrophils % 73.8 Lymphocytes % 13.2 L Monocytes % 7.0 Eosinophils % 2.1 Basophils % 1.0 Nucleated Red 2.0 H Blood Cells % Immature 0.230 H Granulocytes # Neutrophils # 5.9 Lymphocytes # 1.1 Monocytes # 0.6 Eosinophils # 0.2 Basophils # 0.1 Nucleated Red 0.2 H Blood Cells # Sodium Level 159 H Potassium Level 4.4 Chloride Level 123 H Carbon Dioxide 25 Level Anion Gap 11 Blood Urea 94 H Nitrogen Creatinine 2.18 H Est Glomerular Filtrat Rate mL/min Glucose Level 216 Calcium Level 8.2 L Lab Scanned BLOOD TRANSFUSIO Report N Test 01/18/19 11:51 01/18/19 17:38 Bedside Glucose 259 H 137 Medications Medication Current Medications Miscellaneous Information 1 ea NOTE XX ; Start 01/11/19 at 21:00 Glucose (Glutose) 15 gm Q15M PRN PO DECREASED GLUCOSE; Start 01/11/19 at 21:00 Glucose (Glutose) 22.5 gm Q15M PRN PO DECREASED GLUCOSE; Start 01/11/19 at 21:00 Dextrose (D50w Syringe) 25 ml Q15M PRN IV DECREASED GLUCOSE; Start 01/11/19 at 21:00 Dextrose (D50w Syringe) 50 ml Q15M PRN IV DECREASED GLUCOSE; Start 01/11/19 at 21:00 Glucagon (Glucagen) 1 mg Q15M PRN IM DECREASED GLUCOSE; Start 01/11/19 at 21:00 Glucose (Glutose) 15 gm Q15M PRN BUCCAL DECREASED GLUCOSE; Start 01/11/19 at 21:00 Clonidine (Catapres) 0.1 mg Q4H PRN PO ELEVATED BLOOD PRESSURE Last administered on 01/17/19at 23:14; Admin Dose 0.1 MG; Start 01/13/19 at 08:30 Ondansetron HCl (Zofran Inj) 4 mg Q4H PRN IV NAUSEA AND/OR VOMITING Last administered on 01/15/19at 05:05; Admin Dose 4 MG; Start 01/14/19 at 23:30 Hydralazine HCl (Apresoline) 5 mg Q4H PRN IV ELEVATED BLOOD PRESSURE Last administered on 01/18/19 08:43; Admin Dose 5 MG; Start 01/15/19 at 00:00 Albuterol/ Ipratropium (Duoneb) 3 ml Q4HWA RESP THERAPY HHN Last administered on 01/18/19 17:30; Admin Dose 3 ML; Start 01/15/19 at 09:00 Albuterol/ Ipratropium (Duoneb) 3 ml Q4H RESP THERAPY PRN HHN SHORTNESS OF BREATH Last administered on 01/16/19 01:27; Admin Dose 3 ML; Start 01/15/19 at 00:00 Trazodone HCl (Desyrel) 50 mg Q4H PRN GTB AGITATION/ANXIETY Last administered on 01/15/19 00:14; Admin Dose 50 MG; Start 01/15/19 at 00:00 Ascorbic Acid (Vitamin C) 500 mg DAILY GTB Last administered on 01/18/19 08:43; Admin Dose 500 MG; Start 01/16/19 at 14:30 Multivitamins Therapeutic (Theragran) 1 tab DAILY GTB Last administered on 01/18/19 08:43; Admin Dose 1 TAB; Start 01/16/19 at 14:30 Metoclopramide HCl (Reglan) 5 mg Q6 IV Last administered on 01/18/19 13:00; Admin Dose 5 MG; Start 01/17/19 at 18:00 Lansoprazole (Prevacid) 30 mg DAILY@06 GTB Last administered on 01/18/19 06:06; Admin Dose 30 MG; Start 01/18/19 at 06:00 Insulin Glargine (Lantus) 5 units DAILY@2000 SC ; Start 01/18/19 at 20:00 Diagnostic Test (Pha) (Accu-Chek) 1 ea 02 XX ; Start 01/19/19 at 02:00 Insulin Aspart (Novolog Insulin Pen) NOVOLOG *MODERATE* ALGORITHM WITH MEALS BEDTIME SC ; Start 01/18/19 at 18:00 JACLYN GUZMAN MD Jan 18, 2019 18:15
[2019-01-18] MEDS: INSULIN GLARGINE [LANTus] (100 UNITS/ML) SYG SC SCH (20:42)
[2019-01-19] VITALS (16 sets, daily range): BP systolic 132–187; BP diastolic 64–81; PULSE 69–89; RESP 17–20
[2019-01-19] MEDS: ACCU-CHEK XX SCH (01:37)
[2019-01-19] MEDS: LANSOPRAZOLE 30 MG CAP GTB SCH (05:16)
[2019-01-19] MEDS: METOCLOPRAMIDE 10 MG INJ IV SCH ×4 (05:16→22:55)
--- NOTE | 2019-01-19 07:03 | PN ---
DATE: 01/18/2019 SUBJECTIVE: The patient is presently lethargic. He has occasional cough. No more nausea or vomitin g noted. PHYSICAL EXAMINATION: VITAL SIGNS: Temperature 98.0, blood pressure 152/71, O2 sat is 97% on room air. CHEST: Occasional wheezes anteriorly. HEART: S1, S2 heard. No definite gallops. EXTREMITIES: Moderate wasting noted. Right heel protectors in place. LABORATORY DATA: WBC of 8.2, hematocrit 29.4. Sodium 159, potassium 4.4, BUN 94, creatinine 2.18. DIAGNOSTIC DATA: Doppler arterial study of the lower extremities shows occluded right distal superfi cial femoral artery, occluded left distal SFA, left popliteal and left posterior tibial artery. Ches t x-ray shows cardiomegaly with mild pulmonary vascular congestion. IMPRESSION: 1. Severe hypernatremia. 2. Diabetes mellitus type 2, uncontrolled. 3. Acute on chronic renal failure. 4. Diabetic gastroparesis. 5. Right heel deep tissue injury likely secondary to vascular etiology. PLAN: We will increase water intake through the G-tube for hypernatremia. Give 1 dose of Lasix. Re check labs in a.m. We will request vascular consultation. I have discussed the patient's overall co ndition with the patient's daughter, Sonam and at family's request, the patient will be placed on a No Code status. Dictated By: NATALI TIWARI MD SR/NTS Conf#: [id number] DID#: [id number] CC: JACLYN GUZMAN MD;*EndCC*
--- NOTE | 2019-01-19 07:28 | RADRPT ---
Vent Rate: 83 bpm RR Interval: 666 msec OR Interval: [id number] msec QRS Duration: 80 msec QT Interval: 387 msec QTC Interval: 474 msec P-R-T [place]: [id number] - 86 - -84 degrees Atrial fibrillation...? atrial activity Probable LVH with secondary repol abnrm...multiple LVH criteria Anterior Q waves, possibly due to LVH...Q >30mS, V1 V2 & LVH ST depr, consider ischemia, inferior leads...ST <-0.10mV, II III aVF Electronically Signed By: Darryl Evans
[2019-01-19] MEDS: ALBUTEROL/IPRATROPIUM (NEB) 3 ML AMP HHN SCH ×4 (08:00→20:09)
[2019-01-19] MEDS: ASCORBIC ACID 500 MG TAB GTB SCH (08:54)
[2019-01-19] MEDS: MULTIVITAMINS THERAPEUTIC TAB GTB SCH (08:55)
[2019-01-19] MEDS: BALSAM PERU/CASTOR OIL 60 GM TUBE TOP SCH ×2 (08:55→20:26)
[2019-01-19] MEDS ORDERED: INSULIN ASPART [NOVOLOG] 3 ML PEN SC SCH (09:00)
[2019-01-19] MEDS: Insulin NOVOLOG SS MODERATE Algorithm(NPO/TPN/ENTERAL FEEDS) SC SCH ×4 (09:05→20:30)
[2019-01-19] MEDS: hydrALAzine 20 MG INJ IV PRN ×3 (09:29→22:59)
--- NOTE | 2019-01-19 11:11 | CONS ---
DATE OF ADMISSION: 01/10/2019 DATE OF CONSULTATION: 01/19/2019 REFERRING PHYSICIAN: Cedric Sutton MD REASON FOR CONSULTATION: Right heel ulceration. HISTORY OF PRESENT ILLNESS: This is an 83-year-old demented diabetic woman. She is brought in [facility] with acute mental status changes. She has multi-infarct dementia. She is bedridden. 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 She was found to have some breakdown of t he right heel. Dr. Sutton asked me to see her for further evaluation. She has had arterial st udies done that showed bilateral SFA occlusions. PAST MEDICAL HISTORY: Significant for hypertension, multi-infarct dementia, stroke. She has chronic kidney disease. Her baseline creatinine looks like it is the 2 to 3 range. She has a G-tube. She has been in a nursing home facility and Dr. Duran has been caring for her. She was brought in [facility] because of a urinary tract infection and some mental status changes. Her mental status haseeb me much more depressed. Again, her past medical history is significant for diabetes, hypertension, d ementia, urinary tract infection. MEDICATIONS: Consist of: 1. Insulin. 2. Prevacid. 3. Reglan. 4. Vitamin C. 5. Albuterol. 6. Apresoline. 7. Trazodone. 8. Zofran. 9. Clonidine. ALLERGIES: Has no known drug allergies. SOCIAL HISTORY: She is a apparently a former smoker. PAST SURGICAL HISTORY: Significant for G-tube placement. FAMILY HISTORY: Unknown. REVIEW OF SYSTEMS: She is only responding to pain at this point, she does not respond appropriately. Apparently, she speaks Nepali and is able to interact, but not right now. PHYSICAL EXAMINATION GENERAL: She is an elderly woman. She is in no acute distress. 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 VITAL SIGNS: She has been afebrile. Blood pressure is 172/77, heart rate 77, respiratory rate is 20 . She is 95% sat on room air. PERIPHERAL VASCULAR: He has 2+ radial and brachial pulses bilaterally, 2+ carotid pulses bilaterall y. LUNGS: Clear. HEART: Regular rate and rhythm. ABDOMEN: Soft, nontender, nondistended. EXTREMITIES: She has 2+ femoral pulses bilaterally. There is no popliteal, DP or PT pulse in either lower extremity. Both of her legs are contracted at the knee. She can straighten them out to about 10 to 15 degrees, but she is basically in a position most of the time. She has good heel prot ectors on both legs and both feet. I examined the feet, I do not see any open wounds on the right, t here is a dry eschar on the heel. It does not look like it is actually broken down. It looks like i t may have formed a blister that is healing. There is no deep tissue injury apparent. I reviewed he r arterial studies. 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 Creati nine is in the 2 range. LABORATORY DATA: White count is normal. It looks like her urinary tract infection is improving. IMPRESSION: Bilateral severe arterial insufficiency lower extremities and early breakdown, if any on the right heel. I would not recommend any vascular intervention. She has good offloading and I osman l follow her and if it does breakdown, she would have a hard time healing it. I do not think she is a candidate for revascularization given her mental status and contractures. Hopefully it will just c lose up with good offloading. Dictated By: MARCOS ALMB/EDWAR Conf#: [id number] DID#: [id number] CC: CEDRIC SUTTON MD; TANVI ALBA MD; ESCOBAR DURAN MD;*EndCC*
--- NOTE | 2019-01-19 17:10 | CONS ---
Assessment/Plan Assessment/Plan Assessment/Plan (Daily) Assessment/Plan Assessment/Plan (Daily) IMPRESSION: 1. Gastroparesis. Resolved patient is on Reglan 2. Diabetes mellitus. 3. Dementia. 4. Dysphagia, status post G-tube placement. 5. Pneumonia. Plan Continue PPI and Reglan Consultation Date/Type/Reason Admit Date/Time Jan 10, 2019 at 20:06 Initial Consult Date 01/13/19 Requesting Provider: NATALI TIWARI MD Date/Time of Note DATE: 01/19/19 TIME: 17:09 24 HR Interval Summary Constitutional: improved Exam/Review of Systems Exam Vitals Vital Signs Date Temp Pulse Resp B/P (MAP) Pulse Ox O2 O2 Flow FiO2 Time Delivery Rate 01/19/19 86 16:26 01/19/19 98.1 20 170/81 95 Room Air 16:01 (110) 01/19/19 13:17 01/17/19 6.0 13:33 Intake and Output 01/18/19 01/18/19 01/19/19 1515:00 23:00 07:00 IntakeIntake Total 180 ml 895 ml BalanceBalance 180 ml 895 ml Constitutional: non-verbal Psych: confusion Neck: supple, non-tender Respiratory: clear to auscultation, normal air movement Cardiovascular: regular rate and rhythm, nl pulses Gastrointestinal: soft, nl liver, spleen, non-tender Extremities: normal pulses Results Result Diagram: 01/19/19 0539 01/19/19 0539 Results 24hrs Laboratory Tests Test 01/18/19 17:38 01/18/19 20:35 01/19/19 01:34 01/19/19 05:39 Bedside Glucose 137 221 H 204 White Blood Count 8.7 Red Blood Count 3.20 L Hemoglobin 8.7 L Hematocrit 30.2 L Mean Corpuscular 94.4 Volume Mean Corpuscular 27.2 L Hemoglobin Mean Corpuscular 28.8 L Hemoglobin Concent Red Cell 20.3 H Distribution Width Platelet Count 155 Mean Platelet Volume 12.8 H Immature 1.600 H Granulocytes % Neutrophils % 72.8 Lymphocytes % 15.2 Monocytes % 7.4 Eosinophils % 2.2 Basophils % 0.8 Nucleated Red Blood 1.2 H Cells % Immature 0.140 H Granulocytes # Neutrophils # 6.3 Lymphocytes # 1.3 Monocytes # 0.6 Eosinophils # 0.2 Basophils # 0.1 Nucleated Red Blood 0.1 H Cells # Sodium Level 157 H Potassium Level 4.8 Chloride Level 123 H Carbon Dioxide Level 26 Anion Gap 8 Blood Urea Nitrogen 96 H Creatinine 2.21 H Est Glomerular Filtrat Rate mL/min Glucose Level 174 Calcium Level 8.1 L Test 01/19/19 08:55 01/19/19 11:49 01/19/19 16:43 Bedside Glucose 205 121 179 Medications Medication Current Medications Miscellaneous Information 1 ea NOTE XX ; Start 01/11/19 at 21:00 Glucose (Glutose) 15 gm Q15M PRN PO DECREASED GLUCOSE; Start 01/11/19 at 21:00 Glucose (Glutose) 22.5 gm Q15M PRN PO DECREASED GLUCOSE; Start 01/11/19 at 21:00 Dextrose (D50w Syringe) 25 ml Q15M PRN IV DECREASED GLUCOSE; Start 01/11/19 at 21:00 Dextrose (D50w Syringe) 50 ml Q15M PRN IV DECREASED GLUCOSE; Start 01/11/19 at 21:00 Glucagon (Glucagen) 1 mg Q15M PRN IM DECREASED GLUCOSE; Start 01/11/19 at 21:00 Glucose (Glutose) 15 gm Q15M PRN BUCCAL DECREASED GLUCOSE; Start 01/11/19 at 21:00 Clonidine (Catapres) 0.1 mg Q4H PRN PO ELEVATED BLOOD PRESSURE Last administ ered on 01/17/19at 23:14; Admin Dose 0.1 MG; Start 01/13/19 at 08:30 Ondansetron HCl (Zofran Inj) 4 mg Q4H PRN IV NAUSEA AND/OR VOMITING Last administered on 01/15/19at 05:05; Admin Dose 4 MG; Start 01/14/19 at 23:30 Hydralazine HCl (Apresoline) 5 mg Q4H PRN IV ELEVATED BLOOD PRESSURE Last administered on 01/19/19at 16:43; Admin Dose 5 MG; Start 01/15/19 at 00:00 Albuterol/ Ipratropium (Duoneb) 3 ml Q4HWA RESP THERAPY HHN Last administered on 01/19/19at 13:15; Admin Dose 3 ML; Start 01/15/19 at 09:00 Albuterol/ Ipratropium (Duoneb) 3 ml Q4H RESP THERAPY PRN HHN SHORTNESS OF BREATH Last administered on 01/16/19 01:27; Admin Dose 3 ML; Start 01/15/19 at 00:00 Trazodone HCl (Desyrel) 50 mg Q4H PRN GTB AGITATION/ANXIETY Last administered on 01/15/19 00:14; Admin Dose 50 MG; Start 01/15/19 at 00:00 Ascorbic Acid (Vitamin C) 500 mg DAILY GTB Last administered on 01/19/19 08:54; Admin Dose 500 MG; Start 01/16/19 at 14:30 Multivitamins Therapeutic (Theragran) 1 tab DAILY GTB Last administered on 01/19/19 08:55; Admin Dose 1 TAB; Start 01/16/19 at 14:30 Metoclopramide HCl (Reglan) 5 mg Q6 IV Last administered on 01/19/19 16:42; Admin Dose 5 MG; Start 01/17/19 at 18:00 Lansoprazole (Prevacid) 30 mg DAILY@06 GTB Last administered on 01/19/19 05:16; Admin Dose 30 MG; Start 01/18/19 at 06:00 Insulin Glargine (Lantus) 5 units DAILY@2000 SC Last administered on 01/18/19 20:42; Admin Dose 5 UNITS; Start 01/18/19 at 20:00 Diagnostic Test (Pha) (Accu-Chek) 1 ea 02 XX Last administered on 01/19/19 01:37; Admin Dose 1 EA; Start 01/19/19 at 02:00 Insulin Aspart (Novolog Insulin Pen) (Adult SC Insulin - Moder... Q4 SC Last administered on 01/19/19 16:54; Admin Dose 2 UNIT; Start 01/19/19 at 09:00 JACLYN GUZMAN MD Jan 19, 2019 17:10
--- NOTE | 2019-01-19 18:10 | PN ---
DATE: 01/19/2019 SUBJECTIVE: The patient has been agitated. The patient converted to AFib with acceptable ventricula r response yesterday, presently in normal sinus rhythm. The patient also had couple of episodes of s hort runs of V-tach, asymptomatic. PHYSICAL EXAMINATION: VITAL SIGNS: Temperature 98.3, blood pressure 116/64, O2 sat is 98% on room air. CHEST: Clinically clear. ABDOMEN: Soft. EXTREMITIES: No edema. Bilateral heel ulcers are noted. Erythema over the heels noted bilaterally. No ulcers. Dr. Carrasco, vascular consultation and recommendation is greatly appreciated. The patient is felt not to be a candidate for any revascularization. LABORATORY DATA: Sodium is 157, potassium 4.8, BUN 96, creatinine 2.21. IMPRESSION: 1. Severe hypernatremia, improving with water intake. 2. Diabetes mellitus type 2, better controlled. 3. Acute on chronic renal failure. 4. Diabetic gastroparesis. 5. Right heel deep tissue injury secondary to peripheral artery disease. PLAN: We will continue to increase water intake. Recheck for portable chest x-ray in a.m. I discus sed patient's condition with the patient's daughter, Liss and son, Julito at the bedside. Dictated By: NATALI TIWARI MD SR/NTS Conf#: [id number] DID#: [id number] CC: JACLYN GUZMAN MD;*EndCC*
[2019-01-19] MEDS: INSULIN GLARGINE [LANTus] (100 UNITS/ML) SYG SC SCH (20:26)
[2019-01-19] MEDS ORDERED: hydrALAzine 20 MG INJ IV PRN (23:00)
[2019-01-20] VITALS (15 sets, daily range): BP systolic 143–188; BP diastolic 72–99; PULSE 80–112; RESP 20
[2019-01-20] MEDS: Insulin NOVOLOG SS MODERATE Algorithm(NPO/TPN/ENTERAL FEEDS) SC SCH ×6 (01:03→19:55)
[2019-01-20] MEDS: ACCU-CHEK XX SCH (01:41)
[2019-01-20] MEDS: LANSOPRAZOLE 30 MG CAP GTB SCH (04:39)
[2019-01-20] MEDS: METOCLOPRAMIDE 10 MG INJ IV SCH ×4 (04:39→23:57)
[2019-01-20] MEDS: BALSAM PERU/CASTOR OIL 60 GM TUBE TOP SCH ×2 (07:56→19:56)
[2019-01-20] MEDS: MULTIVITAMINS THERAPEUTIC TAB GTB SCH (07:56)
[2019-01-20] MEDS: ASCORBIC ACID 500 MG TAB GTB SCH (07:56)
[2019-01-20] MEDS: hydrALAzine 20 MG INJ IV PRN ×2 (09:46→15:01)
[2019-01-20] MEDS: ALBUTEROL/IPRATROPIUM (NEB) 3 ML AMP HHN SCH ×3 (10:10→21:05)
--- NOTE | 2019-01-20 11:53 | CONS ---
Assessment/Plan Assessment/Plan Assessment/Plan (Daily) Assessment/Plan (Daily) IMPRESSION: 1. Gastroparesis. Resolved patient is on Reglan 2. Diabetes mellitus. 3. Dementia. 4. Dysphagia, status post G-tube placement. 5. Pneumonia. 6. Renal insufficiency 7. Anemia which is stable, Plan Continue PPI and Reglan Consultation Date/Type/Reason Admit Date/Time Jan 10, 2019 at 20:06 Initial Consult Date 01/13/19 Requesting Provider: NATALI TIWARI MD Date/Time of Note DATE: 01/20/19 TIME: 11:52 24 HR Interval Summary Subjective hx not possible: pt non-verbal Constitutional: no complaints Exam/Review of Systems Exam Vitals Vital Signs Date Temp Pulse Resp B/P (MAP) Pulse Ox O2 O2 Flow FiO2 Time Delivery Rate 01/20/19 80 16 100 21 10:12 01/20/19 97.9 174/79 Room Air 10:00 (110) 01/17/19 6.0 13:33 Intake and Output 01/19/19 01/19/19 01/20/19 1515:00 23:00 07:00 IntakeIntake Total 365 ml 585 ml BalanceBalance 365 ml 585 ml Neck: supple, non-tender Respiratory: diminished breath sounds Extremities: normal pulses Neurological: lethargic Results Result Diagram: 01/20/1943901/20/19439 Results 24hrs Laboratory Tests Test 01/19/19 16:43 01/19/19 20:18 01/20/19 00:56 01/20/19 04:38 Bedside Glucose 179 162 215 154 Test 01/20/19 04:40 01/20/19 07:57 01/20/19 11:44 White Blood Count 9.1 Red Blood Count 3.34 L Hemoglobin 9.2 L Hematocrit 31.7 L Mean Corpuscular 94.9 Volume Mean Corpuscular 27.5 L Hemoglobin Mean Corpuscular 29.0 L Hemoglobin Concent Red Cell 20.2 H Distribution Width Platelet Count 134 L Mean Platelet Volume 13.5 H Immature 1.400 H Granulocytes % Neutrophils % 77.3 H Lymphocytes % 12.9 L Monocytes % 5.6 Eosinophils % 1.9 Basophils % 0.9 Nucleated Red Blood 0.9 H Cells % Immature 0.130 H Granulocytes # Neutrophils # 7.0 Lymphocytes # 1.2 Monocytes # 0.5 Eosinophils # 0.2 Basophils # 0.1 Nucleated Red Blood 0.1 H Cells # Sodium Level 158 H Potassium Level 4.0 Chloride Level 120 H Carbon Dioxide Level 26 Anion Gap 12 Blood Urea Nitrogen 94 H Creatinine 2.11 H Est Glomerular Filtrat Rate mL/min Glucose Level 143 Calcium Level 8.6 Magnesium Level 2.9 H Bedside Glucose 160 224 H Medications Medication Current Medications Miscellaneous Information 1 ea NOTE XX ; Start 01/11/19 at 21:00 Glucose (Glutose) 15 gm Q15M PRN PO DECREASED GLUCOSE; Start 01/11/19 at 21:00 Glucose (Glutose) 22.5 gm Q15M PRN PO DECREASED GLUCOSE; Start 01/11/19 at 21:00 Dextrose (D50w Syringe) 25 ml Q15M PRN IV DECREASED GLUCOSE; Start 01/11/19 at 21:00 Dextrose (D50w Syringe) 50 ml Q15M PRN IV DECREASED GLUCOSE; Start 01/11/19 at 21:00 Glucagon (Glucagen) 1 mg Q15M PRN IM DECREASED GLUCOSE; Start 01/11/19 at 21:00 Glucose (Glutose) 15 gm Q15M PRN BUCCAL DECREASED GLUCOSE; Start 01/11/19 at 21:00 Clonidine (Catapres) 0.1 mg Q4H PRN PO ELEVATED BLOOD PRESSURE Last administered on 01/17/19at 23:14; Admin Dose 0.1 MG; Start 01/13/19 at 08:30 Ondansetron HCl (Zofran Inj) 4 mg Q4H PRN IV NAUSEA AND/OR VOMITING Last administered on 01/15/19at 05:05; Admin Dose 4 MG; Start 01/14/19 at 23:30 Hydralazine HCl (Apresoline) 5 mg Q4H PRN IV ELEVATED BLOOD PRESSURE Last administered on 01/20/19at 09:46; Admin Dose 5 MG; Start 01/15/19 at 00:00 Albuterol/ Ipratropium (Duoneb) 3 ml Q4HWA RESP THERAPY HHN Last administered on 01/20/19at 10:10; Admin Dose 3 ML; Start 01/15/19 at 09:00 Albuterol/ Ipratropium (Duoneb) 3 ml Q4H RESP THERAPY PRN HHN SHORTNESS OF BREATH Last administered on 01/16/19 01:27; Admin Dose 3 ML; Start 01/15/19 at 00:00 Trazodone HCl (Desyrel) 50 mg Q4H PRN GTB AGITATION/ANXIETY Last administered on 01/15/19 00:14; Admin Dose 50 MG; Start 01/15/19 at 00:00 Ascorbic Acid (Vitamin C) 500 mg DAILY GTB Last administered on 01/20/19 07:56; Admin Dose 500 MG; Start 01/16/19 at 14:30 Multivitamins Therapeutic (Theragran) 1 tab DAILY GTB Last administered on 01/20/19 07:56; Admin Dose 1 TAB; Start 01/16/19 at 14:30 Metoclopramide HCl (Reglan) 5 mg Q6 IV Last administered on 01/20/19 04:39; Admin Dose 5 MG; Start 01/17/19 at 18:00 Lansoprazole (Prevacid) 30 mg DAILY@06 GTB Last administered on 01/20/19 04:39; Admin Dose 30 MG; Start 01/18/19 at 06:00 Insulin Glargine (Lantus) 5 units DAILY@2000 SC Last administered on 01/19/19 20:26; Admin Dose 5 UNITS; Start 01/18/19 at 20:00 Diagnostic Test (Pha) (Accu-Chek) 1 ea 02 XX Last administered on 01/19/19 01:37; Admin Dose 1 EA; Start 01/19/19 at 02:00 Insulin Aspart (Novolog Insulin Pen) (Adult SC Insulin - Moder... Q4 SC Last administered on 01/20/19 08:03; Admin Dose 2 UNIT; Start 01/19/19 at 09:00 Hydralazine HCl (Apresoline) 5 mg Q4H PRN IV elevated BP Last administered on 01/20/19 03:50; Admin Dose 5 MG; Start 01/19/19 at 23:00 Clonidine (Catapres) 0.1 mg Q4H PRN GTB elevated BP Last administered on 01/20/19 06:20; Admin Dose 0.1 MG; Start 01/19/19 at 23:00 JACLYN GUZMAN MD Jan 20, 2019 11:53
--- NOTE | 2019-01-20 13:31 | PN ---
DATE: 01/20/2019 SUBJECTIVE: Patient has been comfortable. VITAL SIGNS: Blood pressure has been in the high range, 170s systolic and mean of 110, O2 sats 95% o n room air. CHEST: Occasional wheezes. HEART: S1, S2 heard, no definite gallops. ABDOMEN: Soft, nontender. EXTREMITIES: No edema, erythema of the heels unchanged. No ulcers noted. LABORATORY DATA: Sodium 158, potassium 4.0, BUN 94, creatinine 2.11. WBC count 9.1, hematocrit 31.7 . Gastric occult blood was negative. Telemetry shows paroxysmal atrial fibrillation. IMPRESSION: 1. Severe hyponatremia, not improving. 2. Diabetes mellitus type 2, uncontrolled. 3. Chronic renal failure. 4. Diabetic gastroparesis. 5. Right heel deep tissue injury secondary to peripheral artery disease. PLAN: Increase water intake for the hyponatremia, repeat chest x-ray in a.m. Repeat labs in a.m. an d patient had been seen by cardiology during last visit and was felt not to be a candidate for antico agulation in view of recent GI bleed and a Rosibel-Cisse tear. Dictated By: NATALI TIWARI MD SR/NTS Conf#: [id number] DID#: [id number]
[2019-01-20] MEDS: INSULIN GLARGINE [LANTus] (100 UNITS/ML) SYG SC SCH (20:06)
[2019-01-20] MEDS: traZODone 50 MG TAB GTB PRN (22:30)
[2019-01-21] VITALS (12 sets, daily range): BP systolic 132–159; BP diastolic 62–78; PULSE 69–99; RESP 17–20
[2019-01-21] MEDS: Insulin NOVOLOG SS MODERATE Algorithm(NPO/TPN/ENTERAL FEEDS) SC SCH ×6 (01:09→20:30)
[2019-01-21] MEDS: ACCU-CHEK XX SCH (01:27)
[2019-01-21] MEDS: traZODone 50 MG TAB GTB PRN ×3 (05:45→20:19)
[2019-01-21] MEDS: LANSOPRAZOLE 30 MG CAP GTB SCH (05:45)
[2019-01-21] MEDS: METOCLOPRAMIDE 10 MG INJ IV SCH ×5 (06:00→23:22)
[2019-01-21] MEDS: MULTIVITAMINS THERAPEUTIC TAB GTB SCH (09:08)
[2019-01-21] MEDS: ASCORBIC ACID 500 MG TAB GTB SCH (09:08)
[2019-01-21] MEDS: BALSAM PERU/CASTOR OIL 60 GM TUBE TOP SCH ×2 (09:09→20:20)
[2019-01-21] MEDS: ALBUTEROL/IPRATROPIUM (NEB) 3 ML AMP HHN SCH ×4 (10:01→20:56)
[2019-01-21] MEDS ORDERED: FUROSEMIDE 40 MG INJ IV ONE (13:00)
--- NOTE | 2019-01-21 17:58 | PN ---
DATE: 01/21/2019 SUBJECTIVE: The patient is presently lethargic, has been intermittently agitated, does not allow for IV's to be placed. The patient's son and daughter is at the bedside. PHYSICAL EXAMINATION: VITAL SIGNS: Temperature 97.7, blood pressure 130/74, O2 sats 95% on room air. HEENT: Head normocephalic. CHEST: Reveals few wheezes anteriorly. HEART: S1, S2 heard. No definite gallops. ABDOMEN: Soft. EXTREMITIES: No edema. Right heel erythema, unchanged. LABORATORY DATA: Sodium 151, potassium 3.9, BUN 90, creatinine 1.91, glucose levels 184, 215 and 204 today. Chest x-ray shows cardiomegaly, mild pulmonary vascular congestion. IMPRESSION: 1. Hyponatremia, improving with addition of water. 2. Diabetes mellitus type 2, controlled. 3. Chronic renal failure. 4. Acute congestive heart failure. 5. Diabetic gastroparesis. 6. Peripheral arterial disease with evidence of vascular etiology causing deep tissue injury, right hip. 7. Coronary artery disease, status post prior non-ST elevation myocardial infarction with intermitte nt atrial fibrillation. PLAN: The patient is not a candidate for anticoagulation in view of the recent GI bleed. Her overal l prognosis is guarded. I have discussed the same with the patient's daughter, Sonam, at the [facility]. We will attempt to get another IV line and give a 1 dose of Lasix. Recheck labs in a.m. Progno sis is guarded. Dictated By: NATALI TIWARI MD SR/NTS Conf#: [id number] DID#: [id number] CC: JACLYN GUZMAN MD;*End*
[2019-01-21] MEDS: INSULIN GLARGINE [LANTus] (100 UNITS/ML) SYG SC SCH (20:17)
[2019-01-22] VITALS (12 sets, daily range): BP systolic 122–153; BP diastolic 58–72; PULSE 56–101; RESP 16–18
[2019-01-22] MEDS: Insulin NOVOLOG SS MODERATE Algorithm(NPO/TPN/ENTERAL FEEDS) SC SCH ×6 (01:00→21:00)
[2019-01-22] MEDS: ACCU-CHEK XX SCH (02:00)
[2019-01-22] MEDS: LANSOPRAZOLE 30 MG CAP GTB SCH (05:00)
[2019-01-22] MEDS: METOCLOPRAMIDE 10 MG INJ IV SCH ×3 (05:00→18:10)
[2019-01-22] MEDS: ALBUTEROL/IPRATROPIUM (NEB) 3 ML AMP HHN SCH ×4 (09:00→21:31)
[2019-01-22] MEDS: ASCORBIC ACID 500 MG TAB GTB SCH (09:22)
[2019-01-22] MEDS: MULTIVITAMINS THERAPEUTIC TAB GTB SCH (09:23)
--- NOTE | 2019-01-22 10:53 | PN ---
DATE: 01/22/2019 SUBJECTIVE: The patient is very lethargic presently, vomited twice overnight with minimal residual. PHYSICAL EXAMINATION: VITAL SIGNS: Temperature 98.5, blood pressure 122/58, O2 saturation 100% on room air. HEENT: Head normocephalic. Moderate pallor. CHEST: Few wheezes. HEART: S1, S2 with no definite gallops. EXTREMITIES: No edema. LABORATORY DATA: Blood glucose level normal glycemic range. Labs from today are pending. IMPRESSION: 1. Hyponatremia, improving with free water intake. 2. Diabetes mellitus type 2, controlled. 3. Chronic renal failure. 4. Congestive heart failure, improved. 5. Diabetic gastroparesis. 6. Peripheral arterial disease with evidence of vascular ulcers right heel. 7. Coronary artery disease, status post prior non-ST elevation myocardial infarction with intermitte nt atrial fibrillation. PLAN: Her overall prognosis poor. Will recheck labs today. Will discuss with Dr. Thomas regarding treatment of gastroparesis regarding GI. I have discussed with patient's family. Dictated By: NATALI TIWARI MD, SR/EDWAR Conf#: [id number] DID#: [id number]
--- NOTE | 2019-01-22 11:55 | CONS ---
Assessment/Plan Assessment/Plan Hospital Course (Demo Recall) 83 yo female 1. Diabetic Gastroparesis. -coffee ground emesis 2. Diabetes mellitus. 3. Dementia. 4. Dysphagia, status post G-tube placement. 5. Pneumonia. 6. Renal insufficiency 7. Anemia -coffee ground emesis, slow downward trend of HH Plan EGD for tomorrow, NPO p MN no anticoagulants, CBC, CMP and INR in am anemia work up Monitor HH and for GI bleeding Continue PPI and Reglan Pt examined and plan of care d/w Dr. Thomas Consultation Date/Type/Reason Admit Date/Time Jan 10, 2019 at 20:06 Initial Consult Date 01/13/19 Requesting Provider: NATALI TIWARI MD Date/Time of Note DATE: 01/22/19 TIME: 11:35 24 HR Interval Summary Free Text/Dictation Continues to have nausea and two episodes of coffee ground emesis this am. Small bm this morning. Hgb 7.9/25.5 which is slightly down from yesterday. Gastric occult blood on 01/17 was negative. Exam/Review of Systems Exam Vitals Vital Signs Date Temp Pulse Resp B/P (MAP) Pulse Ox O2 O2 Flow FiO2 Time Delivery Rate 01/22/19 98.5 83 18 122/58 100 08:01 (79) 01/21/19 Room Air 23:00 01/21/19 21 22:36 Intake and Output 01/21/19 01/21/19 01/22/19 1515:00 23:00 07:00 IntakeIntake Total 175 ml 60 ml OutputOutput Total 60 ml BalanceBalance 175 ml 0 ml Constitutional: alert Psych: no complaints Head: normocephalic Respiratory: normal air movement Cardiovascular: regular rate and rhythm Gastrointestinal: soft, non-tender Neurological: lethargic Results Result Diagram: 01/22/19 0823 01/22/19 0823 Results 24hrs Laboratory Tests Test 01/21/19 12:24 01/21/19 17:50 01/21/19 20:14 01/22/19 01:16 Bedside Glucose 204 154 141 169 Test 01/22/19 04:59 01/22/19 08:23 01/22/19 09:30 Bedside Glucose 140 110 White Blood Count 11.2 #H Red Blood Count 2.86 L Hemoglobin 7.9 L Hematocrit 26.5 L Mean Corpuscular 92.7 Volume Mean Corpuscular 27.6 L Hemoglobin Mean Corpuscular 29.8 L Hemoglobin Concent Red Cell 20.0 H Distribution Width Platelet Count 129 L Mean Platelet Volume 13.4 H Immature 0.500 H Granulocytes % Neutrophils % 88.8 H Lymphocytes % 5.8 L Monocytes % 4.0 Eosinophils % 0.7 Basophils % 0.2 Nucleated Red Blood 0.2 H Cells % Immature 0.060 H Granulocytes # Neutrophils # 10.0 H Lymphocytes # 0.7 L Monocytes # 0.5 Eosinophils # 0.1 Basophils # 0.0 Nucleated Red Blood 0.0 Cells # Sodium Level 146 H Potassium Level 3.6 Chloride Level 110 Carbon Dioxide Level 27 Anion Gap 9 Blood Urea Nitrogen 94 H Creatinine 1.87 H Est Glomerular Filtrat Rate mL/min Glucose Level 100 # Calcium Level 7.8 L Medications Medication Current Medications Miscellaneous Information 1 ea NOTE XX ; Start 01/11/19 at 21:00 Glucose (Glutose) 15 gm Q15M PRN PO DECREASED GLUCOSE; Start 01/11/19 at 21:00 Glucose (Glutose) 22.5 gm Q15M PRN PO DECREASED GLUCOSE; Start 01/11/19 at 21:00 Dextrose (D50w Syringe) 25 ml Q15M PRN IV DECREASED GLUCOSE; Start 01/11/19 at 21:00 Dextrose (D50w Syringe) 50 ml Q15M PRN IV DECREASED GLUCOSE; Start 01/11/19 at 21:00 Glucagon (Glucagen) 1 mg Q15M PRN IM DECREASED GLUCOSE; Start 01/11/19 at 21:00 Glucose (Glutose) 15 gm Q15M PRN BUCCAL DECREASED GLUCOSE; Start 01/11/19 at 21:00 Clonidine (Catapres) 0.1 mg Q4H PRN PO ELEVATED BLOOD PRESSURE Last administered on 01/17/19at 23:14; Admin Dose 0.1 MG; Start 01/13/19 at 08:30 Ondansetron HCl (Zofran Inj) 4 mg Q4H PRN IV NAUSEA AND/OR VOMITING Last administered on 01/15/19at 05:05; Admin Dose 4 MG; Start 01/14/19 at 23:30 Hydralazine HCl (Apresoline) 5 mg Q4H PRN IV ELEVATED BLOOD PRESSURE Last administered on 6/22/19at 15:01; Admin Dose 5 MG; Start 01/15/19 at 00:00 Albuterol/ Ipratropium (Duoneb) 3 ml Q4HWA RESP THERAPY HHN Last administered on 01/21/19 20:56; Admin Dose 3 ML; Start 01/15/19 at 09:00 Albuterol/ Ipratropium (Duoneb) 3 ml Q4H RESP THERAPY PRN HHN SHORTNESS OF BREATH Last administered on 01/16/19 01:27; Admin Dose 3 ML; Start 01/15/19 at 00:00 Trazodone HCl (Desyrel) 50 mg Q4H PRN GTB AGITATION/ANXIETY Last administered on 01/21/19 20:19; Admin Dose 50 MG; Start 01/15/19 at 00:00 Ascorbic Acid (Vitamin C) 500 mg DAILY GTB Last administered on 01/22/19 09:22; Admin Dose 500 MG; Start 01/16/19 at 14:30 Multivitamins Therapeutic (Theragran) 1 tab DAILY GTB Last administered on 01/22/19 09:23; Admin Dose 1 TAB; Start 01/16/19 at 14:30 Metoclopramide HCl (Reglan) 5 mg Q6 IV Last administered on 01/22/19 05:00; Admin Dose 5 MG; Start 01/17/19 at 18:00 Lansoprazole (Prevacid) 30 mg DAILY@06 GTB Last administered on 01/22/19 05:00; Admin Dose 30 MG; Start 01/18/19 at 06:00 Insulin Glargine (Lantus) 5 units DAILY@2000 SC Last administered on 01/21/19 20:17; Admin Dose 5 UNITS; Start 01/18/19 at 20:00 Diagnostic Test (Pha) (Accu-Chek) 1 ea 02 XX Last administered on 01/19/19 01:37; Admin Dose 1 EA; Start 01/19/19 at 02:00 Insulin Aspart (Novolog Insulin Pen) (Adult SC Insulin - Moder... Q4 SC Last administered on 01/21/19 20:30; Admin Dose 2 UNIT; Start 01/19/19 at 09:00 Hydralazine HCl (Apresoline) 5 mg Q4H PRN IV elevated BP Last administered on 01/20/19at 03:50; Admin Dose 5 MG; Start 01/19/19 at 23:00 Clonidine (Catapres) 0.1 mg Q4H PRN GTB elevated BP Last administered on 01/20/19at 06:20; Admin Dose 0.1 MG; Start 01/19/19 at 23:00 Clonidine (Catapres) 0.1 mg BID PO Last administered on 01/22/19at 09:22; Admin Dose 0.1 MG; Start 01/20/19 at 21:00 TAMEKA JULIO Jan 22, 2019 11:46
[2019-01-22] MEDS: BALSAM PERU/CASTOR OIL 60 GM TUBE TOP SCH ×2 (21:00→22:01)
[2019-01-22] MEDS: INSULIN GLARGINE [LANTus] (100 UNITS/ML) SYG SC SCH (22:05)
[2019-01-23] VITALS (17 sets, daily range): BP systolic 115–152; BP diastolic 48–70; PULSE 63–79; RESP 12–23
[2019-01-23] MEDS: Insulin NOVOLOG SS MODERATE Algorithm(NPO/TPN/ENTERAL FEEDS) SC SCH ×6 (01:00→20:12)
[2019-01-23] MEDS: METOCLOPRAMIDE 10 MG INJ IV SCH ×4 (01:49→17:13)
[2019-01-23] MEDS: ACCU-CHEK XX SCH (02:16)
[2019-01-23] MEDS: LANSOPRAZOLE 30 MG CAP GTB SCH (05:59)
[2019-01-23] MEDS: ALBUTEROL/IPRATROPIUM (NEB) 3 ML AMP HHN SCH ×4 (08:29→21:45)
[2019-01-23] MEDS: MULTIVITAMINS THERAPEUTIC TAB GTB SCH (08:45)
[2019-01-23] MEDS: ASCORBIC ACID 500 MG TAB GTB SCH (08:45)
[2019-01-23] MEDS: BALSAM PERU/CASTOR OIL 60 GM TUBE TOP SCH ×2 (08:46→20:14)
--- NOTE | 2019-01-23 10:07 | PREAC ---
Date/Time of Note Date/Time of Note DATE: 01/23/19 TIME: 10:06 Anesthesia Eval and Record Evaluation Time Pre-Procedure Interview DATE: 01/23/19 TIME: 10:06 Age 83 Sex female NPO: 8 hrs Preoperative diagnosis COFFEE GROUND EMESIS Planned procedure EGD Past Medical History Past Medical History: Includes Cardio: HTN, Arrythmia (A FIB) Endo: Diabetes Neuro: CVA, Other (DEMENTIA) Infection(s): Other (PNEUMONIA) Surgery & Anesthesia Issues No known issue Meds Anticoagulation: No Beta Valentin within 24 hr: No Reason Beta Valentin not given: Pt. not on B-Valentin Active Scripts Donepezil* (Aricept*) 5 Mg Tablet, 5 MG PO DAILY for 30 Days, #30 TAB Prov:NATALI TIWARI MD 12/22/18 Reported Medications Metformin Hcl* (Metformin Hcl*) 500 Mg Tablet, 500 MG PO WITH BREAKFAST, #30 TAB 01/10/19 Docusate Sodium (Silace) 50 Mg/5 Ml Liquid, 10 ML PO DAILY PRN for PRN 12/09/18 Glipizide* (Glipizide*) 5 Mg Tablet, 5 MG PO AC BREAKFAST, TAB 12/09/18 Amlodipine Besylate* (Norvasc*) 5 Mg Tablet, 5 MG PO BID, TAB 12/09/18 Trazodone Hcl* (Trazodone Hcl*) 50 Mg Tablet, 50 MG PO Q6H, #30 TAB 12/09/18 Atenolol* (Atenolol*) 50 Mg Tablet, 50 MG PO DAILY, #30 TAB HOLD FOR SBP<100 12/09/18 Current Medications Miscellaneous Information 1 ea NOTE XX ; Start 01/11/19 at 21:00 Glucose (Glutose) 15 gm Q15M PRN PO DECREASED GLUCOSE; Start 01/11/19 at 21:00 Glucose (Glutose) 22.5 gm Q15M PRN PO DECREASED GLUCOSE; Start 01/11/19 at 21:00 Dextrose (D50w Syringe) 25 ml Q15M PRN IV DECREASED GLUCOSE Last administered on 01/23/19at 05:24; Admin Dose 25 ML; Start 01/11/19 at 21:00 Dextrose (D50w Syringe) 50 ml Q15M PRN IV DECREASED GLUCOSE; Start 01/11/19 at 21:00 Glucagon (Glucagen) 1 mg Q15M PRN IM DECREASED GLUCOSE; Start 01/11/19 at 21:00 Glucose (Glutose) 15 gm Q15M PRN BUCCAL DECREASED GLUCOSE; Start 01/11/19 at 21:00 Clonidine (Catapres) 0.1 mg Q4H PRN PO ELEVATED BLOOD PRESSURE Last administered on 01/17/19 23:14; Admin Dose 0.1 MG; Start 01/13/19 at 08:30 Ondansetron HCl (Zofran Inj) 4 mg Q4H PRN IV NAUSEA AND/OR VOMITING Last administered on 01/15/19 05:05; Admin Dose 4 MG; Start 01/14/19 at 23:30 Hydralazine HCl (Apresoline) 5 mg Q4H PRN IV ELEVATED BLOOD PRESSURE Last administered on 01/20/19 15:01; Admin Dose 5 MG; Start 01/15/19 at 00:00 Albuterol/ Ipratropium (Duoneb) 3 ml Q4HWA RESP THERAPY HHN Last administered on 01/23/19 08:29; Admin Dose 3 ML; Start 01/15/19 at 09:00 Albuterol/ Ipratropium (Duoneb) 3 ml Q4H RESP THERAPY PRN HHN SHORTNESS OF BREATH Last administered on 01/16/19 01:27; Admin Dose 3 ML; Start 01/15/19 at 00:00 Trazodone HCl (Desyrel) 50 mg Q4H PRN GTB AGITATION/ANXIETY Last administered on 01/21/19 20:19; Admin Dose 50 MG; Start 01/15/19 at 00:00 Ascorbic Acid (Vitamin C) 500 mg DAILY GTB Last administered on 01/22/19 09:22; Admin Dose 500 MG; Start 01/16/19 at 14:30 Multivitamins Therapeutic (Theragran) 1 tab DAILY GTB Last administered on 01/22/19 09:23; Admin Dose 1 TAB; Start 01/16/19 at 14:30 Metoclopramide HCl (Reglan) 5 mg Q6 IV Last administered on 01/23/19 06:03; Admin Dose 5 MG; Start 01/17/19 at 18:00 Lansoprazole (Prevacid) 30 mg DAILY@06 GTB Last administered on 01/23/19 05:59; Admin Dose 30 MG; Start 01/18/19 at 06:00 Insulin Glargine (Lantus) 5 units DAILY@2000 SC Last administered on 01/22/19 22:05; Admin Dose 5 UNITS; Start 01/18/19 at 20:00 Diagnostic Test (Pha) (Accu-Chek) 1 ea 02 XX Last administered on 01/23/19at 02:16; Admin Dose 1 EA; Start 01/19/19 at 02:00 Insulin Aspart (Novolog Insulin Pen) (Adult SC Insulin - Moder... Q4 SC Last administered on 01/21/19 20:30; Admin Dose 2 UNIT; Start 01/19/19 at 09:00 Hydralazine HCl (Apresoline) 5 mg Q4H PRN IV elevated BP Last administered on 01/20/19at 03:50; Admin Dose 5 MG; Start 01/19/19 at 23:00 Clonidine (Catapres) 0.1 mg Q4H PRN GTB elevated BP Last administered on 01/20/19 06:20; Admin Dose 0.1 MG; Start 01/19/19 at 23:00 Clonidine (Catapres) 0.1 mg BID PO Last administered on 01/22/19 22:02; Admin Dose 0.1 MG; Start 01/20/19 at 21:00 Meds reviewed: Yes Allergies Coded Allergies: Penicillins (Unverified Allergy, Unknown, 01/10/19) Allergies Reviewed: Yes Labs/Studies Labs Reviewed: Reviewed by anesthesiologist Result Diagram: 01/23/19 0804 01/23/19 0804 Laboratory Tests 01/23/19 08:04 test: Negative Studies: ECG, CXR (Persistent mild fluid overload.) Pre-procedure Exam Last vitals Vital Signs Date Temp Pulse Resp B/P (MAP) Pulse Ox O2 O2 Flow FiO2 Time Delivery Rate 01/23/19 84 20 98 21 08:39 01/23/19 Room Air 08:31 01/23/19 97.9 143/67 07:52 (92) Airway: Adequate mouth opening, Adequate thyromental dist Mallampati: Mallampati II Teeth: Normal Lung: Normal Heart: Normal ASA Physical Status ASA physical status: 3 Emergency: E Planned Anesthetic General/MAC: MAC Planned Pain Management Parenteral pain med Pre-operative Attestations Prior to commencing anesthesia and surgery, the patient was re-evaluated, there was verification of: *The patient's identity *The results of appropriate recent lab work and preoperative vital signs *The above evaluation not changing prior to induction *Anesthetic plan, risk benefits, alternative and complications discussed with patient/family; questions answered; patient/family understands, accepts and wishes to proceed. Toro Horton M.D. Jan 23, 2019 10:07
[2019-01-23] MEDS ORDERED: PROPOFOL 40 ML ONE (10:13)
[2019-01-23] MEDS ORDERED: LIDOCAINE 100 MG SYRINGE ONE (10:13)
[2019-01-23] MEDS ORDERED: FENTAnyl 50 MCG/ML VIAL ONE (10:13)
--- NOTE | 2019-01-23 10:35 | PAC ---
Date/Time of Note Date/Time of Note DATE: 01/23/19 TIME: 10:35 Post-Anesthesia Notes Post-Anesthesia Note Last documented vital signs Vital Signs Date Temp Pulse Resp B/P (MAP) Pulse Ox O2 O2 Flow FiO2 Time Delivery Rate 01/23/19 84 20 98 21 08:39 01/23/19 Room Air 08:31 01/23/19 97.9 143/67 07:52 (92) Activity: WNL Respiratory function: WNL Cardiovascular function: WNL Mental status: Baseline Pain reasonably controlled: Yes Hydration appropriate: Yes Nausea/Vomiting absent: Yes Toro Horton M.D. Jan 23, 2019 10:35
[2019-01-23] MEDS: ONDANSETRON 4 MG INJ IV PRN ×2 (12:28→17:13)
[2019-01-23] MEDS: SUCRALFATE (100 MG/ML) 10ML CUP GTB SCH ×3 (12:28→20:07)
--- NOTE | 2019-01-23 16:56 | PN ---
DATE: 01/23/2019 SUBJECTIVE: The patient is lethargic presently, status post upper endoscopy. PHYSICAL EXAMINATION: VITAL SIGNS: Temperature 97.4, blood pressure 144/67, O2 saturation 96% on 2 liters nasal cannula. CHEST: Few wheezes anteriorly. HEART: S1, S2 heard. No definite gallops. ABDOMEN: Soft, nontender. No hepatosplenomegaly. EXTREMITIES: No edema. LABORATORY DATA: WBC count 7.3, hematocrit 27.8, platelet count is 118,000. Sodium 147, potassium 3 .8, BUN 85, creatinine 1.9. Glucose levels were normal glycemic range. IMPRESSION: 1. Hypernatremia, improved. 2. Diabetes mellitus type 2, well controlled. 3. Acute on chronic renal failure. 4. Congestive heart failure, improving. 5. Diabetic gastroparesis. 6. Possible upper gastrointestinal bleed, anemia. 7. Peripheral artery disease. 8. Coronary artery disease, status post recent non-ST elevation myocardial infarction and intermitte nt atrial fibrillation. PLAN: The patient's overall prognosis is poor. We will continue to monitor renal function, sodium, CBC. Recheck chest x-ray in a.m. Dictated By: NATALI TIWARI MD SR/NTS Conf#: [id number] DID#: [id number] CC: JACLYN GUZMAN MD;*EndCC*
[2019-01-23] MEDS: INSULIN GLARGINE [LANTus] (100 UNITS/ML) SYG SC SCH (20:11)
[2019-01-24] VITALS (8 sets, daily range): BP systolic 132–165; BP diastolic 56–72; PULSE 65–87; RESP 15–20
[2019-01-24] MEDS: Insulin NOVOLOG SS MODERATE Algorithm(NPO/TPN/ENTERAL FEEDS) SC SCH ×6 (00:31→20:26)
[2019-01-24] MEDS: ACCU-CHEK XX SCH (00:31)
[2019-01-24] MEDS: METOCLOPRAMIDE 10 MG INJ IV SCH ×4 (00:31→17:20)
[2019-01-24] MEDS: LANSOPRAZOLE 30 MG CAP GTB SCH (05:10)
[2019-01-24] MEDS: ALBUTEROL/IPRATROPIUM (NEB) 3 ML AMP HHN SCH ×4 (08:32→21:38)
--- NOTE | 2019-01-24 09:02 | PN ---
DATE: 01/24/2019 SUBJECTIVE: Patient is presently lethargic. PHYSICAL EXAMINATION: VITAL SIGNS: Temperature 98.3, blood pressure 162/72, O2 sats 100% on 2 liters nasal cannula. Mild p allor without cyanosis. CHEST: Few wheezes heard anteriorly. HEART: S1, S2 heard, no definite gallops. ABDOMEN: Soft, nontender. EXTREMITIES: No edema. IMPRESSION: 1. Delirium with hyponatremia, improved. 2. Diabetes mellitus type 2, well controlled. 3. Acute on chronic renal failure. 4. Congestive heart failure, improving. 5. Diabetic gastroparesis. 6. Peripheral artery disease with vascular ulcers of the right heel. 7. Coronary artery disease, status post prior non-ST elevation myocardial infarction. . PLAN: Will repeat chest x-ray in a.m. and labs. Initiate discharge planning. Dictated By: NATALI TIWARI MD SR/NTS Conf#: [id number] DID#: [id number] CC: JACLYN GUZMAN MD;*EndCC*
[2019-01-24] MEDS: SUCRALFATE (100 MG/ML) 10ML CUP GTB SCH ×4 (09:39→20:25)
[2019-01-24] MEDS: ONDANSETRON 4 MG INJ IV PRN (09:40)
[2019-01-24] MEDS: MULTIVITAMINS THERAPEUTIC TAB GTB SCH (09:40)
[2019-01-24] MEDS: ASCORBIC ACID 500 MG TAB GTB SCH (09:40)
[2019-01-24] MEDS: BALSAM PERU/CASTOR OIL 60 GM TUBE TOP SCH ×2 (09:41→20:27)
--- NOTE | 2019-01-24 19:12 | CONS ---
Assessment/Plan Assessment/Plan Assessment/Plan (Daily) Assessment/Plan (Daily) IMPRESSION: 1. Gastroparesis. Resolved patient is on Reglan 2. Diabetes mellitus. 3. Dementia. 4. Dysphagia, status post G-tube placement. 5. Pneumonia. 6. Patient is a large stomal ulcer Plan Continue PPI and Reglan Continue Carafate Consultation Date/Type/Reason Admit Date/Time Jan 10, 2019 at 20:06 Initial Consult Date 01/13/19 Requesting Provider: NATALI TIWARI MD Date/Time of Note DATE: 01/24/19 TIME: 19:10 24 HR Interval Summary Subjective hx not possible: pt non-verbal Exam/Review of Systems Exam Vitals Vital Signs Date Temp Pulse Resp B/P (MAP) Pulse Ox O2 O2 Flow FiO2 Time Delivery Rate 01/24/19 80 20 98 21 16:31 01/24/19 Nasal 2.0 16:27 Cannula 01/24/19 98.2 150/67 15:21 (94) Intake and Output 01/23/19 01/23/19 01/24/19 1515:00 23:00 07:00 IntakeIntake Total 600 ml 340 ml BalanceBalance 600 ml 340 ml Constitutional: non-verbal Respiratory: clear to auscultation, normal air movement Gastrointestinal: soft, nl liver, spleen, non-tender Results Result Diagram: 01/23/19 0804 01/23/19 0804 Results 24hrs Laboratory Tests Test 01/23/19 20:06 01/24/19 00:30 01/24/19 05:08 01/24/19 09:42 Bedside Glucose 100 99 103 108 Test 01/24/19 12:12 01/24/19 17:19 Bedside Glucose 104 181 Medications Medication Current Medications Miscellaneous Information 1 ea NOTE XX ; Start 01/11/19 at 21:00 Glucose (Glutose) 15 gm Q15M PRN PO DECREASED GLUCOSE; Start 01/11/19 at 21:00 Glucose (Glutose) 22.5 gm Q15M PRN PO DECREASED GLUCOSE; Start 01/11/19 at 21:00 Dextrose (D50w Syringe) 25 ml Q15M PRN IV DECREASED GLUCOSE Last administered on 01/23/19at 05:24; Admin Dose 25 ML; Start 01/11/19 at 21:00 Dextrose (D50w Syringe) 50 ml Q15M PRN IV DECREASED GLUCOSE; Start 01/11/19 at 21:00 Glucagon (Glucagen) 1 mg Q15M PRN IM DECREASED GLUCOSE; Start 01/11/19 at 21:00 Glucose (Glutose) 15 gm Q15M PRN BUCCAL DECREASED GLUCOSE; Start 01/11/19 at 21:00 Ondansetron HCl (Zofran Inj) 4 mg Q4H PRN IV NAUSEA AND/OR VOMITING Last administered on 01/24/19 09:40; Admin Dose 4 MG; Start 01/14/19 at 23:30 Hydralazine HCl (Apresoline) 5 mg Q4H PRN IV ELEVATED BLOOD PRESSURE Last administered on 01/20/19 15:01; Admin Dose 5 MG; Start 01/15/19 at 00:00 Albuterol/ Ipratropium (Duoneb) 3 ml Q4HWA RESP THERAPY HHN Last administered on 01/24/19 16:21; Admin Dose 3 ML; Start 01/15/19 at 09:00 Albuterol/ Ipratropium (Duoneb) 3 ml Q4H RESP THERAPY PRN HHN SHORTNESS OF BREATH Last administered on 01/16/19 01:27; Admin Dose 3 ML; Start 01/15/19 at 00:00 Trazodone HCl (Desyrel) 50 mg Q4H PRN GTB AGITATION/ANXIETY Last administered on 01/21/19 20:19; Admin Dose 50 MG; Start 01/15/19 at 00:00 Ascorbic Acid (Vitamin C) 500 mg DAILY GTB Last administered on 01/24/19 09:40; Admin Dose 500 MG; Start 01/16/19 at 14:30 Multivitamins Therapeutic (Theragran) 1 tab DAILY GTB Last administered on 01/24/19 09:40; Admin Dose 1 TAB; Start 01/16/19 at 14:30 Metoclopramide HCl (Reglan) 5 mg Q6 IV Last administered on 01/24/19 17:20; Admin Dose 5 MG; Start 01/17/19 at 18:00 Lansoprazole (Prevacid) 30 mg DAILY@06 GTB Last administered on 01/24/19 05:10; Admin Dose 30 MG; Start 01/18/19 at 06:00 Insulin Glargine (Lantus) 5 units DAILY@2000 SC Last administered on 01/23/19 20:11; Admin Dose 5 UNITS; Start 01/18/19 at 20:00 Diagnostic Test (Pha) (Accu-Chek) 1 ea 02 XX Last administered on 01/23/19 02:16; Admin Dose 1 EA; Start 01/19/19 at 02:00 Insulin Aspart (Novolog Insulin Pen) (Adult SC Insulin - Moder... Q4 SC Last administered on 01/24/19 17:27; Admin Dose 4 UNIT; Start 01/19/19 at 09:00 Hydralazine HCl (Apresoline) 5 mg Q4H PRN IV elevated BP Last administered on 01/20/19at 03:50; Admin Dose 5 MG; Start 01/19/19 at 23:00 Clonidine (Catapres) 0.1 mg Q4H PRN GTB elevated BP Last administered on 01/20/19 06:20; Admin Dose 0.1 MG; Start 01/19/19 at 23:00 Clonidine (Catapres) 0.1 mg BID PO Last administered on 01/24/19at 09:40; Admin Dose 0.1 MG; Start 01/20/19 at 21:00 Sucralfate (Carafate Susp) 1 gm QID GTB Last administered on 01/24/19at 17:20; Admin Dose 1 GM; Start 01/23/19 at 13:00 JACLYN GUZMAN MD Jan 24, 2019 19:11
[2019-01-24] MEDS: INSULIN GLARGINE [LANTus] (100 UNITS/ML) SYG SC SCH (20:33)
[2019-01-25] VITALS: BP 158/69; PULSE 79; RESP 18
[2019-01-25] MEDS: METOCLOPRAMIDE 10 MG INJ IV SCH ×3 (00:42→11:40)
[2019-01-25] MEDS: Insulin NOVOLOG SS MODERATE Algorithm(NPO/TPN/ENTERAL FEEDS) SC SCH ×6 (00:47→20:44)
[2019-01-25] MEDS: ACCU-CHEK XX SCH (02:00)
[2019-01-25] MEDS: LANSOPRAZOLE 30 MG CAP GTB SCH (05:57)
[2019-01-25 07:32] VITALS: BP 145/84; PULSE 76; RESP 19
[2019-01-25] MEDS ORDERED: FUROSEMIDE 40 MG INJ IV ONE (09:00)
[2019-01-25] MEDS: SUCRALFATE (100 MG/ML) 10ML CUP GTB SCH ×3 (09:12→20:42)
[2019-01-25] MEDS: ASCORBIC ACID 500 MG TAB GTB SCH (09:12)
[2019-01-25] MEDS: MULTIVITAMINS THERAPEUTIC TAB GTB SCH (09:12)
--- NOTE | 2019-01-25 09:14 | PN ---
DATE: 01/25/2019 SUBJECTIVE: The patient is lethargic. PHYSICAL EXAMINATION: VITAL SIGNS: Temperature 97.6, blood pressure 144/84, O2 saturation 96% on 2 liters nasal cannula. NECK: JVD is not increased. CHEST: He has a few wheezes anteriorly. HEART: S1, S2 with no definite gallops. ABDOMEN: Soft, bowel sounds are active. EXTREMITIES: No edema. IMAGING STUDIES: Chest x-ray from yesterday shows increased pulmonary vascular congestion. LABORATORY DATA: Blood glucose has been in normal glycemic range. IMPRESSION: 1. Acute on chronic renal failure. 2. Congestive heart failure. 3. Diabetes mellitus type 2, well controlled. 4. Delirium with hyponatremia, improved. 5. Diabetic gastroparesis. 6. Peripheral arterial disease with vascular ulcers right heel. 7. Coronary artery disease, status post non-ST elevated myocardial infarction. 8. Status post recent gastrointestinal bleed. PLAN: We will give 1 dose of Lasix IV push today. Repeat labs in morning. The patient's prognosis is poor. Dictated By: NATALI TIWARI MD SR/NTS Conf#: [id number] DID#: [id number] CC: NATALI TIWARI MD; JACLYN GUZMAN MD;*End*
[2019-01-25] MEDS: BALSAM PERU/CASTOR OIL 60 GM TUBE TOP SCH ×2 (09:15→20:45)
[2019-01-25] MEDS: ALBUTEROL/IPRATROPIUM (NEB) 3 ML AMP HHN SCH ×3 (10:25→20:36)
[2019-01-25 11:25] VITALS: BP 116/77; PULSE 79; RESP 18
--- NOTE | 2019-01-25 11:45 | CONS ---
Assessment/Plan Assessment/Plan Assessment/Plan (Daily) Assessment/Plan (Daily) Assessment/Plan (Daily) IMPRESSION: 1. Gastroparesis. Resolved patient is on Reglan 2. Diabetes mellitus. 3. Dementia. 4. Dysphagia, status post G-tube placement. 5. Pneumonia. 6. Patient is a large stomal ulcer Plan Continue PPI and Reglan Continue Carafate Add erythromycin for gastroparesis Consultation Date/Type/Reason Admit Date/Time Jan 10, 2019 at 20:06 Initial Consult Date 01/13/19 Requesting Provider: NATALI TIWARI MD Date/Time of Note DATE: 01/25/19 TIME: 11:44 24 HR Interval Summary Free Text/Dictation Patient had a high residual 250 cc No GI bleeding Exam/Review of Systems Exam Vitals Vital Signs Date Temp Pulse Resp B/P (MAP) Pulse Ox O2 O2 Flow FiO2 Time Delivery Rate 01/25/19 98.0 79 18 116/77 97 11:25 (90) 01/24/19 21 21:38 01/24/19 Room Air 20:00 01/24/19 2.0 16:27 Intake and Output 01/24/19 01/24/19 01/25/19 1414:59 22:59 06:59 IntakeIntake Total 300 ml 330 ml 1085 ml BalanceBalance 300 ml 330 ml 1085 ml Psych: confusion Respiratory: clear to auscultation, normal air movement Results Result Diagram: 01/25/19 0744 01/25/19 0744 Results 24hrs Laboratory Tests Test 01/24/19 12:12 01/24/19 17:19 01/24/19 20:24 01/25/19 00:46 Bedside Glucose 104 181 100 121 Test 01/25/19 04:43 01/25/19 07:44 01/25/19 09:14 Bedside Glucose 112 123 White Blood Count 5.8 # Red Blood Count 2.84 L Hemoglobin 8.0 L Hematocrit 26.9 L Mean Corpuscular 94.7 Volume Mean Corpuscular 28.2 L Hemoglobin Mean Corpuscular 29.7 L Hemoglobin Concent Red Cell 20.6 H Distribution Width Platelet Count 131 L Mean Platelet Volume 12.1 H Immature 0.500 H Granulocytes % Neutrophils % 70.0 Lymphocytes % 16.1 Monocytes % 9.1 Eosinophils % 3.4 Basophils % 0.9 Nucleated Red Blood 0.7 H Cells % Immature 0.030 Granulocytes # Neutrophils # 4.1 Lymphocytes # 0.9 Monocytes # 0.5 Eosinophils # 0.2 Basophils # 0.1 Nucleated Red Blood 0.0 Cells # Sodium Level 148 H Potassium Level 3.8 Chloride Level 114 H Carbon Dioxide Level 28 Anion Gap 6 Blood Urea Nitrogen 84 H Creatinine 1.94 H Est Glomerular Filtrat Rate mL/min Glucose Level 98 Calcium Level 7.8 L Medications Medication Current Medications Miscellaneous Information 1 ea NOTE XX ; Start 01/11/19 at 21:00 Glucose (Glutose) 15 gm Q15M PRN PO DECREASED GLUCOSE; Start 01/11/19 at 21:00 Glucose (Glutose) 22.5 gm Q15M PRN PO DECREASED GLUCOSE; Start 01/11/19 at 21:00 Dextrose (D50w Syringe) 25 ml Q15M PRN IV DECREASED GLUCOSE Last administered on 01/23/19 05:24; Admin Dose 25 ML; Start 01/11/19 at 21:00 Dextrose (D50w Syringe) 50 ml Q15M PRN IV DECREASED GLUCOSE; Start 01/11/19 at 21:00 Glucagon (Glucagen) 1 mg Q15M PRN IM DECREASED GLUCOSE; Start 01/11/19 at 21:00 Glucose (Glutose) 15 gm Q15M PRN BUCCAL DECREASED GLUCOSE; Start 01/11/19 at 21:00 Ondansetron HCl (Zofran Inj) 4 mg Q4H PRN IV NAUSEA AND/OR VOMITING Last administered on 01/24/19at 09:40; Admin Dose 4 MG; Start 01/14/19 at 23:30 Hydralazine HCl (Apresoline) 5 mg Q4H PRN IV ELEVATED BLOOD PRESSURE Last administered on 01/20/19at 15:01; Admin Dose 5 MG; Start 01/15/19 at 00:00 Albuterol/ Ipratropium (Duoneb) 3 ml Q4HWA RESP THERAPY HHN Last administered on 01/25/19at 10:25; Admin Dose 3 ML; Start 01/15/19 at 09:00 Albuterol/ Ipratropium (Duoneb) 3 ml Q4H RESP THERAPY PRN HHN SHORTNESS OF BREATH Last administered on 01/16/19at 01:27; Admin Dose 3 ML; Start 01/15/19 at 00:00 Trazodone HCl (Desyrel) 50 mg Q4H PRN GTB AGITATION/ANXIETY Last administered on 01/21/19 20:19; Admin Dose 50 MG; Start 01/15/19 at 00:00 Ascorbic Acid (Vitamin C) 500 mg DAILY GTB Last administered on 01/25/19 09:12; Admin Dose 500 MG; Start 01/16/19 at 14:30 Multivitamins Therapeutic (Theragran) 1 tab DAILY GTB Last administered on 01/25/19 09:12; Admin Dose 1 TAB; Start 01/16/19 at 14:30 Metoclopramide HCl (Reglan) 5 mg Q6 IV Last administered on 01/25/19 11:40; Admin Dose 5 MG; Start 01/17/19 at 18:00 Lansoprazole (Prevacid) 30 mg DAILY@06 GTB Last administered on 01/25/19 05:57; Admin Dose 30 MG; Start 01/18/19 at 06:00 Insulin Glargine (Lantus) 5 units DAILY@2000 SC Last administered on 01/24/19 20:33; Admin Dose 5 UNITS; Start 01/18/19 at 20:00 Diagnostic Test (Pha) (Accu-Chek) 1 ea 02 XX Last administered on 01/23/19 02:16; Admin Dose 1 EA; Start 01/19/19 at 02:00 Insulin Aspart (Novolog Insulin Pen) (Adult SC Insulin - Moder... Q4 SC Last administered on 01/24/19 17:27; Admin Dose 4 UNIT; Start 01/19/19 at 09:00 Hydralazine HCl (Apresoline) 5 mg Q4H PRN IV elevated BP Last administered on 01/20/19 03:50; Admin Dose 5 MG; Start 01/19/19 at 23:00 Clonidine (Catapres) 0.1 mg Q4H PRN GTB elevated BP Last administered on 01/20/19 06:20; Admin Dose 0.1 MG; Start 01/19/19 at 23:00 Clonidine (Catapres) 0.1 mg BID PO Last administered on 01/25/19 09:12; Admin Dose 0.1 MG; Start 01/20/19 at 21:00 Sucralfate (Carafate Susp) 1 gm QID GTB Last administered on 01/25/19at 09:12; Admin Dose 1 GM; Start 01/23/19 at 13:00 JACLYN GUZMAN MD Jan 25, 2019 11:45
[2019-01-25] MEDS: ERYTHROMYCIN BASE (DR) 250 MG CAP PO SCH ×2 (14:20→21:30)
[2019-01-25 15:50] VITALS: BP 158/71; PULSE 89; RESP 19
--- NOTE | 2019-01-25 16:44 | CONS ---
Assessment/Plan Assessment/Plan Hospital Course (Demo Recall) ASSESSMENT: 1. Gastric ulcer/gastroparesis - per Gi 2. Recent NSTEMI 11/2018- type II likely from GIB + underlying CAD. not candidate for invasive options. cont medical tx 4. Hyperlipidemia. 5. Type 2 diabetes. 6. Multi-infarct dementia prior CVAs. 7. History of subdural hematoma subarachnoid hemorrhage in 2013. 8. CKD 9. ? acute on chronic diastolic HF. vasc congestion. ok to cont gentle diuresis watch cr closely (overall improved since admit) PLAN: 1. watch bun/cr closely with diuresis 2. start statin/bb 3.. no antiplt medications given gib/gastric ulcer Consultation Date/Type/Reason Admit Date/Time Jan 10, 2019 at 20:06 Date of Consultation: Jan 25, 2019 Type of Consult Cardiology Reason for Consultation Weakness Requesting Provider: NATALI TIWARI MD Date/Time of Note DATE: 01/25/19 TIME: 16:33 Hx of Present Illness pt seen this am. history obtained from family and nursing at bedside. pt admitted for weakness. no e/o pna on eval by ID. had high residuals from tube feed and coffee grounds, had EGD showing ulcer. placed on sucralfate ppi, feeds restarted, no bleeding, h/h stable. per family pt stable, improved from admit. no reported cp/sob. Patient cannot give any history tele reviewed; NSR no events unable to obtain dementia s/p stroke Past Medical History PMHx 1. Multi-infarct dementia prior CVAs. 2. History of traumatic subdural hematoma and subarachnoid hemorrhage 2013. 3. History of non-ST elevation myocardial infarction 2008 treated conservatively. 4. Hypertension. 5. Hyperlipidemia. 6. Type 2 diabetes. 7. Recurrent UTIs. Medical History: other (As per history of present illness) Home Meds Active Scripts Donepezil* (Aricept*) 5 Mg Tablet, 5 MG PO DAILY for 30 Days, #30 TAB Prov:NATALI TIWARI MD 12/22/18 Reported Medications Metformin Hcl* (Metformin Hcl*) 500 Mg Tablet, 500 MG PO WITH BREAKFAST, #30 TAB 01/10/19 Docusate Sodium (Silace) 50 Mg/5 Ml Liquid, 10 ML PO DAILY PRN for PRN 12/09/18 Glipizide* (Glipizide*) 5 Mg Tablet, 5 MG PO AC BREAKFAST, TAB 12/09/18 Amlodipine Besylate* (Norvasc*) 5 Mg Tablet, 5 MG PO BID, TAB 12/09/18 Trazodone Hcl* (Trazodone Hcl*) 50 Mg Tablet, 50 MG PO Q6H, #30 TAB 12/09/18 Atenolol* (Atenolol*) 50 Mg Tablet, 50 MG PO DAILY, #30 TAB HOLD FOR SBP<100 12/09/18 Medications Current Medications Miscellaneous Information 1 ea NOTE XX ; Start 01/11/19 at 21:00 Glucose (Glutose) 15 gm Q15M PRN PO DECREASED GLUCOSE; Start 01/11/19 at 21:00 Glucose (Glutose) 22.5 gm Q15M PRN PO DECREASED GLUCOSE; Start 01/11/19 at 21:00 Dextrose (D50w Syringe) 25 ml Q15M PRN IV DECREASED GLUCOSE Last administered on 01/23/19at 05:24; Admin Dose 25 ML; Start 01/11/19 at 21:00 Dextrose (D50w Syringe) 50 ml Q15M PRN IV DECREASED GLUCOSE; Start 01/11/19 at 21:00 Glucagon (Glucagen) 1 mg Q15M PRN IM DECREASED GLUCOSE; Start 01/11/19 at 21:00 Glucose (Glutose) 15 gm Q15M PRN BUCCAL DECREASED GLUCOSE; Start 01/11/19 at 21:00 Ondansetron HCl (Zofran Inj) 4 mg Q4H PRN IV NAUSEA AND/OR VOMITING Last administered on 01/24/19at 09:40; Admin Dose 4 MG; Start 01/14/19 at 23:30 Hydralazine HCl (Apresoline) 5 mg Q4H PRN IV ELEVATED BLOOD PRESSURE Last admin istered on 01/20/19at 15:01; Admin Dose 5 MG; Start 01/15/19 at 00:00 Albuterol/ Ipratropium (Duoneb) 3 ml Q4HWA RESP THERAPY HHN Last administered on 01/25/19at 14:12; Admin Dose 3 ML; Start 01/15/19 at 09:00 Albuterol/ Ipratropium (Duoneb) 3 ml Q4H RESP THERAPY PRN HHN SHORTNESS OF BREATH Last administered on 01/16/19 01:27; Admin Dose 3 ML; Start 01/15/19 at 00:00 Trazodone HCl (Desyrel) 50 mg Q4H PRN GTB AGITATION/ANXIETY Last administered on 01/21/19 20:19; Admin Dose 50 MG; Start 01/15/19 at 00:00 Ascorbic Acid (Vitamin C) 500 mg DAILY GTB Last administered on 01/25/19 09:12; Admin Dose 500 MG; Start 01/16/19 at 14:30 Multivitamins Therapeutic (Theragran) 1 tab DAILY GTB Last administered on 01/25/19 09:12; Admin Dose 1 TAB; Start 01/16/19 at 14:30 Metoclopramide HCl (Reglan) 5 mg Q6 IV Last administered on 01/25/19 11:40; Admin Dose 5 MG; Start 01/17/19 at 18:00 Lansoprazole (Prevacid) 30 mg DAILY@06 GTB Last administered on 01/25/19 05:57; Admin Dose 30 MG; Start 01/18/19 at 06:00 Insulin Glargine (Lantus) 5 units DAILY@2000 SC Last administered on 01/24/19 20:33; Admin Dose 5 UNITS; Start 01/18/19 at 20:00 Diagnostic Test (Pha) (Accu-Chek) 1 ea 02 XX Last administered on 01/23/19 02:16; Admin Dose 1 EA; Start 01/19/19 at 02:00 Insulin Aspart (Novolog Insulin Pen) (Adult SC Insulin - Moder... Q4 SC Last administered on 01/24/19 17:27; Admin Dose 4 UNIT; Start 01/19/19 at 09:00 Hydralazine HCl (Apresoline) 5 mg Q4H PRN IV elevated BP Last administered on 01/20/19 03:50; Admin Dose 5 MG; Start 01/19/19 at 23:00 Clonidine (Catapres) 0.1 mg Q4H PRN GTB elevated BP Last administered on 01/20/19 06:20; Admin Dose 0.1 MG; Start 01/19/19 at 23:00 Clonidine (Catapres) 0.1 mg BID PO Last administered on 01/25/19 09:12; Admin Dose 0.1 MG; Start 01/20/19 at 21:00 Sucralfate (Carafate Susp) 1 gm QID GTB Last administered on 01/25/19at 12:55; Admin Dose 1 GM; Start 01/23/19 at 13:00 Erythromycin (Erythromycin) 250 mg Q8 PO Last administered on 01/25/19at 14:20; Admin Dose 250 MG; Start 01/25/19 at 14:00 Allergies: Coded Allergies: Penicillins (Unverified Allergy, Unknown, 01/10/19) Past Surgical History Past Surgical Hx: other (As per history of present illness) Family History Significant Family History: other (no sig cad hx) Social History Smoking Status: Unknown if ever smoked Exam/Review of Systems Exam Vitals Vital Signs Date Temp Pulse Resp B/P (MAP) Pulse Ox O2 O2 Flow FiO2 Time Delivery Rate 01/25/19 97.6 89 19 158/71 97 15:50 (100) 01/24/19 21 21:38 01/24/19 Room Air 20:00 01/24/19 2.0 16:27 Intake and Output 01/24/19 01/24/19 01/25/19 1515:00 23:00 07:00 IntakeIntake Total 300 ml 330 ml 1085 ml BalanceBalance 300 ml 330 ml 1085 ml Exam HEENT; no JVD, no HJR, carotids 2 over 4+ without bruits. Chest: Clear to auscultation and percussion, no rales, wheezes or rhonchi. Cardiac: S4, S1, S2 with normal physiologic splitting, 2/6 early to mid peaking systolic ejection murmur, no rub click or diastolic murmur noted. Abdominal: Bowel sounds positive, soft nontender, no abdominal bruit noted, no hepatosplenomegaly. Extremities: No cyanosis, clubbing, or edema. Pulses: 2/4 pulses diffusely no bruits noted. Neuro: contracted, not responding to questions Results Result Diagram: 01/25/19 0744 01/25/19 0744 Results 24hrs Laboratory Tests Test 01/24/19 17:19 01/24/19 20:24 01/25/19 00:46 01/25/19 04:43 Bedside Glucose 181 100 121 112 Test 01/25/19 07:44 01/25/19 09:14 01/25/19 12:54 White Blood Count 5.8 # Red Blood Count 2.84 L Hemoglobin 8.0 L Hematocrit 26.9 L Mean Corpuscular 94.7 Volume Mean Corpuscular 28.2 L Hemoglobin Mean Corpuscular 29.7 L Hemoglobin Concent Red Cell 20.6 H Distribution Width Platelet Count 131 L Mean Platelet Volume 12.1 H Immature 0.500 H Granulocytes % Neutrophils % 70.0 Lymphocytes % 16.1 Monocytes % 9.1 Eosinophils % 3.4 Basophils % 0.9 Nucleated Red Blood 0.7 H Cells % Immature 0.030 Granulocytes # Neutrophils # 4.1 Lymphocytes # 0.9 Monocytes # 0.5 Eosinophils # 0.2 Basophils # 0.1 Nucleated Red Blood 0.0 Cells # Sodium Level 148 H Potassium Level 3.8 Chloride Level 114 H Carbon Dioxide Level 28 Anion Gap 6 Blood Urea Nitrogen 84 H Creatinine 1.94 H Est Glomerular Filtrat Rate mL/min Glucose Level 98 Calcium Level 7.8 L Bedside Glucose 123 116 Imaging Imaging cxr report reviewed in emr Medications Medication Current Medications Miscellaneous Information 1 ea NOTE XX ; Start 01/11/19 at 21:00 Glucose (Glutose) 15 gm Q15M PRN PO DECREASED GLUCOSE; Start 01/11/19 at 21:00 Glucose (Glutose) 22.5 gm Q15M PRN PO DECREASED GLUCOSE; Start 01/11/19 at 21:00 Dextrose (D50w Syringe) 25 ml Q15M PRN IV DECREASED GLUCOSE Last administered on 01/23/19at 05:24; Admin Dose 25 ML; Start 01/11/19 at 21:00 Dextrose (D50w Syringe) 50 ml Q15M PRN IV DECREASED GLUCOSE; Start 01/11/19 at 21:00 Glucagon (Glucagen) 1 mg Q15M PRN IM DECREASED GLUCOSE; Start 01/11/19 at 21:00 Glucose (Glutose) 15 gm Q15M PRN BUCCAL DECREASED GLUCOSE; Start 01/11/19 at 21:00 Ondansetron HCl (Zofran Inj) 4 mg Q4H PRN IV NAUSEA AND/OR VOMITING Last administered on 01/24/19at 09:40; Admin Dose 4 MG; Start 01/14/19 at 23:30 Hydralazine HCl (Apresoline) 5 mg Q4H PRN IV ELEVATED BLOOD PRESSURE Last administered on 01/20/19 15:01; Admin Dose 5 MG; Start 01/15/19 at 00:00 Albuterol/ Ipratropium (Duoneb) 3 ml Q4HWA RESP THERAPY HHN Last administered on 01/25/19 14:12; Admin Dose 3 ML; Start 01/15/19 at 09:00 Albuterol/ Ipratropium (Duoneb) 3 ml Q4H RESP THERAPY PRN HHN SHORTNESS OF BREATH Last administered on 01/16/19 01:27; Admin Dose 3 ML; Start 01/15/19 at 00:00 Trazodone HCl (Desyrel) 50 mg Q4H PRN GTB AGITATION/ANXIETY Last administered on 01/21/19 20:19; Admin Dose 50 MG; Start 01/15/19 at 00:00 Ascorbic Acid (Vitamin C) 500 mg DAILY GTB Last administered on 01/25/19 09:12; Admin Dose 500 MG; Start 01/16/19 at 14:30 Multivitamins Therapeutic (Theragran) 1 tab DAILY GTB Last administered on 01/25/19 09:12; Admin Dose 1 TAB; Start 01/16/19 at 14:30 Metoclopramide HCl (Reglan) 5 mg Q6 IV Last administered on 01/25/19 11:40; Admin Dose 5 MG; Start 01/17/19 at 18:00 Lansoprazole (Prevacid) 30 mg DAILY@06 GTB Last administered on 01/25/19 05:57; Admin Dose 30 MG; Start 01/18/19 at 06:00 Insulin Glargine (Lantus) 5 units DAILY@2000 SC Last administered on 01/24/19 20:33; Admin Dose 5 UNITS; Start 01/18/19 at 20:00 Diagnostic Test (Pha) (Accu-Chek) 1 ea 02 XX Last administered on 01/23/19 02:16; Admin Dose 1 EA; Start 01/19/19 at 02:00 Insulin Aspart (Novolog Insulin Pen) (Adult SC Insulin - Moder... Q4 SC Last administered on 01/24/19 17:27; Admin Dose 4 UNIT; Start 01/19/19 at 09:00 Hydralazine HCl (Apresoline) 5 mg Q4H PRN IV elevated BP Last administered on 01/20/19 03:50; Admin Dose 5 MG; Start 01/19/19 at 23:00 Clonidine (Catapres) 0.1 mg Q4H PRN GTB elevated BP Last administered on 01/20/19at 06:20; Admin Dose 0.1 MG; Start 01/19/19 at 23:00 Clonidine (Catapres) 0.1 mg BID PO Last administered on 01/25/19at 09:12; Admin Dose 0.1 MG; Start 01/20/19 at 21:00 Sucralfate (Carafate Susp) 1 gm QID GTB Last administered on 01/25/19at 12:55; Admin Dose 1 GM; Start 01/23/19 at 13:00 Erythromycin (Erythromycin) 250 mg Q8 PO Last administered on 01/25/19at 14:20; Admin Dose 250 MG; Start 01/25/19 at 14:00 PREM GALAN Jan 25, 2019 16:43
[2019-01-25 20:00] VITALS: BP 145/65; PULSE 72; RESP 18
[2019-01-25] MEDS: ATORVASTATIN 20 MG TAB GTB SCH (20:42)
[2019-01-25] MEDS: INSULIN GLARGINE [LANTus] (100 UNITS/ML) SYG SC SCH (20:53)
[2019-01-25] MEDS ORDERED: METOPROLOL 25 MG TAB GTB SCH (21:00)
[2019-01-26] VITALS: BP 109/44; PULSE 64; RESP 18
[2019-01-26] MEDS: Insulin NOVOLOG SS MODERATE Algorithm(NPO/TPN/ENTERAL FEEDS) SC SCH ×6 (02:00→21:00)
[2019-01-26] MEDS: ACCU-CHEK XX SCH (02:00)
[2019-01-26] MEDS: METOCLOPRAMIDE 10 MG INJ IV SCH ×4 (02:13→18:27)
[2019-01-26 04:03] VITALS: BP 139/65; PULSE 69; RESP 18
[2019-01-26] MEDS: ERYTHROMYCIN BASE (DR) 250 MG CAP PO SCH ×3 (06:56→21:22)
[2019-01-26] MEDS: LANSOPRAZOLE 30 MG CAP GTB SCH (06:56)
[2019-01-26 07:43] VITALS: BP 136/66; PULSE 70; RESP 22
[2019-01-26] MEDS: ALBUTEROL/IPRATROPIUM (NEB) 3 ML AMP HHN SCH ×4 (08:16→21:00)
--- NOTE | 2019-01-26 09:00 | PN ---
DATE: 01/26/2019 Dr. Mcmullen's cardiology consultation greatly appreciated. SUBJECTIVE: The patient is lethargic, presently wheezing. PHYSICAL EXAMINATION: VITAL SIGNS: Temperature 97.8, blood pressure 136/66, O2 sats 98% on room air. JVD is increased. CHEST: Wheezes anteriorly. HEART: S1, S2, no definite gallops. EXTREMITIES: No edema. IMPRESSION: 1. Acute on chronic diastolic heart failure. 2. Gastric ulcer with gastroparesis. 3. Diabetes mellitus type 2, well controlled. 4. Multi-infarct dementia. 5. Peripheral arterial disease. 6. Coronary artery disease, status post non-ST elevation myocardial infarction with recurrent fibril lation. Case discussed with Dr. Mcmullen. Will hold metoprolol for now as she was wheezing. Gentle diuresis , closely monitoring the renal function. Recheck labs today. Prognosis is poor. I have discussed w ith the patient's son at bedside. Dictated By: NATALI TIWARI MD, SR/EDWAR Conf#: [id number] DID#: [id number]
[2019-01-26] MEDS: SUCRALFATE (100 MG/ML) 10ML CUP GTB SCH ×4 (09:51→21:22)
[2019-01-26] MEDS: MULTIVITAMINS THERAPEUTIC TAB GTB SCH (09:52)
[2019-01-26] MEDS: ASCORBIC ACID 500 MG TAB GTB SCH (09:52)
[2019-01-26] MEDS: BALSAM PERU/CASTOR OIL 60 GM TUBE TOP SCH ×2 (09:53→21:22)
--- NOTE | 2019-01-26 11:27 | CONS ---
Assessment/Plan Assessment/Plan Assessment/Plan (Daily) Assessment/Plan (Daily) Assessment/Plan (Daily) IMPRESSION: 1. Gastroparesis. Resolved patient is on Reglan and erythromycin. No more high residual 2. Diabetes mellitus. 3. Dementia. 4. Dysphagia, status post G-tube placement. 5. Pneumonia. 6. Patient is a large stomal ulcer Plan Continue PPI and Reglan Continue Carafate Add erythromycin for gastroparesis Consultation Date/Type/Reason Admit Date/Time Jan 10, 2019 at 20:06 Initial Consult Date 01/13/19 Requesting Provider: NATALI TIWARI MD Date/Time of Note DATE: 01/26/19 TIME: 11:26 24 HR Interval Summary Free Text/Dictation As per the staff patient is tolerating feeding Constitutional: no complaints, improved Exam/Review of Systems Exam Vitals Vital Signs Date Temp Pulse Resp B/P (MAP) Pulse Ox O2 O2 Flow FiO2 Time Delivery Rate 01/26/19 70 17 98 21 08:16 01/26/19 97.8 136/66 Nasal 07:43 (89) Cannula 01/24/19 2.0 16:27 Intake and Output 01/25/19 01/25/19 01/26/19 1515:00 23:00 07:00 IntakeIntake Total 765 ml BalanceBalance 765 ml Constitutional: non-verbal, frail ENMT: nl external ears & nose, nl lips & teeth, nl nasal mucosa & septum Neck: supple, non-tender Respiratory: clear to auscultation, normal air movement Cardiovascular: nl pulses Extremities: normal pulses Results Result Diagram: 01/26/19 0954 01/26/19 0954 Results 24hrs Laboratory Tests Test 01/25/19 12:54 01/25/19 16:45 01/25/19 20:41 01/26/19 02:16 Bedside Glucose 116 123 131 128 Test 01/26/19 06:54 01/26/19 08:18 01/26/19 09:54 Bedside Glucose 100 85 White Blood Count 6.5 Red Blood Count 3.00 L Hemoglobin 8.1 L Hematocrit 27.2 L Mean Corpuscular 90.7 Volume Mean Corpuscular 27.0 L Hemoglobin Mean Corpuscular 29.8 L Hemoglobin Concent Red Cell 20.2 H Distribution Width Platelet Count 144 Mean Platelet Volume 11.6 H Immature 0.500 H Granulocytes % Neutrophils % 68.7 Lymphocytes % 17.3 Monocytes % 8.7 Eosinophils % 3.7 Basophils % 1.1 Nucleated Red Blood 0.9 H Cells % Immature 0.030 Granulocytes # Neutrophils # 4.5 Lymphocytes # 1.1 Monocytes # 0.6 Eosinophils # 0.2 Basophils # 0.1 Nucleated Red Blood 0.1 H Cells # Sodium Level 146 H Potassium Level 4.5 Chloride Level 111 H Carbon Dioxide Level 28 Anion Gap 7 Blood Urea Nitrogen 87 H Creatinine 2.08 H Est Glomerular Filtrat Rate mL/min Glucose Level 65 #L Calcium Level 8.0 L Medications Medication Current Medications Miscellaneous Information 1 ea NOTE XX ; Start 01/11/19 at 21:00 Glucose (Glutose) 15 gm Q15M PRN PO DECREASED GLUCOSE; Start 01/11/19 at 21:00 Glucose (Glutose) 22.5 gm Q15M PRN PO DECREASED GLUCOSE; Start 01/11/19 at 21:00 Dextrose (D50w Syringe) 25 ml Q15M PRN IV DECREASED GLUCOSE Last administered on 01/23/19at 05:24; Admin Dose 25 ML; Start 01/11/19 at 21:00 Dextrose (D50w Syringe) 50 ml Q15M PRN IV DECREASED GLUCOSE; Start 01/11/19 at 21:00 Glucagon (Glucagen) 1 mg Q15M PRN IM DECREASED GLUCOSE; Start 01/11/19 at 21:00 Glucose (Glutose) 15 gm Q15M PRN BUCCAL DECREASED GLUCOSE; Start 01/11/19 at 21:00 Ondansetron HCl (Zofran Inj) 4 mg Q4H PRN IV NAUSEA AND/OR VOMITING Last administered on 01/24/19at 09:40; Admin Dose 4 MG; Start 01/14/19 at 23:30 Hydralazine HCl (Apresoline) 5 mg Q4H PRN IV ELEVATED BLOOD PRESSURE Last administered on 01/20/19at 15:01; Admin Dose 5 MG; Start 01/15/19 at 00:00 Albuterol/ Ipratropium (Duoneb) 3 ml Q4HWA RESP THERAPY HHN Last administered on 01/26/19at 08:16; Admin Dose 3 ML; Start 01/15/19 at 09:00 Albuterol/ Ipratropium (Duoneb) 3 ml Q4H RESP THERAPY PRN HHN SHORTNESS OF BREATH Last administered on 01/16/19 01:27; Admin Dose 3 ML; Start 01/15/19 at 00:00 Trazodone HCl (Desyrel) 50 mg Q4H PRN GTB AGITATION/ANXIETY Last administered on 01/21/19 20:19; Admin Dose 50 MG; Start 01/15/19 at 00:00 Ascorbic Acid (Vitamin C) 500 mg DAILY GTB Last administered on 01/26/19 09:52; Admin Dose 500 MG; Start 01/16/19 at 14:30 Multivitamins Therapeutic (Theragran) 1 tab DAILY GTB Last administered on 01/26/19 09:52; Admin Dose 1 TAB; Start 01/16/19 at 14:30 Metoclopramide HCl (Reglan) 5 mg Q6 IV Last administered on 01/26/19 06:56; Admin Dose 5 MG; Start 01/17/19 at 18:00 Lansoprazole (Prevacid) 30 mg DAILY@06 GTB Last administered on 01/26/19 06:56; Admin Dose 30 MG; Start 01/18/19 at 06:00 Insulin Glargine (Lantus) 5 units DAILY@2000 SC Last administered on 01/25/19 20:53; Admin Dose 5 UNITS; Start 01/18/19 at 20:00 Diagnostic Test (Pha) (Accu-Chek) 1 ea 02 XX Last administered on 01/23/19 02:16; Admin Dose 1 EA; Start 01/19/19 at 02:00 Insulin Aspart (Novolog Insulin Pen) (Adult SC Insulin - Moder... Q4 SC Last administered on 01/24/19 17:27; Admin Dose 4 UNIT; Start 01/19/19 at 09:00 Hydralazine HCl (Apresoline) 5 mg Q4H PRN IV elevated BP Last administered on 01/20/19 03:50; Admin Dose 5 MG; Start 01/19/19 at 23:00 Clonidine (Catapres) 0.1 mg Q4H PRN GTB elevated BP Last administered on 01/20/19 06:20; Admin Dose 0.1 MG; Start 01/19/19 at 23:00 Clonidine (Catapres) 0.1 mg BID PO Last administered on 01/26/19 09:52; Admin Dose 0.1 MG; Start 01/20/19 at 21:00 Sucralfate (Carafate Susp) 1 gm QID GTB Last administered on 01/26/19 09:51; Admin Dose 1 GM; Start 01/23/19 at 13:00 Erythromycin (Erythromycin) 250 mg Q8 PO Last administered on 01/26/19 06:56; Admin Dose 250 MG; Start 01/25/19 at 14:00 Atorvastatin Calcium (Lipitor) 20 mg HS GTB Last administered on 01/25/19at 20:42; Admin Dose 20 MG; Start 01/25/19 at 21:00 JACLYN GUZMAN MD Jan 26, 2019 11:27
[2019-01-26 11:40] VITALS: BP 143/65; PULSE 70; RESP 22
[2019-01-26 15:52] VITALS: BP_SYST 114; BP_SYST 170; BP_DIAS 55; BP_DIAS 71; PULSE 68; PULSE 88; RESP 20
[2019-01-26 20:00] VITALS: BP 161/69; PULSE 68; RESP 20
[2019-01-26] MEDS: ATORVASTATIN 20 MG TAB GTB SCH (21:22)
[2019-01-26] MEDS: INSULIN GLARGINE [LANTus] (100 UNITS/ML) SYG SC SCH (21:35)
[2019-01-27] VITALS (7 sets, daily range): BP systolic 129–165; BP diastolic 56–74; PULSE 65–72; RESP 18–22
[2019-01-27] MEDS: Insulin NOVOLOG SS MODERATE Algorithm(NPO/TPN/ENTERAL FEEDS) SC SCH ×3 (01:00→09:00)
[2019-01-27] MEDS: METOCLOPRAMIDE 10 MG INJ IV SCH ×4 (01:27→18:09)
[2019-01-27] MEDS: ACCU-CHEK XX SCH (02:00)
[2019-01-27] MEDS: LANSOPRAZOLE 30 MG CAP GTB SCH (05:38)
[2019-01-27] MEDS: ERYTHROMYCIN BASE (DR) 250 MG CAP PO SCH ×3 (07:00→22:17)
[2019-01-27] MEDS: ALBUTEROL/IPRATROPIUM (NEB) 3 ML AMP HHN SCH ×3 (07:46→20:50)
[2019-01-27] MEDS: SUCRALFATE (100 MG/ML) 10ML CUP GTB SCH ×4 (09:24→20:14)
[2019-01-27] MEDS: MULTIVITAMINS THERAPEUTIC TAB GTB SCH (09:24)
[2019-01-27] MEDS: ASCORBIC ACID 500 MG TAB GTB SCH (09:24)
[2019-01-27] MEDS: BALSAM PERU/CASTOR OIL 60 GM TUBE TOP SCH ×2 (09:26→22:18)
--- NOTE | 2019-01-27 11:01 | CONS ---
Assessment/Plan Assessment/Plan Assessment/Plan (Daily) Assessment/Plan (Daily) Assessment/Plan (Daily) Assessment/Plan (Daily) IMPRESSION: 1. Gastroparesis. Resolved patient is on Reglan and erythromycin. No more high residual 2. Diabetes mellitus. 3. Dementia. 4. Dysphagia, status post G-tube placement. 5. Pneumonia. 6. Patient is a large stomal ulcer Plan Continue PPI and Reglan Continue Carafate Add erythromycin for gastroparesis If residual continues to remain persistently high then have to convert G-tube to J-tube Consultation Date/Type/Reason Admit Date/Time Jan 10, 2019 at 20:06 Initial Consult Date 01/13/19 Requesting Provider: NATALI TIWARI MD Date/Time of Note DATE: 01/27/19 TIME: 11:00 24 HR Interval Summary Free Text/Dictation Residual was high. No abdominal pain no nausea no vomiting. No GI bleeding Constitutional: no complaints Exam/Review of Systems Exam Vitals Vital Signs Date Temp Pulse Resp B/P (MAP) Pulse Ox O2 O2 Flow FiO2 Time Delivery Rate 01/27/19 63 20 97 21 07:46 01/27/19 97.8 139/63 Room Air 07:42 (88) 01/24/19 2.0 16:27 Intake and Output 01/26/19 01/26/19 01/27/19 1515:00 23:00 07:00 IntakeIntake Total 688 ml BalanceBalance 688 ml Respiratory: diminished breath sounds Cardiovascular: regular rate and rhythm, nl pulses Extremities: normal pulses Neurological: confused Results Result Diagram: 01/26/19 0954 01/26/19 0954 Results 24hrs Laboratory Tests Test 01/26/19 12:34 01/26/19 18:14 01/26/19 21:21 01/27/19 01:33 Bedside Glucose 92 111 122 125 Test 01/27/19 05:45 01/27/19 09:31 Bedside Glucose 122 102 Medications Medication Current Medications Miscellaneous Information 1 ea NOTE XX ; Start 01/11/19 at 21:00 Glucose (Glutose) 15 gm Q15M PRN PO DECREASED GLUCOSE; Start 01/11/19 at 21:00 Glucose (Glutose) 22.5 gm Q15M PRN PO DECREASED GLUCOSE; Start 01/11/19 at 21:00 Dextrose (D50w Syringe) 25 ml Q15M PRN IV DECREASED GLUCOSE Last administered on 01/23/19 05:24; Admin Dose 25 ML; Start 01/11/19 at 21:00 Dextrose (D50w Syringe) 50 ml Q15M PRN IV DECREASED GLUCOSE; Start 01/11/19 at 21:00 Glucagon (Glucagen) 1 mg Q15M PRN IM DECREASED GLUCOSE; Start 01/11/19 at 21:00 Glucose (Glutose) 15 gm Q15M PRN BUCCAL DECREASED GLUCOSE; Start 01/11/19 at 21:00 Ondansetron HCl (Zofran Inj) 4 mg Q4H PRN IV NAUSEA AND/OR VOMITING Last administered on 01/24/19 09:40; Admin Dose 4 MG; Start 01/14/19 at 23:30 Hydralazine HCl (Apresoline) 5 mg Q4H PRN IV ELEVATED BLOOD PRESSURE Last ad ministered on 01/20/19 15:01; Admin Dose 5 MG; Start 01/15/19 at 00:00 Albuterol/ Ipratropium (Duoneb) 3 ml Q4HWA RESP THERAPY HHN Last administered on 01/27/19 07:46; Admin Dose 3 ML; Start 01/15/19 at 09:00 Albuterol/ Ipratropium (Duoneb) 3 ml Q4H RESP THERAPY PRN HHN SHORTNESS OF BREATH Last administered on 01/16/19 01:27; Admin Dose 3 ML; Start 01/15/19 at 00:00 Trazodone HCl (Desyrel) 50 mg Q4H PRN GTB AGITATION/ANXIETY Last administered on 01/21/19 20:19; Admin Dose 50 MG; Start 01/15/19 at 00:00 Ascorbic Acid (Vitamin C) 500 mg DAILY GTB Last administered on 01/27/19 09:24; Admin Dose 500 MG; Start 01/16/19 at 14:30 Multivitamins Therapeutic (Theragran) 1 tab DAILY GTB Last administered on 01/27/19 09:24; Admin Dose 1 TAB; Start 01/16/19 at 14:30 Metoclopramide HCl (Reglan) 5 mg Q6 IV Last administered on 01/27/19 05:39; Admin Dose 5 MG; Start 01/17/19 at 18:00 Lansoprazole (Prevacid) 30 mg DAILY@06 GTB Last administered on 01/27/19 05:38; Admin Dose 30 MG; Start 01/18/19 at 06:00 Insulin Glargine (Lantus) 5 units DAILY@2000 SC Last administered on 01/26/19 21:35; Admin Dose 5 UNITS; Start 01/18/19 at 20:00 Diagnostic Test (Pha) (Accu-Chek) 1 ea 02 XX Last administered on 01/23/19 02:16; Admin Dose 1 EA; Start 01/19/19 at 02:00 Insulin Aspart (Novolog Insulin Pen) (Adult SC Insulin - Moder... Q4 SC Last administered on 01/24/19 17:27; Admin Dose 4 UNIT; Start 01/19/19 at 09:00 Hydralazine HCl (Apresoline) 5 mg Q4H PRN IV elevated BP Last administered on 01/20/19 03:50; Admin Dose 5 MG; Start 01/19/19 at 23:00 Clonidine (Catapres) 0.1 mg Q4H PRN GTB elevated BP Last administered on 01/20/19 06:20; Admin Dose 0.1 MG; Start 01/19/19 at 23:00 Clonidine (Catapres) 0.1 mg BID PO Last administered on 01/27/19 09:25; Admin Dose 0.1 MG; Start 01/20/19 at 21:00 Sucralfate (Carafate Susp) 1 gm QID GTB Last administered on 01/27/19 09:24; Admin Dose 1 GM; Start 01/23/19 at 13:00 Erythromycin (Erythromycin) 250 mg Q8 PO Last administered on 01/26/19 21:22; Admin Dose 250 MG; Start 01/25/19 at 14:00 Atorvastatin Calcium (Lipitor) 20 mg HS GTB Last administered on 01/26/19 21:22; Admin Dose 20 MG; Start 01/25/19 at 21:00 JACLYN GUZMAN MD Jan 27, 2019 11:01
[2019-01-27] MEDS: INSULIN ASPART [NOVOLOG] 3 ML PEN SC SCH ×2 (14:00→22:45)
[2019-01-27] MEDS ORDERED: FUROSEMIDE 40 MG INJ IV ONE (17:30)
[2019-01-27] MEDS: ATORVASTATIN 20 MG TAB GTB SCH (20:14)
[2019-01-27] MEDS: INSULIN GLARGINE [LANTus] (100 UNITS/ML) SYG SC SCH (20:27)
--- NOTE | 2019-01-27 21:28 | PN ---
DATE: 01/27/2019 SUBJECTIVE: The patient is lethargic. Pressure has been up intermittently. The patient apparently was wheezing earlier per family, presently not wheezing, in no acute distress. OBJECTIVE: VITAL SIGNS: Temperature 97.6, blood pressure 160/72, O2 sat 100% room air. CHEST: Occasional wheezes. HEART: S1, S2 with no gallops. EXTREMITIES: No edema. She was also noted to have left lateral 5th toe DTI. HEENT: Apparently, the patient is having purulent discharge from the right ear. Chest x-ray from yesterday showed central pulmonary vascular congestion. IMPRESSION: 1. [id number] diastolic heart failure. 2. Gastric ulcer with gastric varices. 3. Diabetes mellitus type 2, well-controlled. 4. Hypertension. 5. Multi-infarct dementia. 6. Peripheral arterial disease with deep tissue injuries of the heels. 7. Coronary artery disease, status post non-ST elevation myocardial infarction with atrial fibrillat ion. PLAN: I have discussed the case with Dr. Chambers, and we will continue diuretics, closely monitor th e renal function. I have discussed with patient's son, Cristi, the patient's daughter, tiago Motley her condition, which is poor. Her overall prognosis is considered poor. Dictated By: NATALI TIWARI MD SR/NTS Conf#: [id number] DID#: [id number] CC: NATALI TIWARI MD;*EndCC*
[2019-01-28] VITALS (7 sets, daily range): BP systolic 146–174; BP diastolic 68–74; PULSE 63–76; RESP 18–20
[2019-01-28] MEDS: METOCLOPRAMIDE 10 MG INJ IV SCH ×4 (01:01→17:29)
[2019-01-28] MEDS: ACCU-CHEK XX SCH (02:24)
[2019-01-28] MEDS: ERYTHROMYCIN BASE (DR) 250 MG CAP PO SCH ×3 (05:48→21:26)
[2019-01-28] MEDS: LANSOPRAZOLE 30 MG CAP GTB SCH (05:48)
[2019-01-28] MEDS: INSULIN ASPART [NOVOLOG] 3 ML PEN SC SCH ×3 (07:02→21:25)
[2019-01-28] MEDS: ALBUTEROL/IPRATROPIUM (NEB) 3 ML AMP HHN SCH ×4 (08:23→20:13)
[2019-01-28] MEDS: ASCORBIC ACID 500 MG TAB GTB SCH (08:39)
[2019-01-28] MEDS: SUCRALFATE (100 MG/ML) 10ML CUP GTB SCH ×4 (08:39→21:13)
[2019-01-28] MEDS: MULTIVITAMINS THERAPEUTIC TAB GTB SCH (08:39)
[2019-01-28] MEDS: BALSAM PERU/CASTOR OIL 60 GM TUBE TOP SCH ×2 (08:41→21:13)
--- NOTE | 2019-01-28 16:41 | CONS ---
Assessment/Plan Assessment/Plan Assessment/Plan (Daily) Assessment/Plan Assessment/Plan (Daily) Assessment/Plan (Daily) Assessment/Plan (Daily) Assessment/Plan (Daily) IMPRESSION: 1. Gastroparesis. Resolved patient is on Reglan and erythromycin. No more high residual 2. Diabetes mellitus. 3. Dementia. 4. Dysphagia, status post G-tube placement. 5. Pneumonia. 6. Patient hasa large stomal ulcer Plan Continue PPI and Reglan Continue Carafate Add erythromycin for gastroparesis If residual continues to remain persistently high then have to convert G-tube to J-tube Consultation Date/Type/Reason Admit Date/Time Jan 10, 2019 at 20:06 Initial Consult Date 01/13/19 Requesting Provider: NATALI TIWARI MD Date/Time of Note DATE: 01/28/19 TIME: 16:41 24 HR Interval Summary Constitutional: no complaints, improved Exam/Review of Systems Exam Vitals Vital Signs Date Temp Pulse Resp B/P (MAP) Pulse Ox O2 O2 Flow FiO2 Time Delivery Rate 01/28/19 61 17 97 21 16:28 01/28/19 97.8 163/71 Room Air 15:35 (101) 01/24/19 2.0 16:27 Intake and Output 01/27/19 01/27/19 01/28/19 1515:00 23:00 07:00 IntakeIntake Total 520 ml 680 ml BalanceBalance 520 ml 680 ml Constitutional: alert, oriented, well developed Psych: no complaints, nl mood/affect Head: normocephalic, atraumatic Eyes: nl conjunctiva, EOMI, nl lids, nl sclera, PERRL ENMT: nl external ears & nose, nl lips & teeth, nl nasal mucosa & septum Neck: supple, non-tender Respiratory: clear to auscultation, normal air movement Cardiovascular: regular rate and rhythm, nl pulses Gastrointestinal: soft, nl liver, spleen, non-tender Musculoskeletal: nl extremities to inspection, nl gait and stance Extremities: normal pulses Neurological: [employer] II-XII intact, nl mental status, nl speech, nl strength Skin: nl turgor; No rash or lesions Lymph: nl lymph nodes Results Result Diagram: 01/28/19 0756 01/28/19 0756 Results 24hrs Laboratory Tests Test 01/27/19 20:19 01/27/19 22:19 01/28/19 02:19 01/28/19 05:55 Bedside Glucose 154 164 130 142 Test 01/28/19 07:56 01/28/19 15:09 White Blood Count 5.9 Red Blood Count 2.95 L Hemoglobin 8.3 L Hematocrit 26.3 L Mean Corpuscular 89.2 Volume Mean Corpuscular 28.1 L Hemoglobin Mean Corpuscular 31.6 L Hemoglobin Concent Red Cell 19.4 H Distribution Width Platelet Count 131 L Mean Platelet Volume 11.4 H Immature 0.700 H Granulocytes % Neutrophils % 70.9 Lymphocytes % 14.2 L Monocytes % 8.5 Eosinophils % 5.0 Basophils % 0.7 Nucleated Red Blood 0.5 H Cells % Immature 0.040 H Granulocytes # Neutrophils # 4.2 Lymphocytes # 0.8 Monocytes # 0.5 Eosinophils # 0.3 Basophils # 0.0 Nucleated Red Blood 0.0 Cells # Sodium Level 144 Potassium Level 3.4 L Chloride Level 107 Carbon Dioxide Level 26 Anion Gap 11 Blood Urea Nitrogen 84 H Creatinine 1.86 H Est Glomerular Filtrat Rate mL/min Glucose Level 101 Calcium Level 7.8 L Bedside Glucose 125 Medications Medication Current Medications Miscellaneous Information 1 ea NOTE XX ; Start 01/11/19 at 21:00 Glucose (Glutose) 15 gm Q15M PRN PO DECREASED GLUCOSE; Start 01/11/19 at 21:00 Glucose (Glutose) 22.5 gm Q15M PRN PO DECREASED GLUCOSE; Start 01/11/19 at 21 :00 Dextrose (D50w Syringe) 25 ml Q15M PRN IV DECREASED GLUCOSE Last administered on 01/23/19at 05:24; Admin Dose 25 ML; Start 01/11/19 at 21:00 Dextrose (D50w Syringe) 50 ml Q15M PRN IV DECREASED GLUCOSE; Start 01/11/19 at 21:00 Glucagon (Glucagen) 1 mg Q15M PRN IM DECREASED GLUCOSE; Start 01/11/19 at 21:00 Glucose (Glutose) 15 gm Q15M PRN BUCCAL DECREASED GLUCOSE; Start 01/11/19 at 21:00 Ondansetron HCl (Zofran Inj) 4 mg Q4H PRN IV NAUSEA AND/OR VOMITING Last administered on 01/24/19at 09:40; Admin Dose 4 MG; Start 01/14/19 at 23:30 Hydralazine HCl (Apresoline) 5 mg Q4H PRN IV ELEVATED BLOOD PRESSURE Last administered on 01/20/19 15:01; Admin Dose 5 MG; Start 01/15/19 at 00:00 Albuterol/ Ipratropium (Duoneb) 3 ml Q4HWA RESP THERAPY HHN Last administered on 01/28/19 16:27; Admin Dose 3 ML; Start 01/15/19 at 09:00 Albuterol/ Ipratropium (Duoneb) 3 ml Q4H RESP THERAPY PRN HHN SHORTNESS OF BREATH Last administered on 01/16/19 01:27; Admin Dose 3 ML; Start 01/15/19 at 00:00 Trazodone HCl (Desyrel) 50 mg Q4H PRN GTB AGITATION/ANXIETY Last administered on 01/21/19 20:19; Admin Dose 50 MG; Start 01/15/19 at 00:00 Ascorbic Acid (Vitamin C) 500 mg DAILY GTB Last administered on 01/28/19 08:39; Admin Dose 500 MG; Start 01/16/19 at 14:30 Multivitamins Therapeutic (Theragran) 1 tab DAILY GTB Last administered on 01/28/19 08:39; Admin Dose 1 TAB; Start 01/16/19 at 14:30 Metoclopramide HCl (Reglan) 5 mg Q6 IV Last administered on 01/28/19 12:12; Admin Dose 5 MG; Start 01/17/19 at 18:00 Lansoprazole (Prevacid) 30 mg DAILY@06 GTB Last administered on 01/28/19 05:48; Admin Dose 30 MG; Start 01/18/19 at 06:00 Insulin Glargine (Lantus) 5 units DAILY@2000 SC Last administered on 01/27/19 20:27; Admin Dose 5 UNITS; Start 01/18/19 at 20:00 Diagnostic Test (Pha) (Accu-Chek) 1 ea 02 XX Last administered on 01/28/19 02:24; Admin Dose 1 EA; Start 01/19/19 at 02:00 Hydralazine HCl (Apresoline) 5 mg Q4H PRN IV elevated BP Last administered on 01/20/19 03:50; Admin Dose 5 MG; Start 01/19/19 at 23:00 Clonidine (Catapres) 0.1 mg Q4H PRN GTB elevated BP Last administered on 01/20/19 06:20; Admin Dose 0.1 MG; Start 01/19/19 at 23:00 Clonidine (Catapres) 0.1 mg BID PO Last administered on 01/28/19 08:39; Admin Dose 0.1 MG; Start 01/20/19 at 21:00 Sucralfate (Carafate Susp) 1 gm QID GTB Last administered on 01/28/19 12:12; Admin Dose 1 GM; Start 01/23/19 at 13:00 Erythromycin (Erythromycin) 250 mg Q8 PO Last administered on 01/28/19 15:09; Admin Dose 250 MG; Start 01/25/19 at 14:00 Atorvastatin Calcium (Lipitor) 20 mg HS GTB Last administered on 01/27/19 20:14; Admin Dose 20 MG; Start 01/25/19 at 21:00 Insulin Aspart (Novolog Insulin Pen) (Adult SC Insulin - Moder... Q8 SC Last administered on 01/28/19 07:02; Admin Dose 2 UNIT; Start 01/27/19 at 14:00 JACLYN GUZMAN MD Jan 28, 2019 16:41
[2019-01-28] MEDS ORDERED: VANCOMYCIN 1 GM (PMX) 250 ML IVPB ONE (18:30)
[2019-01-28] MEDS: ATORVASTATIN 20 MG TAB GTB SCH (21:13)
[2019-01-28] MEDS: INSULIN GLARGINE [LANTus] (100 UNITS/ML) SYG SC SCH (21:24)
[2019-01-29] VITALS (7 sets, daily range): BP systolic 126–163; BP diastolic 58–88; PULSE 70–85; RESP 15–20
[2019-01-29] MEDS: METOCLOPRAMIDE 10 MG INJ IV SCH ×5 (00:55→23:36)
[2019-01-29] MEDS: ACCU-CHEK XX SCH (02:00)
[2019-01-29] MEDS: ERYTHROMYCIN BASE (DR) 250 MG CAP PO SCH ×3 (05:08→21:07)
[2019-01-29] MEDS: LANSOPRAZOLE 30 MG CAP GTB SCH (05:08)
[2019-01-29] MEDS: INSULIN ASPART [NOVOLOG] 3 ML PEN SC SCH ×3 (05:27→21:47)
--- NOTE | 2019-01-29 08:04 | PN ---
DATE: 01/29/2019 SUBJECTIVE: The patient has been intermittently combative. Occasional shortness of breath. The pat ient's family at bedside. OBJECTIVE: VITAL SIGNS: Temperature 97.8, heart rate in the 60s 71, O2 sat 97% on room air. HEENT: Mild pallor with cyanosis. NECK: JVD was increased. CHEST: Occasional wheezes anteriorly. HEART: S1, S2 with no definite gallops. ABDOMEN: Soft, nontender. EXTREMITIES: No edema. The patient's family noted some purulent discharge from the right heel. LABORATORY DATA: Sodium 144, potassium 3.4, BUN 84, creatinine 1.86. IMPRESSION: 1. Wyyda-uf-duqeuka diastolic heart failure. 2. Gastric ulcer, gastric varices with gastroparesis. 3. Diabetes mellitus type 2, well-controlled. 4. Hypertension. 5. Multi-infarct dementia. 6. Peripheral arterial disease with deep tissue injuries to the heels. 7. Coronary artery disease, status post non-ST elevation myocardial infarction with atrial fibrillat ion. PLAN: Will obtain C and S of the right heel wound and give 1 dose of vancomycin. Continue with Lasi x IV intermittently in view of the chronic renal failure. Dictated By: NATALI TIWARI MD SR/NTS Conf#: [id number] DID#: [id number] CC: NATALI TIWARI MD;*EndCC*
[2019-01-29] MEDS: ALBUTEROL/IPRATROPIUM (NEB) 3 ML AMP HHN SCH ×4 (08:18→20:21)
--- NOTE | 2019-01-29 08:26 | CONS ---
Assessment/Plan Assessment/Plan Hospital Course (Demo Recall) 83 yo female 1. Diabetic Gastroparesis. 2. Diabetes mellitus. 3. Dementia. 4. Dysphagia, status post G-tube placement. 5. Pneumonia. 6. Renal insufficiency 7. Anemia -coffee ground emesis, slow downward trend of HH 8. Large stomal ulcer seen in EGD 9. Gastritis 10. Esophagitis Gastric biopsy: -- Oxyntic and oxyntopyloric mucosa showing focal mild foveolar hyperplasia and a few scattered plasma cells in the superficial lamina propria, histologically non-specific. -- No Helicobacter organisms are identified in a Giemsa stain (positive control concurrently reviewed). -- There is no evidence of malignancy. Plan Continue PPI and Reglan Continue Carafate and erythromycin If residual continues to remain persistently high then have to convert G-tube to J-tube Aspiration precautions Pt examined and plan of care d/w Dr. Thomas Consultation Date/Type/Reason Admit Date/Time Jan 10, 2019 at 20:06 Initial Consult Date 01/13/19 Requesting Provider: NATALI TIWARI MD Date/Time of Note DATE: 01/29/19 TIME: 08:22 Exam/Review of Systems Exam Vitals Vital Signs Date Temp Pulse Resp B/P (MAP) Pulse Ox O2 O2 Flow FiO2 Time Delivery Rate 01/29/19 70 18 97 21 08:18 01/29/19 98.2 159/88 07:29 (111) 01/28/19 Room Air 20:30 Intake and Output 01/28/19 01/28/19 01/29/19 1515:00 23:00 07:00 IntakeIntake Total 740 ml BalanceBalance 740 ml Results Result Diagram: 01/28/19 0756 01/28/19 0756 Results 24hrs Laboratory Tests Test 01/28/19 15:09 01/28/19 21:11 01/29/19 02:59 01/29/19 05:15 Bedside Glucose 125 160 140 174 Medications Medication Current Medications Miscellaneous Information 1 ea NOTE XX ; Start 01/11/19 at 21:00 Glucose (Glutose) 15 gm Q15M PRN PO DECREASED GLUCOSE; Start 01/11/19 at 21:00 Glucose (Glutose) 22.5 gm Q15M PRN PO DECREASED GLUCOSE; Start 01/11/19 at 21:00 Dextrose (D50w Syringe) 25 ml Q15M PRN IV DECREASED GLUCOSE Last administered on 01/23/19 05:24; Admin Dose 25 ML; Start 01/11/19 at 21:00 Dextrose (D50w Syringe) 50 ml Q15M PRN IV DECREASED GLUCOSE; Start 01/11/19 at 21:00 Glucagon (Glucagen) 1 mg Q15M PRN IM DECREASED GLUCOSE; Start 01/11/19 at 21:00 Glucose (Glutose) 15 gm Q15M PRN BUCCAL DECREASED GLUCOSE; Start 01/11/19 at 21:00 Ondansetron HCl (Zofran Inj) 4 mg Q4H PRN IV NAUSEA AND/OR VOMITING Last administered on 01/24/19 09:40; Admin Dose 4 MG; Start 01/14/19 at 23:30 Hydralazine HCl (Apresoline) 5 mg Q4H PRN IV ELEVATED BLOOD PRESSURE Last admin istered on 01/20/19 15:01; Admin Dose 5 MG; Start 01/15/19 at 00:00 Albuterol/ Ipratropium (Duoneb) 3 ml Q4HWA RESP THERAPY HHN Last administered on 01/29/19 08:18; Admin Dose 3 ML; Start 01/15/19 at 09:00 Albuterol/ Ipratropium (Duoneb) 3 ml Q4H RESP THERAPY PRN HHN SHORTNESS OF BREATH Last administered on 01/16/19 01:27; Admin Dose 3 ML; Start 01/15/19 at 00:00 Trazodone HCl (Desyrel) 50 mg Q4H PRN GTB AGITATION/ANXIETY Last administered on 01/21/19 20:19; Admin Dose 50 MG; Start 01/15/19 at 00:00 Ascorbic Acid (Vitamin C) 500 mg DAILY GTB Last administered on 01/28/19 08:39; Admin Dose 500 MG; Start 01/16/19 at 14:30 Multivitamins Therapeutic (Theragran) 1 tab DAILY GTB Last administered on 01/28/19 08:39; Admin Dose 1 TAB; Start 01/16/19 at 14:30 Metoclopramide HCl (Reglan) 5 mg Q6 IV Last administered on 01/29/19 05:08; Admin Dose 5 MG; Start 01/17/19 at 18:00 Lansoprazole (Prevacid) 30 mg DAILY@06 GTB Last administered on 01/29/19 05:08; Admin Dose 30 MG; Start 01/18/19 at 06:00 Insulin Glargine (Lantus) 5 units DAILY@2000 SC Last administered on 01/28/19 21:24; Admin Dose 5 UNITS; Start 01/18/19 at 20:00 Diagnostic Test (Pha) (Accu-Chek) 1 ea 02 XX Last administered on 01/29/19 02:00; Admin Dose 1 EA; Start 01/19/19 at 02:00 Hydralazine HCl (Apresoline) 5 mg Q4H PRN IV elevated BP Last administered on 01/20/19 03:50; Admin Dose 5 MG; Start 01/19/19 at 23:00 Clonidine (Catapres) 0.1 mg Q4H PRN GTB elevated BP Last administered on 01/20/19 06:20; Admin Dose 0.1 MG; Start 01/19/19 at 23:00 Clonidine (Catapres) 0.1 mg BID PO Last administered on 01/28/19 21:17; Admin Dose 0.1 MG; Start 01/20/19 at 21:00 Sucralfate (Carafate Susp) 1 gm QID GTB Last administered on 01/28/19 21:13; Admin Dose 1 GM; Start 01/23/19 at 13:00 Erythromycin (Erythromycin) 250 mg Q8 PO Last administered on 01/29/19 05:08; Admin Dose 250 MG; Start 01/25/19 at 14:00 Atorvastatin Calcium (Lipitor) 20 mg HS GTB Last administered on 01/28/19 21:13; Admin Dose 20 MG; Start 01/25/19 at 21:00 Insulin Aspart (Novolog Insulin Pen) (Adult SC Insulin - Moder... Q8 SC Last administered on 01/29/19 05:27; Admin Dose 2 UNIT; Start 01/27/19 at 14:00 TAMEKA JULIO Jan 29, 2019 08:26
[2019-01-29] MEDS: ASCORBIC ACID 500 MG TAB GTB SCH (08:48)
[2019-01-29] MEDS: BALSAM PERU/CASTOR OIL 60 GM TUBE TOP SCH ×2 (08:49→21:48)
[2019-01-29] MEDS: SUCRALFATE (100 MG/ML) 10ML CUP GTB SCH ×4 (08:49→21:07)
[2019-01-29] MEDS: MULTIVITAMINS THERAPEUTIC TAB GTB SCH (08:49)
--- NOTE | 2019-01-29 10:28 | PN ---
DATE: 01/29/2019 SUBJECTIVE: Patient has been lethargic but intermittently agitated. VITAL SIGNS: Temperature 98.2, blood pressure 115/88, O2 sat 97% on room air. CHEST: Revealed occasional wheezes. HEART: S1 heard with no gallops. EXTREMITIES: No edema. Moderate wasting. Right heel DTI, no drainage. Wound care continue. Gluco se levels in the normal glycemic range. LABORATORY DATA: Potassium 3.4. Gastric biopsy shows no Helicobacter no evidence of malignancy. IMPRESSION: 1. Acute on chronic diastolic heart failure. 2. Hypokalemia secondary to Lasix. 3. Gastric ulcer, gastroparesis. 4. Diabetes mellitus type 2, well controlled. 5. Hypertension. 6. Multi-infarct dementia. 7. Peripheral artery disease with DTRs to the heels. 8. Coronary artery disease, status post non-ST elevation myocardial infarction with atrial fibrillat ion. The patient already received 1 dose of vancomycin yesterday. Continue wound care. Replace pot assium. Give 1 dose of IV Lasix. Repeat labs in a.m. Dictated By: NATALI TIWARI MD SR/NTS Conf#: [id number] DID#: [id number] CC: JACLYN GUZMAN MD;*EndCC*
[2019-01-29] MEDS ORDERED: POTASSIUM CHLORIDE (1.33 MEQ/ML PO SYG) GTB ONE (10:30)
[2019-01-29] MEDS ORDERED: FUROSEMIDE 40 MG INJ IV ONE (10:30)
[2019-01-29] MEDS ORDERED: POTASSIUM CHLORIDE (SR) 20 MEQ TAB PO STA (11:06)
[2019-01-29] MEDS: ATORVASTATIN 20 MG TAB GTB SCH (21:06)
[2019-01-29] MEDS: INSULIN GLARGINE [LANTus] (100 UNITS/ML) SYG SC SCH (21:47)
[2019-01-30] MEDS: ACCU-CHEK XX SCH (01:33)
[2019-01-30 03:51] VITALS: BP 193/75; PULSE 75; RESP 20
[2019-01-30] MEDS: hydrALAzine 20 MG INJ IV PRN (04:03)
[2019-01-30 04:37] VITALS: BP 154/82; PULSE 72
[2019-01-30] MEDS: METOCLOPRAMIDE 10 MG INJ IV SCH ×4 (05:07→23:32)
[2019-01-30] MEDS: ERYTHROMYCIN BASE (DR) 250 MG CAP PO SCH ×3 (05:07→20:51)
[2019-01-30] MEDS: LANSOPRAZOLE 30 MG CAP GTB SCH (05:07)
[2019-01-30] MEDS: INSULIN ASPART [NOVOLOG] 3 ML PEN SC SCH ×3 (05:36→21:02)
[2019-01-30 07:23] VITALS: BP 153/67; PULSE 87; RESP 20
--- NOTE | 2019-01-30 07:44 | CONS ---
Assessment/Plan Assessment/Plan Hospital Course (Demo Recall) 83 yo female 1. Diabetic Gastroparesis. 2. Diabetes mellitus. 3. Dementia. 4. Dysphagia, status post G-tube placement. 5. Pneumonia. 6. Renal insufficiency 7. Anemia 8. Large stomal ulcer seen in EGD 9. Gastritis 10. Esophagitis Gastric biopsy: -- Oxyntic and oxyntopyloric mucosa showing focal mild foveolar hyperplasia and a few scattered plasma cells in the superficial lamina propria, histologically non-specific. -- No Helicobacter organisms are identified in a Giemsa stain (positive control concurrently reviewed). -- There is no evidence of malignancy. Plan Continue PPI and Reglan Continue Carafate and erythromycin If residual continues to remain persistently high then have to convert G-tube to J-tube but patient appears to be tolerating tube feeds, currently at 55cc/hr with no residuals. Aspiration precautions Pt examined and plan of care d/w Dr. Thomas Consultation Date/Type/Reason Admit Date/Time Jan 10, 2019 at 20:06 Initial Consult Date 01/13/19 Requesting Provider: NATALI TIWARI MD Date/Time of Note DATE: 01/30/19 TIME: 07:42 24 HR Interval Summary Free Text/Dictation BM last night. NO evidence of GI bleeding per RN or son at bedside. Tolerating tube feeds at 55 cc/hr. No vomiting. No abd pain. Exam/Review of Systems Exam Vitals Vital Signs Date Temp Pulse Resp B/P (MAP) Pulse Ox O2 O2 Flow FiO2 Time Delivery Rate 01/30/19 98.2 87 20 153/67 90 07:23 (95) 01/30/19 Room Air 03:51 01/29/19 21 20:22 Intake and Output 01/29/19 01/29/19 01/30/19 1515:00 23:00 07:00 IntakeIntake Total 860 ml OutputOutput Total 900 ml BalanceBalance -900 ml 860 ml Constitutional: alert Head: normocephalic Eyes: PERRL Respiratory: normal air movement Cardiovascular: regular rate and rhythm Gastrointestinal: soft, non-tender Neurological: confused Skin: ecchymosis Results Result Diagram: 01/30/19 0539 01/30/19 0540 Results 24hrs Laboratory Tests Test 01/29/19 13:50 01/29/19 21:06 01/30/19 01:30 01/30/19 05:06 Bedside Glucose 115 167 146 167 Test 01/30/19 05:39 01/30/19 05:40 White Blood Count 5.6 Red Blood Count 3.14 L Hemoglobin 8.6 L Hematocrit 27.7 L Mean Corpuscular Volume 88.2 Mean Corpuscular 27.4 L Hemoglobin Mean Corpuscular 31.0 L Hemoglobin Concent Red Cell Distribution 19.3 H Width Platelet Count 158 # Mean Platelet Volume 12.1 H Immature Granulocytes % 0.900 H Neutrophils % 74.1 Lymphocytes % 14.4 L Monocytes % 6.0 Eosinophils % 3.9 Basophils % 0.7 Nucleated Red Blood 0.0 Cells % Immature Granulocytes # 0.050 H Neutrophils # 4.2 Lymphocytes # 0.8 Monocytes # 0.3 Eosinophils # 0.2 Basophils # 0.0 Nucleated Red Blood 0.0 Cells # Sodium Level 143 Potassium Level 3.7 Chloride Level 105 Carbon Dioxide Level 27 Anion Gap 11 Blood Urea Nitrogen 85 H Creatinine 1.83 H Est Glomerular Filtrat Rate mL/min Glucose Level 140 Calcium Level 7.8 L Medications Medication Current Medications Miscellaneous Information 1 ea NOTE XX ; Start 01/11/19 at 21:00 Glucose (Glutose) 15 gm Q15M PRN PO DECREASED GLUCOSE; Start 01/11/19 at 21:00 Glucose (Glutose) 22.5 gm Q15M PRN PO DECREASED GLUCOSE; Start 01/11/19 at 21:00 Dextrose (D50w Syringe) 25 ml Q15M PRN IV DECREASED GLUCOSE Last administered on 01/23/19at 05:24; Admin Dose 25 ML; Start 01/11/19 at 21:00 Dextrose (D50w Syringe) 50 ml Q15M PRN IV DECREASED GLUCOSE; Start 01/11/19 at 21:00 Glucagon (Glucagen) 1 mg Q15M PRN IM DECREASED GLUCOSE; Start 01/11/19 at 21:00 Glucose (Glutose) 15 gm Q15M PRN BUCCAL DECREASED GLUCOSE; Start 01/11/19 at 21:00 Ondansetron HCl (Zofran Inj) 4 mg Q4H PRN IV NAUSEA AND/OR VOMITING Last administered on 01/24/19at 09:40; Admin Dose 4 MG; Start 01/14/19 at 23:30 Hydralazine HCl (Apresoline) 5 mg Q4H PRN IV ELEVATED BLOOD PRESSURE Last administered on 01/30/19 04:03; Admin Dose 5 MG; Start 01/15/19 at 00:00 Albuterol/ Ipratropium (Duoneb) 3 ml Q4HWA RESP THERAPY HHN Last administered on 01/29/19 20:21; Admin Dose 3 ML; Start 01/15/19 at 09:00 Albuterol/ Ipratropium (Duoneb) 3 ml Q4H RESP THERAPY PRN HHN SHORTNESS OF BREATH Last administered on 01/16/19 01:27; Admin Dose 3 ML; Start 01/15/19 at 00:00 Trazodone HCl (Desyrel) 50 mg Q4H PRN GTB AGITATION/ANXIETY Last administered on 01/21/19 20:19; Admin Dose 50 MG; Start 01/15/19 at 00:00 Ascorbic Acid (Vitamin C) 500 mg DAILY GTB Last administered on 01/29/19 08:48; Admin Dose 500 MG; Start 01/16/19 at 14:30 Multivitamins Therapeutic (Theragran) 1 tab DAILY GTB Last administered on 01/29/19 08:49; Admin Dose 1 TAB; Start 01/16/19 at 14:30 Metoclopramide HCl (Reglan) 5 mg Q6 IV Last administered on 01/30/19 05:07; Admin Dose 5 MG; Start 01/17/19 at 18:00 Lansoprazole (Prevacid) 30 mg DAILY@06 GTB Last administered on 01/30/19 05:07; Admin Dose 30 MG; Start 01/18/19 at 06:00 Insulin Glargine (Lantus) 5 units DAILY@2000 SC Last administered on 01/29/19 21:47; Admin Dose 5 UNITS; Start 01/18/19 at 20:00 Diagnostic Test (Pha) (Accu-Chek) 1 ea 02 XX Last administered on 01/30/19 01:33; Admin Dose 1 EA; Start 01/19/19 at 02:00 Hydralazine HCl (Apresoline) 5 mg Q4H PRN IV elevated BP Last administered on 01/20/19 03:50; Admin Dose 5 MG; Start 01/19/19 at 23:00 Clonidine (Catapres) 0.1 mg Q4H PRN GTB elevated BP Last administered on 01/20/19 06:20; Admin Dose 0.1 MG; Start 01/19/19 at 23:00 Clonidine (Catapres) 0.1 mg BID PO Last administered on 01/29/19 21:07; Admin Dose 0.1 MG; Start 01/20/19 at 21:00 Sucralfate (Carafate Susp) 1 gm QID GTB Last administered on 01/29/19 21:07; Admin Dose 1 GM; Start 01/23/19 at 13:00 Erythromycin (Erythromycin) 250 mg Q8 PO Last administered on 01/30/19 05:07; Admin Dose 250 MG; Start 01/25/19 at 14:00 Atorvastatin Calcium (Lipitor) 20 mg HS GTB Last administered on 01/29/19 21:06; Admin Dose 20 MG; Start 01/25/19 at 21:00 Insulin Aspart (Novolog Insulin Pen) (Adult SC Insulin - Moder... Q8 SC Last administered on 01/30/19 05:36; Admin Dose 2 UNIT; Start 01/27/19 at 14:00 TAMEKA JULIO Jan 30, 2019 07:44
[2019-01-30] MEDS: ALBUTEROL/IPRATROPIUM (NEB) 3 ML AMP HHN SCH ×4 (08:29→21:04)
[2019-01-30] MEDS: MULTIVITAMINS THERAPEUTIC TAB GTB SCH (08:51)
[2019-01-30] MEDS: BALSAM PERU/CASTOR OIL 60 GM TUBE TOP SCH ×2 (08:52→21:06)
[2019-01-30] MEDS: SUCRALFATE (100 MG/ML) 10ML CUP GTB SCH ×4 (08:52→21:06)
[2019-01-30] MEDS: ASCORBIC ACID 500 MG TAB GTB SCH (08:52)
[2019-01-30 11:27] VITALS: BP 156/70; PULSE 75; RESP 20
[2019-01-30] MEDS ORDERED: POTASSIUM CHLORIDE 20 MEQ POWDER FOR ORAL SOLN PO ONE (12:00)
[2019-01-30] MEDS ORDERED: FUROSEMIDE 40 MG INJ IV ONE (12:00)
--- NOTE | 2019-01-30 12:18 | PN ---
DATE: 01/30/2019 SUBJECTIVE: The patient is lethargic, in mild respiratory distress. OBJECTIVE: VITAL SIGNS: Temperature 98.2, blood pressure 153/67, O2 saturation 98% on room air. CHEST: Revealed bilateral wheezes. HEART: S1, S2 heard with no definite gallops. ABDOMEN: Soft. EXTREMITIES: No edema. LABORATORY DATA: Potassium 3.7, BUN 85, creatinine 1.83, hematocrit 27.7. IMPRESSION: 1. Acute on chronic diastolic heart failure. 2. Hypokalemia, resolved. 3. Gastric ulcer, gastroparesis, status post prior GI bleed. 4. Diabetes mellitus type 2, well controlled. 5. Hypertension. 6. Multi-infarct dementia. 7. Peripheral arterial disease. 8. Coronary artery disease, status post non-STEMI with recurrent atrial fibrillation. PLAN: We will give 1 dose of Lasix IV push today. Check x-rays tomorrow along continue potassium pacheco pplements. Dictated By: NATALI TIWARI MD, SR/EDWAR Conf#: [id number] DID#: [id number]
[2019-01-30] MEDS: ONDANSETRON 4 MG INJ IV PRN (12:38)
[2019-01-30 15:45] VITALS: BP 155/67; PULSE 76; RESP 20
[2019-01-30 20:00] VITALS: BP 132/58; PULSE 77; RESP 19
[2019-01-30] MEDS: ATORVASTATIN 20 MG TAB GTB SCH (20:52)
[2019-01-30] MEDS: INSULIN GLARGINE [LANTus] (100 UNITS/ML) SYG SC SCH (21:02)
[2019-01-31] VITALS (7 sets, daily range): BP systolic 110–141; BP diastolic 56–85; PULSE 65–84; RESP 18–20
[2019-01-31] MEDS: ACCU-CHEK XX SCH (02:09)
[2019-01-31] MEDS: LANSOPRAZOLE 30 MG CAP GTB SCH (05:14)
[2019-01-31] MEDS: METOCLOPRAMIDE 10 MG INJ IV SCH ×3 (05:14→17:00)
[2019-01-31] MEDS: ERYTHROMYCIN BASE (DR) 250 MG CAP PO SCH ×3 (05:14→21:07)
[2019-01-31] MEDS: INSULIN ASPART [NOVOLOG] 3 ML PEN SC SCH ×3 (05:46→23:02)
[2019-01-31] MEDS: ALBUTEROL/IPRATROPIUM (NEB) 3 ML AMP HHN SCH ×4 (08:59→20:02)
[2019-01-31] MEDS: SUCRALFATE (100 MG/ML) 10ML CUP GTB SCH ×4 (09:03→20:59)
[2019-01-31] MEDS: MULTIVITAMINS THERAPEUTIC TAB GTB SCH (09:03)
[2019-01-31] MEDS: ASCORBIC ACID 500 MG TAB GTB SCH (09:04)
[2019-01-31] MEDS: BALSAM PERU/CASTOR OIL 60 GM TUBE TOP SCH ×2 (09:11→21:01)
[2019-01-31] MEDS ORDERED: POTASSIUM CHLORIDE (1.33 MEQ/ML PO SYG) GTB SCH (14:30)
[2019-01-31] MEDS: POTASSIUM CHLORIDE 20 MEQ POWDER FOR ORAL SOLN GTB SCH (15:01)
[2019-01-31] MEDS: FUROSEMIDE 40 MG INJ IV SCH (15:02)
--- NOTE | 2019-01-31 18:41 | CONS ---
Assessment/Plan Assessment/Plan Assessment/Plan (Daily) Consultation Assessment/Plan Assessment/Plan Hospital Course (Demo Recall) 83 yo female 1. Diabetic Gastroparesis. 2. Diabetes mellitus. 3. Dementia. 4. Dysphagia, status post G-tube placement. 5. Pneumonia. 6. Renal insufficiency 7. Anemia -coffee ground emesis, slow downward trend of HH 8. Large stomal ulcer seen in EGD 9. Gastritis 10. Esophagitis Gastric biopsy: -- Oxyntic and oxyntopyloric mucosa showing focal mild foveolar hyperplasia and a few scattered plasma cells in the superficial lamina propria, histologically non-specific. -- No Helicobacter organisms are identified in a Giemsa stain (positive control concurrently reviewed). -- There is no evidence of malignancy. Plan Continue PPI and Reglan Continue Carafate and erythromycin If residual continues to remain persistently high then have to convert G-tube to J-tube Aspiration precautions Consultation Date/Type/Reason Admit Date/Time Jan 10, 2019 at 20:06 Initial Consult Date 01/13/19 Requesting Provider: NATALI TIWARI MD Date/Time of Note DATE: 01/31/19 TIME: 18:40 24 HR Interval Summary Free Text/Dictation As per the family patient did not tolerate feeding for few hours. Patient is more lethargic than before Exam/Review of Systems Exam Vitals Vital Signs Date Temp Pulse Resp B/P (MAP) Pulse Ox O2 O2 Flow FiO2 Time Delivery Rate 01/31/19 82 20 99 21 16:30 01/31/19 97.6 122/60 Room Air 15:25 (80) Intake and Output 01/30/19 01/30/19 01/31/19 1515:00 23:00 07:00 IntakeIntake Total 860 ml BalanceBalance 860 ml Psych: confusion Neck: supple, non-tender Respiratory: clear to auscultation Cardiovascular: regular rate and rhythm, nl pulses Results Result Diagram: 01/30/19 0539 01/30/19 0540 Results 24hrs Laboratory Tests Test 01/30/19 20:51 01/31/19 01:50 01/31/19 05:13 01/31/19 13:52 Bedside Glucose 157 143 170 133 Medications Medication Current Medications Miscellaneous Information 1 ea NOTE XX ; Start 01/11/19 at 21:00 Glucose (Glutose) 15 gm Q15M PRN PO DECREASED GLUCOSE; Start 01/11/19 at 21:00 Glucose (Glutose) 22.5 gm Q15M PRN PO DECREASED GLUCOSE; Start 01/11/19 at 21:00 Dextrose (D50w Syringe) 25 ml Q15M PRN IV DECREASED GLUCOSE Last administered on 01/23/19 05:24; Admin Dose 25 ML; Start 01/11/19 at 21:00 Dextrose (D50w Syringe) 50 ml Q15M PRN IV DECREASED GLUCOSE; Start 01/11/19 at 21:00 Glucagon (Glucagen) 1 mg Q15M PRN IM DECREASED GLUCOSE; Start 01/11/19 at 21:00 Glucose (Glutose) 15 gm Q15M PRN BUCCAL DECREASED GLUCOSE; Start 01/11/19 at 2 1:00 Ondansetron HCl (Zofran Inj) 4 mg Q4H PRN IV NAUSEA AND/OR VOMITING Last administered on 01/30/19 12:38; Admin Dose 4 MG; Start 01/14/19 at 23:30 Hydralazine HCl (Apresoline) 5 mg Q4H PRN IV ELEVATED BLOOD PRESSURE Last administered on 01/30/19 04:03; Admin Dose 5 MG; Start 01/15/19 at 00:00 Albuterol/ Ipratropium (Duoneb) 3 ml Q4HWA RESP THERAPY HHN Last administered on 01/31/19 16:37; Admin Dose 3 ML; Start 01/15/19 at 09:00 Albuterol/ Ipratropium (Duoneb) 3 ml Q4H RESP THERAPY PRN HHN SHORTNESS OF BREATH Last administered on 01/16/19 01:27; Admin Dose 3 ML; Start 01/15/19 at 00:00 Trazodone HCl (Desyrel) 50 mg Q4H PRN GTB AGITATION/ANXIETY Last administered on 01/21/19 20:19; Admin Dose 50 MG; Start 01/15/19 at 00:00 Ascorbic Acid (Vitamin C) 500 mg DAILY GTB Last administered on 01/31/19 09:04; Admin Dose 500 MG; Start 01/16/19 at 14:30 Multivitamins Therapeutic (Theragran) 1 tab DAILY GTB Last administered on 01/31/19 09:03; Admin Dose 1 TAB; Start 01/16/19 at 14:30 Metoclopramide HCl (Reglan) 5 mg Q6 IV Last administered on 01/31/19 17:00; Admin Dose 5 MG; Start 01/17/19 at 18:00 Lansoprazole (Prevacid) 30 mg DAILY@06 GTB Last administered on 01/31/19 05:14; Admin Dose 30 MG; Start 01/18/19 at 06:00 Insulin Glargine (Lantus) 5 units DAILY@2000 SC Last administered on 01/30/19 21:02; Admin Dose 5 UNITS; Start 01/18/19 at 20:00 Diagnostic Test (Pha) (Accu-Chek) 1 ea 02 XX Last administered on 01/31/19 02:09; Admin Dose 1 EA; Start 01/19/19 at 02:00 Hydralazine HCl (Apresoline) 5 mg Q4H PRN IV elevated BP Last administered on 01/20/19 03:50; Admin Dose 5 MG; Start 01/19/19 at 23:00 Clonidine (Catapres) 0.1 mg Q4H PRN GTB elevated BP Last administered on 01/20/19 06:20; Admin Dose 0.1 MG; Start 01/19/19 at 23:00 Clonidine (Catapres) 0.1 mg BID PO Last administered on 01/31/19 09:04; Admin Dose 0.1 MG; Start 01/20/19 at 21:00 Sucralfate (Carafate Susp) 1 gm QID GTB Last administered on 01/31/19 16:47; Admin Dose 1 GM; Start 01/23/19 at 13:00 Erythromycin (Erythromycin) 250 mg Q8 PO Last administered on 01/31/19 13:50; Admin Dose 250 MG; Start 01/25/19 at 14:00 Atorvastatin Calcium (Lipitor) 20 mg HS GTB Last administered on 01/30/19 2 0:52; Admin Dose 20 MG; Start 01/25/19 at 21:00 Insulin Aspart (Novolog Insulin Pen) (Adult SC Insulin - Moder... Q8 SC Last administered on 01/31/19 05:46; Admin Dose 2 UNIT; Start 01/27/19 at 14:00 Furosemide (Lasix) 40 mg DAILY IV Last administered on 7/3/19at 15:02; Admin Dose 40 MG; Start 01/31/19 at 14:30 Potassium Chloride (Potassium Chloride Pwd/Soln) 30 meq DAILY GTB Last administered on 01/31/19at 15:01; Admin Dose 30 MEQ; Start 01/31/19 at 14:30 JACLYN GUZMAN MD Jan 31, 2019 18:41
[2019-01-31] MEDS: INSULIN GLARGINE [LANTus] (100 UNITS/ML) SYG SC SCH (21:00)
[2019-01-31] MEDS: ATORVASTATIN 20 MG TAB GTB SCH (21:00)
[2019-02-01] MEDS: METOCLOPRAMIDE 10 MG INJ IV SCH ×4 (00:10→17:40)
[2019-02-01 00:23] VITALS: BP_SYST 106; BP_SYST 153; BP_DIAS 69; BP_DIAS 72; PULSE 95; RESP 18; RESP 20
[2019-02-01] MEDS: ACCU-CHEK XX SCH (01:05)
[2019-02-01 04:21] VITALS: BP 154/70; PULSE 75; RESP 18
[2019-02-01] MEDS: LANSOPRAZOLE 30 MG CAP GTB SCH (06:09)
[2019-02-01] MEDS: ERYTHROMYCIN BASE (DR) 250 MG CAP PO SCH ×3 (06:09→21:09)
[2019-02-01 07:27] VITALS: BP 135/64; PULSE 90; RESP 24
[2019-02-01] MEDS: INSULIN ASPART [NOVOLOG] 3 ML PEN SC SCH ×3 (07:29→21:28)
[2019-02-01] MEDS: ASCORBIC ACID 500 MG TAB GTB SCH (08:50)
[2019-02-01] MEDS: SUCRALFATE (100 MG/ML) 10ML CUP GTB SCH ×4 (08:50→21:09)
[2019-02-01] MEDS: POTASSIUM CHLORIDE 20 MEQ POWDER FOR ORAL SOLN GTB SCH (08:50)
[2019-02-01] MEDS: MULTIVITAMINS THERAPEUTIC TAB GTB SCH (08:50)
[2019-02-01] MEDS: FUROSEMIDE 40 MG INJ IV SCH (08:51)
[2019-02-01] MEDS: BALSAM PERU/CASTOR OIL 60 GM TUBE TOP SCH ×2 (08:51→21:10)
[2019-02-01] MEDS: ALBUTEROL/IPRATROPIUM (NEB) 3 ML AMP HHN SCH ×4 (09:52→20:11)
[2019-02-01 11:52] VITALS: BP 143/65; PULSE 76; RESP 24
--- NOTE | 2019-02-01 14:27 | CONS ---
Assessment/Plan Assessment/Plan Assessment/Plan (Daily) 83 yo female 1. Diabetic Gastroparesis. 2. Diabetes mellitus. 3. Dementia. 4. Dysphagia, status post G-tube placement. 5. Pneumonia. 6. Renal insufficiency 7. Anemia -coffee ground emesis, slow downward trend of HH 8. Large stomal ulcer seen in EGD 9. Gastritis 10. Esophagitis Plan Continue prokinetic agent PPI and Carafate Hep-Lock Consultation Date/Type/Reason Admit Date/Time Jan 10, 2019 at 20:06 Initial Consult Date 01/13/19 Requesting Provider: NATALI TIWARI MD Date/Time of Note DATE: 02/01/19 TIME: 14:26 24 HR Interval Summary Subjective hx not possible: pt non-verbal Constitutional: improved Exam/Review of Systems Exam Vitals Vital Signs Date Temp Pulse Resp B/P (MAP) Pulse Ox O2 O2 Flow FiO2 Time Delivery Rate 02/01/19 97.8 76 24 143/65 99 Room Air 11:52 (91) 02/01/19 21 11:31 Intake and Output 01/31/19 01/31/19 02/01/19 1515:00 23:00 07:00 IntakeIntake Total 60 ml 749 ml BalanceBalance 60 ml 749 ml Psych: confusion Respiratory: diminished breath sounds Cardiovascular: regular rate and rhythm Musculoskeletal: nl extremities to inspection, nl gait and stance Results Result Diagram: 01/30/19 0539 01/30/19 0540 Results 24hrs Laboratory Tests Test 01/31/19 20:43 01/31/19 22:26 02/01/19 06:11 02/01/19 13:26 Bedside Glucose 172 184 167 135 Medications Medication Current Medications Miscellaneous Information 1 ea NOTE XX ; Start 01/11/19 at 21:00 Glucose (Glutose) 15 gm Q15M PRN PO DECREASED GLUCOSE; Start 01/11/19 at 21:00 Glucose (Glutose) 22.5 gm Q15M PRN PO DECREASED GLUCOSE; Start 01/11/19 at 21:00 Dextrose (D50w Syringe) 25 ml Q15M PRN IV DECREASED GLUCOSE Last administered on 01/23/19at 05:24; Admin Dose 25 ML; Start 01/11/19 at 21:00 Dextrose (D50w Syringe) 50 ml Q15M PRN IV DECREASED GLUCOSE; Start 01/11/19 at 21:00 Glucagon (Glucagen) 1 mg Q15M PRN IM DECREASED GLUCOSE; Start 01/11/19 at 21:00 Glucose (Glutose) 15 gm Q15M PRN BUCCAL DECREASED GLUCOSE; Start 01/11/19 at 21:00 Ondansetron HCl (Zofran Inj) 4 mg Q4H PRN IV NAUSEA AND/OR VOMITING Last administered on 01/30/19 12:38; Admin Dose 4 MG; Start 01/14/19 at 23:30 Hydralazine HCl (Apresoline) 5 mg Q4H PRN IV ELEVATED BLOOD PRESSURE Last administered on 01/30/19 04:03; Admin Dose 5 MG; Start 01/15/19 at 00:00 Albuterol/ Ipratropium (Duoneb) 3 ml Q4HWA RESP THERAPY HHN Last administered on 02/01/19 09:52; Admin Dose 3 ML; Start 01/15/19 at 09:00 Albuterol/ Ipratropium (Duoneb) 3 ml Q4H RESP THERAPY PRN HHN SHORTNESS OF BREATH Last administered on 01/16/19 01:27; Admin Dose 3 ML; Start 01/15/19 at 00:00 Trazodone HCl (Desyrel) 50 mg Q4H PRN GTB AGITATION/ANXIETY Last administered on 01/21/19 20:19; Admin Dose 50 MG; Start 01/15/19 at 00:00 Ascorbic Acid (Vitamin C) 500 mg DAILY GTB Last administered on 02/01/19 08:50; Admin Dose 500 MG; Start 01/16/19 at 14:30 Multivitamins Therapeutic (Theragran) 1 tab DAILY GTB Last administered on 02/01/19 08:50; Admin Dose 1 TAB; Start 01/16/19 at 14:30 Metoclopramide HCl (Reglan) 5 mg Q6 IV Last administered on 02/01/19 13:20; Admin Dose 5 MG; Start 01/17/19 at 18:00 Lansoprazole (Prevacid) 30 mg DAILY@06 GTB Last administered on 02/01/19 06:09; Admin Dose 30 MG; Start 01/18/19 at 06:00 Insulin Glargine (Lantus) 5 units DAILY@2000 SC Last administered on 01/31/19 21:00; Admin Dose 5 UNITS; Start 01/18/19 at 20:00 Diagnostic Test (Pha) (Accu-Chek) 1 ea 02 XX Last administered on 01/31/19 02:09; Admin Dose 1 EA; Start 01/19/19 at 02:00 Hydralazine HCl (Apresoline) 5 mg Q4H PRN IV elevated BP Last administered on 01/20/19 03:50; Admin Dose 5 MG; Start 01/19/19 at 23:00 Clonidine (Catapres) 0.1 mg Q4H PRN GTB elevated BP Last administered on 01/20/19 06:20; Admin Dose 0.1 MG; Start 01/19/19 at 23:00 Clonidine (Catapres) 0.1 mg BID PO Last administered on 02/01/19 08:51; Admin Dose 0.1 MG; Start 01/20/19 at 21:00 Sucralfate (Carafate Susp) 1 gm QID GTB Last administered on 02/01/19 13:20; Admin Dose 1 GM; Start 01/23/19 at 13:00 Erythromycin (Erythromycin) 250 mg Q8 PO Last administered on 02/01/19 13:20; Admin Dose 250 MG; Start 01/25/19 at 14:00 Atorvastatin Calcium (Lipitor) 20 mg HS GTB Last administered on 01/31/19 21:00; Admin Dose 20 MG; Start 01/25/19 at 21:00 Insulin Aspart (Novolog Insulin Pen) (Adult SC Insulin - Moder... Q8 SC Last administered on 02/01/19 07:29; Admin Dose 2 UNIT; Start 01/27/19 at 14:00 Furosemide (Lasix) 40 mg DAILY IV Last administered on 02/01/19 08:51; Admin Dose 40 MG; Start 01/31/19 at 14:30 Potassium Chloride (Potassium Chloride Pwd/Soln) 30 meq DAILY GTB Last administ ered on 02/01/19 08:50; Admin Dose 30 MEQ; Start 01/31/19 at 14:30 JACLYN GUZMAN MD Feb 01, 2019 14:27
[2019-02-01] MEDS ORDERED: POTASSIUM CHLORIDE (SR) 20 MEQ TAB PO STA (15:20)
[2019-02-01 16:09] VITALS: BP 160/68; PULSE 78; RESP 24
--- NOTE | 2019-02-01 18:18 | PN ---
DATE: 02/01/2019 SUBJECTIVE: The patient is lethargic, intermittent shortness of breath. OBJECTIVE: VITAL SIGNS: Temperature 96.2, blood pressure 160/68, O2 sat is 97% on room air. HEENT: Mild pallor with cyanosis. NECK: JVD is increased. CHEST: Few rales at the bases. HEART: S1, S2 heard. No definite gallops. EXTREMITIES: No edema. LABORATORY STUDIES: Blood glucose levels are in normal glycemic range. IMPRESSION: 1. Acute on chronic diastolic heart failure, slowly improving. 2. Gastric ulcer, gastroparesis, status post prior gastrointestinal bleed. 3. Diabetes mellitus type 2, well controlled. 4. Coronary artery disease, status post non-ST elevation myocardial infarction with recurrent atrial fibrillation. 5. Multi-infarct dementia. 6. Peripheral arterial disease. PLAN: Continue IV Lasix. Recheck labs and follow. Dictated By: NATALI TIWARI MD SR/NTS Conf#: [id number] DID#: [id number] CC: JACLYN GUZMAN MD;*EndCC*
--- NOTE | 2019-02-01 18:25 | PN ---
DATE: 02/01/2019 ADDENDUM: I was notified by nursing that patient's potassium was 3.2 and an order for potassium 40 m Eq KCl was given. On checking the records, potassium level was not 3.2. It was to be done later tominal pereyra. Because patient has underlying kidney failure and concern about hyperkalemia, we will reorder K levels stat and order Kayexalate if needed. Dictated By: NATALI TIWARI MD SR/NTS Conf#: [id number] DID#: [id number] CC: JACLYN GUZMAN MD;*EndCC*
[2019-02-01 20:00] VITALS: BP 187/78; PULSE 19; PULSE 87; RESP 87
[2019-02-01] MEDS: ATORVASTATIN 20 MG TAB GTB SCH (21:09)
[2019-02-01] MEDS: INSULIN GLARGINE [LANTus] (100 UNITS/ML) SYG SC SCH (21:28)
[2019-02-02] VITALS: BP 160/70; PULSE 81; RESP 81
[2019-02-02] MEDS: METOCLOPRAMIDE 10 MG INJ IV SCH ×4 (01:16→18:00)
[2019-02-02] MEDS: ACCU-CHEK XX SCH (01:17)
[2019-02-02 04:39] VITALS: BP 175/76; PULSE 65; RESP 65
--- NOTE | 2019-02-02 06:18 | PN ---
DATE: 01/31/2019 SUBJECTIVE: The patient has shortness of breath intermittently, lethargic. OBJECTIVE: VITAL SIGNS: Temperature 97.8, blood pressure 110/56, O2 sats 96%. NECK: JVD is increased. CHEST: Few crackles heard at the bases. HEART: S1, S2 heard. No definite gallops. EXTREMITIES: No edema. IMAGING: Chest x-ray from yesterday shows pulmonary edema with some improvement on the left side. IMPRESSION: 1. Acute on chronic diastolic heart failure. 2. Gastric ulcer, gastroparesis, status post prior gastrointestinal bleed. 3. Coronary artery disease, status post non-ST elevation myocardial infarction with recurrent atrial fibrillation. 4. Peripheral arterial disease. 5. Multi-infarct dementia. 6. Hypertension. PLAN: We will continue IV Lasix for 2 more days. Repeat an x-ray and then initiate discharge planni ten. Dictated By: NATALI TIWARI MD SR/NTS Conf#: [id number] DID#: [id number] CC: JACLYN GUZMAN MD;*EndCC*
[2019-02-02] MEDS: ERYTHROMYCIN BASE (DR) 250 MG CAP PO SCH ×3 (06:30→21:46)
[2019-02-02] MEDS: LANSOPRAZOLE 30 MG CAP GTB SCH (06:30)
[2019-02-02] MEDS: INSULIN ASPART [NOVOLOG] 3 ML PEN SC SCH ×3 (06:42→21:50)
[2019-02-02 07:27] VITALS: BP 151/72; PULSE 77; RESP 22
[2019-02-02] MEDS: MULTIVITAMINS THERAPEUTIC TAB GTB SCH (08:39)
[2019-02-02] MEDS: ASCORBIC ACID 500 MG TAB GTB SCH (08:39)
[2019-02-02] MEDS: SUCRALFATE (100 MG/ML) 10ML CUP GTB SCH ×4 (08:39→20:48)
[2019-02-02] MEDS: FUROSEMIDE 40 MG INJ IV SCH (08:40)
[2019-02-02] MEDS: BALSAM PERU/CASTOR OIL 60 GM TUBE TOP SCH ×2 (08:40→20:49)
--- NOTE | 2019-02-02 08:59 | PN ---
DATE: 02/02/2019 SUBJECTIVE: The patient is lethargic, has intermittent shortness of breath, congested cough. OBJECTIVE: VITAL SIGNS: Temperature 98.0, blood pressure 151/72, O2 sat is pending. JVD is not increased. CHEST: Bilateral crackles at the bases. HEART: S1, S2 heard, no definite gallops. EXTREMITIES: No edema. LABORATORY DATA: WBC count 6.2, hematocrit 27.1, Sodium 145, potassium 4.9, BUN 99, creatinine 2.08, glucose levels are within normal glycemic range. IMPRESSION: 1. Acute on chronic diastolic heart failure on intravenous diuretics. 2. Status post prior GI bleed, gastric ulcer and gastroparesis. 3. Coronary artery disease, status post non-ST elevation myocardial infarction with recurrent atrial fibrillation. 4. Peripheral arterial disease with heel DTI. 5. Multi-infarct dementia. 6. Hypertension. PLAN: Continue intravenous diuretics. Repeat chest x-ray in the morning. We will discuss with darrick nguyễn regarding convalescent home placement. The patient's family would prefer a different facility, [facility] once she was in before. Dictated By: NATALI TIWARI MD SR/NTS Conf#: [id number] DID#: [id number] CC: NATALI TIWARI MD; JACLYN GUZMAN MD;*End*
[2019-02-02] MEDS: ALBUTEROL/IPRATROPIUM (NEB) 3 ML AMP HHN SCH ×4 (09:15→20:57)
[2019-02-02 11:57] VITALS: BP 154/72; PULSE 77; RESP 22
[2019-02-02] MEDS ORDERED: Insulin Glargine SC (13:22)
[2019-02-02] MEDS ORDERED: traZODone GTB (13:22)
[2019-02-02] MEDS ORDERED: CLON0.1T14 PO (13:22)
[2019-02-02] MEDS ORDERED: ERYT250C52 PO (13:22)
[2019-02-02] MEDS ORDERED: CARAS GTB (13:22)
[2019-02-02] MEDS ORDERED: LANS30CA GTB (13:22)
--- NOTE | 2019-02-02 13:29 | CONS ---
Assessment/Plan Assessment/Plan Assessment/Plan (Daily) Assessment/Plan Assessment/Plan (Daily) 83 yo female 1. Diabetic Gastroparesis. 2. Diabetes mellitus. 3. Dementia. 4. Dysphagia, status post G-tube placement. 5. Pneumonia. 6. Renal insufficiency 7. Anemia -coffee ground emesis, slow downward trend of HH 8. Large stomal ulcer seen in EGD 9. Gastritis 10. Esophagitis Plan Continue prokinetic agent PPI and Carafate Hep-Lock Consultation Date/Type/Reason Admit Date/Time Jan 10, 2019 at 20:06 Initial Consult Date 01/13/19 Requesting Provider: NATALI TIWARI MD Date/Time of Note DATE: 02/02/19 TIME: 13:28 24 HR Interval Summary Subjective hx not possible: pt non-verbal Constitutional: no complaints Exam/Review of Systems Exam Vitals Vital Signs Date Temp Pulse Resp B/P (MAP) Pulse Ox O2 O2 Flow FiO2 Time Delivery Rate 02/02/19 76 19 98 21 12:46 02/02/19 97.3 154/72 Room Air 11:57 (99) Intake and Output 02/01/19 02/01/19 02/02/19 1515:00 23:00 07:00 IntakeIntake Total 680 ml 572 ml BalanceBalance 680 ml 572 ml Neck: non-tender Respiratory: diminished breath sounds Cardiovascular: regular rate and rhythm, nl pulses Results Result Diagram: 02/02/19 0510 02/02/19 0510 Results 24hrs Laboratory Tests Test 02/01/19 18:24 02/01/19 21:21 02/02/19 05:10 02/02/19 06:33 Sodium Level 144 145 H Potassium Level 5.1 4.9 Chloride Level 107 107 Carbon Dioxide Level 28 28 Anion Gap 9 10 Blood Urea Nitrogen 98 H 99 H Creatinine 2.08 H 2.08 H Est Glomerular Filtrat Rate mL/min Glucose Level 143 128 Calcium Level 7.9 L 8.0 L Bedside Glucose 184 167 White Blood Count 6.2 Red Blood Count 3.03 L Hemoglobin 8.3 L Hematocrit 27.1 L Mean Corpuscular Volume 89.4 Mean Corpuscular 27.4 L Hemoglobin Mean Corpuscular 30.6 L Hemoglobin Concent Red Cell Distribution 19.3 H Width Platelet Count 155 Mean Platelet Volume 11.4 H Immature Granulocytes % 0.600 H Neutrophils % 69.5 Lymphocytes % 17.3 Monocytes % 8.4 Eosinophils % 3.4 Basophils % 0.8 Nucleated Red Blood 0.0 Cells % Immature Granulocytes # 0.040 H Neutrophils # 4.3 Lymphocytes # 1.1 Monocytes # 0.5 Eosinophils # 0.2 Basophils # 0.1 Nucleated Red Blood 0.0 Cells # Medications Medication Current Medications Miscellaneous Information 1 ea NOTE XX ; Start 01/11/19 at 21:00 Glucose (Glutose) 15 gm Q15M PRN PO DECREASED GLUCOSE; Start 01/11/19 at 21:00 Glucose (Glutose) 22.5 gm Q15M PRN PO DECREASED GLUCOSE; Start 01/11/19 at 21:00 Dextrose (D50w Syringe) 25 ml Q15M PRN IV DECREASED GLUCOSE Last administered on 01/23/19at 05:24; Admin Dose 25 ML; Start 01/11/19 at 21:00 Dextrose (D50w Syringe) 50 ml Q15M PRN IV DECREASED GLUCOSE; Start 01/11/19 at 21:00 Glucagon (Glucagen) 1 mg Q15M PRN IM DECREASED GLUCOSE; Start 01/11/19 at 21:00 Glucose (Glutose) 15 gm Q15M PRN BUCCAL DECREASED GLUCOSE; Start 01/11/19 at 21:00 Ondansetron HCl (Zofran Inj) 4 mg Q4H PRN IV NAUSEA AND/OR VOMITING Last administered on 01/30/19 12:38; Admin Dose 4 MG; Start 01/14/19 at 23:30 Hydralazine HCl (Apresoline) 5 mg Q4H PRN IV ELEVATED BLOOD PRESSURE Last administered on 01/30/19at 04:03; Admin Dose 5 MG; Start 01/15/19 at 00:00 Albuterol/ Ipratropium (Duoneb) 3 ml Q4HWA RESP THERAPY HHN Last administered on 02/02/19 12:46; Admin Dose 3 ML; Start 01/15/19 at 09:00 Albuterol/ Ipratropium (Duoneb) 3 ml Q4H RESP THERAPY PRN HHN SHORTNESS OF BREATH Last administered on 01/16/19at 01:27; Admin Dose 3 ML; Start 01/15/19 at 00:00 Trazodone HCl (Desyrel) 50 mg Q4H PRN GTB AGITATION/ANXIETY Last administered on 01/21/19 20:19; Admin Dose 50 MG; Start 01/15/19 at 00:00 Ascorbic Acid (Vitamin C) 500 mg DAILY GTB Last administered on 02/02/19 08:39; Admin Dose 500 MG; Start 01/16/19 at 14:30 Multivitamins Therapeutic (Theragran) 1 tab DAILY GTB Last administered on 02/02/19 08:39; Admin Dose 1 TAB; Start 01/16/19 at 14:30 Metoclopramide HCl (Reglan) 5 mg Q6 IV Last administered on 02/02/19 12:01; Admin Dose 5 MG; Start 01/17/19 at 18:00 Lansoprazole (Prevacid) 30 mg DAILY@06 GTB Last administered on 02/02/19 06:30; Admin Dose 30 MG; Start 01/18/19 at 06:00 Insulin Glargine (Lantus) 5 units DAILY@2000 SC Last administered on 02/01/19 21:28; Admin Dose 5 UNITS; Start 01/18/19 at 20:00 Diagnostic Test (Pha) (Accu-Chek) 1 ea 02 XX Last administered on 01/31/19 0 2:09; Admin Dose 1 EA; Start 01/19/19 at 02:00 Hydralazine HCl (Apresoline) 5 mg Q4H PRN IV elevated BP Last administered on 01/20/19 03:50; Admin Dose 5 MG; Start 01/19/19 at 23:00 Clonidine (Catapres) 0.1 mg Q4H PRN GTB elevated BP Last administered on 01/20/19 06:20; Admin Dose 0.1 MG; Start 01/19/19 at 23:00 Clonidine (Catapres) 0.1 mg BID PO Last administered on 02/02/19 08:39; Admin Dose 0.1 MG; Start 01/20/19 at 21:00 Sucralfate (Carafate Susp) 1 gm QID GTB Last administered on 02/02/19 12:01; Admin Dose 1 GM; Start 01/23/19 at 13:00 Erythromycin (Erythromycin) 250 mg Q8 PO Last administered on 02/02/19 06:30; Admin Dose 250 MG; Start 01/25/19 at 14:00 Atorvastatin Calcium (Lipitor) 20 mg HS GTB Last administered on 02/01/19at 21:09; Admin Dose 20 MG; Start 01/25/19 at 21:00 Insulin Aspart (Novolog Insulin Pen) (Adult SC Insulin - Moder... Q8 SC Last administered on 02/02/19at 06:42; Admin Dose 2 UNIT; Start 01/27/19 at 14:00 Furosemide (Lasix) 40 mg DAILY IV Last administered on 02/02/19at 08:40; Admin Dose 40 MG; Start 01/31/19 at 14:30 JACLYN GUZMAN MD Feb 02, 2019 13:29
[2019-02-02 15:26] VITALS: BP 163/73; PULSE 87
[2019-02-02 20:00] VITALS: BP 168/77; PULSE 84; RESP 19
[2019-02-02] MEDS: ATORVASTATIN 20 MG TAB GTB SCH (20:48)
[2019-02-02] MEDS: INSULIN GLARGINE [LANTus] (100 UNITS/ML) SYG SC SCH (20:52)
[2019-02-03] VITALS: BP 158/106; PULSE 80; RESP 18
[2019-02-03] MEDS: METOCLOPRAMIDE 10 MG INJ IV SCH ×3 (00:11→11:47)
[2019-02-03] MEDS: ACCU-CHEK XX SCH (02:01)
[2019-02-03 04:00] VITALS: BP 176/76; PULSE 83; RESP 18
[2019-02-03] MEDS: LANSOPRAZOLE 30 MG CAP GTB SCH (05:05)
[2019-02-03] MEDS: ERYTHROMYCIN BASE (DR) 250 MG CAP PO SCH ×2 (05:05→14:24)
[2019-02-03] MEDS: INSULIN ASPART [NOVOLOG] 3 ML PEN SC SCH ×2 (05:18→14:33)
[2019-02-03 07:28] VITALS: BP 142/64; PULSE 81; RESP 20
[2019-02-03] MEDS: ASCORBIC ACID 500 MG TAB GTB SCH (08:08)
[2019-02-03] MEDS: MULTIVITAMINS THERAPEUTIC TAB GTB SCH (08:08)
[2019-02-03] MEDS: SUCRALFATE (100 MG/ML) 10ML CUP GTB SCH ×2 (08:08→14:24)
[2019-02-03] MEDS: BALSAM PERU/CASTOR OIL 60 GM TUBE TOP SCH (08:08)
[2019-02-03] MEDS: FUROSEMIDE 40 MG INJ IV SCH (08:08)
[2019-02-03] MEDS: ALBUTEROL/IPRATROPIUM (NEB) 3 ML AMP HHN SCH ×2 (09:27→14:20)
--- NOTE | 2019-02-03 10:19 | PN ---
Date/Time of Note Date/Time of Note DATE: 02/03/19 TIME: 10:17 Subjective Patient is alert and comfortable. No respiratory distress Objective Vitals Vital Signs Date Temp Pulse Resp B/P (MAP) Pulse Ox O2 O2 Flow FiO2 Time Delivery Rate 02/03/19 88 16 99 21 09:30 02/03/19 98.2 142/64 07:28 (90) 02/03/19 Room Air 04:00 Intake and Output 02/02/19 02/02/19 02/03/19 1515:00 23:00 07:00 IntakeIntake Total 680 ml BalanceBalance 680 ml Clear to auscultation bilaterally Regular rate and rhythm Soft nontender nondistended normoactive bowel sounds No edema diffuse muscular atrophy Results Result Diagram: 02/02/1950902/02/19 0510 Medications Medications Current Medications Miscellaneous Information 1 ea NOTE XX ; Start 01/11/19 at 21:00 Glucose (Glutose) 15 gm Q15M PRN PO DECREASED GLUCOSE; Start 01/11/19 at 21:00 Glucose (Glutose) 22.5 gm Q15M PRN PO DECREASED GLUCOSE; Start 01/11/19 at 21:00 Dextrose (D50w Syringe) 25 ml Q15M PRN IV DECREASED GLUCOSE Last administered on 01/23/19at 05:24; Admin Dose 25 ML; Start 01/11/19 at 21:00 Dextrose (D50w Syringe) 50 ml Q15M PRN IV DECREASED GLUCOSE; Start 01/11/19 at 21:00 Glucagon (Glucagen) 1 mg Q15M PRN IM DECREASED GLUCOSE; Start 01/11/19 at 21:00 Glucose (Glutose) 15 gm Q15M PRN BUCCAL DECREASED GLUCOSE; Start 01/11/19 at 21:00 Ondansetron HCl (Zofran Inj) 4 mg Q4H PRN IV NAUSEA AND/OR VOMITING Last admi nistered on 01/30/19at 12:38; Admin Dose 4 MG; Start 01/14/19 at 23:30 Hydralazine HCl (Apresoline) 5 mg Q4H PRN IV ELEVATED BLOOD PRESSURE Last administered on 01/30/19at 04:03; Admin Dose 5 MG; Start 01/15/19 at 00:00 Albuterol/ Ipratropium (Duoneb) 3 ml Q4HWA RESP THERAPY HHN Last administered on 02/03/19 09:27; Admin Dose 3 ML; Start 01/15/19 at 09:00 Albuterol/ Ipratropium (Duoneb) 3 ml Q4H RESP THERAPY PRN HHN SHORTNESS OF BREATH Last administered on 01/16/19 01:27; Admin Dose 3 ML; Start 01/15/19 at 00:00 Trazodone HCl (Desyrel) 50 mg Q4H PRN GTB AGITATION/ANXIETY Last administered on 01/21/19 20:19; Admin Dose 50 MG; Start 01/15/19 at 00:00 Ascorbic Acid (Vitamin C) 500 mg DAILY GTB Last administered on 02/03/19 08:08; Admin Dose 500 MG; Start 01/16/19 at 14:30 Multivitamins Therapeutic (Theragran) 1 tab DAILY GTB Last administered on 02/03/19 08:08; Admin Dose 1 TAB; Start 01/16/19 at 14:30 Metoclopramide HCl (Reglan) 5 mg Q6 IV Last administered on 02/03/19 05:06; Admin Dose 5 MG; Start 01/17/19 at 18:00 Lansoprazole (Prevacid) 30 mg DAILY@06 GTB Last administered on 02/03/19 05:05; Admin Dose 30 MG; Start 01/18/19 at 06:00 Insulin Glargine (Lantus) 5 units DAILY@2000 SC Last administered on 02/02/19 20:52; Admin Dose 5 UNITS; Start 01/18/19 at 20:00 Diagnostic Test (Pha) (Accu-Chek) 1 ea 02 XX Last administered on 02/03/19 02:01; Admin Dose 1 EA; Start 01/19/19 at 02:00 Hydralazine HCl (Apresoline) 5 mg Q4H PRN IV elevated BP Last administered on 01/20/19 03:50; Admin Dose 5 MG; Start 01/19/19 at 23:00 Clonidine (Catapres) 0.1 mg Q4H PRN GTB elevated BP Last administered on 01/20/19 06:20; Admin Dose 0.1 MG; Start 01/19/19 at 23:00 Clonidine (Catapres) 0.1 mg BID PO Last administered on 02/03/19 08:08; Admin Dose 0.1 MG; Start 01/20/19 at 21:00 Sucralfate (Carafate Susp) 1 gm QID GTB Last administered on 02/03/19 08:08; Admin Dose 1 GM; Start 01/23/19 at 13:00 Erythromycin (Erythromycin) 250 mg Q8 PO Last administered on 02/03/19 05:05; Admin Dose 250 MG; Start 01/25/19 at 14:00 Atorvastatin Calcium (Lipitor) 20 mg HS GTB Last administered on 02/02/19 20:48; Admin Dose 20 MG; Start 01/25/19 at 21:00 Insulin Aspart (Novolog Insulin Pen) (Adult SC Insulin - Moder... Q8 SC Last administered on 02/03/19 05:18; Admin Dose 4 UNIT; Start 01/27/19 at 14:00 Furosemide (Lasix) 40 mg DAILY IV Last administered on 02/03/19 08:08; Admin Dose 40 MG; Start 01/31/19 at 14:30 VTE Prophylaxis Risk score (from Nsg)>0 risk: 8 SCD applied (from Nsg): Yes Lines/Catheters IV Catheter Type: Saline Lock Aranda in Place: No Assessment/Plan Assessment/Plan 83-year-old female with acute non-STEMI CHF, compensated Dysphagia, status post G-tube placement Advanced Alzheimer's dementia Chronic debilitation Poor prognosis Patient is in a stable condition for transition to half-way facility She is an appropriate hospice candidate Case was discussed with son at the bedside MASON DUARTE MD Feb 03, 2019 10:19
--- NOTE | 2019-02-03 10:56 | CONS ---
Assessment/Plan Assessment/Plan Assessment/Plan (Daily) Assessment/Plan Assessment/Plan (Daily) 83 yo female 1. Diabetic Gastroparesis. 2. Diabetes mellitus. 3. Dementia. 4. Dysphagia, status post G-tube placement. 5. Pneumonia. 6. Renal insufficiency 7. Anemia -coffee ground emesis, slow downward trend of HH 8. Large stomal ulcer seen in EGD 9. Gastritis 10. Esophagitis Plan Continue prokinetic agent PPI and Carafate Hep-Lock Patient is stable from GI point to be transferred Consultation Date/Type/Reason Admit Date/Time Jan 10, 2019 at 20:06 Initial Consult Date 01/13/19 Requesting Provider: NATALI TIWARI MD Date/Time of Note DATE: 02/03/19 TIME: 10:55 24 HR Interval Summary Free Text/Dictation Patient is tolerating feeding. No high residual Exam/Review of Systems Exam Vitals Vital Signs Date Temp Pulse Resp B/P (MAP) Pulse Ox O2 O2 Flow FiO2 Time Delivery Rate 02/03/19 88 16 99 21 09:30 02/03/19 98.2 142/64 07:28 (90) 02/03/19 Room Air 04:00 Intake and Output 02/02/19 02/02/19 02/03/19 1515:00 23:00 07:00 IntakeIntake Total 680 ml BalanceBalance 680 ml Gastrointestinal: soft, nl liver, spleen, non-tender Extremities: normal pulses Results Result Diagram: 02/02/19 0510 02/02/19 0510 Results 24hrs Laboratory Tests Test 02/02/19 14:46 02/02/19 20:16 02/03/19 01:29 02/03/19 05:13 Bedside Glucose 131 150 219 210 Medications Medication Current Medications Miscellaneous Information 1 ea NOTE XX ; Start 01/11/19 at 21:00 Glucose (Glutose) 15 gm Q15M PRN PO DECREASED GLUCOSE; Start 01/11/19 at 21:00 Glucose (Glutose) 22.5 gm Q15M PRN PO DECREASED GLUCOSE; Start 01/11/19 at 21:00 Dextrose (D50w Syringe) 25 ml Q15M PRN IV DECREASED GLUCOSE Last administered on 01/23/19at 05:24; Admin Dose 25 ML; Start 01/11/19 at 21:00 Dextrose (D50w Syringe) 50 ml Q15M PRN IV DECREASED GLUCOSE; Start 01/11/19 at 21:00 Glucagon (Glucagen) 1 mg Q15M PRN IM DECREASED GLUCOSE; Start 01/11/19 at 21:00 Glucose (Glutose) 15 gm Q15M PRN BUCCAL DECREASED GLUCOSE; Start 01/11/19 at 21:00 Ondansetron HCl (Zofran Inj) 4 mg Q4H PRN IV NAUSEA AND/OR VOMITING Last administered on 01/30/19 12:38; Admin Dose 4 MG; Start 01/14/19 at 23:30 Hydralazine HCl (Apresoline) 5 mg Q4H PRN IV ELEVATED BLOOD PRESSURE Last administered on 01/30/19 04:03; Admin Dose 5 MG; Start 01/15/19 at 00:00 Albuterol/ Ipratropium (Duoneb) 3 ml Q4HWA RESP THERAPY HHN Last administered on 02/03/19 09:27; Admin Dose 3 ML; Start 01/15/19 at 09:00 Albuterol/ Ipratropium (Duoneb) 3 ml Q4H RESP THERAPY PRN HHN SHORTNESS OF BREATH Last administered on 01/16/19 01:27; Admin Dose 3 ML; Start 01/15/19 at 00:00 Trazodone HCl (Desyrel) 50 mg Q4H PRN GTB AGITATION/ANXIETY Last administered on 01/21/19 20:19; Admin Dose 50 MG; Start 01/15/19 at 00:00 Ascorbic Acid (Vitamin C) 500 mg DAILY GTB Last administered on 02/03/19 08:08; Admin Dose 500 MG; Start 01/16/19 at 14:30 Multivitamins Therapeutic (Theragran) 1 tab DAILY GTB Last administered on 02/03/19 08:08; Admin Dose 1 TAB; Start 01/16/19 at 14:30 Metoclopramide HCl (Reglan) 5 mg Q6 IV Last administered on 02/03/19 05:06; Admin Dose 5 MG; Start 01/17/19 at 18:00 Lansoprazole (Prevacid) 30 mg DAILY@06 GTB Last administered on 02/03/19 05:05; Admin Dose 30 MG; Start 01/18/19 at 06:00 Insulin Glargine (Lantus) 5 units DAILY@2000 SC Last administered on 02/02/19 20:52; Admin Dose 5 UNITS; Start 01/18/19 at 20:00 Diagnostic Test (Pha) (Accu-Chek) 1 ea 02 XX Last administered on 02/03/19 02:01; Admin Dose 1 EA; Start 01/19/19 at 02:00 Hydralazine HCl (Apresoline) 5 mg Q4H PRN IV elevated BP Last administered on 01/20/19 03:50; Admin Dose 5 MG; Start 01/19/19 at 23:00 Clonidine (Catapres) 0.1 mg Q4H PRN GTB elevated BP Last administered on 01/20/19 06:20; Admin Dose 0.1 MG; Start 01/19/19 at 23:00 Clonidine (Catapres) 0.1 mg BID PO Last administered on 02/03/19 08:08; Admin Dose 0.1 MG; Start 01/20/19 at 21:00 Sucralfate (Carafate Susp) 1 gm QID GTB Last administered on 02/03/19 08:08; Admin Dose 1 GM; Start 01/23/19 at 13:00 Erythromycin (Erythromycin) 250 mg Q8 PO Last administered on 02/03/19 05:05; Admin Dose 250 MG; Start 01/25/19 at 14:00 Atorvastatin Calcium (Lipitor) 20 mg HS GTB Last administered on 02/02/19 20:48; Admin Dose 20 MG; Start 01/25/19 at 21:00 Insulin Aspart (Novolog Insulin Pen) (Adult SC Insulin - Moder... Q8 SC Last administered on 02/03/19 05:18; Admin Dose 4 UNIT; Start 01/27/19 at 14:00 Furosemide (Lasix) 40 mg DAILY IV Last administered on 02/03/19 08:08; Admin Dose 40 MG; Start 01/31/19 at 14:30 JACLYN GUZMAN MD Feb 03, 2019 10:56
[2019-02-03 11:36] VITALS: BP 153/70; PULSE 84; RESP 18
--- NOTE | 2019-02-14 18:04 | DS ---
DATE OF ADMISSION: 01/10/2019 DATE OF DISCHARGE: 02/03/2019 DISCHARGE DIAGNOSES: 1. An 83-year-old female with acute on chronic diastolic congestive heart failure exacerbation, comp ensated. 2. Status post prior gastrointestinal bleed due to gastric ulcer. 3. Coronary artery disease. 4. Status post non-ST elevated myocardial infarction. 5. Recurrent atrial fibrillation. 6. Peripheral vascular disease. 7. Multi-infarct dementia. 8. Hypertension. HOSPITAL COURSE: An 83-year-old female with multiple other medical problems was brought in from a [facility] with generalized weakness and altered mental status. Initial evaluation revea led bilateral pneumonia, hyponatremia, and acute on chronic kidney disease. The patient had a prolonged hospitalization due to multiple comorbidities and her severe dementia. I only saw her on the day of discharge and I discussed her case with primary care provider, Dr. Mejia mckeon. He agreed that the patient is stable for discharge to halfway facility. The patient is also a very appropriate candidate for hospice due to her underlying comorbidities, severe dementi a, and chronic debilitation. Discharge planning was discussed with her daughter who agreed to [facility] nursing facility placement. Dictated By: MASON JOEL/EDWAR Conf#: [id number] DID#: [id number] CC: NATALI TIWARI MD;*EndCC*
== END 2019-02-03 16:03 | DRG 193 ==
LOC: E/R 17:36 → 6WM 20:06
PROVIDERS: ADMIT Internal Medicine; ATTEND Internal Medicine
PROC: 30233N1 Transfusion of Nonautologous Red Blood Cells into Peripheral Vein, Percutaneous Approach (ICD-10-PCS; principal; 2019-01-13)
PROC: 0DB68ZX Excision of Stomach, Via Natural or Artificial Opening Endoscopic, Diagnostic (ICD-10-PCS; 2019-01-23)
DX: J18.9 Pneumonia, unspecified organism (principal); I50.33 Acute on chronic diastolic (congestive) heart failure; E87.0 Hyperosmolality and hypernatremia; N17.9 Acute kidney failure, unspecified; E44.0 Moderate protein-calorie malnutrition; I13.0 Hypertensive heart and chronic kidney disease with heart failure and stage 1 through stage 4 chronic kidney disease, or unspecified chronic kidney disease; L97.419 Non-pressure chronic ulcer of right heel and midfoot with unspecified severity; R13.10 Dysphagia, unspecified; N18.9 Chronic kidney disease, unspecified; I25.10 Atherosclerotic heart disease of native coronary artery without angina pectoris; I48.91 Unspecified atrial fibrillation; E11.22 Type 2 diabetes mellitus with diabetic chronic kidney disease; F01.50 Vascular dementia, unspecified severity, without behavioral disturbance, psychotic disturbance, mood disturbance, and anxiety; Z74.01 Bed confinement status; Z93.1 Gastrostomy status; I25.2 Old myocardial infarction; E11.43 Type 2 diabetes mellitus with diabetic autonomic (poly)neuropathy; K31.84 Gastroparesis; D63.1 Anemia in chronic kidney disease; E11.51 Type 2 diabetes mellitus with diabetic peripheral angiopathy without gangrene; I70.234 Atherosclerosis of native arteries of right leg with ulceration of heel and midfoot; I70.202 Unspecified atherosclerosis of native arteries of extremities, left leg; K29.60 Other gastritis without bleeding; K28.9 Gastrojejunal ulcer, unspecified as acute or chronic, without hemorrhage or perforation; K21.0 Gastro-esophageal reflux disease with esophagitis; Z87.820 Personal history of traumatic brain injury; E87.6 Hypokalemia
CPT/HCPCS: 36415; 36430; 36600; 71045; 74018; 80048; 80053; 80202; 81001; 82271; 82607; 82728; 82746; 82803; 82962; 83540; 83605; 83735; 83880; 84145; 84484; 85025; 85045; 85610; 85730; 86850; 86900; 86901; 86920; 87070; 87081; 87086; 88305; 88312; 93005; 93922; 94640; 94664; J0360; J0692; J1815; J1940; J2001; J2185; J2405; J2765; J3010; J3370; J7040; P9016